=== PATIENT | female | born 1970 | race Two or more races ===

== ENCOUNTER 2016-08-21 12:11 | Emergency (ER) | payer SELFPAY ==
--- NOTE | 2016-08-21 12:32 | ER Document Report ---
ED Medical Screen (RME) - General Stated Complaint: BLOOD SUGAR PROBLEM Notes: patient is a 45 year old female p/w elevated blood sugar last night. admits to dry mouth, urinary frequency, nausea without vomiting for the past week. also admits to cough and shortness of breath that started last week. Denies tkaing steroids for symptoms. type one DM blood sugar at home 315, baseline 140-160 I have greeted and performed a rapid initial assessment of this patient. A comprehensive ED assessment and evaluation of the patient, analysis of test results and completion of the medical decision making process will be conducted by additional ED providers. TRAVEL OUTSIDE OF THE [place] IN LAST 30 DAYS: No - Related Data Allergies/Adverse Reactions: acetaminophen [From Percocet] Allergy (Verified 07/30/15 15:44) celecoxib [From Celebrex] Allergy (Verified 07/30/15 15:44) erythromycin base [Erythromycin Base] Allergy (Verified 07/30/15 15:44) Hives oxycodone HCl [From Percocet] Allergy (Verified 07/30/15 15:44) Past Medical History - Social History Family history: Reviewed & Not Pertinent - Past Medical History Cardiac Medical History: Reports: Hx Hypercholesterolemia, Hx Hypertension Denies: Hx Coronary Artery Disease, Hx Heart Attack Endocrine Medical History: Reports: Hx Diabetes Mellitus Type 1 Skin Medical History: Reports Hx MRSA Psychiatric Medical History: Reports: Hx Depression Infectious Medical History: Reports: Hx MRSA Past Surgical History: Reports: Hx Tonsillectomy, Hx Tubal Ligation - Immunizations Hx Diphtheria, Pertussis, Tetanus Vaccination: Yes
[2016-08-21 12:54] LABS: ABSOLUTE EOSINOPHILS # (AUTO) 0.1 10^3/uL (0.0-0.6); ABSOLUTE LYMPHOCYTES (AUTO) 1.1 10^3/uL (0.5-4.7); ABSOLUTE MONOCYTES (AUTO) 0.5 10^3/uL (0.1-1.4); ABSOLUTE NEUT (AUTO) 2.7 10^3/uL (1.7-8.2); BASOPHILS % (AUTO) 0.8 % (0-2); HEMATOCRIT 35.2 % (36.0-47.0); HEMOGLOBIN 11.1 g/dL (12.0-15.5); HGB HCT DIFFERENCE -1.9; LYMPHOCYTES % (AUTO) 24.4 % (13-45); MEAN CORPUSCULAR HEMOGLOBIN 24.9 pg (27.0-33.4); MEAN CORPUSCULAR HGB CONC 31.5 g/dL (32.0-36.0); MEAN CORPUSCULAR VOLUME 79 fl (80-97); MONOCYTES % (AUTO) 10.9 % (3-13); RED BLOOD COUNT 4.44 10^6/uL (3.72-5.28); SEGMENTED NEUTROPHILS % (AUTO) 60.9 % (42-78); VENOUS BLOOD HCO3 26.4 mmol/L (20-32); VENOUS BLOOD PCO2 44.9 mmHg (35-63); VENOUS BLOOD PH 7.39 (7.30-7.42); WHITE BLOOD COUNT 4.4 10^3/uL (4.0-10.5)
[2016-08-21 13:11] LABS: ALANINE AMINOTRANSFERASE 78 U/L (9-52); ALBUMIN 3.3 g/dL (3.5-5.0); ALKALINE PHOSPHATASE 129 U/L (38-126); ANION GAP 8 (5-19); ASPARTATE AMINO TRANSFERASE 88 U/L (14-36); BILIRUBIN,TOTAL 0.6 mg/dL (0.2-1.3); BLOOD UREA NITROGEN 7 mg/dL (7-20); CALCIUM 8.4 mg/dL (8.4-10.2); CARBON DIOXIDE 27 mmol/L (22-30); CHLORIDE 100 mmol/L (98-107); CREATININE RESULT 0.48 mg/dL (0.52-1.25); GLUCOSE 383 mg/dL (75-110); POTASSIUM 4.3 mmol/L (3.6-5.0); SODIUM 135.2 mmol/L (137-145); TOTAL PROTEIN 7.2 g/dL (6.3-8.2)
[2016-08-21 13:15] LABS: BILIRUBIN,URINE NEGATIVE (NEGATIVE); GLUCOSE, URINE >=500 mg/dL (NEGATIVE); KETONES,URINE NEGATIVE (NEGATIVE); LEUKOCYTE ESTERASE,URINE NEGATIVE (NEGATIVE); NITRITE,URINE NEGATIVE (NEGATIVE); PROTEIN,URINE 30 mg/dL (NEGATIVE); URINE SPECIFIC GRAVITY 1.026; UROBILINOGEN,URINE NEGATIVE mg/dL (<2.0)
[2016-08-21 13:16] LABS: APPEARANCE,URINE CLOUDY
--- NOTE | 2016-08-21 14:10 | ER Document Report ---
ED General - General Chief Complaint: High Blood Sugar Stated Complaint: BLOOD SUGAR PROBLEM Notes: Patient is complaining that her blood sugar has been running high and that she' s had a cough for the past week or so and now has developed severe body aches and headache since Thursday. She says that she's getting up yellow phlegm. Is nauseated but not vomiting. Has had some diarrhea. Feeling very tired. Says that she urinates constantly. Patient is an insulin-dependent diabetic on 55 units of Lantus at bedtime and then on a sliding scale of NovoLog 12-15 units at mealtime. Has not noted any fever, but has had chills. TRAVEL OUTSIDE OF THE [place] IN LAST 30 DAYS: No - Related Data Allergies/Adverse Reactions: acetaminophen [From Percocet] Allergy (Verified 08/21/16 12:29) celecoxib [From Celebrex] Allergy (Verified 08/21/16 12:29) erythromycin base [Erythromycin Base] Allergy (Verified 08/21/16 12:29) Hives oxycodone HCl [From Percocet] Allergy (Verified 08/21/16 12:29) Past Medical History - Social History Smoking Status: Current Some Day Smoker Chew tobacco use (# tins/day): No Frequency of alcohol use: None Drug Abuse: None Family History: Reviewed & Not Pertinent, DM, Malignancy, Other - cirrhosis Patient has suicidal ideation: No Patient has homicidal ideation: No - Past Medical History Cardiac Medical History: Reports: Hx Hypercholesterolemia, Hx Hypertension Endocrine Medical History: Reports: Hx Diabetes Mellitus Type 1 Musculoskeltal Medical History: Reports Other - Neuropathy secondary to diabetes. Skin Medical History: Reports Hx MRSA Psychiatric Medical History: Reports: Hx Depression Infectious Medical History: Reports: Hx MRSA Past Surgical History: Reports: Hx Tonsillectomy, Hx Tubal Ligation - Immunizations Hx Diphtheria, Pertussis, Tetanus Vaccination: Yes Review of Systems - Review of Systems Notes: REVIEW OF SYSTEMS: CONSTITUTIONAL : Denies fever, but experiencing chills. EENT: Denies eye, ear, nose or mouth or throat pain or other symptoms. CARDIOVASCULAR: Denies chest pain. RESPIRATORY: See history of present illness. GASTROINTESTINAL: Denies abdominal pains, but has nausea and diarrhea, but no vomiting. GENITOURINARY: Denies difficulty or painful urinating, urinary frequency, blood in urine. Urinating "constantly". MUSCULOSKELETAL: Denies back or neck pain. Denies joint pain or swelling. SKIN: Denies rash or skin lesions. NEUROLOGICAL: Denies LOC or altered mental status. Denies headache. Denies sensory loss or motor deficits. ALL OTHER SYSTEMS REVIEWED AND NEGATIVE. Physical Exam - Vital signs Vitals: Temp Pulse Resp BP Pulse Ox 98.0 F 97 16 133/91 H 100 08/21/16 12:30 08/21/16 12:30 08/21/16 12:30 08/21/16 12:30 08/21/16 12:30 Interpretation: Normal - Notes Notes: PHYSICAL EXAMINATION: GENERAL: Well-appearing, in no acute distress. Vital signs are all normal. O2 sat 100%. HEAD: Atraumatic, normocephalic. Sounds nasally congested. NECK: Normal range of motion, supple. LUNGS: Breath sounds clear and equal bilaterally. No rhonchi and no wheezes heard. HEART: Regular rate and rhythm without murmurs. No tachycardia. ABDOMEN: Soft, nontender. No guarding or rebound. No masses felt. No bruits heard. BACK: No tenderness throughout entire back. EXTREMITIES: Normal range of motion without pain. NEUROLOGICAL: Normal speech, normal gait. Normal sensory, motor, and reflex exams. Awake, alert, and oriented x3. Cranial nerves normal. SKIN: Warm, dry, no rashes. Course - Re-evaluation Re-evalutation: 08/21/16 14:10 Blood sugar in the 380s here. Patient looks well and sounds as if she has a viral upper respiratory infection area I don't think she requires an antibiotic as her chest x-ray was negative and her lungs are clear and her white cell count is just 4000. - Vital Signs Vital signs: Temp Pulse Resp BP Pulse Ox 98.0 F 97 16 133/91 H 100 08/21/16 12:30 08/21/16 12:30 08/21/16 12:30 08/21/16 12:30 08/21/16 12:30 - Laboratory Result Diagrams: 08/21/16 12:35 08/21/16 12:35 Laboratory results interpreted by me: 08/21/16 08/21/16 08/21/16 12:35 12:35 12:40 Hgb 11.1 L Hct 35.2 L MCV 79 L MCH 24.9 L MCHC 31.5 L RDW 17.0 H Plt Count 138 L Sodium 135.2 L Creatinine 0.48 L Glucose 383 H POC Glucose AST 88 H ALT 78 H Alkaline Phosphatase 129 H Albumin 3.3 L Urine Protein 30 H Urine Glucose (UA) >=500 H Urine Blood LARGE H 08/21/16 12:42 Hgb Hct MCV MCH MCHC RDW Plt Count Sodium Creatinine Glucose POC Glucose 364 H AST ALT Alkaline Phosphatase Albumin Urine Protein Urine Glucose (UA) Urine Blood - Diagnostic Test Radiology results interpreted by me: 08/21/16 14:10 Chest x-ray is normal. Discharge - Discharge Clinical Impression: Hyperglycemia, Viral illness Upper respiratory infection Qualifiers: URI type: unspecified viral URI Qualified Code(s): J06.9 - Acute upper respiratory infection, unspecified; B97.89 - Other viral agents as the cause of diseases classified elsewhere Condition: Stable Disposition: HOME, SELF-CARE Additional Instructions: UPPER RESPIRATORY ILLNESS: You have a viral infection of the respiratory passages -- a "cold." This common infection causes nasal congestion, drainage, and often sore throat and cough. It is highly contagious. The disease usually lasts about 10 to 14 days. There is no "cure" for the viral infection -- it must run its course. If there is a complication, such as bacterial infection in the nose, sinuses, middle ear, or bronchial tubes, antibiotics may be required. The antibiotics won't affect the virus. Drink plenty of fluids. A humidifier may help. An expectorant medication or decongestant may make you more comfortable. Use acetaminophen or ibuprofen for fever or aches. See the doctor if fever persists over two days, if there is any significant worsening of your symptoms, or if you simply fail to improve as expected. Viral Syndrome The physician has diagnosed a viral infection. Viruses not only cause "colds," but can cause many different symptoms including generalized aching, fever, headache, cough, diarrhea, nausea, vomiting, and fatigue. The treatment, for the most part, is simply relief of symptoms. This means that antibiotics are usually not given. Rest, fluids, pain medications and, occasionally, medication for the specific symptoms that are most bothersome will be prescribed. Use good handwashing to avoid passing the virus to others. Shared toys should be cleaned with disinfectant. Clean the toilets, sinks, and counter surfaces in bathrooms. Launder clothing in hot water. Contact the physician if you develop any new or unusual symptoms such as severe headache, stiff neck, high fever, chest pain, productive cough, or shortness of breath. You should be rechecked if you don't see marked improvement within seven to 10 days. SMOKING: If you smoke, you should stop smoking. The tar and chemicals in cigarette smoke are harmful. Smoking has been shown to cause: emphysema chronic bronchitis lung cancer mouth and throat cancer stomach and pancreas cancer premature aging defects In addition, smoking increases ear and lung infections in children of smokers. HYPERGLYCEMIA (HIGH BLOOD SUGAR): You have an abnormally high blood sugar. Not all high blood sugar requires long-term treatment. High blood sugar can be due to medications, , or the stress of illness. (These cases are "borderline diabetes.") If the doctor feels your high blood sugar might resolve with time, you may not require treatment now. It's very important that you follow through, to see if the blood sugar returns to normal levels. Uncontrolled high blood sugar leads to early heart disease, strokes, nerve damage, eye damage, and kidney damage. Call the physician if there is faintness, excess sleepiness, or very rapid breathing. INSULIN: Insulin is a natural hormone that lowers blood sugar. Normal blood sugar prevents complications of diabetes. For most diabetics, insulin is the best way to treat the illness. Be sure you know how to measure the insulin correctly. Insulin is measured in "units." There are three types of insulin: N (NPH or long acting), R (regular or short acting), and L (Lente or very long acting). Be sure you are using the right amount of each type. Insulin must be injected into the fat. You can use the abdomen, upper arms , and thighs. Select a different injection site every time. Wipe the site with alcohol before injecting. When first starting insulin, some adjusting of the insulin dose is necessary. Keep a record of each insulin dose and time of injection, and of the blood sugar and the time you test it. Sometimes insulin can make the blood sugar too low. If you become dizzy, sweaty, shaky, or confused, you may be having a hypoglycemic episode. Immediately use juice or some other sweet food. Call the doctor if the symptoms don't go away. Increase your Lantus insulin to 60 units at bedtime for the next few days until you are feeling better and then you can begin to decrease the Lantus back to its current 55 units at bedtime. Continue with your sliding scale as you have been doing. Antinausea Medication You have been given a medication to suppress nausea and vomiting. This type of medication can be given as a shot, pill, or suppository. It will usually last for many hours. Pills and shots usually last six to eight hours, suppositories last about 12 hours. For the typical illness, only one or two doses of the medication may be necessary. Mild lightheadedness may occur. This type of medicine can cause drowsiness. Do not drive or operate dangerous machinery while under its influence. Do not mix with alcohol. See your doctor at once if you have muscle spasms or tightness, or uncontrollable motions (particularly of the neck, mouth, or jaw). Persistent vomiting or severe lightheadedness should also be evaluated by the physician. Oral Narcotic Medication You have been given a prescription for pain control. This medication is a narcotic. It's best taken with food, as nausea can result if taken on an empty stomach. Don't operate machinery or drive within six hours of taking this medication. Do not combine this medicine with alcohol, or with any medication which can cause sedation (such as cold tablets or sleeping pills) unless you get permission from the physician. Narcotics tend to cause constipation. If possible, drink plenty of fluids and eat a diet high in fiber and fruits. FOLLOW-UP CARE: If you have been referred to a physician for follow-up care, call the physician s office for an appointment as you were instructed or within the next two days. If you experience worsening or a significant change in your symptoms, notify the physician immediately or return to the Emergency Department at any time for re-evaluation. Prescriptions: Hydromorphone HCl [Dilaudid 2 mg Tablet] 2 mg PO Q4HP PRN #12 tablet PRN Reason: Promethazine HCl [Phenergan 25 mg Tablet] 1 - 2 tab PO Q6H PRN #15 tablet PRN Reason: Forms: Return to Work
[2016-08-21 14:26] VITALS: BP 130/80
== END 2016-08-21 14:26 | disposition home or self-care (01) ==
LOC: ER 12:11
DX: J06.9 Acute upper respiratory infection, unspecified (principal); B97.89 Other viral agents as the cause of diseases classified elsewhere; E10.65 Type 1 diabetes mellitus with hyperglycemia; F17.200 Nicotine dependence, unspecified, uncomplicated; Z79.4 Long term (current) use of insulin; E78.00 Pure hypercholesterolemia, unspecified; I10 Essential (primary) hypertension; Z86.14 Personal history of Methicillin resistant Staphylococcus aureus infection; Z98.51 Tubal ligation status; Z88.6 Allergy status to analgesic agent; Z88.3 Allergy status to other anti-infective agents
CPT/HCPCS: 36415; 71020; 80053; 81001; 82803; 82962; 85025; 99283

== ENCOUNTER 2016-10-04 15:17 | Emergency (ER) | payer SELFPAY ==
--- NOTE | 2016-10-04 15:24 | ER Document Report ---
ED Medical Screen (RME) - General Stated Complaint: BACK PAIN Mode of Arrival: Ambulatory Information source: Patient Notes: Patient presents with back pain for a week and right groin cysts for one week or so and left lower leg irritation for two weeks. She also reports vomiting for the last three days. Pt is DM1. Reports hx of MRSA. Reports burn with void, needs to push her abdomen to urinate. C/O left flank pain ttp. I have greeted and performed a rapid initial assessment of this patient. A comprehensive ED assessment and evaluation of the patient, analysis of test results and completion of the medical decision making process will be conducted by additional ED providers. TRAVEL OUTSIDE OF THE [place] IN LAST 30 DAYS: No - Related Data Allergies/Adverse Reactions: acetaminophen [From Percocet] Allergy (Verified 08/21/16 12:29) celecoxib [From Celebrex] Allergy (Verified 08/21/16 12:29) erythromycin base [Erythromycin Base] Allergy (Verified 08/21/16 12:29) Hives oxycodone HCl [From Percocet] Allergy (Verified 08/21/16 12:29) Past Medical History - Social History Family history: Reviewed & Not Pertinent - Past Medical History Cardiac Medical History: Reports: Hx Hypercholesterolemia, Hx Hypertension Denies: Hx Coronary Artery Disease, Hx Heart Attack Endocrine Medical History: Reports: Hx Diabetes Mellitus Type 1 Renal/ Medical History: Denies: Hx Peritoneal Dialysis Skin Medical History: Reports Hx MRSA Psychiatric Medical History: Reports: Hx Depression Infectious Medical History: Reports: Hx MRSA Past Surgical History: Reports: Hx Tonsillectomy, Hx Tubal Ligation - Immunizations Hx Diphtheria, Pertussis, Tetanus Vaccination: Yes
[2016-10-04 16:06] LABS: ABSOLUTE EOSINOPHILS # (AUTO) 0.1 10^3/uL (0.0-0.6); ABSOLUTE LYMPHOCYTES (AUTO) 0.9 10^3/uL (0.5-4.7); ABSOLUTE MONOCYTES (AUTO) 0.5 10^3/uL (0.1-1.4); ABSOLUTE NEUT (AUTO) 2.5 10^3/uL (1.7-8.2); BASOPHILS % (AUTO) 0.7 % (0-2); EOSINOPHILS % (AUTO) 3.3 % (0-6); HEMATOCRIT 32.8 % (36.0-47.0); HEMOGLOBIN 10.2 g/dL (12.0-15.5); HGB HCT DIFFERENCE -2.2; LYMPHOCYTES % (AUTO) 23.2 % (13-45); MEAN CORPUSCULAR HEMOGLOBIN 24.2 pg (27.0-33.4); MEAN CORPUSCULAR HGB CONC 31.1 g/dL (32.0-36.0); MEAN CORPUSCULAR VOLUME 78 fl (80-97); MONOCYTES % (AUTO) 12.4 % (3-13); RED BLOOD COUNT 4.21 10^6/uL (3.72-5.28); RED CELL DISTRIBUTION WIDTH 17.1 % (11.5-14.0); SEGMENTED NEUTROPHILS % (AUTO) 60.4 % (42-78); WHITE BLOOD COUNT 4.1 10^3/uL (4.0-10.5)
[2016-10-04 16:11] LABS: APPEARANCE,URINE CLOUDY; BILIRUBIN,URINE NEGATIVE (NEGATIVE); GLUCOSE, URINE >=500 mg/dL (NEGATIVE); KETONES,URINE NEGATIVE (NEGATIVE); LEUKOCYTE ESTERASE,URINE LARGE (NEGATIVE); NITRITE,URINE NEGATIVE (NEGATIVE); PROTEIN,URINE NEGATIVE (NEGATIVE); URINE SPECIFIC GRAVITY 1.033; UROBILINOGEN,URINE NEGATIVE mg/dL (<2.0)
[2016-10-04 16:21] LABS: ALANINE AMINOTRANSFERASE 77 U/L (9-52); ALBUMIN 3.8 g/dL (3.5-5.0); ALKALINE PHOSPHATASE 150 U/L (38-126); ANION GAP 13 (5-19); ASPARTATE AMINO TRANSFERASE 150 U/L (14-36); BILIRUBIN,DIRECT 0.4 mg/dL (0.0-0.4); BILIRUBIN,TOTAL 0.7 mg/dL (0.2-1.3); BLOOD UREA NITROGEN 9 mg/dL (7-20); CALCIUM 8.9 mg/dL (8.4-10.2); CARBON DIOXIDE 24 mmol/L (22-30); CHLORIDE 99 mmol/L (98-107); CREATININE RESULT 0.53 mg/dL (0.52-1.25); POTASSIUM 4.4 mmol/L (3.6-5.0); SODIUM 135.6 mmol/L (137-145); TOTAL PROTEIN 7.3 g/dL (6.3-8.2)
[2016-10-04] MEDS ORDERED: NORMAL SALINE 1000 ML 1,000 ML IV ONE ×2 (16:21→17:47)
[2016-10-04 16:29] LABS: GLUCOSE 438 mg/dL (75-110)
[2016-10-04] MEDS ORDERED: LIDOCAINE 1% INJ-PF (10 MG/ML) 30 ML SDV ONE (16:44)
--- NOTE | 2016-10-04 17:36 | ER Document Report ---
ED General - General Mode of Arrival: Ambulatory Information source: Patient TRAVEL OUTSIDE OF THE [place] IN LAST 30 DAYS: No - HPI Patient complains to provider of: possible abscess Associated symptoms: Other - See above <PORFIRIO EARLY - Last Filed: 10/04/16 19:31> <BALBINA BUNN - Last Filed: 10/04/16 22:27> - General Chief Complaint: Abscess Stated Complaint: possible abscess Notes: Patient is a 45 year old female, with a past medical history including diabetes , who presents to the emergency department complaining of a possible abscess in her right groin. Patient states that the "abscess" is very painful and she feels like the pain is coming from the inside. Patient also complains of a rash on her left calf that garcia, vomiting, vaginal discharge, left sided pain and abdominal pain. Patient denies cough, diarrhea, and ulcers. Patient states she has not eaten anything today. (PORFIRIO EARLY) - Related Data Allergies/Adverse Reactions: acetaminophen [From Percocet] Allergy (Verified 10/04/16 15:23) celecoxib [From Celebrex] Allergy (Verified 10/04/16 15:23) erythromycin base [Erythromycin Base] Allergy (Verified 10/04/16 15:23) Hives oxycodone HCl [From Percocet] Allergy (Verified 10/04/16 15:23) Past Medical History - General Information source: Patient - Social History Smoking Status: Current Every Day Smoker Chew tobacco use (# tins/day): No Frequency of alcohol use: None Drug Abuse: None Family History: Reviewed & Not Pertinent, DM, Malignancy, Other - cirrhosis - Past Medical History Cardiac Medical History: Reports: Hx Hypercholesterolemia, Hx Hypertension Endocrine Medical History: Reports: Hx Diabetes Mellitus Type 1 Skin Medical History: Reports Hx MRSA Psychiatric Medical History: Reports: Hx Depression Infectious Medical History: Reports: Hx MRSA Past Surgical History: Reports: Hx Tonsillectomy, Hx Tubal Ligation - Immunizations Hx Diphtheria, Pertussis, Tetanus Vaccination: Yes <PORFIRIO EARLY - Last Filed: 10/04/16 19:31> Review of Systems - Review of Systems Constitutional: No symptoms reported EENT: No symptoms reported Cardiovascular: No symptoms reported Respiratory: denies: Cough Gastrointestinal: See HPI, Abdominal pain, Vomiting. denies: Diarrhea, Nausea Genitourinary: See HPI, Flank pain Female Genitourinary: See HPI, Vaginal discharge Musculoskeletal: No symptoms reported Skin: See HPI, Lesions - abscess, Rash Hematologic/Lymphatic: No symptoms reported Neurological/Psychological: No symptoms reported -: Yes All other systems reviewed and negative <PORFIRIO EARLY - Last Filed: 10/04/16 19:31> Physical Exam <PORFIRIO EARLY - Last Filed: 10/04/16 19:31> - Vital signs Interpretation: Normal - General General appearance: Appears well, Alert - HEENT Head: Normocephalic, Atraumatic Eyes: Normal Pupils: PERRL - Respiratory Respiratory status: No respiratory distress Chest status: Nontender Breath sounds: Normal Chest palpation: Normal - Cardiovascular Rhythm: Regular Heart sounds: Normal auscultation Murmur: No - Abdominal Inspection: Normal Distension: No distension Bowel sounds: Normal Tenderness: Tender - Mild left upper quadrant. No: Guarding, Rebound Organomegaly: No organomegaly - Genitourinary External exam: Normal Bimanuel exam: Normal - Back Back: Normal, Nontender - Extremities General upper extremity: Normal inspection, Nontender, Normal color, Normal ROM , Normal temperature General lower extremity: Normal inspection, Nontender, Normal color, Normal ROM , Normal temperature, Normal weight bearing. No: Vee's sign - Neurological Neuro grossly intact: Yes Cognition: Normal Orientation: AAOx4 [place] Coma Scale Eye Opening: Spontaneous [place] Coma Scale Verbal: Oriented [place] Coma Scale Motor: Obeys Commands [place] Coma Scale Total: 15 Speech: Normal Motor strength normal: LUE, RUE, LLE, RLE Sensory: Normal - Psychological Associated symptoms: Normal affect, Normal mood - Skin Skin Temperature: Warm Skin Moisture: Dry Skin Color: Normal <BALBINA BUNN - Last Filed: 10/04/16 22:27> - Vital signs Vitals: Temp Pulse Resp BP Pulse Ox 98.4 F 113 H 18 136/88 H 100 10/04/16 15:22 10/04/16 15:22 10/04/16 15:22 10/04/16 15:22 10/04/16 15:22 - Genitourinary Notes: Lymph node in right inguinal area. Mild tenderness to palpation. No fluctuance or induration (BALBINA BUNN) Course - Laboratory Result Diagrams: 10/04/16 15:35 10/04/16 15:35 - Consults Dr. Espinosa Time consulted: 17:46 <PORFIRIO EARLY - Last Filed: 10/04/16 19:31> - Laboratory Result Diagrams: 10/04/16 15:35 10/04/16 15:35 <BALBINA BUNN - Last Filed: 10/04/16 22:27> - Re-evaluation Re-evalutation: 10/04/16 Patient's comes in with some left upper quadrant pain and vomiting. Patient given fluids. Hyper glycemia on blood work which is resolving after fluids. Patient feels better after Zofran and Bentyl. Area in her groin does not look like an abscess but rather an enlarged lymph node. I spoken to Dr. Espinosa, her primary care doctor. Patient is generally noncompliant with medications and her blood sugar often runs in the 300s. Patient appears well otherwise. She can follow-up in the office with him on Thursday. Patient feels better and would like to go home. Stable for discharge. (BALBINA BUNN) - Vital Signs Vital signs: Temp Pulse Resp BP Pulse Ox 98.4 F 87 16 148/85 H 97 10/04/16 15:22 10/04/16 19:31 10/04/16 19:31 10/04/16 19:31 10/04/16 19:31 - Laboratory Laboratory results interpreted by me: 10/04/16 10/04/16 10/04/16 15:31 15:35 15:35 Hgb 10.2 L Hct 32.8 L MCV 78 L MCH 24.2 L MCHC 31.1 L RDW 17.1 H Plt Count 144 L Sodium 135.6 L Glucose 438 H* POC Glucose 427 H* AST 150 H ALT 77 H Alkaline Phosphatase 150 H Urine Glucose (UA) Urine Blood Ur Leukocyte Esterase 10/04/16 10/04/16 15:40 17:33 Hgb Hct MCV MCH MCHC RDW Plt Count Sodium Glucose POC Glucose 289 H AST ALT Alkaline Phosphatase Urine Glucose (UA) >=500 H Urine Blood LARGE H Ur Leukocyte Esterase LARGE H - Consults Dr. Espinosa Reason for consultation: 10/04/16 19:35 Discussed patient history, told that patient is generally noncompliant with her medications. Dr. Espinosa suggested patient follow up on Thursday. (PORFIRIO EARLY) Discharge <PORFIRIO EARLY - Last Filed: 10/04/16 19:31> <BALBINA BUNN - Last Filed: 10/04/16 22:27> - Discharge Clinical Impression: Inguinal lymphadenopathy Type 2 diabetes mellitus Qualifiers: Diabetes mellitus complication status: with hyperglycemia Diabetes mellitus middle or intermediate school principal insulin use: without [facility] use Qualified Code(s): E11.65 - Type 2 diabetes mellitus with hyperglycemia Type 2 diabetes mellitus with hyperglycemia Qualifiers: Diabetes mellitus [facility] insulin use: without middle or intermediate school principal use Qualified Code(s ): E11.65 - Type 2 diabetes mellitus with hyperglycemia Condition: Stable Disposition: HOME, SELF-CARE Instructions: Hyperglycemia ([facility]), Vomiting ([facility]) Forms: Return to Work Referrals: VIVEK ESPINOSA MD [Primary Care Provider] - 10/06/16 Scribe Attestation: 10/04/16 22:27 I personally performed the services described in the documentation, reviewed and edited the documentation which was dictated to the scribe in my presence, and it accurately records my words and actions. (BALBINA BUNN) Scribe Documentation - Scribe Written by Steph:: steph Singer, 10/04/16, 1938 acting as scribe for :: Petr <PORFIRIO EARLY - Last Filed: 10/04/16 19:31>
[2016-10-04] MEDS ORDERED: SUCRALFATE 1 GM TABLET PO ONE (17:41)
[2016-10-04] MEDS ORDERED: PANTOPRAZOLE SODIUM 40 MG VIAL IV ONE (17:41)
[2016-10-04] MEDS ORDERED: ONDANSETRON HCL INJ/PF 4 MG/2 ML SDV IV ONE (17:47)
[2016-10-04] MEDS ORDERED: DICYCLOMINE HCL 20 MG TABLET PO ONE (18:50)
[2016-10-04 19:33] VITALS: BP 148/85
== END 2016-10-04 20:42 | disposition home or self-care (01) ==
LOC: ER 15:17
DX: E11.65 Type 2 diabetes mellitus with hyperglycemia (principal); R59.1 Generalized enlarged lymph nodes; L02.214 Cutaneous abscess of groin; R21 Rash and other nonspecific skin eruption; F17.200 Nicotine dependence, unspecified, uncomplicated; M79.605 Pain in left leg; R11.10 Vomiting, unspecified; N89.8 Other specified noninflammatory disorders of vagina; R10.9 Unspecified abdominal pain
CPT/HCPCS: 99283; 96361; 96374; 96375; 36415; 87086; 82962; 85025; 87088; 80053; 81001; J3490; S0164; J2405; J7030

== ENCOUNTER 2016-10-25 16:20 | Emergency (ER) | payer SELFPAY ==
[2016-10-25] MEDS ORDERED: NORMAL SALINE 1000 ML 1,000 ML IV ONE ×2 (16:42→20:27)
[2016-10-25] MEDS ORDERED: CIPROFLOXACIN 400 MG/D5W RTU 200 ML IV ONE (16:48)
[2016-10-25] MEDS ORDERED: ONDANSETRON HCL INJ/PF 4 MG/2 ML SDV IV ONE (16:48)
--- NOTE | 2016-10-25 16:48 | ER Document Report ---
ED General - General Mode of Arrival: Ambulatory Information source: Patient TRAVEL OUTSIDE OF THE [place] IN LAST 30 DAYS: No - HPI Onset: Other - ear pain x2 days Onset/Duration: Persistent Quality of pain: Achy Associated symptoms: Other - see narrative Similar symptoms previously: Yes Recently seen / treated by doctor: Yes <LEXIS GRAFF - Last Filed: 10/25/16 20:01> <BALBINA BUNN - Last Filed: 10/25/16 23:17> - General Chief Complaint: High Blood Sugar Stated Complaint: SUGAR ISSUES Notes: Patient is an insulin-dependent 45-year-old female that presents to the emergency department today with multiple generalized complaints including left ear pain, low back pain, and uncontrolled glucose levels. Patient states that yesterday she went to an urgent care and was found to have a BGL of 596. Patient states yesterday she did not have the money for treatment, she signed out AMA from the urgent care. Patient states she has had associated nausea, shortness of breath, and a fever yesterday. Patient denies any vomiting. (LEXIS GRAFF) - Related Data Allergies/Adverse Reactions: acetaminophen [From Percocet] Allergy (Verified 10/04/16 15:23) celecoxib [From Celebrex] Allergy (Verified 10/04/16 15:23) erythromycin base [Erythromycin Base] Allergy (Verified 10/04/16 15:23) Hives oxycodone HCl [From Percocet] Allergy (Verified 10/04/16 15:23) Past Medical History - General Information source: Patient, [facility] Records - Social History Smoking Status: Current Every Day Smoker Cigarette use (# per day): Yes Frequency of alcohol use: Social Drug Abuse: None Family History: Reviewed & Not Pertinent, DM, Malignancy, Other - cirrhosis - Past Medical History Cardiac Medical History: Reports: Hx Hypercholesterolemia, Hx Hypertension Endocrine Medical History: Reports: Hx Diabetes Mellitus Type 1 Skin Medical History: Reports Hx MRSA Psychiatric Medical History: Reports: Hx Depression Infectious Medical History: Reports: Hx MRSA Past Surgical History: Reports: Hx Tonsillectomy, Hx Tubal Ligation - Immunizations Hx Diphtheria, Pertussis, Tetanus Vaccination: Yes <LEXIS GRAFF - Last Filed: 10/25/16 20:01> Review of Systems - Review of Systems Constitutional: See HPI, Fever, Other - elevated BGL EENT: See HPI, Ear pain - left ear Cardiovascular: No symptoms reported Respiratory: See HPI, Short of breath Gastrointestinal: See HPI, Nausea. denies: Vomiting Genitourinary: No symptoms reported Female Genitourinary: No symptoms reported Musculoskeletal: See HPI, Back pain - lower Skin: No symptoms reported Hematologic/Lymphatic: No symptoms reported Neurological/Psychological: No symptoms reported -: Yes All other systems reviewed and negative <LEXIS GRAFF - Last Filed: 10/25/16 20:01> Course - Laboratory Result Diagrams: 10/25/16 16:15 10/25/16 16:15 <LEXIS GRAFF - Last Filed: 10/25/16 20:01> - Laboratory Result Diagrams: 10/25/16 16:15 10/25/16 16:15 <BALBINA BUNN - Last Filed: 10/25/16 23:17> - Re-evaluation Re-evalutation: 10/25/16 18:30 Patient is a 45-year-old female who comes in complaining of ear pain, face pain , lymph node swelling, cough. Patient also is a type II diabetic with hyperglycemia. Patient uses insulin sliding felt home. Patient will be given fluids, antibiotics, pain medication here in the emergency department. Patient states her symptoms started 2 days ago and she has not been taking antibiotics because she cannot afford them until Thursday. 10/25/16 21:13 Patient feels better after fluids and pain medication. Blood sugars trending down. Patient is still complaining about pain. No acute findings on blood work. Patient states that there is fluid and blood coming from her ear. And now she has a tympanic membrane rupture with pus draining from her ear. Wound culture sent. 10/25/16 22:00 Patient given pain medication and dexamethasone. Explained that this can make her sugar rises but states that she will control with insulin at home. 10/25/16 23:13 Patient feels better at this time. She is afebrile. Vitals are stable. Wheezing is cleared. Patient will be given a dose of Rocephin here which should last for 24 hours. Patient will also be given one dose of Augmentin to take at home tomorrow night and so she can get her prescription on Thursday. Patient will also be given Ciprodex due to tympanic membranes rupture. Patient is comfortable going home and will return if she feels any worse. Stable for discharge. (BALBINA BUNN) - Vital Signs Vital signs: Temp Pulse Resp BP Pulse Ox 98.6 F 108 H 24 H 160/77 H 99 10/25/16 16:22 10/25/16 16:22 10/25/16 22:01 10/25/16 22:00 10/25/16 21:59 - Laboratory Laboratory results interpreted by me: 10/25/16 10/25/16 10/25/16 16:15 16:15 16:27 Hgb 11.4 L Hct 35.8 L MCV 76 L MCH 24.2 L MCHC 31.8 L RDW 17.6 H Plt Count 117 L Sodium 136.4 L Creatinine 0.43 L Glucose 365 H POC Glucose 386 H Urine Glucose (UA) 10/25/16 10/25/16 19:15 19:58 Hgb Hct MCV MCH MCHC RDW Plt Count Sodium Creatinine Glucose POC Glucose 263 H Urine Glucose (UA) >=500 H Discharge <LEXIS GRAFF - Last Filed: 10/25/16 20:01> <BALBINA BUNN - Last Filed: 10/25/16 23:17> - Discharge Clinical Impression: Otitis media Qualifiers: Otitis media type: suppurative Laterality: left Chronicity: acute Recurrence: not specified as recurrent Spontaneous tympanic membrane rupture: with spontaneous rupture Qualified Code(s): H66.012 - Acute suppurative otitis media with spontaneous rupture of ear drum, left ear Type 2 diabetes mellitus with hyperglycemia Qualifiers: Diabetes mellitus half-way insulin use: with half-way use Qualified Code(s): E11.65 - Type 2 diabetes mellitus with hyperglycemia; 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 Condition: Stable Disposition: HOME, SELF-CARE Instructions: Serous Otitis Media ([facility]), Bronchitis With Bronchospasm (Wheezing ) ([facility]) Prescriptions: Amox Tr/Potassium Clavulanate [Augmentin 875-125 Tablet] 1 tab PO BID 10 Days Oxycodone HCl/Acetaminophen [Percocet 5-325 mg Tablet] 1 - 2 tab PO ASDIR PRN # 25 tablet PRN Reason: Referrals: VIVEK FOUNTAIN MD [Primary Care Provider] - 10/27/16 Scribe Attestation: 10/25/16 23:16 I personally performed the services described in the documentation, reviewed and edited the documentation which was dictated to the scribe in my presence, and it accurately records my words and actions. (BALBINA BUNN) Scribe Documentation - Scribe Written by Scrmahad:: Tyesha Fernández, 10/25/2016 1743 acting as scribe for :: Petr <LEXIS GRAFF - Last Filed: 10/25/16 20:01>
[2016-10-25] MEDS ORDERED: MORPHINE SULFATE 10 MG/ML INJ IV ONE ×2 (16:49→20:02)
[2016-10-25 17:47] LABS: ABSOLUTE EOSINOPHILS # (AUTO) 0.1 10^3/uL (0.0-0.6); ABSOLUTE MONOCYTES (AUTO) 0.6 10^3/uL (0.1-1.4); ABSOLUTE NEUT (AUTO) 5.6 10^3/uL (1.7-8.2); BASOPHILS % (AUTO) 0.2 % (0-2); HEMATOCRIT 35.8 % (36.0-47.0); HEMOGLOBIN 11.4 g/dL (12.0-15.5); HGB HCT DIFFERENCE -1.6; LYMPHOCYTES % (AUTO) 13.2 % (13-45); MEAN CORPUSCULAR HEMOGLOBIN 24.2 pg (27.0-33.4); MEAN CORPUSCULAR HGB CONC 31.8 g/dL (32.0-36.0); MEAN CORPUSCULAR VOLUME 76 fl (80-97); MONOCYTES % (AUTO) 8.3 % (3-13); RED CELL DISTRIBUTION WIDTH 17.6 % (11.5-14.0); SEGMENTED NEUTROPHILS % (AUTO) 77.3 % (42-78); WHITE BLOOD COUNT 7.3 10^3/uL (4.0-10.5)
[2016-10-25 18:05] LABS: ANION GAP 15 (5-19); BLOOD UREA NITROGEN 8 mg/dL (7-20); CALCIUM 9.3 mg/dL (8.4-10.2); CARBON DIOXIDE 23 mmol/L (22-30); CHLORIDE 98 mmol/L (98-107); CREATININE RESULT 0.43 mg/dL (0.52-1.25); GLUCOSE 365 mg/dL (75-110); POTASSIUM 4.6 mmol/L (3.6-5.0); SODIUM 136.4 mmol/L (137-145)
[2016-10-25 20:42] LABS: APPEARANCE,URINE CLEAR; BILIRUBIN,URINE NEGATIVE (NEGATIVE); GLUCOSE, URINE >=500 mg/dL (NEGATIVE); KETONES,URINE NEGATIVE (NEGATIVE); LEUKOCYTE ESTERASE,URINE NEGATIVE (NEGATIVE); NITRITE,URINE NEGATIVE (NEGATIVE); PROTEIN,URINE NEGATIVE (NEGATIVE); URINE SPECIFIC GRAVITY 1.025; UROBILINOGEN,URINE NEGATIVE mg/dL (<2.0)
[2016-10-25] MEDS ORDERED: DEXAMETHASONE SOD PHOS INJ 10 MG/1 ML VIAL IV ONE (21:54)
[2016-10-25] MEDS ORDERED: IPRATROPIUM/ALBUTEROL 0.5-2.5 MG/3 ML AMPUL NEB ONE (21:58)
[2016-10-25] MEDS ORDERED: LIDOCAINE 1% INJ-PF (10 MG/ML) 30 ML SDV INJ ONE (22:50)
[2016-10-25] MEDS ORDERED: CEFTRIAXONE INJ 1000 MG VIAL IM ONE (22:50)
[2016-10-25] MEDS ORDERED: ALBUTEROL SULFATE HFA (90 MCG/PUFF) 8 GM MDI (1 MDI/ER DISP) IH ONE (22:50)
[2016-10-25] MEDS ORDERED: AMOXICILLIN TR/POT CLAVULANATE 500-125 MG TAB PO ONE (22:51)
[2016-10-25] MEDS ORDERED: HYDROCODONE/ACETAMINOPHEN 5-325 MG 6 TAB/DSPK PO PRN (22:53)
[2016-10-25] MEDS ORDERED: CIPROFLOXACIN HCL/DEXAMETH OTIC DROP 7.5 ML AS ONE (23:16)
[2016-10-26 00:22] VITALS: BP 132/58
== END 2016-10-25 23:15 | disposition home or self-care (01) ==
LOC: ER 16:20
DX: H66.012 Acute suppurative otitis media with spontaneous rupture of ear drum, left ear (principal); E11.65 Type 2 diabetes mellitus with hyperglycemia; M54.5 Low back pain; R11.0 Nausea; R06.02 Shortness of breath; R50.9 Fever, unspecified; F17.210 Nicotine dependence, cigarettes, uncomplicated
CPT/HCPCS: 96376; 94640; 99283; 96372; 96375; 96365; 36415; 87205; 87070; 82962; 85025; 81025; 87077; 80048; 81001; 87186; J3490 ×3; J2270; J0696; J2405; J7030; J0744; J1100; J7620; 87075

== ENCOUNTER 2016-10-27 13:48 | Emergency (ER) | payer SELFPAY ==
[2016-10-27] MEDS ORDERED: CEFTRIAXONE 1 GM/D5W RTU 50 ML IV ONE (14:36)
[2016-10-27] MEDS ORDERED: NORMAL SALINE 1000 ML 1,000 ML IV ONE (14:36)
[2016-10-27] MEDS ORDERED: IPRATROPIUM/ALBUTEROL 0.5-2.5 MG/3 ML AMPUL NEB ONE (14:37)
[2016-10-27] MEDS ORDERED: ONDANSETRON 4 MG TAB.RAPDIS PO ONE (14:37)
[2016-10-27] MEDS ORDERED: FENTANYL CITRATE INJ/PF 100 MCG/2 ML AMPUL IV ONE (14:38)
--- NOTE | 2016-10-27 14:42 | ER Document Report ---
ED Medical Screen (RME) - General Chief Complaint: High Blood Sugar Stated Complaint: FACIAL SWELLING,EAR PAIN,COUGH Notes: This 45-year-old female diabetic comes in complaining of elevated blood sugars, trouble breathing cough congestion, blurred vision chest pain. Her left ear is hurting and left facial swelling and hurting. She also has increased thirst. She was seen here Thursday evening wheezing congested and had a left TM perforation which grew strep pneumonia. On exam today there is wheezing rhonchi, left submandibular gland swelling tenderness extending up into the parotid region. I have greeted and performed a rapid initial assessment of this patient. A comprehensive ED assessment and evaluation of the patient, analysis of test results and completion of the medical decision making process will be conducted by additional ED providers. TRAVEL OUTSIDE OF THE [place] IN LAST 30 DAYS: No - Related Data Allergies/Adverse Reactions: acetaminophen [From Percocet] Allergy (Verified 10/27/16 14:18) celecoxib [From Celebrex] Allergy (Verified 10/27/16 14:18) erythromycin base [Erythromycin Base] Allergy (Verified 10/27/16 14:18) Hives oxycodone HCl [From Percocet] Allergy (Verified 10/27/16 14:18) Past Medical History - Social History Family history: Reviewed & Not Pertinent - Past Medical History Cardiac Medical History: Reports: Hx Hypercholesterolemia, Hx Hypertension Denies: Hx Coronary Artery Disease, Hx Heart Attack Endocrine Medical History: Reports: Hx Diabetes Mellitus Type 1 Renal/ Medical History: Denies: Hx Peritoneal Dialysis Skin Medical History: Reports Hx MRSA Psychiatric Medical History: Reports: Hx Depression Infectious Medical History: Reports: Hx MRSA Past Surgical History: Reports: Hx Tonsillectomy, Hx Tubal Ligation - Immunizations Hx Diphtheria, Pertussis, Tetanus Vaccination: Yes Physical Exam - Vital signs Vitals: Temp Pulse Resp BP Pulse Ox 99.5 F 103 H 16 110/83 100 10/27/16 14:12 10/27/16 14:12 10/27/16 14:12 10/27/16 14:12 10/27/16 14:12 Course - Vital Signs Vital signs: Temp Pulse Resp BP Pulse Ox 99.5 F 103 H 16 110/83 100 10/27/16 14:12 10/27/16 14:12 10/27/16 14:12 10/27/16 14:12 10/27/16 14:12
[2016-10-27 15:05] LABS: ABSOLUTE EOSINOPHILS # (AUTO) 0.1 10^3/uL (0.0-0.6); ABSOLUTE LYMPHOCYTES (AUTO) 1.4 10^3/uL (0.5-4.7); ABSOLUTE MONOCYTES (AUTO) 0.5 10^3/uL (0.1-1.4); ABSOLUTE NEUT (AUTO) 5.3 10^3/uL (1.7-8.2); BASOPHILS % (AUTO) 0.2 % (0-2); EOSINOPHILS % (AUTO) 0.7 % (0-6); HEMATOCRIT 35.2 % (36.0-47.0); HGB HCT DIFFERENCE -2.2; LYMPHOCYTES % (AUTO) 19.2 % (13-45); MEAN CORPUSCULAR HEMOGLOBIN 24.1 pg (27.0-33.4); MEAN CORPUSCULAR HGB CONC 31.1 g/dL (32.0-36.0); MEAN CORPUSCULAR VOLUME 78 fl (80-97); MONOCYTES % (AUTO) 7.5 % (3-13); RED BLOOD COUNT 4.54 10^6/uL (3.72-5.28); RED CELL DISTRIBUTION WIDTH 18.1 % (11.5-14.0); SEGMENTED NEUTROPHILS % (AUTO) 72.4 % (42-78); WHITE BLOOD COUNT 7.3 10^3/uL (4.0-10.5)
[2016-10-27 15:22] LABS: APPEARANCE,URINE CLEAR; BILIRUBIN,URINE NEGATIVE (NEGATIVE); GLUCOSE, URINE >=500 mg/dL (NEGATIVE); KETONES,URINE NEGATIVE (NEGATIVE); LEUKOCYTE ESTERASE,URINE NEGATIVE (NEGATIVE); NITRITE,URINE NEGATIVE (NEGATIVE); PROTEIN,URINE NEGATIVE (NEGATIVE); UROBILINOGEN,URINE NEGATIVE mg/dL (<2.0)
[2016-10-27 15:27] LABS: ALANINE AMINOTRANSFERASE 62 U/L (9-52); ALBUMIN 4.1 g/dL (3.5-5.0); ALKALINE PHOSPHATASE 127 U/L (38-126); ANION GAP 15 (5-19); ASPARTATE AMINO TRANSFERASE 106 U/L (14-36); BILIRUBIN,DIRECT 0.3 mg/dL (0.0-0.4); BILIRUBIN,TOTAL 0.8 mg/dL (0.2-1.3); BLOOD UREA NITROGEN 11 mg/dL (7-20); CALCIUM 9.2 mg/dL (8.4-10.2); CARBON DIOXIDE 25 mmol/L (22-30); CHLORIDE 95 mmol/L (98-107); CREATININE RESULT 0.51 mg/dL (0.52-1.25); POTASSIUM 3.9 mmol/L (3.6-5.0); SODIUM 134.5 mmol/L (137-145); TOTAL PROTEIN 7.6 g/dL (6.3-8.2)
[2016-10-27 15:37] LABS: GLUCOSE 502 mg/dL (75-110)
[2016-10-27] MEDS ORDERED: INSULIN REG, HUMAN 100 UNIT/ML 3 ML VIAL (PYX) IV ONE (18:19)
--- NOTE | 2016-10-27 18:45 | ER Document Report ---
ED General - General Chief Complaint: High Blood Sugar Stated Complaint: FACIAL SWELLING,EAR PAIN,COUGH Notes: Patient is a 45-year-old female with past medical history of insulin-dependent type II diabetes who presents with a multitude of complaints. Specifically, patient complains of left ear pain, left facial swelling, shortness of breath, cough, intermittent chest pain, right low back pain, left lower extremity pain, fatigue, and headache. Patient was asked to clarify what was a concern that brought her to the emergency department and she states primary concern was her ongoing left ear pain for which she was seen 2 days ago and diagnosed with a perforated tympanic membrane. She states that she is taking Augmentin as prescribed. She is also been using eardrops that were prescribed. However, the patient notes that she is unable to take the Percocet with which she was sent home because she is allergic to both Tylenol and oxycodone. She does describe pain in her left ear as being a constant, severe, throbbing pain. Nothing improves the pain. She states touching the area worsens the pain. She has not yet seen her primary care doctor regarding today's concerns. She also reports concerns about her blood sugar which she states has been elevated although admits she was told by the doctor who saw her days ago that as she was given steroids her sugars would be higher. TRAVEL OUTSIDE OF THE [place] IN LAST 30 DAYS: No - Related Data Allergies/Adverse Reactions: acetaminophen [From Percocet] Allergy (Verified 10/27/16 14:18) celecoxib [From Celebrex] Allergy (Verified 10/27/16 14:18) erythromycin base [Erythromycin Base] Allergy (Verified 10/27/16 14:18) Hives oxycodone HCl [From Percocet] Allergy (Verified 10/27/16 14:18) Past Medical History - General Information source: Patient - Social History Smoking Status: Never Smoker Frequency of alcohol use: None Drug Abuse: None Lives with: Family Family History: Reviewed & Not Pertinent, DM, Malignancy, Other - cirrhosis Patient has suicidal ideation: No Patient has homicidal ideation: No - Past Medical History Cardiac Medical History: Reports: Hx Hypercholesterolemia, Hx Hypertension Denies: Hx Coronary Artery Disease, Hx Heart Attack Endocrine Medical History: Reports: Hx Diabetes Mellitus Type 1 Renal/ Medical History: Denies: Hx Peritoneal Dialysis Skin Medical History: Reports Hx MRSA Psychiatric Medical History: Reports: Hx Depression Infectious Medical History: Reports: Hx MRSA Past Surgical History: Reports: Hx Tonsillectomy, Hx Tubal Ligation - Immunizations Hx Diphtheria, Pertussis, Tetanus Vaccination: Yes Review of Systems - Review of Systems Notes: Constitutional: Negative for fever. HENT: Positive for sore throat. Eyes: Negative for visual changes. Cardiovascular: Positive for chest pain. Respiratory: Positive for shortness of breath. Gastrointestinal: Negative for abdominal pain, vomiting or diarrhea. Genitourinary: Negative for dysuria. Musculoskeletal: Positive for back pain. Skin: Negative for rash. Neurological: Positive for headaches, negative for weakness or numbness. 10 point ROS negative except as marked above and in HPI. Physical Exam - Vital signs Vitals: Temp Pulse Resp BP Pulse Ox 99.5 F 103 H 16 110/83 100 10/27/16 14:12 10/27/16 14:12 10/27/16 14:12 10/27/16 14:12 10/27/16 14:12 Interpretation: Tachycardic Notes: PHYSICAL EXAMINATION: GENERAL: Well-appearing, well-nourished and in no acute distress. HEAD: Atraumatic, normocephalic. EYES: Pupils equal round and reactive to light, extraocular movements intact, sclera anicteric, conjunctiva are normal. ENT: nares patent, oropharynx clear without exudates. Moist mucous membranes. Bilateral submandibular lymphadenopathy that is mobile, tender to palpation more tender in the left first the right. There is no actual facial swelling. NECK: Normal range of motion, supple without lymphadenopathy LUNGS: Breath sounds clear to auscultation bilaterally and equal. No wheezes rales or rhonchi. HEART: Regular rate and rhythm without murmurs ABDOMEN: Soft, nontender, normoactive bowel sounds. No guarding, no rebound. No masses appreciated. EXTREMITIES: Normal range of motion, no pitting or edema. No cyanosis. NEUROLOGICAL: No focal neurological deficits. Moves all extremities spontaneously and on command. PSYCH: Normal mood, normal affect. SKIN: Warm, Dry, normal turgor, no rashes or lesions noted. Course - Re-evaluation Re-evalutation: 10/27/16 18:41 Patient presents with a multitude of complaints which do not unifying to single diagnosis. Her main complaint is that she has some left-sided facial swelling which apparently on exam is related to subsegmental mandibular lymphadenopathy which actually does not appear any significantly larger on the left versus the right. I do not suspect a facial abscess or mastoiditis that she has no tenderness over the mastoid and has no fluctuance or significant facial swelling. She was diagnosed with a perforated tympanic membrane on her prior visit and placed on Augmentin which I believe is appropriate therapy. Regarding patient's chest pain: She denies this at the time of my assessment and admits that this is not been present all today and is generally only present when she is coughing. I suspect musculoskeletal irritation and will not work this up further. Patient's main complaint is that her pain in her left ear and face is not controlled as she is not able to take the narcotic pain medications that were sent home with her due to multiple allergies. Likewise she is unable to tolerate NSAIDs due to allergies. I have informed patient that given that she is allergic to acetaminophen, ibuprofen, oxycodone, and hydrocodone that I do not have any reasonable option to treat her pain as an outpatient. I have offered topical lidocaine. Patient is also complaining of hyperglycemia. Laboratories demonstrate hyperglycemia without any evidence of diabetic ketoacidosis or HHS. Patient is overall well in appearance, vitals within normal limits. She will be treated with subcutaneous insulin. She has requested to be discharged promptly and does not wish to remain in the emergency department for serial checks of her blood sugar until it comes to a more normal range. Of note, in triage patient did also complain of some shortness of breath. She has a multitude of symptoms that are consistent with an upper respiratory infection including sore throat, sinus congestion, nonproductive cough and apparently intermittent wheezing that was appreciated in triage but is not present on exam at this time. She is in no respiratory distress, chest x-ray is clear. Suspect likely a viral bronchitis. She is not tachycardic and does not have any risk factors for an acute pulmonary embolus. Moreover her clinical history is not consistent with this diagnosis. Will therefore not proceed with any further testing for this. At this time will discharge with return precautions and follow-up recommendations. Verbal discharge instructions given a the bedside and opportunity for questions given. Medication warnings reviewed. Patient is in agreement with this plan and has verbalized understanding of return precautions and the need for primary care follow-up in the next 24-72 hours. - Vital Signs Vital signs: Temp Pulse Resp BP Pulse Ox 98.5 F 103 H 18 144/79 H 99 10/27/16 18:53 10/27/16 18:53 10/27/16 18:53 10/27/16 18:53 10/27/16 18:53 - Laboratory Result Diagrams: 10/27/16 14:50 10/27/16 14:50 Laboratory results interpreted by me: 10/27/16 10/27/16 10/27/16 14:50 14:50 14:50 Hgb 11.0 L Hct 35.2 L MCV 78 L MCH 24.1 L MCHC 31.1 L RDW 18.1 H Plt Count 129 L Sodium 134.5 L Chloride 95 L Creatinine 0.51 L Glucose 502 H* AST 106 H ALT 62 H Alkaline Phosphatase 127 H Urine Glucose (UA) >=500 H - Diagnostic Test Radiology reviewed: Image reviewed, Reports reviewed Radiology results interpreted by me: 10/27/16 18:44 Chest x-ray: No acute infiltrate Discharge - Discharge Clinical Impression: Left ear pain Type 2 diabetes mellitus with hyperglycemia Qualifiers: Diabetes mellitus jail insulin use: with jail use Qualified Code(s): E11.65 - Type 2 diabetes mellitus with hyperglycemia Condition: Good Disposition: HOME, SELF-CARE Additional Instructions: You need to followup urgently with your primary care doctor as your blood sugars were dangerously high today. You did not have any evidence of a dangerous condition associated with these blood sugars at this time. However, it is very important that you get your blood sugars under control. Please take all of your medications exactly as directed. Please continue to take the antibiotics as prescribed for your left ear infection. Your upper respiratory symptoms are likely related to a viral illness and should resolve in the next 7- 10 days. Use the inhaler that you were sent home with as needed for shortness of breath or wheezing. Return to emergency room immediately for increased difficulty breathing, difficulty swallowing, passing out, fever greater than 101 F, or any other symptoms that are worrisome to you. Referrals: VIVEK FOUNTAIN MD [Primary Care Provider] - Follow up as needed
[2016-10-27] MEDS ORDERED: ALBUTEROL SULFATE HFA (90 MCG/PUFF) 8 GM MDI (1 MDI/ER DISP) IH PRN (18:51)
[2016-10-27 18:54] VITALS: BP 144/79
== END 2016-10-27 19:05 | disposition home or self-care (01) ==
LOC: ER 13:48
DX: H92.02 Otalgia, left ear (principal); E11.65 Type 2 diabetes mellitus with hyperglycemia; R00.0 Tachycardia, unspecified; E78.00 Pure hypercholesterolemia, unspecified; I10 Essential (primary) hypertension; Z86.14 Personal history of Methicillin resistant Staphylococcus aureus infection; Z98.51 Tubal ligation status; Z88.6 Allergy status to analgesic agent; Z88.3 Allergy status to other anti-infective agents; Z79.4 Long term (current) use of insulin
CPT/HCPCS: 94640; 99283; 36415; 87040; 85025; 80053; 81001; 71010; S0119; J1815; J3490; J7620

== ENCOUNTER 2017-02-07 12:22 | Emergency (ER) | payer SELFPAY ==
[2017-02-07] MEDS ORDERED: NORMAL SALINE 1000 ML 1,000 ML IV ONE (12:55)
--- NOTE | 2017-02-07 12:59 | ER Document Report ---
ED Medical Screen (RME) - General Chief Complaint: Nausea/Vomiting/Diarrhea Stated Complaint: VOMITING TRAVEL OUTSIDE OF THE [place] IN LAST 30 DAYS: No - HPI Patient complains to provider of: Nausea vomiting diarrhea inflamed left fourth toe, hyperglycemia Notes: 02/07/17 12:57 Poorly controlled diabetic presents with profoundly elevated blood sugar nausea vomiting diarrhea and an inflamed left toe. Patient has no sensation in her bilateral feet and she is concerned her left fourth toe could be infected. Patient states she has had trouble controlling her blood sugar but has been poorly compliant with her insulin due to family stresses. - Related Data Allergies/Adverse Reactions: acetaminophen [From Percocet] Allergy (Verified 02/07/17 12:33) celecoxib [From Celebrex] Allergy (Verified 02/07/17 12:33) erythromycin base [Erythromycin Base] Allergy (Verified 02/07/17 12:33) Hives oxycodone HCl [From Percocet] Allergy (Verified 02/07/17 12:33) Past Medical History - Social History Chew tobacco use (# tins/day): No Frequency of alcohol use: Social Family history: Reviewed & Not Pertinent - Past Medical History Cardiac Medical History: Reports: Hx Hypercholesterolemia, Hx Hypertension Denies: Hx Coronary Artery Disease, Hx Heart Attack Endocrine Medical History: Reports: 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 Renal/ Medical History: Denies: Hx Peritoneal Dialysis Skin Medical History: Reports Hx MRSA Psychiatric Medical History: Reports: Hx Depression Infectious Medical History: Reports: Hx MRSA Past Surgical History: Reports: Hx Tonsillectomy, Hx Tubal Ligation - Immunizations Hx Diphtheria, Pertussis, Tetanus Vaccination: Yes Physical Exam - Vital signs Vitals: Temp Pulse Resp BP Pulse Ox 98.2 F 105 H 20 134/95 H 99 02/07/17 12:32 02/07/17 12:32 02/07/17 12:32 02/07/17 12:32 02/07/17 12:32 - Extremities Foot: Other - Left fourth toe inflamed. Possible paronychia with mild fluctuance Course - Vital Signs Vital signs: Temp Pulse Resp BP Pulse Ox 98.2 F 105 H 20 134/95 H 99 02/07/17 12:32 02/07/17 12:32 02/07/17 12:32 02/07/17 12:32 02/07/17 12:32
[2017-02-07 13:17] LABS: ABSOLUTE EOSINOPHILS # (AUTO) 0.1 10^3/uL (0.0-0.6); ABSOLUTE LYMPHOCYTES (AUTO) 1.1 10^3/uL (0.5-4.7); ABSOLUTE MONOCYTES (AUTO) 0.4 10^3/uL (0.1-1.4); ABSOLUTE NEUT (AUTO) 2.4 10^3/uL (1.7-8.2); BASOPHILS % (AUTO) 1.1 % (0-2); EOSINOPHILS % (AUTO) 2.1 % (0-6); HEMATOCRIT 36.3 % (36.0-47.0); HEMOGLOBIN 11.4 g/dL (12.0-15.5); HGB HCT DIFFERENCE -2.1; LYMPHOCYTES % (AUTO) 26.3 % (13-45); MEAN CORPUSCULAR HEMOGLOBIN 24.3 pg (27.0-33.4); MEAN CORPUSCULAR HGB CONC 31.4 g/dL (32.0-36.0); MEAN CORPUSCULAR VOLUME 77 fl (80-97); MONOCYTES % (AUTO) 9.6 % (3-13); RED CELL DISTRIBUTION WIDTH 19.4 % (11.5-14.0); SEGMENTED NEUTROPHILS % (AUTO) 60.9 % (42-78)
[2017-02-07] MEDS ORDERED: LIDOCAINE 1% INJ-PF (10 MG/ML) 30 ML SDV INJ ONE (13:20)
[2017-02-07 13:21] LABS: APPEARANCE,URINE CLEAR; BILIRUBIN,URINE NEGATIVE (NEGATIVE); GLUCOSE, URINE >=500 mg/dL (NEGATIVE); KETONES,URINE NEGATIVE (NEGATIVE); LEUKOCYTE ESTERASE,URINE MODERATE (NEGATIVE); NITRITE,URINE NEGATIVE (NEGATIVE); PROTEIN,URINE NEGATIVE (NEGATIVE); URINE SPECIFIC GRAVITY 1.031; UROBILINOGEN,URINE NEGATIVE mg/dL (<2.0)
--- NOTE | 2017-02-07 13:34 | ER Document Report ---
ED General - General Chief Complaint: Nausea/Vomiting/Diarrhea Stated Complaint: VOMITING Time Seen by Provider: 02/07/17 13:14 Mode of Arrival: Ambulatory Information source: Patient Notes: 46 yr old diabetic female presents with complaitns of high blood sugar , nasuea and left foot toe infection. Pt denies any fevers or chills, denies any vomiting. TRAVEL OUTSIDE OF THE [place] IN LAST 30 DAYS: No - HPI Onset: Last week Onset/Duration: Persistent Quality of pain: Achy Severity: Mild Pain Level: 1 Associated symptoms: None Exacerbated by: Denies Relieved by: Denies Similar symptoms previously: Yes Recently seen / treated by doctor: Yes - Related Data Allergies/Adverse Reactions: acetaminophen [From Percocet] Allergy (Verified 02/07/17 12:33) celecoxib [From Celebrex] Allergy (Verified 02/07/17 12:33) erythromycin base [Erythromycin Base] Allergy (Verified 02/07/17 12:33) Hives oxycodone HCl [From Percocet] Allergy (Verified 02/07/17 12:33) Home Medications: Current Home Medications Fluoxetine HCl [Prozac] 40 mg PO DAILY 02/07/17 [History] Gabapentin [Neurontin 300 mg Capsule] 300 mg PO Q6 02/07/17 [History] Insulin Aspart Protam & Aspart [Novolog Mix 70-30 Vial] 10 unit SQ BID 02/07/17 [History] Insulin Glargine,Hum.rec.anlog [Lantus] 35 units SQ BID 02/07/17 [History] Past Medical History - Social History Smoking Status: Current Every Day Smoker Cigarette use (# per day): Yes Chew tobacco use (# tins/day): No Smoking Education Provided: No Frequency of alcohol use: Social Family History: Reviewed & Not Pertinent, DM, Malignancy, Other - cirrhosis - Past Medical History Cardiac Medical History: Reports: Hx Hypercholesterolemia, Hx Hypertension Denies: Hx Coronary Artery Disease, Hx Heart Attack Endocrine Medical History: Reports: 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 Denies recent illness. EENT: Denies eye, ear, throat, or mouth pain or symptoms. Denies nasal or sinus congestion or discharge. Denies throat, tongue, or mouth swelling or difficulty swallowing. CARDIOVASCULAR: Denies chest pain. Denies palpitations or racing or irregular heart beat. Denies ankle edema. RESPIRATORY: Denies cough, cold, or chest congestion. Denies shortness of breath, difficulty breathing, or wheezing. GASTROINTESTINAL: admits to nausea GENITOURINARY: Denies difficulty urinating, painful urination, burning, frequency, blood in urine, or discharge. FEMALE GENITOURINARY: Denies vaginal bleeding, heavy or abnormal periods, irregular periods. Denies vaginal discharge or odor. MUSCULOSKELETAL: Denies back or neck pain or stiffness. Denies joint pain or swelling. SKIN: Admits to toe pain HEMATOLOGIC : Denies easy bruising or bleeding. LYMPHATIC: Denies swollen, enlarged glands. NEUROLOGICAL: Denies confusion or altered mental status. Denies passing out or loss of consciousness. Denies dizziness or lightheadedness. Denies headache. Denies weakness or paralysis or loss of use of either side. Denies problems with gait or speech. Denies sensory loss, numbness, or tingling. Denies seizures. PSYCHIATRIC: Denies anxiety or stress. Denies depression, suicidal ideation, or homicidal ideation. ALL OTHER SYSTEMS REVIEWED AND NEGATIVE. PHYSICAL EXAMINATION: GENERAL: Well-appearing, well-nourished and in no acute distress. HEAD: Atraumatic, normocephalic. EYES: Pupils equal round and reactive to light, extraocular movements intact, conjunctiva are normal. ENT: Nares patent, oropharynx clear without exudates. Moist mucous membranes. NECK: Normal range of motion, supple without lymphadenopathy LUNGS: Breath sounds clear to auscultation bilaterally and equal. No wheezes rales or rhonchi. HEART: Regular rate and rhythm without murmurs ABDOMEN: Soft, nontender, nondistended abdomen. No guarding, no rebound. No masses appreciated. Female : deferred Musculoskeletal: Normal range of motion, no pitting or edema. No cyanosis. NEUROLOGICAL: Cranial nerves grossly intact. Normal speech, normal gait. Normal sensory, motor exams PSYCH: Normal mood, normal affect. SKIN: left foot 2nd digit red, parnoychia Dictation was performed using [employer] voice recognition software Physical Exam - Vital signs Vitals: Temp Pulse Resp BP Pulse Ox 98.2 F 105 H 20 134/95 H 99 02/07/17 12:32 02/07/17 12:32 02/07/17 12:32 02/07/17 12:32 02/07/17 12:32 Course - Re-evaluation Re-evalutation: 02/07/17 15:36 At the digital nerve block, paronychia was incised and drained. Patient started on antibiotics given history of diabetes. Patient's blood sugar was noted to be quite elevated on arrival however she did not meet DKA criteria and overall looks well - Vital Signs Vital signs: Temp Pulse Resp BP Pulse Ox 98.2 F 105 H 20 134/95 H 99 02/07/17 12:32 02/07/17 12:32 02/07/17 12:32 02/07/17 12:32 02/07/17 12:32 - Laboratory Result Diagrams: 02/07/17 13:06 02/07/17 13:06 Laboratory results interpreted by me: 02/07/17 02/07/17 02/07/17 13:06 13:06 13:06 Hgb 11.4 L MCV 77 L MCH 24.3 L MCHC 31.4 L RDW 19.4 H Plt Count 146 L Sodium 135.3 L Chloride 97 L Creatinine 0.48 L Glucose 452 H* Direct Bilirubin 0.6 H AST 71 H ALT 67 H Alkaline Phosphatase 163 H Total Protein 8.3 H Urine Glucose (UA) >=500 H Urine Blood LARGE H Ur Leukocyte Esterase MODERATE H Procedures - Incision and Drainage Left Foot 4th digit Time completed: 15:00 Type: Simple Anesthetic type: 1% Lidocaine mL's of anesthetic: 4 Blade size: 11 I&D procedure: Shurclens applied, Sterile dressing applied Incision Method: Incision made by scalpel Amount/type of drainage: small amount of blood with pus Critical Care Note - Critical Care Note Total time excluding time spent on procedures (mins): 55 Comments: 55 minutes of critical care time spent in direct contact evaluating and reevaluating the patient, treating symptoms, reviewing labs and studies and speaking with family and consultants excluding any procedures Discharge - Discharge Clinical Impression: Hyperglycemia Paronychia Qualifiers: Laterality: left Qualified Code(s): L03.012 - Cellulitis of left finger Condition: Stable Disposition: HOME, SELF-CARE Instructions: Paronychia ([facility]), Control of Diabetes During Illness ([facility]) Prescriptions: Cephalexin Monohydrate [Keflex 500 mg Capsule] 500 mg PO QID #40 capsule Sulfamethoxazole/Trimethoprim [Bactrim Ds Tablet] 2 each PO BID #40 tablet Referrals: [facility] [Primary Care Provider] - Follow up tomorrow
[2017-02-07 13:36] LABS: ALBUMIN 4.2 g/dL (3.5-5.0); ANION GAP 11 (5-19); BILIRUBIN,DIRECT 0.6 mg/dL (0.0-0.4); BILIRUBIN,TOTAL 0.9 mg/dL (0.2-1.3); CARBON DIOXIDE 27 mmol/L (22-30); CHLORIDE 97 mmol/L (98-107); CREATININE RESULT 0.48 mg/dL (0.52-1.25); SODIUM 135.3 mmol/L (137-145); TOTAL PROTEIN 8.3 g/dL (6.3-8.2)
[2017-02-07 13:44] LABS: GLUCOSE 452 mg/dL (75-110); POTASSIUM 4.9 mmol/L (3.6-5.0)
[2017-02-07 13:45] LABS: ALANINE AMINOTRANSFERASE 67 U/L (9-52); ALKALINE PHOSPHATASE 163 U/L (38-126); ASPARTATE AMINO TRANSFERASE 71 U/L (14-36); BLOOD UREA NITROGEN 10 mg/dL (7-20)
[2017-02-07 14:00] LABS: VENOUS BLOOD BASE EXCESS -0.7 mmol/L; VENOUS BLOOD PCO2 45.3 mmHg (35-63); VENOUS BLOOD PH 7.36 (7.30-7.42)
[2017-02-07] MEDS ORDERED: INSULIN REG, HUMAN 100 UNIT/ML 3 ML VIAL (PYX) SUBCUT ONE (14:07)
[2017-02-07] MEDS ORDERED: NORMAL SALINE 1000 ML 1,000 ML IV PRN (15:49)
[2017-02-07 16:58] VITALS: BP 165/88
== END 2017-02-07 16:58 | disposition home or self-care (01) ==
LOC: ER 12:22
DX: R03.0 Elevated blood-pressure reading, without diagnosis of hypertension (principal); R42 Dizziness and giddiness
CPT/HCPCS: 99285; 36415; 82962; 85025; 80053; 81001; 82803; J3490; J1815; J7030

== ENCOUNTER 2017-04-16 10:41 | Emergency (ER) | payer SELFPAY ==
--- NOTE | 2017-04-16 11:12 | ER Document Report ---
ED General - General Chief Complaint: High Blood Sugar Stated Complaint: BLOOD SUGAR PROBLEM Time Seen by Provider: 04/16/17 11:09 Mode of Arrival: Ambulatory Information source: Patient Notes: 46 yr old diabetic female presents with complaints of cyst to the scalp as well as high blood sugar wit htingling in her fingers. pt denies any nausea or vomiting. TRAVEL OUTSIDE OF THE [place] IN LAST 30 DAYS: No - HPI Onset: Other - 3 days Onset/Duration: Persistent Quality of pain: Achy Severity: Mild Pain Level: 1 Associated symptoms: Nausea Exacerbated by: Denies Relieved by: Denies Similar symptoms previously: Yes Recently seen / treated by doctor: Yes - Related Data Allergies/Adverse Reactions: acetaminophen [From Percocet] Allergy (Verified 04/16/17 10:52) celecoxib [From Celebrex] Allergy (Verified 04/16/17 10:52) erythromycin base [Erythromycin Base] Allergy (Verified 04/16/17 10:52) Hives oxycodone HCl [From Percocet] Allergy (Verified 04/16/17 10:52) Past Medical History - Social History Smoking Status: Never Smoker Cigarette use (# per day): No Chew tobacco use (# tins/day): No Smoking Education Provided: No Family History: Reviewed & Not Pertinent, DM, Malignancy, Other - cirrhosis - Past Medical History Cardiac Medical History: Reports: Hx Hypercholesterolemia, Hx Hypertension Denies: Hx Coronary Artery Disease, Hx Heart Attack Endocrine Medical History: Reports: 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 Denies recent illness. EENT: Denies eye, ear, throat, or mouth pain or symptoms. Denies nasal or sinus congestion or discharge. Denies throat, tongue, or mouth swelling or difficulty swallowing. CARDIOVASCULAR: Denies chest pain. Denies palpitations or racing or irregular heart beat. Denies ankle edema. RESPIRATORY: Denies cough, cold, or chest congestion. Denies shortness of breath, difficulty breathing, or wheezing. GASTROINTESTINAL: admits to nausea GENITOURINARY: Denies difficulty urinating, painful urination, burning, frequency, blood in urine, or discharge. FEMALE GENITOURINARY: Denies vaginal bleeding, heavy or abnormal periods, irregular periods. Denies vaginal discharge or odor. MUSCULOSKELETAL: Denies back or neck pain or stiffness. Denies joint pain or swelling. SKIN: cyst to scalp HEMATOLOGIC : Denies easy bruising or bleeding. LYMPHATIC: Denies swollen, enlarged glands. NEUROLOGICAL: Denies confusion or altered mental status. Denies passing out or loss of consciousness. Denies dizziness or lightheadedness. Denies headache. Denies weakness or paralysis or loss of use of either side. Denies problems with gait or speech. Denies sensory loss, numbness, or tingling. Denies seizures. PSYCHIATRIC: Denies anxiety or stress. Denies depression, suicidal ideation, or homicidal ideation. ALL OTHER SYSTEMS REVIEWED AND NEGATIVE. PHYSICAL EXAMINATION: GENERAL: Well-appearing, well-nourished and in no acute distress. HEAD: cyst to scalp EYES: Pupils equal round and reactive to light, extraocular movements intact, conjunctiva are normal. ENT: Nares patent, oropharynx clear without exudates. Moist mucous membranes. NECK: Normal range of motion, supple without lymphadenopathy LUNGS: Breath sounds clear to auscultation bilaterally and equal. No wheezes rales or rhonchi. HEART: Regular rate and rhythm without murmurs ABDOMEN: Soft, nontender, nondistended abdomen. No guarding, no rebound. No masses appreciated. Female : deferred Musculoskeletal: Normal range of motion, no pitting or edema. No cyanosis. NEUROLOGICAL: Cranial nerves grossly intact. Normal speech, normal gait. Normal sensory, motor exams PSYCH: Normal mood, normal affect. SKIN: Warm, Dry, normal turgor, no rashes or lesions noted. Dictation was performed using [employer] voice recognition software Physical Exam - Vital signs Vitals: Temp Pulse BP Pulse Ox 97.9 F 102 H 122/89 H 96 04/16/17 10:51 04/16/17 10:51 04/16/17 10:51 04/16/17 10:51 Course - Re-evaluation Re-evalutation: 04/16/17 11:17 pt will be given fluids, I + D of abscess scalp 04/16/17 18:41 Patient was given IV fluids and insulin did not wish to wait to have her Accu- Chek rechecked. She has no signs of DKA therefore I believe she is stable for discharge. Otherwise she is in no distress and will be given follow-up with primary care physician which she states she will do so After performing a Medical Screening Examination, I estimate there is LOW risk for INTRACRANIAL HEMORRHAGE, ISCHEMIC CVA, MALIGNANT DYSRHYTHMIA, ACUTE CORONARY SYNDROME, MENINGITIS, PULMONARY EMBOLISM, or SEPSIS thus I consider the discharge disposition reasonable. I have reevaluated this patient multiple times and no significant life threatening changes are noted. The patient and I have discussed the diagnosis and risks, and we agree with discharging home with close follow-up with the understanding that symptoms and presentations can change. We also discussed returning to the Emergency Department immediately if new or worsening symptoms occur. We have discussed the symptoms which are most concerning (e.g., changing or worsening pain, weakness, vomiting, fever) that necessitate immediate return. - Vital Signs Vital signs: Temp Pulse Resp BP Pulse Ox 97.4 F 80 137/86 H 100 04/16/17 13:39 04/16/17 13:39 04/16/17 13:39 04/16/17 13:39 - Laboratory Result Diagrams: 04/16/17 11:35 04/16/17 11:35 Laboratory results interpreted by me: 04/16/17 04/16/17 04/16/17 10:53 11:35 11:35 Hgb 11.6 L MCV 78 L MCH 24.4 L MCHC 31.4 L RDW 17.2 H Plt Count 144 L Sodium 135.0 L Potassium 5.1 H Chloride 97 L Creatinine 0.43 L Glucose 390 H POC Glucose 428 H* Direct Bilirubin 0.5 H AST 74 H ALT 79 H Alkaline Phosphatase 156 H Urine Glucose (UA) Urine Blood 04/16/17 04/16/17 11:35 12:36 Hgb MCV MCH MCHC RDW Plt Count Sodium Potassium Chloride Creatinine Glucose POC Glucose 324 H Direct Bilirubin AST ALT Alkaline Phosphatase Urine Glucose (UA) >=500 H Urine Blood SMALL H Procedures - Incision and Drainage Head Time completed: 11:44 Type: Simple Anesthetic type: 1% Lidocaine mL's of anesthetic: 3 Blade size: 11 Incision Method: Incision made by scalpel Amount/type of drainage: clear fluid Discharge - Discharge Clinical Impression: Hyperglycemia, Scalp cyst Condition: Stable Disposition: HOME, SELF-CARE Instructions: Hyperglycemia ([facility]) Additional Instructions: Follow up with your physician tomorrow for further care or return to the ED IMMEDIATELY if symptoms worsen or new concerns occur. If you cannot afford to follow up with your primary care physician a list of low cost clinics have been provided at the end of your discharge papers as well. Forms: Return to Work Referrals: VIVEK FOUNTAIN MD [Primary Care Provider] - Follow up as needed
[2017-04-16] MEDS ORDERED: NORMAL SALINE 1000 ML 1,000 ML IV PRN (11:17)
[2017-04-16 11:57] LABS: ABSOLUTE EOSINOPHILS # (AUTO) 0.1 10^3/uL (0.0-0.6); ABSOLUTE LYMPHOCYTES (AUTO) 1.1 10^3/uL (0.5-4.7); ABSOLUTE MONOCYTES (AUTO) 0.4 10^3/uL (0.1-1.4); ABSOLUTE NEUT (AUTO) 3.2 10^3/uL (1.7-8.2); BASOPHILS % (AUTO) 0.8 % (0-2); EOSINOPHILS % (AUTO) 1.8 % (0-6); HEMATOCRIT 36.9 % (36.0-47.0); HEMOGLOBIN 11.6 g/dL (12.0-15.5); HGB HCT DIFFERENCE -2.1; LYMPHOCYTES % (AUTO) 23.4 % (13-45); MEAN CORPUSCULAR HEMOGLOBIN 24.4 pg (27.0-33.4); MEAN CORPUSCULAR HGB CONC 31.4 g/dL (32.0-36.0); MEAN CORPUSCULAR VOLUME 78 fl (80-97); MONOCYTES % (AUTO) 8.7 % (3-13); RED BLOOD COUNT 4.76 10^6/uL (3.72-5.28); RED CELL DISTRIBUTION WIDTH 17.2 % (11.5-14.0); SEGMENTED NEUTROPHILS % (AUTO) 65.3 % (42-78); WHITE BLOOD COUNT 4.9 10^3/uL (4.0-10.5)
[2017-04-16] MEDS ORDERED: ONDANSETRON HCL INJ/PF 4 MG/2 ML SDV IV ONE (11:58)
[2017-04-16 11:59] LABS: APPEARANCE,URINE CLEAR; BILIRUBIN,URINE NEGATIVE (NEGATIVE); GLUCOSE, URINE >=500 mg/dL (NEGATIVE); KETONES,URINE NEGATIVE (NEGATIVE); LEUKOCYTE ESTERASE,URINE NEGATIVE (NEGATIVE); NITRITE,URINE NEGATIVE (NEGATIVE); PROTEIN,URINE NEGATIVE (NEGATIVE); URINE SPECIFIC GRAVITY 1.031; UROBILINOGEN,URINE NEGATIVE mg/dL (<2.0)
[2017-04-16 12:04] LABS: VENOUS BLOOD BASE EXCESS 0.6 mmol/L; VENOUS BLOOD HCO3 26.5 mmol/L (20-32); VENOUS BLOOD PCO2 47.6 mmHg (35-63); VENOUS BLOOD PH 7.36 (7.30-7.42)
[2017-04-16 12:15] LABS: ALANINE AMINOTRANSFERASE 79 U/L (9-52); ALBUMIN 4.3 g/dL (3.5-5.0); ALKALINE PHOSPHATASE 156 U/L (38-126); ANION GAP 10 (5-19); ASPARTATE AMINO TRANSFERASE 74 U/L (14-36); BILIRUBIN,DIRECT 0.5 mg/dL (0.0-0.4); BILIRUBIN,TOTAL 0.7 mg/dL (0.2-1.3); BLOOD UREA NITROGEN 10 mg/dL (7-20); CALCIUM 9.8 mg/dL (8.4-10.2); CARBON DIOXIDE 28 mmol/L (22-30); CHLORIDE 97 mmol/L (98-107); CREATININE RESULT 0.43 mg/dL (0.52-1.25); GLUCOSE 390 mg/dL (75-110); POTASSIUM 5.1 mmol/L (3.6-5.0); TOTAL PROTEIN 8.1 g/dL (6.3-8.2)
[2017-04-16] MEDS ORDERED: IBUPROFEN 800 MG TABLET PO ONE (12:24)
[2017-04-16] MEDS ORDERED: INSULIN REG, HUMAN 100 UNIT/ML 3 ML VIAL (PYX) SUBCUT ONE (12:54)
[2017-04-16 13:40] VITALS: BP 137/86
== END 2017-04-16 13:40 | disposition home or self-care (01) ==
LOC: ER 10:41
PROC: 0H90XZZ Drainage of Scalp Skin, External Approach (ICD-10-PCS; principal; 2017-04-16)
DX: E10.65 Type 1 diabetes mellitus with hyperglycemia (principal); L72.9 Follicular cyst of the skin and subcutaneous tissue, unspecified; E78.00 Pure hypercholesterolemia, unspecified; I10 Essential (primary) hypertension; Z86.14 Personal history of Methicillin resistant Staphylococcus aureus infection; Z98.51 Tubal ligation status; Z88.6 Allergy status to analgesic agent; Z88.3 Allergy status to other anti-infective agents
CPT/HCPCS: 99283; 96361; 96374; 36415; 82962; 85025; 80053; 81001; 82803; 10060; J1815; J2405; J7030

== ENCOUNTER 2017-05-03 20:37 | Emergency (ER) | payer SELFPAY ==
[2017-05-03] MEDS ORDERED: NORMAL SALINE 1000 ML 1,000 ML IV ONE (21:28)
[2017-05-03 22:16] LABS: APPEARANCE,URINE CLEAR; BILIRUBIN,URINE NEGATIVE (NEGATIVE); GLUCOSE, URINE >=500 mg/dL (NEGATIVE); KETONES,URINE TRACE mg/dL (NEGATIVE); LEUKOCYTE ESTERASE,URINE NEGATIVE (NEGATIVE); NITRITE,URINE NEGATIVE (NEGATIVE); PROTEIN,URINE NEGATIVE (NEGATIVE); URINE SPECIFIC GRAVITY 1.024; UROBILINOGEN,URINE NEGATIVE mg/dL (<2.0)
[2017-05-03 22:25] LABS: ABSOLUTE EOSINOPHILS # (AUTO) 0.1 10^3/uL (0.0-0.6); ABSOLUTE LYMPHOCYTES (AUTO) 1.9 10^3/uL (0.5-4.7); ABSOLUTE MONOCYTES (AUTO) 0.5 10^3/uL (0.1-1.4); ABSOLUTE NEUT (AUTO) 2.8 10^3/uL (1.7-8.2); BASOPHILS % (AUTO) 0.5 % (0-2); HEMATOCRIT 35.9 % (36.0-47.0); HEMOGLOBIN 11.5 g/dL (12.0-15.5); HGB HCT DIFFERENCE -1.4; LYMPHOCYTES % (AUTO) 35.7 % (13-45); MEAN CORPUSCULAR HEMOGLOBIN 24.9 pg (27.0-33.4); MEAN CORPUSCULAR VOLUME 78 fl (80-97); MONOCYTES % (AUTO) 8.8 % (3-13); RED CELL DISTRIBUTION WIDTH 16.5 % (11.5-14.0); WHITE BLOOD COUNT 5.2 10^3/uL (4.0-10.5)
[2017-05-03] MEDS ORDERED: KETOROLAC TROMETHAMINE INJ/PF 30 MG/1 ML SDV IV ONE (22:32)
[2017-05-03] MEDS ORDERED: ONDANSETRON HCL INJ/PF 4 MG/2 ML SDV IV ONE (22:32)
[2017-05-03 22:34] LABS: VENOUS BLOOD BASE EXCESS -2.1 mmol/L; VENOUS BLOOD HCO3 23.8 mmol/L (20-32); VENOUS BLOOD PCO2 45.3 mmHg (35-63); VENOUS BLOOD PH 7.34 (7.30-7.42)
[2017-05-03 22:44] LABS: ALANINE AMINOTRANSFERASE 79 U/L (9-52); ALBUMIN 4.4 g/dL (3.5-5.0); ALKALINE PHOSPHATASE 134 U/L (38-126); ASPARTATE AMINO TRANSFERASE 74 U/L (14-36); BILIRUBIN,DIRECT 0.5 mg/dL (0.0-0.4); BILIRUBIN,TOTAL 0.5 mg/dL (0.2-1.3); BLOOD UREA NITROGEN 10 mg/dL (7-20); CALCIUM 9.7 mg/dL (8.4-10.2); CREATININE RESULT 0.76 mg/dL (0.52-1.25); TOTAL PROTEIN 8.2 g/dL (6.3-8.2)
[2017-05-03 23:02] LABS: ANION GAP 19 (5-19); CARBON DIOXIDE 22 mmol/L (22-30); CHLORIDE 96 mmol/L (98-107); POTASSIUM 4.4 mmol/L (3.6-5.0); SODIUM 137.2 mmol/L (137-145)
[2017-05-03 23:04] LABS: GLUCOSE 481 mg/dL (75-110)
[2017-05-03] MEDS ORDERED: INSULIN LISPRO 100 UNIT/ML 3 ML VIAL SUBCUT ONE (23:19)
[2017-05-03] MEDS ORDERED: HALOPERIDOL LACTATE INJ 5 MG/1 ML VIAL IV ONE (23:19)
[2017-05-03] MEDS ORDERED: LIDOCAINE 1% INJ (10 MG/ML) 10 ML MDV INJ ONE (23:42)
[2017-05-04] MEDS ORDERED: SULFAMETHOXAZOLE/TRIMETHOPRIM 800-160 MG TABLET PO ONE (00:17)
--- NOTE | 2017-05-04 00:23 | ER Document Report ---
ED General - General Chief Complaint: High Blood Sugar Stated Complaint: BLOOD SUGAR ISSUE / RIGHT HAND NUMBNESS Time Seen by Provider: 05/03/17 21:39 Notes: Patient is a 46-year-old female with past medical history of insulin-dependent diabetes who presents with concerns of hypoglycemia, headache and right thumb pain. Her primary concern is her right thumb as she states that her blood sugars are always elevated. She does describe severe, constant, throbbing pain to the right thumb. Touching area worsens the pain. She has not tried any to improve the pain. No history of similar episodes in the past. She has not seen a primary care doctor regarding today's concerns. She denies any fever or constitutional symptoms. States she has always been able to drink and eat without difficulty. No vomiting or diarrhea. In regards her headache she states that this is been present for the past 2-3 days. It was gradual in onset , became progressively worse as described as a throbbing bitemporal dull, aching headache. She denies any associated fever, altered mental status, focal weakness or numbness. TRAVEL OUTSIDE OF THE [place] IN LAST 30 DAYS: No - Related Data Allergies/Adverse Reactions: acetaminophen [From Percocet] Allergy (Verified 04/16/17 10:52) celecoxib [From Celebrex] Allergy (Verified 04/16/17 10:52) erythromycin base [Erythromycin Base] Allergy (Verified 04/16/17 10:52) Hives oxycodone HCl [From Percocet] Allergy (Verified 04/16/17 10:52) Past Medical History - General Information source: Patient - Social History Smoking Status: Current Every Day Smoker Frequency of alcohol use: None Drug Abuse: None Lives with: Spouse/Significant other Family History: Reviewed & Not Pertinent, DM, Malignancy, Other - cirrhosis Patient has suicidal ideation: No Patient has homicidal ideation: No - Past Medical History Cardiac Medical History: Reports: Hx Hypercholesterolemia, Hx Hypertension Denies: Hx Coronary Artery Disease, Hx Heart Attack Endocrine Medical History: Reports: 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 HENT: Negative for sore throat. Eyes: Negative for visual changes. Cardiovascular: Negative for chest pain. Respiratory: Negative for shortness of breath. Gastrointestinal: Negative for abdominal pain, vomiting or diarrhea. Genitourinary: Negative for dysuria. Musculoskeletal: Negative for back pain. Skin: Positive for right thumb abscess Neurological: Positive for headache 10 point ROS negative except as marked above and in HPI. Physical Exam - Vital signs Vitals: Temp Pulse Resp BP Pulse Ox 98.3 F 104 H 16 118/67 96 05/03/17 21:21 05/03/17 21:21 05/03/17 21:21 05/03/17 21:21 05/03/17 21:21 Interpretation: Tachycardic Notes: PHYSICAL EXAMINATION: GENERAL: Well-appearing, well-nourished and in no acute distress. HEAD: Atraumatic, normocephalic. EYES: Pupils equal round and reactive to light, extraocular movements intact, sclera anicteric, conjunctiva are normal. ENT: nares patent, oropharynx clear without exudates. Moderately dry mucous membranes. NECK: Normal range of motion, supple without lymphadenopathy LUNGS: Breath sounds clear to auscultation bilaterally and equal. No wheezes rales or rhonchi. HEART: Regular rate and rhythm without murmurs ABDOMEN: Soft, nontender, normoactive bowel sounds. No guarding, no rebound. No masses appreciated. EXTREMITIES: Normal range of motion, no pitting or edema. No cyanosis. NEUROLOGICAL: No focal neurological deficits. Moves all extremities spontaneously and on command. PSYCH: Normal mood, normal affect. SKIN: Warm, Dry, normal turgor, right thumb paronychia Course - Re-evaluation Re-evalutation: 05/04/17 00:21 Patient presents with right thumb pain, a headache, and hyperglycemia. 1.) Headache: Presentation of a headache that appears to be most consistent with tension versus migrainous type headache. Headache was not maximal in onset , patient has no focal neurologic deficits, no nuchal rigidity, vital signs within normal limits, no papilledema, and patient is overall well in appearance. Based on clinical history and examination I do not suspect an acute subarachnoid hemorrhage, dural venous sinus thrombosis, acute meningitis, or intercranial mass. Given my low clinical suspicion for any acute life- threatening etiology, I do not feel advanced neuro imaging or laboratory testing is indicated at this time. Patient did have resolution of her headache after receiving Toradol and haloperidol. 2.) Right thumb pain: Patient did have evidence of a paronychia on examination. This was incised and drained at the bedside with expression of approximately 1 cc of purulent expression. She will be started on trimethoprim sulfamethoxazole 5 days 3.) Hyperglycemia: There is no evidence of HHS or diabetic ketoacidosis on laboratories or based on clinical history. Patient's vitals are within normal limits. Treatment with insulin and IV fluids given here in the emergency department with appropriate response of the blood sugar. Patient does have primary care follow-up. Patient was instructed to continue taking her insulin as directed and follow dietary guidelines for diabetics. At this time will discharge with return precautions and follow-up recommendations. Verbal discharge instructions given a the bedside and opportunity for questions given. Medication warnings reviewed. Patient is in agreement with this plan and has verbalized understanding of return precautions and the need for primary care follow-up in the next 24-72 hours. - Vital Signs Vital signs: Temp Pulse Resp BP Pulse Ox 98.3 F 88 20 121/66 98 05/03/17 21:21 05/04/17 00:45 05/04/17 00:45 05/04/17 00:45 05/04/17 00:45 - Laboratory Result Diagrams: 05/03/17 22:12 05/03/17 22:12 Laboratory results interpreted by me: 05/03/17 05/03/17 05/03/17 21:23 21:48 21:50 Hgb Hct MCV MCH RDW Plt Count Chloride Glucose POC Glucose 453 H* 444 H* Direct Bilirubin AST ALT Alkaline Phosphatase Urine Glucose (UA) >=500 H Urine Ketones TRACE H Urine Blood LARGE H 05/03/17 05/03/17 05/04/17 22:12 22:12 00:41 Hgb 11.5 L Hct 35.9 L MCV 78 L MCH 24.9 L RDW 16.5 H Plt Count 108 L Chloride 96 L Glucose 481 H* POC Glucose 211 H Direct Bilirubin 0.5 H AST 74 H ALT 79 H Alkaline Phosphatase 134 H Urine Glucose (UA) Urine Ketones Urine Blood Procedures - Incision and Drainage Right Thumb Type: Simple Anesthetic type: 1% Lidocaine mL's of anesthetic: 2 - Digital block Blade size: 11 I&D procedure: Chlorprep applied Incision Method: Incision made by scalpel Amount/type of drainage: 1 cc of purulent expression Discharge - Discharge Clinical Impression: Paronychia of right thumb, Hyperglycemia Headache Qualifiers: Headache type: unspecified Headache chronicity pattern: acute headache Intractability: not intractable Qualified Code(s): R51 - Headache Condition: Good Disposition: HOME, SELF-CARE Additional Instructions: You need to followup urgently with your primary care doctor as your blood sugars were dangerously high today. You did not have any evidence of a dangerous condition associated with these blood sugars at this time. However, it is very important that you get your blood sugars under control. Please take all of your medications exactly as directed. You should avoid foods that are high in carbohydrates and sugary foods. Your also seen for an infection of your right thumb. Please take the trimethoprim sulfamethoxazole as prescribed. Please clean this area with soap and water twice daily and apply a topical antibiotic. Dress the area after each cleaning. Please return if you develop fever, vomiting, the pain at the site worsens, you notice spreading redness from the area, or you have any other symptoms that are concerning to you. Prescriptions: Sulfamethoxazole/Trimethoprim [Bactrim Ds Tablet] 2 tab PO BID #20 tablet
[2017-05-04 00:46] VITALS: BP 121/66
== END 2017-05-04 00:45 | disposition home or self-care (01) ==
LOC: ER 20:37
PROC: 0H9QXZZ Drainage of Finger Nail, External Approach (ICD-10-PCS; principal; 2017-05-03)
DX: L03.011 Cellulitis of right finger (principal); E11.65 Type 2 diabetes mellitus with hyperglycemia; R51 Headache; M79.644 Pain in right finger(s); F17.200 Nicotine dependence, unspecified, uncomplicated
CPT/HCPCS: 99285; 96361; 96374; 96375; 36415; 82962; 85025; 81025; 80053; 81001; 82803; 10060; J1630; J1815; J1885; J2405; J7030

== ENCOUNTER 2017-07-13 12:00 | Emergency (ER) | payer SELFPAY ==
--- NOTE | 2017-07-13 12:24 | ER Document Report ---
ED Medical Screen (RME) - General TRAVEL OUTSIDE OF THE [place] IN LAST 30 DAYS: No <JONATHAN MCBRIDE - Last Filed: 07/13/17 12:24> - General Mode of Arrival: Ambulatory Information source: Patient <WILLAM GEORGE - Last Filed: 07/13/17 13:56> - General Chief Complaint: High Blood Sugar Stated Complaint: BLOOD SUGAR ISSUES Time Seen by Provider: 07/13/17 12:18 Notes: 46-year-old female patient with insulin-dependent diabetes has right facial swelling, it is in the right infraorbital region and tender. She has had yellow nasal discharge from the right nostril. She also has a perionychium on the right thumb. Her blood sugars were just over 300 this morning. Her only medications are NovoLog sliding scale, Lantus, and gabapentin for the diabetic neuropathy. I have greeted and performed a rapid initial assessment of this patient. A comprehensive ED assessment and evaluation of the patient, analysis of test results and completion of the medical decision making process will be conducted by additional ED providers. (JONATHAN MCBRIDE) - Related Data Allergies/Adverse Reactions: acetaminophen [From Percocet] Allergy (Verified 04/16/17 10:52) celecoxib [From Celebrex] Allergy (Verified 04/16/17 10:52) erythromycin base [Erythromycin Base] Allergy (Verified 04/16/17 10:52) Hives oxycodone HCl [From Percocet] Allergy (Verified 04/16/17 10:52) Past Medical History - Social History Chew tobacco use (# tins/day): No Frequency of alcohol use: Social Drug Abuse: None Family history: Reviewed & Not Pertinent - Past Medical History Cardiac Medical History: Reports: Hx Hypercholesterolemia, Hx Hypertension Denies: Hx Coronary Artery Disease, Hx Heart Attack Endocrine Medical History: Reports: 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 Renal/ Medical History: Denies: Hx Peritoneal Dialysis Skin Medical History: Reports Hx MRSA Psychiatric Medical History: Reports: Hx Depression Infectious Medical History: Reports: Hx MRSA Past Surgical History: Reports: Hx Tonsillectomy, Hx Tubal Ligation - Immunizations Hx Diphtheria, Pertussis, Tetanus Vaccination: Yes <JONATHAN MCBRIDE - Last Filed: 07/13/17 12:24> Physical Exam - Vital signs Interpretation: Hypertensive. No: Tachycardic, Tachypneic, Febrile <WILLAM GEORGE - Last Filed: 07/13/17 13:56> - Vital signs Vitals: Temp Pulse Resp BP Pulse Ox 97.9 F 92 16 147/85 H 100 07/13/17 12:05 07/13/17 12:05 07/13/17 12:05 07/13/17 12:05 07/13/17 12:05 Course - Laboratory Result Diagrams: 07/13/17 12:41 07/13/17 12:41 <WILLAM GEORGE - Last Filed: 07/13/17 13:56> - Vital Signs Vital signs: Temp Pulse Resp BP Pulse Ox 97.9 F 92 16 147/85 H 100 07/13/17 12:05 07/13/17 12:05 07/13/17 12:05 07/13/17 12:05 07/13/17 12:05 - Laboratory Laboratory results interpreted by me: 07/13/17 07/13/17 12:41 12:41 Hgb 10.8 L Hct 34.6 L MCV 76 L MCH 23.7 L MCHC 31.2 L RDW 17.2 H Plt Count 107 L Sodium 136.8 L Creatinine 0.49 L Glucose 268 H AST 57 H Alkaline Phosphatase 131 H
[2017-07-13 13:04] LABS: ABSOLUTE EOSINOPHILS # (AUTO) 0.1 10^3/uL (0.0-0.6); ABSOLUTE LYMPHOCYTES (AUTO) 1.2 10^3/uL (0.5-4.7); ABSOLUTE MONOCYTES (AUTO) 0.5 10^3/uL (0.1-1.4); ABSOLUTE NEUT (AUTO) 2.2 10^3/uL (1.7-8.2); BASOPHILS % (AUTO) 1.1 % (0-2); EOSINOPHILS % (AUTO) 3.4 % (0-6); HEMATOCRIT 34.6 % (36.0-47.0); HEMOGLOBIN 10.8 g/dL (12.0-15.5); LYMPHOCYTES % (AUTO) 30.6 % (13-45); MEAN CORPUSCULAR HEMOGLOBIN 23.7 pg (27.0-33.4); MEAN CORPUSCULAR HGB CONC 31.2 g/dL (32.0-36.0); MEAN CORPUSCULAR VOLUME 76 fl (80-97); MONOCYTES % (AUTO) 11.3 % (3-13); PLATELET COUNT 107 10^3/uL (150-450); RED BLOOD COUNT 4.57 10^6/uL (3.72-5.28); RED CELL DISTRIBUTION WIDTH 17.2 % (11.5-14.0); SEGMENTED NEUTROPHILS % (AUTO) 53.6 % (42-78); TOTAL CELLS COUNTED % (AUTO) 100 %
--- NOTE | 2017-07-13 13:12 | RADIOLOGY REPORT (SQ) ---
EXAM DESCRIPTION: CT FACIAL AREA WITHOUT COMPLETED DATE/TIME: 07/13/2017 1:00 pm REASON FOR STUDY: yellow R nasal drainage,infraorbital swelling,pain COMPARISON: 08/24/2014 TECHNIQUE: Noncontrasted images through the facial bones and orbits windowed for bone and soft tissu e. Additional coronal and sagittal reconstructed images reviewed. All images stored on PACS. All CT scanners at this facility use dose modulation, iterative reconstruction, and/or weight based d osing when appropriate to reduce radiation dose to as low as reasonably achievable (ALARA). [facility]: Dose Right [facility]: CareDose [facility]: Dose Right [facility]: Teradose 4D [facility]: Smart Haileo RADIATION DOSE: CT Rad equipment meets quality standard of care and radiation dose reduction techniq ues were employed. CTDIvol: 30.4 mGy. DLP: 555 mGy-cm. mGy. LIMITATIONS: None. FINDINGS: FACIAL BONES: No fracture or bone lesion. ORBITS: Intact. No fracture. Symmetric intact globes and retroorbital soft tissues. PARANASAL SINUSES: Clear. No significant mucosal thickening, mass or fluid. No nasal polyps. Maxill garry sinus outlets are patent. SOFT TISSUES: No mass or edema. INFERIOR BRAIN: Limited view. No acute findings. OTHER: No other significant finding. IMPRESSION: NO ACUTE FINDINGS. TECHNICAL DOCUMENTATION: JOB ID: [id number] Quality ID # [id number]: Final reports with documentation of one or more dose reduction techniques (e.g., Au tomated exposure control, adjustment of the mA and/or kV according to patient size, use of iterative reconstruction technique) 2010 [employer]- All Rights Reserved
[2017-07-13 13:18] LABS: ALANINE AMINOTRANSFERASE 52 U/L (9-52); ALBUMIN 3.8 g/dL (3.5-5.0); ALKALINE PHOSPHATASE 131 U/L (38-126); ANION GAP 11 (5-19); ASPARTATE AMINO TRANSFERASE 57 U/L (14-36); BILIRUBIN,DIRECT 0.3 mg/dL (0.0-0.4); BILIRUBIN,TOTAL 0.7 mg/dL (0.2-1.3); BLOOD UREA NITROGEN 8 mg/dL (7-20); CALCIUM 9.1 mg/dL (8.4-10.2); CARBON DIOXIDE 24 mmol/L (22-30); CHLORIDE 102 mmol/L (98-107); GLUCOSE 268 mg/dL (75-110); POTASSIUM 4.4 mmol/L (3.6-5.0); SODIUM 136.8 mmol/L (137-145); TOTAL PROTEIN 7.2 g/dL (6.3-8.2)
[2017-07-13] MEDS ORDERED: CLINDAMYCIN 600 MG/D5W RTU 600 MG/50 ML RTUPB IV ONE (14:42)
[2017-07-13] MEDS ORDERED: INSULIN REG, HUMAN 100 UNIT/ML 3 ML VIAL (PYX) SUBCUT ONE (14:49)
--- NOTE | 2017-07-13 14:49 | ER Document Report ---
ED General - General Chief Complaint: High Blood Sugar Stated Complaint: BLOOD SUGAR ISSUES Time Seen by Provider: 07/13/17 12:18 Mode of Arrival: Ambulatory Information source: Patient TRAVEL OUTSIDE OF THE [place] IN LAST 30 DAYS: No - HPI Onset: Other - 3 DAYS Onset/Duration: Gradual Quality of pain: Pressure, Throbbing Severity: Moderate Associated symptoms: None. denies: Chills, Fever, Nausea, Vomiting Exacerbated by: Movement Relieved by: Remaining still - Related Data Allergies/Adverse Reactions: acetaminophen [From Percocet] Allergy (Verified 04/16/17 10:52) celecoxib [From Celebrex] Allergy (Verified 04/16/17 10:52) erythromycin base [Erythromycin Base] Allergy (Verified 04/16/17 10:52) Hives oxycodone HCl [From Percocet] Allergy (Verified 04/16/17 10:52) Past Medical History - General Information source: Patient - Social History Smoking Status: Current Every Day Smoker Chew tobacco use (# tins/day): No Frequency of alcohol use: Social Drug Abuse: None Family History: Reviewed & Not Pertinent, DM, Malignancy, Other - cirrhosis Patient has suicidal ideation: No Patient has homicidal ideation: No - Past Medical History Cardiac Medical History: Reports: Hx Hypercholesterolemia, Hx Hypertension Denies: Hx Coronary Artery Disease, Hx Heart Attack Endocrine Medical History: Reports: 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 Renal/ Medical History: Denies: Hx Peritoneal Dialysis Skin Medical History: Reports Hx MRSA Psychiatric Medical History: Reports: Hx Depression Infectious Medical History: Reports: Hx MRSA Past Surgical History: Reports: Hx Tonsillectomy, Hx Tubal Ligation - Immunizations Hx Diphtheria, Pertussis, Tetanus Vaccination: Yes Review of Systems - Review of Systems Constitutional: No symptoms reported EENT: See HPI Cardiovascular: No symptoms reported Respiratory: No symptoms reported Gastrointestinal: No symptoms reported Genitourinary: No symptoms reported Musculoskeletal: No symptoms reported Skin: See HPI Neurological/Psychological: No symptoms reported Physical Exam - Vital signs Vitals: Temp Pulse Resp BP Pulse Ox 97.9 F 92 16 147/85 H 100 07/13/17 12:05 07/13/17 12:05 07/13/17 12:05 07/13/17 12:07/13/17 12:05 - General General appearance: Appears well, Alert, Anxious In distress: None - HEENT Head: Tenderness - R. MAXILLA, NOT RED OR WARM Eyes: Normal Conjunctiva: Normal Ears: Normal Nasal: Normal Mouth/Lips: Normal Mucous membranes: Normal Pharynx: Normal Neck: Normal - Respiratory Respiratory status: No respiratory distress - Cardiovascular Rhythm: Regular - Abdominal Inspection: Normal Distension: No distension Bowel sounds: Normal - Extremities General upper extremity: No: Normal inspection - R. THUMB (SEE BELOW) General lower extremity: Normal inspection Hand: Other - LARGE PARONYCHIA R. THUMB - Neurological Neuro grossly intact: Yes Cognition: Normal Orientation: AAOx4 - Psychological Associated symptoms: Normal affect, Normal mood - Skin Skin Temperature: Warm Skin Moisture: Dry Skin Color: Normal Course - Vital Signs Vital signs: Temp Pulse Resp BP Pulse Ox 97.9 F 92 16 147/85 H 100 07/13/17 16:20 07/13/17 12:05 07/13/17 12:05 07/13/17 12:05 07/13/17 12:05 - Laboratory Result Diagrams: 07/13/17 12:41 07/13/17 12:41 Laboratory results interpreted by me: 07/13/17 07/13/17 12:41 12:41 Hgb 10.8 L Hct 34.6 L MCV 76 L MCH 23.7 L MCHC 31.2 L RDW 17.2 H Plt Count 107 L Sodium 136.8 L Creatinine 0.49 L Glucose 268 H AST 57 H Alkaline Phosphatase 131 H Procedures - Incision and Drainage Right Thumb Type: Simple Anesthetic type: Other - L.E.T. TOPICAL, 4% LIDOCAINE TOPICAL mL's of anesthetic: 5 Incision Method: Incision made with needle Amount/type of drainage: 1.4 cc PURULENT Notes: 07/13/17 17:33 INCISION OVER ULNAR PARONYCHIAL FOLD ENLARGED WITH SCISSORS. ADDITIONAL DRAINAGE HOLE MADE THRU NAIL PLATE WITH ELECTROCAUTERY DEVICE. Hands back picture: 1 - PARONYCHIA Discharge - Discharge Clinical Impression: Paronychia of right thumb, Diabetes mellitus type 1 Condition: Stable Disposition: HOME, SELF-CARE Instructions: Clindamycin ([facility]), Paronychia ([facility]), Epsom Salt Soaks ([facility]) Additional Instructions: KEEP HAND ELEVATED MUCH POSSIBLE. SOAK THUMB FOR 30 MINUTES FOUR TIMES A DAY. MEDS DIRECTED. FOLLOW UP WITH YOUR PRIMARY CARE PROVIDER, CALL TOMORROW A.M. FOR APPT. Prescriptions: Clindamycin HCl [Cleocin 150 mg Capsule] 300 mg PO Q6 #56 capsule Referrals: ADELINE MORALES MD [Primary Care Provider] - Follow up as needed
[2017-07-13] MEDS ORDERED: LIDOCAINE 4%/TETRACAINE 0.5%/EPI 0.18% 5 ML TOPICAL SOLN TOP ONE (14:53)
[2017-07-13] MEDS ORDERED: LIDOCAINE 4% TOPICAL SOLN 50 ML TOP ONE (16:49)
[2017-07-13 18:17] VITALS: BP 167/70
== END 2017-07-13 18:17 | disposition home or self-care (01) ==
LOC: ER 12:00
DX: L03.011 Cellulitis of right finger (principal); E10.9 Type 1 diabetes mellitus without complications; I10 Essential (primary) hypertension; F17.200 Nicotine dependence, unspecified, uncomplicated; Z86.14 Personal history of Methicillin resistant Staphylococcus aureus infection; Z88.5 Allergy status to narcotic agent; Z88.1 Allergy status to other antibiotic agents; Z88.8 Allergy status to other drugs, medicaments and biological substances
CPT/HCPCS: 99284; 36415; 87040; 87070 ×2; 87205; 85025; 80053; 70486; 10060; J3490 ×2; J1815

== ENCOUNTER 2017-07-25 10:22 | Emergency (ER) | payer SELFPAY ==
[2017-07-25] MEDS ORDERED: NORMAL SALINE 1000 ML 1,000 ML IV ONE (10:53)
--- NOTE | 2017-07-25 10:53 | ER Document Report ---
ED Medical Screen (RME) - General Chief Complaint: Abdominal Pain Stated Complaint: FINGER INFECTION ABDOMINAL PAIN BACK PAIN Time Seen by Provider: 07/25/17 10:49 TRAVEL OUTSIDE OF THE [place] IN LAST 30 DAYS: No - HPI Patient complains to provider of: R thumb, abd pain Onset: Yesterday - Pt had area on R thumb "lanced" several days ago and is having severe pain. Also c/o epigastric pain for the past few days. - Related Data Allergies/Adverse Reactions: acetaminophen [From Percocet] Allergy (Verified 07/25/17 10:46) celecoxib [From Celebrex] Allergy (Verified 07/25/17 10:46) erythromycin base [Erythromycin Base] Allergy (Verified 07/25/17 10:46) Hives oxycodone HCl [From Percocet] Allergy (Verified 07/25/17 10:46) Past Medical History - Social History Chew tobacco use (# tins/day): No Frequency of alcohol use: None Drug Abuse: None Family history: Reviewed & Not Pertinent - Past Medical History Cardiac Medical History: Reports: Hx Hypercholesterolemia, Hx Hypertension Denies: Hx Coronary Artery Disease, Hx Heart Attack Endocrine Medical History: Reports: 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 Renal/ Medical History: Denies: Hx Peritoneal Dialysis Skin Medical History: Reports Hx MRSA Psychiatric Medical History: Reports: Hx Depression Infectious Medical History: Reports: Hx MRSA Past Surgical History: Reports: Hx Tonsillectomy, Hx Tubal Ligation - Immunizations Hx Diphtheria, Pertussis, Tetanus Vaccination: Yes Physical Exam - Vital signs Vitals: Temp Pulse Resp BP Pulse Ox 98.5 F 107 H 18 138/76 H 100 07/25/17 10:39 07/25/17 10:39 07/25/17 10:39 07/25/17 10:39 07/25/17 10:39 Course - Vital Signs Vital signs: Temp Pulse Resp BP Pulse Ox 98.5 F 107 H 18 138/76 H 100 07/25/17 10:39 07/25/17 10:39 07/25/17 10:39 07/25/17 10:39 07/25/17 10:39
[2017-07-25 11:26] LABS: ABSOLUTE EOSINOPHILS # (AUTO) 0.1 10^3/uL (0.0-0.6); ABSOLUTE LYMPHOCYTES (AUTO) 0.5 10^3/uL (0.5-4.7); ABSOLUTE MONOCYTES (AUTO) 0.3 10^3/uL (0.1-1.4); ABSOLUTE NEUT (AUTO) 5.4 10^3/uL (1.7-8.2); BASOPHILS % (AUTO) 0.1 % (0-2); EOSINOPHILS % (AUTO) 1.1 % (0-6); HEMATOCRIT 35.3 % (36.0-47.0); HEMOGLOBIN 11.1 g/dL (12.0-15.5); LYMPHOCYTES % (AUTO) 8.2 % (13-45); MEAN CORPUSCULAR HEMOGLOBIN 24.2 pg (27.0-33.4); MEAN CORPUSCULAR HGB CONC 31.5 g/dL (32.0-36.0); MEAN CORPUSCULAR VOLUME 77 fl (80-97); PLATELET COUNT 130 10^3/uL (150-450); RED CELL DISTRIBUTION WIDTH 17.4 % (11.5-14.0); SEGMENTED NEUTROPHILS % (AUTO) 86.6 % (42-78); TOTAL CELLS COUNTED % (AUTO) 100 %; WHITE BLOOD COUNT 6.3 10^3/uL (4.0-10.5)
[2017-07-25 11:31] LABS: APPEARANCE,URINE CLEAR; BILIRUBIN,URINE NEGATIVE (NEGATIVE); COLOR,URINE YELLOW; GLUCOSE, URINE 150 mg/dL (NEGATIVE); KETONES,URINE NEGATIVE (NEGATIVE); LEUKOCYTE ESTERASE,URINE TRACE (NEGATIVE); NITRITE,URINE NEGATIVE (NEGATIVE); PROTEIN,URINE NEGATIVE (NEGATIVE); URINE SPECIFIC GRAVITY 1.013; UROBILINOGEN,URINE NEGATIVE mg/dL (<2.0)
--- NOTE | 2017-07-25 11:41 | RADIOLOGY REPORT (SQ) ---
EXAM DESCRIPTION: ACUTE ABDOMEN SERIES COMPLETED DATE/TIME: 07/25/2017 11:27 am REASON FOR STUDY: R hand pain . Abdominal pain. COMPARISON: None. NUMBER OF VIEWS: Three views. TECHNIQUE: Frontal chest, supine abdomen and upright/decubitus abdomen radiographic images acquired. LIMITATIONS: None. FINDINGS: CHEST: Lungs clear of infiltrates. No pneumoperitoneum. BOWEL GAS PATTERN: Nonobstructive pattern. No dilated loops or air fluid levels. CALCIFICATIONS: No suspicious calcifications. HARDWARE: None in the abdomen. SOFT TISSUES: No gross mass or suggestion of organomegaly. Psoas margins maintained. BONES: Lumbar spondylosis L3-L5 with disc space narrowing L4-5. OTHER: Radiopaque density overlying the lower abdomen could represent belly ring. Phleboliths in the pelvis. IMPRESSION: Nonspecific bowel-gas pattern. No acute disease. TECHNICAL DOCUMENTATION: JOB ID: [id number] 2010 [employer]- All Rights Reserved
--- NOTE | 2017-07-25 11:47 | RADIOLOGY REPORT (SQ) ---
EXAM DESCRIPTION: HAND RIGHT 3 VIEWS COMPLETED DATE/TIME: 07/25/2017 11:27 am REASON FOR STUDY: R hand pain . Thumb pain. COMPARISON: None. EXAM PARAMETERS: NUMBER OF VIEWS: Three views. TECHNIQUE: AP, lateral and oblique radiographic images acquired of the right hand. LIMITATIONS: None. FINDINGS: MINERALIZATION: Normal. BONES: No acute fracture or dislocation. No worrisome bone lesions. JOINTS: No effusions. SOFT TISSUES: No soft tissue swelling. No foreign body. OTHER: No other significant finding. IMPRESSION: NEGATIVE STUDY OF THE RIGHT HAND. NO RADIOGRAPHIC EVIDENCE OF ACUTE INJURY. COMMENT: Pain in thumb TECHNICAL DOCUMENTATION: JOB ID: [id number] [id number] 2010 [employer]- All Rights Reserved
[2017-07-25 11:48] LABS: ALANINE AMINOTRANSFERASE 70 U/L (9-52); ALKALINE PHOSPHATASE 164 U/L (38-126); ANION GAP 11 (5-19); ASPARTATE AMINO TRANSFERASE 114 U/L (14-36); BILIRUBIN,DIRECT 0.4 mg/dL (0.0-0.4); BILIRUBIN,TOTAL 0.8 mg/dL (0.2-1.3); BLOOD UREA NITROGEN 6 mg/dL (7-20); CARBON DIOXIDE 26 mmol/L (22-30); CHLORIDE 102 mmol/L (98-107); GLUCOSE 207 mg/dL (75-110); POTASSIUM 4.3 mmol/L (3.6-5.0); SODIUM 138.7 mmol/L (137-145); TOTAL PROTEIN 7.6 g/dL (6.3-8.2)
[2017-07-25] MEDS ORDERED: LIDOCAINE 1% INJ-PF (10 MG/ML) 30 ML SDV INJ ONE (12:32)
--- NOTE | 2017-07-25 12:36 | ER Document Report ---
ED General - General Chief Complaint: Abdominal Pain Stated Complaint: FINGER INFECTION ABDOMINAL PAIN BACK PAIN Time Seen by Provider: 07/25/17 10:49 Information source: Patient Notes: 46-year-old female with past medical history of diabetes who presents today with 2 separate complaints. Patient states that on 10 days ago she had some pain to the medial aspect of the right thumb. She states she was seen here recently and had the area "drained" and was placed on antibiotics. Patient also states for 4-5 days she has had some epigastric pain radiating to her back as well as to her left lower quadrant. She states nausea and vomiting. She denies dysuria or fevers. Patient states she has been seen at the [facility] and was told by CT scan that she had an "enlarged liver". Patient has had no recent signs or symptoms of sore throat to suggest mononucleosis. TRAVEL OUTSIDE OF THE [place] IN LAST 30 DAYS: No - HPI Onset: Other - See above Onset/Duration: Gradual Quality of pain: Achy Severity: Mild Pain Level: 1 Associated symptoms: Other - See above Exacerbated by: Denies Relieved by: Denies Similar symptoms previously: Yes Recently seen / treated by doctor: Yes - Related Data Allergies/Adverse Reactions: acetaminophen [From Percocet] Allergy (Verified 07/25/17 10:46) celecoxib [From Celebrex] Allergy (Verified 07/25/17 10:46) erythromycin base [Erythromycin Base] Allergy (Verified 07/25/17 10:46) Hives oxycodone HCl [From Percocet] Allergy (Verified 07/25/17 10:46) Past Medical History - Social History Smoking Status: Current Every Day Smoker Cigarette use (# per day): No Chew tobacco use (# tins/day): No Smoking Education Provided: No Frequency of alcohol use: None Drug Abuse: None Family History: Reviewed & Not Pertinent, DM, Malignancy, Other - cirrhosis Patient has suicidal ideation: No Patient has homicidal ideation: No - Past Medical History Cardiac Medical History: Reports: Hx Hypercholesterolemia, Hx Hypertension Denies: Hx Coronary Artery Disease, Hx Heart Attack Endocrine Medical History: Reports: 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 Renal/ Medical History: Denies: Hx Peritoneal Dialysis Skin Medical History: Reports Hx MRSA Psychiatric Medical History: Reports: Hx Depression Infectious Medical History: Reports: Hx MRSA Past Surgical History: Reports: Hx Tonsillectomy, Hx Tubal Ligation - Immunizations Hx Diphtheria, Pertussis, Tetanus Vaccination: Yes Review of Systems - Review of Systems Constitutional: denies: Fever EENT: denies: Eye discharge, Nose discharge Cardiovascular: denies: Chest pain, Palpitations Respiratory: denies: Short of breath Gastrointestinal: Vomiting. denies: Diarrhea Genitourinary: denies: Dysuria Musculoskeletal: denies: Leg swelling Skin: Other - no hives. denies: Rash Neurological/Psychological: Other - no slurred speech -: Yes All other systems reviewed and negative Physical Exam - Vital signs Vitals: Temp Pulse Resp BP Pulse Ox 98.5 F 107 H 18 138/76 H 100 07/25/17 10:39 07/25/17 10:39 07/25/17 10:39 07/25/17 10:39 07/25/17 10:39 Notes: Reviewed vital signs and nursing note as charted by RN. CONSTITUTIONAL: Alert and oriented and responds appropriately to questions. Well -appearing; well-nourished HEAD: Normocephalic; atraumatic EYES: Sclerae non-icteric CARD: Regular rate and rhythm; no murmurs RESP: Normal chest excursion without splinting or tachypnea; breath sounds clear and equal bilaterally ABD/GI: Normal bowel sounds; non-distended; soft, no palpable organomegaly. Mild tenderness to the epigastric and left upper quadrant without rebound or guarding BACK: The back appears normal EXT: Normal ROM in all joints; tender to palpation along the medial aspect of the right thumb at the paronychial region with some mild fluctuance without any surrounding erythema SKIN: No acute lesions noted NEURO: Moves all extremities equally; Motor and sensory function intact PSYCH: The patient's mood and manner are appropriate. Grooming and personal hygiene are appropriate. Course - Re-evaluation Re-evalutation: Given the history and physical examination we will order basic labs, perform an I&D of a possible paronychia, and obtain a CT scan of the abdomen and pelvis for further evaluation. 07/25/17 12:36 Labs as recorded. It appears the patient has some chronic low platelets and some elevated transaminitis. CT scan is pending. 07/25/17 13:37 CT scan of the abdomen and pelvis as recorded showing some chronic splenomegaly as well as signs of liver cirrhosis. PT/INR has been ordered. 07/25/17 14:28 I called the radiologist and she sees no acute change compared to the previous scan. She states that is it is not fulminant cirrhosis. I performed an I and D of the right thumb paronychia. I also performed a trephination to the medial proximal side of the nail as well as slightly lifted the edge to help remove excess pus. I will start the patient on Bactrim with strict return precautions. Patient states she has a follow-up appointment with her primary care physician for further evaluation of her liver. - Vital Signs Vital signs: Temp Pulse Resp BP Pulse Ox 98.9 F 96 18 136/76 H 98 07/25/17 12:13 07/25/17 12:13 07/25/17 12:13 07/25/17 12:13 07/25/17 12:13 - Laboratory Result Diagrams: 07/25/17 11:01 07/25/17 11:01 Laboratory results interpreted by me: 07/25/17 07/25/17 07/25/17 10:59 11:01 11:01 Hgb 11.1 L Hct 35.3 L MCV 77 L MCH 24.2 L MCHC 31.5 L RDW 17.4 H Plt Count 130 L Seg Neutrophils % 86.6 H Lymphocytes % 8.2 L BUN 6 L Creatinine 0.45 L Glucose 207 H AST 114 H ALT 70 H Alkaline Phosphatase 164 H Urine Glucose (UA) 150 H Urine Blood LARGE H Ur Leukocyte Esterase TRACE H Procedures - Incision and Drainage Right Finger Type: Simple Anesthetic type: 1% Lidocaine mL's of anesthetic: 6 Blade size: 11 I&D procedure: Chlorprep applied Incision Method: Incision made by scalpel Notes: 07/25/17 14:28 I performed a digital block using 1% lidocaine to the base of the right thumb Discharge - Discharge Clinical Impression: Paronychia Abdominal pain Qualifiers: Abdominal location: unspecified location Qualified Code(s): R10.9 - Unspecified abdominal pain Condition: Fair Disposition: HOME, SELF-CARE Additional Instructions: Come back immediately with any increased pain, any fevers, any swelling of the finger, worsening abdominal pain, abdominal swelling, or any other acute problems. Please make sure that you tell your primary care physician about the CT scan showing a persistently enlarged liver and signs of cirrhosis.
--- NOTE | 2017-07-25 13:16 | RADIOLOGY REPORT (SQ) ---
EXAM DESCRIPTION: CT ABD/PELVIS WITH IV ONLY COMPLETED DATE/TIME: 07/25/2017 12:53 pm REASON FOR STUDY: Diffuse abdominal pain. COMPARISON: CT abdomen and pelvis 05/14/2017. TECHNIQUE: CT scan of the abdomen and pelvis performed using helical scanning technique with dynamic intravenous contrast injection. No oral contrast. Images reviewed with lung, soft tissue, and bone windows. Reconstructed coronal and sagittal MPR images reviewed. Delayed images for evaluation of the urinary system also acquired. All images stored on PACS. All CT scanners at this facility use dose modulation, iterative reconstruction, and/or weight based d osing when appropriate to reduce radiation dose to as low as reasonably achievable (ALARA). [facility]: Dose Right [facility]: CareDose [facility]: Dose Right [facility]: Teradose 4D [facility]: BridgeXs CONTRAST TYPE AND DOSE: contrast/concentration: Isovue 370.00 mg/ml; Total Contrast Delivered: 70.0 ml; Total Saline Delivered: 66.0 ml RENAL FUNCTION: Creatinine 0.45 RADIATION DOSE: CT Rad equipment meets quality standard of care and radiation dose reduction techniq ues were employed. CTDIvol: 6.2 - 8.5 mGy. DLP: 1252 mGy-cm.. LIMITATIONS: None. FINDINGS: LOWER CHEST: No consolidation or pleural effusion. LIVER: Mildly nodular contour of the liver with hypertrophy of the left hepatic lobe and caudate lobe , most consistent with cirrhosis. No masses. No dilated ducts. Periportal adenopathy measuring 1.8 cm. There is recanalization of the periumbilical ligament, suggestive of portal hypertension. SPLEEN: Enlarged measuring 15.2 cm. No focal lesions. PANCREAS: No significant calcifications. No adjacent inflammation or peripancreatic fluid collections . Pancreatic duct not dilated. GALLBLADDER: No identified stones by CT criteria. No inflammatory changes to suggest cholecystitis. ADRENAL GLANDS: No significant masses or asymmetry. RIGHT KIDNEY AND URETER: No solid masses. No significant calcifications. No hydronephrosis or hyd roureter. LEFT KIDNEY AND URETER: No solid masses. No significant calcifications. No hydronephrosis or hydr oureter. AORTA AND VESSELS: No abdominal aortic aneurysm. RETROPERITONEUM: No retroperitoneal adenopathy, hemorrhage or masses. BOWEL AND PERITONEAL CAVITY: No dilated bowel loops or inflammatory changes. No free fluid or free ai r. APPENDIX: Normal. PELVIS: The urinary bladder is partially distended. The uterus is present. No free fluid. ABDOMINAL WALL: Radiopaque piercing is noted at the umbilicus. There is a small fat containing umbil ical hernia. BONES: Degenerative changes in the spine. IMPRESSION: Cirrhosis with splenomegaly and portal hypertension. Periportal adenopathy. TECHNICAL DOCUMENTATION: JOB ID: [id number] PR-[id number] Quality ID # [id number]: Final reports with documentation of one or more dose reduction techniques (e.g., Au tomated exposure control, adjustment of the mA and/or kV according to patient size, use of iterative reconstruction technique) 2010 [employer]- All Rights Reserved
[2017-07-25 13:50] LABS: INTERNATIONAL RATION (INR) 1.04; PROTHROMBIN TIME 14.3 SEC (11.4-15.4)
[2017-07-25] MEDS ORDERED: SULFAMETHOXAZOLE/TRIMETHOPRIM 800-160 MG TABLET PO ONE (14:50)
[2017-07-25 15:23] VITALS: BP 132/74
== END 2017-07-25 15:23 | disposition home or self-care (01) ==
LOC: ER 10:22
DX: L03.011 Cellulitis of right finger (principal); R16.1 Splenomegaly, not elsewhere classified; R10.13 Epigastric pain; R10.812 Left upper quadrant abdominal tenderness; R10.816 Epigastric abdominal tenderness; R11.2 Nausea with vomiting, unspecified; E10.9 Type 1 diabetes mellitus without complications; I10 Essential (primary) hypertension; F17.200 Nicotine dependence, unspecified, uncomplicated; Z88.6 Allergy status to analgesic agent; Z88.1 Allergy status to other antibiotic agents; Z88.5 Allergy status to narcotic agent; Z86.14 Personal history of Methicillin resistant Staphylococcus aureus infection
CPT/HCPCS: 99284; 96360; 36415; 83690; 85025; 85610; 80053; 81001; 74022; 73130; 74177; 10060; J3490; J7030

== ENCOUNTER → 2017-07-29 | Outpatient (CLI) | payer OTHER ==
[2017-08-01 06:38] LABS: HEPATITIS C VIRUS AB <0.1 s/co ratio (0.0-0.9)
[2017-08-01 14:41] LABS: AFP SERUM TUMOR MARKER 4.3 ng/mL (0.0-8.3)
== END ==
LOC: CCC 15:45
DX: K74.60 Unspecified cirrhosis of liver (principal)
CPT/HCPCS: 36415; 82105; 82140; 86803; 86804

== ENCOUNTER 2017-08-06 13:08 | Inpatient (IN) | payer SELFPAY ==
[2017-08-06] MEDS ORDERED: VANCOMYCIN HCL INJ 1000 MG VIAL IV ONE (16:04)
--- NOTE | 2017-08-06 16:05 | ER Document Report ---
ED Medical Screen (RME) - General Chief Complaint: Hand Pain Stated Complaint: FINGER PAIN Time Seen by Provider: 08/06/17 15:50 Mode of Arrival: Ambulatory Information source: Patient Notes: Patient is 46 year old female with a history of diabetes and cirrhosis presents to the emergency department complaining of right thumb pain. Patient states she has had an ongoing infection in her thumb for the last 2 months which resulted in a procedure to have half of her nail removed. Patient returned to her PCP today (Dr. Mccann) due to the infection worsening despite taking Bactrim and Clindamycin (started yesterday). Patient presents to the emergency department with Dr. Mccann's phone number for advice with further patient care. I have greeted and performed a rapid initial assessment of this patient. A comprehensive ED assessment and evaluation of the patient, analysis of test results and completion of the medical decision making process will be conducted by additional ED providers. Initialized on 08/06/17 13:10 - END OF NOTE TRAVEL OUTSIDE OF THE [place] IN LAST 30 DAYS: No - Related Data Allergies/Adverse Reactions: celecoxib [From Celebrex] Allergy (Verified 07/25/17 10:46) erythromycin base [Erythromycin Base] Allergy (Verified 07/25/17 10:46) Hives oxycodone HCl [From Percocet] Allergy (Verified 07/25/17 10:46) Past Medical History - Social History Family history: Reviewed & Not Pertinent - Past Medical History Cardiac Medical History: Reports: Hx Hypercholesterolemia, Hx Hypertension Denies: Hx Coronary Artery Disease, Hx Heart Attack Endocrine Medical History: Reports: 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 Renal/ Medical History: Denies: Hx Peritoneal Dialysis Skin Medical History: Reports Hx MRSA Psychiatric Medical History: Reports: Hx Depression Infectious Medical History: Reports: Hx MRSA Past Surgical History: Reports: Hx Tonsillectomy, Hx Tubal Ligation - Immunizations Hx Diphtheria, Pertussis, Tetanus Vaccination: Yes Physical Exam - Vital signs Vitals: Temp Pulse Resp BP Pulse Ox 98.1 F 93 16 114/62 99 08/06/17 14:00 08/06/17 14:00 08/06/17 14:00 08/06/17 14:00 08/06/17 14:00 - Notes Notes: GENERAL: Alert, interacts well. No acute distress. HEAD: Normocephalic, Atraumatic. EXTREMITIES: Right thumb is erythematous and tender to palpation. Course - Vital Signs Vital signs: Temp Pulse Resp BP Pulse Ox 98.0 F 100 16 125/71 93 08/11/17 08:00 08/11/17 08:00 08/11/17 08:00 08/11/17 08:00 08/11/17 08:00 - Laboratory Result Diagrams: 08/11/17 06:10 08/11/17 06:10 Laboratory results interpreted by me: 08/06/17 08/06/17 17:49 17:49 Hgb 10.9 L Hct 35.2 L MCV 76 L MCH 23.6 L MCHC 31.1 L RDW 16.8 H Plt Count 131 L ESR 27 H Sodium 135.6 L Creatinine 0.49 L Glucose 320 H AST 82 H ALT 100 H Doctor's Discharge - Discharge Clinical Impression: Cellulitis of right thumb, Felon of finger of right hand, Diabetes mellitus with hyperglycemia, Hypertension Condition: Stable Disposition: ADMITTED INPATIENT Scribe Documentation - Scribe Written by Tyesha:: Tyesha Rivera, 08/06/2017 16:07 acting as scribe for :: Kushal
--- NOTE | 2017-08-06 17:07 | RADIOLOGY REPORT (SQ) ---
EXAM DESCRIPTION: FINGER RIGHT COMPLETED DATE/TIME: 08/06/2017 4:59 pm REASON FOR STUDY: R thumb, concern for osteo COMPARISON: None. NUMBER OF VIEWS: Three views. TECHNIQUE: AP, lateral, and oblique images acquired of the right thumb. LIMITATIONS: None. FINDINGS: MINERALIZATION: Normal. BONES: No acute fracture or dislocation. No worrisome bone lesions. SOFT TISSUES: No soft tissue swelling. No foreign body. OTHER: No other significant finding. IMPRESSION: NO SIGNIFICANT RADIOGRAPHIC ABNORMALITY. NO RADIOGRAPHIC FINDINGS OF OSTEOMYELITIS. COMMENT: SITE OF TRAUMA/COMPLAINT MARKED/STAMP COMPLETED: YES. TECHNICAL DOCUMENTATION: JOB ID: [id number] [employer]- All Rights Reserved
[2017-08-06 18:17] LABS: ABSOLUTE EOSINOPHILS # (AUTO) 0.1 10^3/uL (0.0-0.6); ABSOLUTE LYMPHOCYTES (AUTO) 1.6 10^3/uL (0.5-4.7); ABSOLUTE MONOCYTES (AUTO) 0.5 10^3/uL (0.1-1.4); ABSOLUTE NEUT (AUTO) 2.3 10^3/uL (1.7-8.2); BASOPHILS % (AUTO) 0.8 % (0-2); EOSINOPHILS % (AUTO) 2.4 % (0-6); HEMATOCRIT 35.2 % (36.0-47.0); HEMOGLOBIN 10.9 g/dL (12.0-15.5); MEAN CORPUSCULAR HEMOGLOBIN 23.6 pg (27.0-33.4); MEAN CORPUSCULAR HGB CONC 31.1 g/dL (32.0-36.0); MEAN CORPUSCULAR VOLUME 76 fl (80-97); MONOCYTES % (AUTO) 11.3 % (3-13); PLATELET COUNT 131 10^3/uL (150-450); RED BLOOD COUNT 4.63 10^6/uL (3.72-5.28); RED CELL DISTRIBUTION WIDTH 16.8 % (11.5-14.0); SEGMENTED NEUTROPHILS % (AUTO) 50.5 % (42-78); TOTAL CELLS COUNTED % (AUTO) 100 %; WHITE BLOOD COUNT 4.6 10^3/uL (4.0-10.5)
[2017-08-06 18:25] LABS: ALANINE AMINOTRANSFERASE 100 U/L (9-52); ALBUMIN 4.1 g/dL (3.5-5.0); ALKALINE PHOSPHATASE 125 U/L (38-126); ANION GAP 9 (5-19); ASPARTATE AMINO TRANSFERASE 82 U/L (14-36); BILIRUBIN,DIRECT 0.3 mg/dL (0.0-0.4); BILIRUBIN,TOTAL 0.4 mg/dL (0.2-1.3); BLOOD UREA NITROGEN 11 mg/dL (7-20); CALCIUM 9.4 mg/dL (8.4-10.2); CARBON DIOXIDE 26 mmol/L (22-30); CHLORIDE 101 mmol/L (98-107); GLUCOSE 320 mg/dL (75-110); POTASSIUM 4.1 mmol/L (3.6-5.0); SODIUM 135.6 mmol/L (137-145); TOTAL PROTEIN 7.7 g/dL (6.3-8.2)
[2017-08-06] MEDS ORDERED: BUPIVACAINE HCL 0.5 % INJ/PF 30 ML SDV INJ ONE (18:35)
[2017-08-06] MEDS ORDERED: LIDOCAINE 1% INJ-PF (10 MG/ML) 30 ML SDV INJ ONE (18:35)
[2017-08-06] MEDS ORDERED: CEFTRIAXONE 1 GM/D5W RTU 1 GM/50 ML RTUPB IV ONE (18:39)
--- NOTE | 2017-08-06 18:44 | ER Document Report ---
ED Hand/Wrist Injury - General Mode of Arrival: Ambulatory Information source: Patient TRAVEL OUTSIDE OF THE [place] IN LAST 30 DAYS: No - HPI Patient complains to provider of: Right thumb swelling and pain Injury to: Thumb - right Onset: Other - 2 months ago; see notes above Context: Other - see notes above <AILEEN FOUNTAIN - Last Filed: 08/06/17 21:55> <EMERITA ABDALLA - Last Filed: 08/07/17 04:01> - General Chief Complaint: Hand Pain Stated Complaint: FINGER PAIN Time Seen by Provider: 08/06/17 15:50 Notes: 46 year old female with history of insulin-dependent diabetes presents to the ED complaining of right thumb pain, infection, and swelling that has been on going for 2 months. Patient reports that she has been to the ED twice each time having pressure relieved under her right thumb nail by drilling a hole. Patient' s infection initially started with a painful small 'dot of blood' under her right thumb nail. Patient came to the ED and had pressure relieved and was discharged home with oral antibiotics. Patient returned to the ED two weeks later with increasing swelling to the right thumb and fevers. Patient had her nail drilled again and was discharged home with new oral antibiotics. Patient reports that the hole sealed up in 4 days and she followed up with Dr. Mccann at the [facility] where she had two-thirds of her nail removed. Patient had a follow up appointment with Dr. Mccann today and was told to come to the ED secondary to her severe right thumb pain. Patient reports that she has been having fevers and chills since last being seen at the ED. Patient is additionally concerned over an elevated blood sugar count over the past week. Patient reports she has been on Bactrim and Clindamycin. (AILEEN FOUNTAIN) - Related Data Allergies/Adverse Reactions: celecoxib [From Celebrex] Allergy (Verified 07/25/17 10:46) erythromycin base [Erythromycin Base] Allergy (Verified 07/25/17 10:46) Hives oxycodone HCl [From Percocet] Allergy (Verified 07/25/17 10:46) Past Medical History - General Information source: Patient - Social History Smoking Status: Current Every Day Smoker Chew tobacco use (# tins/day): No Frequency of alcohol use: Social Drug Abuse: None Family History: Reviewed & Not Pertinent, DM, Malignancy, Other - cirrhosis Patient has suicidal ideation: No Patient has homicidal ideation: No - Past Medical History Cardiac Medical History: Reports: Hx Hypercholesterolemia, Hx Hypertension Denies: Hx Coronary Artery Disease, Hx Heart Attack Endocrine Medical History: Reports: 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 Renal/ Medical History: Denies: Hx Peritoneal Dialysis GI Medical History: Reports: Hx Cirrhosis Skin Medical History: Reports Hx MRSA Psychiatric Medical History: Reports: Hx Depression Infectious Medical History: Reports: Hx MRSA Past Surgical History: Reports: Hx Tonsillectomy, Hx Tubal Ligation - Immunizations Hx Diphtheria, Pertussis, Tetanus Vaccination: Yes <AILEEN FOUNTAIN - Last Filed: 08/06/17 21:55> Review of Systems - Review of Systems Constitutional: See HPI, Chills, Fever EENT: No symptoms reported Cardiovascular: No symptoms reported Respiratory: No symptoms reported Gastrointestinal: No symptoms reported Genitourinary: No symptoms reported Female Genitourinary: No symptoms reported Musculoskeletal: See HPI, Other - right thumb pain and swelling Skin: No symptoms reported Hematologic/Lymphatic: No symptoms reported Neurological/Psychological: No symptoms reported -: Yes All other systems reviewed and negative <AILEEN FOUNTAIN - Last Filed: 08/06/17 21:55> Physical Exam <AILEEN FOUNTAIN - Last Filed: 08/06/17 21:55> <EMERITA ABDALLA - Last Filed: 08/07/17 04:01> - Vital signs Vitals: Temp Pulse Resp BP Pulse Ox 98.1 F 93 16 114/62 99 08/06/17 14:00 08/06/17 14:00 08/06/17 14:00 08/06/17 14:00 08/06/17 14:00 - Notes Notes: GENERAL: Alert, interacts well. No acute distress. HEAD: Normocephalic, atraumatic. EYES: Pupils equal, round, and reactive to light. Extraocular movements intact. ENT: Oral mucosa moist, tongue midline. NECK: Full range of motion. Supple. Trachea midline. LUNGS: Clear to auscultation bilaterally, no wheezes, rales, or rhonchi. No respiratory distress. HEART: Regular rate and rhythm. No murmurs, gallops, or rubs. ABDOMEN: Soft, non-tender. Non-distended. Bowel sounds present in all 4 quadrants. EXTREMITIES: Moves all 4 extremities spontaneously. Radial pulses 2/4 bilaterally. No cyanosis. Right thumb is more swollen than left, particularly to the distal aspect. Pad of right thumb is swollen. Diffuse tenderness to palpation of right thumb, worse over the pad of the right thumb. Significant pain with range of motion, but able to flex IP and MCP joints. NEUROLOGICAL: Alert and oriented x3. Normal speech. PSYCH: Normal affect, normal mood. SKIN: Warm and dry. (AILEEN FOUNTAIN) Course - Laboratory Result Diagrams: 08/06/17 17:49 08/06/17 17:49 - Consults Dr. Coronado Time consulted: 21:24 Dr. Moyer Time consulted: 21:28 <AILEEN FOUNTAIN - Last Filed: 08/06/17 21:55> - Laboratory Result Diagrams: 08/06/17 17:49 08/06/17 17:49 <EMERITA ABDALLA - Last Filed: 08/07/17 04:01> - Re-evaluation Re-evalutation: 08/06/17 21:32 CBC shows anemia with hemoglobin 10.9, platelets slightly low at 131, no leukocytosis, no left shift, chemistries show elevated glucose at 320, LFTs elevated at 82 for the AST 100 for the ALT alkaline phosphatase normal, this is expected in a patient with a history of cirrhosis, surprisingly the ESR is only 27 and the CRP is not elevated at 7.0, finger x-ray does not show any signs of osteomyelitis. I did go ahead and remove the remainder of the nail from the right thumb and place bilateral incisions to the right thumb to drain the felon. Patient has been started on IV antibiotics for cellulitis which is failed multiple courses of outpatient antibiotics and possible osteomyelitis. I did discuss this case with the orthopedic surgeon direct support professional caregiver Dr. Coronado who thinks that we should start an MRI to look for ostial, agrees with admission for IV antibiotics, at this point as it appears to be a felon and cellulitis but there is no current proof of osteomyelitis he would recommend admission to the hospitalist service and orthopedics will consult. Discussed with Dr. Moyer from the hospitalist service who agrees to admit the patient to his service. Will consult orthopedics. Blood cultures have been obtained. No pus was obtained from the wounds despite removing the nail and performing bilateral incisions to drain the felon. Therefore no wound cultures were obtained. 08/07/17 04:01 Hypertension will be followed by hospitalist. (EMERITA ABDALLA) - Vital Signs Vital signs: Temp Pulse Resp BP Pulse Ox 97.7 F 85 20 149/60 H 99 08/07/17 02:41 08/07/17 02:41 08/07/17 02:41 08/07/17 02:41 08/07/17 02:41 - Laboratory Laboratory results interpreted by me: 08/06/17 08/06/17 17:49 17:49 Hgb 10.9 L Hct 35.2 L MCV 76 L MCH 23.6 L MCHC 31.1 L RDW 16.8 H Plt Count 131 L ESR 27 H Sodium 135.6 L Creatinine 0.49 L Glucose 320 H AST 82 H ALT 100 H - Consults Dr. Coronado Reason for consultation: 08/06/17 21:24 Patient was discussed with Dr. Coronado who agrees that the patient needs to be admitted with IV antibiotics and needs an MRI. Agrees to consult with hospitalist. (AILEEN FOUNTAIN) Dr. Moyer Reason for consultation: 08/06/17 21:28 Patient was discussed with Dr. Moyer who agrees to admit the patient and consult with ortho. (AILEEN FOUNTAIN) Procedures - Incision and Drainage Right Thumb Type: Complex Anesthetic type: 1% Lidocaine mL's of anesthetic: 7 Blade size: 11 I&D procedure: Chlorprep applied, Shurclens applied, Sterile dressing applied Incision Method: Incision made by scalpel <EMERITA ABDALLA - Last Filed: 08/07/17 04:01> - Incision and Drainage Right Thumb Notes: 08/07/17 04:00 Remainder of nail was removed, felon incised with 2 incisions one to each side of the thumb. Blunt dissection was used to connect the 2. Range of motion remained intact afterwards. (EMERITA ABDALLA) Discharge <AILEEN FOUNTAIN - Last Filed: 08/06/17 21:55> - Discharge Admitting Provider: Hospitalist - Jo[facility] Unit Admitted: Medical Floor <EMERITA ABDALLA - Last Filed: 08/07/17 04:01> - Discharge Clinical Impression: Cellulitis of right thumb, Felon of finger of right hand Diabetes mellitus with hyperglycemia Qualifiers: Diabetes mellitus type: type 2 Diabetes mellitus director long term care insulin use: with director long term care use Qualified Code(s): E11.65 - Type 2 diabetes mellitus with hyperglycemia Hypertension Qualifiers: Hypertension type: essential hypertension Qualified Code(s): I10 - Essential ( primary) hypertension Condition: Stable Disposition: ADMITTED INPATIENT Scribe Attestation: 08/07/17 04:01 I personally performed the services described in the documentation, reviewed and edited the documentation which was dictated to the scribe in my presence, and it accurately records my words and actions. (EMERITA ABDALLA) Scribe Documentation - Scribe Written by Scribe:: Tyesha Biggs, 08/06/2017 1907 acting as scribe for :: Marybel <AILEEN FOUNTAIN - Last Filed: 08/06/17 21:55>
[2017-08-06 19:08] LABS: ERYTHROCYTE SEDIMENTATION RATE 27 mm/hr (0-20)
[2017-08-06] MEDS ORDERED: CEFTRIAXONE INJ 1000 MG VIAL ONE (19:56)
[2017-08-06] MEDS ORDERED: ONDANSETRON HCL INJ/PF 4 MG/2 ML SDV ONE (21:02)
[2017-08-06] MEDS ORDERED: GLUCAGON,HUMAN RECOMB 1 MG INJ IM PRN (22:24)
[2017-08-06] MEDS ORDERED: DEXTROSE 50%-WATER 25 GM/50 ML DISP.SYRIN IV PRN ×2 (22:24)
[2017-08-06] MEDS ORDERED: DEXTROSE 40% GEL 15 GM TUBE PO PRN ×2 (22:24)
[2017-08-06] MEDS ORDERED: FLUCONAZOLE IV ONE (23:00)
[2017-08-06] MEDS ORDERED: CLINDAMYCIN IV ONE (23:00)
[2017-08-06] MEDS ORDERED: SODIUM CHLORIDE IV ONE (23:00)
[2017-08-06] MEDS ORDERED: DEXTROSE IV ONE (23:00)
[2017-08-06] MEDS ORDERED: KETOROLAC TROMETHAMINE 60 MG/2 ML SDV ONE (23:29)
--- NOTE | 2017-08-06 23:59 | RADIOLOGY REPORT (SQ) ---
EXAM DESCRIPTION: MRI RT UPPER EXTREMITY COMBO COMPLETED DATE/TIME: 08/06/2017 10:52 pm REASON FOR STUDY: possible osteo right finger COMPARISON: None. CONTRAST TYPE AND DOSE: 10 mL Prohance. RENAL FUNCTION: GFR > 60. TECHNIQUE: Multiplanar imaging to include T1-weighted images, T-2 weighted images, and gradient echo imaging. Orthogonal images orientated to the plane of the right thumb. Images saved to PACS. FINDINGS: No fracture. No marrow replacement signal on T1 images. T2 weighted sequences are limite d due to field inhomogeneity. No evidence for marrow enhancement following contrast administration. There is diffuse soft tissue swelling with small amount of gas in the palm are tip consistent with t he recent debridement or open wound. No enhancing fluid collection. Diffuse soft tissue enhancement subcutaneously. Flexor and extensor tendons appear intact. No joint effusion. IMPRESSION: There is diffuse soft tissue swelling with small amount of gas in the palm are tip consi stent with the recent debridement or open wound. No enhancing fluid collection. No marrow replacement signal on T1 images. T2 weighted sequences are limited due to field inhomogeneity. No evidence for marrow enhancement following contrast administration. TECHNICAL DOCUMENTATION: JOB ID: [id number] [email or web address] All Rights Reserved
[2017-08-07] MEDS ORDERED: NALBUPHINE HCL INJ 10 MG/1 ML AMPULE INJ PRN ×2 (00:15→13:51)
--- NOTE | 2017-08-07 00:35 | PDOC H&P ---
History of Present Illness Admission Date/PCP: 08/06/17 22:58 Patient complains of: Recurrent infection of the right thumb History of Present Illness: KIARA VICTOR is a 46 year old female who has had several episodes of paronychia of the right thumb. On several occasions and has extended to the soft tissues of the thumb as well and has had several episodes of incision and drainage. It is unclear if the purulent material that had been obtained on several occasions had been cultured, however her computer does find one episode at the start of this month where the pus was cultured. It grew Марина with no bacterial growth. Patient had a recurrent episode and presented to her regular physician. The he drained the paronychia and remove part of the nailbed yesterday. She was seen again in follow-up today but still had purulent material and so was referred to the emergency room. There she had further debridement. Patient was referred to us for ongoing therapy 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 GI Medical History: Reports: Cirrhosis Psychiatric Medical History: Reports: Depression Hematology: Reports: Anemia Infectious Medical History: Reports: Methicillin-Resistant Staph Aureus Past Surgical History Past Surgical History: Reports: Tonsillectomy, Tubal Ligation Social History Information Source: Patient Lives with: Family Smoking Status: Current Every Day Smoker Cigarettes Packs Per Day: 0.5 Frequency of Alcohol Use: Social Hx Recreational Drug Use: No Drugs: None Hx Prescription Drug Abuse: No - Advance Directive Resuscitation Status: Full Code Family History Family History: DM, Malignancy, Other - cirrhosis Parental Family History Reviewed: Yes Children Family History Reviewed: Yes Sibling(s) Family History Reviewed.: Yes Medication/Allergy Home Medications: Fluoxetine HCl [Prozac] 40 mg PO DAILY 02/07/17 Gabapentin [Neurontin 300 mg Capsule] 300 mg PO Q6 02/07/17 Insulin Aspart Protam & Aspart [Novolog Mix 70-30 Vial] 1 unit SQ ASDIR PRN Insulin Glargine,Hum.rec.anlog [Lantus] 35 units SQ BID 02/07/17 Sulfamethoxazole/Trimethoprim [Bactrim Ds Tablet] 1 each PO BID #14 tablet 07/25 Allergies/Adverse Reactions: celecoxib [From Celebrex] Allergy (Verified 07/25/17 10:46) erythromycin base [Erythromycin Base] Allergy (Verified 07/25/17 10:46) Hives oxycodone HCl [From Percocet] Allergy (Verified 07/25/17 10:46) Review of Systems Constitutional: ABSENT: chills, fever(s), headache(s), weight gain, weight loss Eyes: ABSENT: visual disturbances Ears: ABSENT: hearing changes Cardiovascular: ABSENT: chest pain, dyspnea on exertion, edema, orthropnea, palpitations Respiratory: ABSENT: cough, hemoptysis Gastrointestinal: PRESENT: other - Cirrhosis of the liver. ABSENT: abdominal pain, constipation, diarrhea, hematemesis, hematochezia, nausea, vomiting Genitourinary: ABSENT: dysuria, hematuria Musculoskeletal: PRESENT: joint swelling, other - Recurrent infections of the right thumb Integumentary: ABSENT: rash, wounds Neurological: ABSENT: abnormal gait, abnormal speech, confusion, dizziness, focal weakness, syncope Psychiatric: PRESENT: depression Endocrine: PRESENT: other - Diabetes Physical Exam Vital Signs: Temp Pulse Resp BP Pulse Ox 98.1 F 93 16 114/62 99 08/06/17 14:00 08/06/17 14:00 08/06/17 14:00 08/06/17 14:00 08/06/17 14:00 General appearance: PRESENT: no acute distress, cooperative, well-developed, well-nourished Head exam: PRESENT: atraumatic, normocephalic Eye exam: PRESENT: EOMI, PERRLA Ear exam: PRESENT: normal external ear exam Neck exam: ABSENT: carotid bruit, JVD, meningismus Respiratory exam: PRESENT: clear to auscultation jocy, unlabored. ABSENT: accessory muscle use Cardiovascular exam: ABSENT: diastolic murmur, gallop, irregular rhythm, systolic murmur GI/Abdominal exam: PRESENT: normal bowel sounds, soft. ABSENT: guarding, organolmegaly Rectal exam: PRESENT: deferred Extremities exam: PRESENT: other - Right thumb bandaged after procedure Neurological exam: PRESENT: alert, awake, oriented to person, oriented to place , oriented to time, oriented to situation Psychiatric exam: PRESENT: appropriate affect, normal mood. ABSENT: suicidal ideation Skin exam: PRESENT: dry, intact, warm. ABSENT: cyanosis, rash Results Laboratory Results: 08/06/17 23:18 C-Reactive Protein < 5.0 08/06/17 08/06/17 17:49 17:49 WBC 4.6 RBC 4.63 Hgb 10.9 L Hct 35.2 L MCV 76 L Plt Count 131 L ESR 27 H Sodium 135.6 L Potassium 4.1 BUN 11 Creatinine 0.49 L Glucose 320 H AST 82 H ALT 100 H Alkaline Phosphatase 125 C-Reactive Protein 7.0 Total Protein 7.7 Albumin 4.1 Impressions: Finger X-Ray 08/06/17 16:02 IMPRESSION: NO SIGNIFICANT RADIOGRAPHIC ABNORMALITY. NO RADIOGRAPHIC FINDINGS OF OSTEOMYELITIS. Upper Extremity MRI 08/06/17 21:47 IMPRESSION: There is diffuse soft tissue swelling with small amount of gas in the palm are tip consistent with the recent debridement or open wound. No enhancing fluid collection. No marrow replacement signal on T1 images. T2 weighted sequences are limited due to field inhomogeneity. No evidence for marrow enhancement following contrast administration. Assessment & Plan - Diagnosis (1) Cirrhosis of liver Qualifiers: Hepatic cirrhosis type: unspecified hepatic cirrhosis Ascites presence: without ascites Qualified Code(s): K74.60 - Unspecified cirrhosis of liver Is this a current diagnosis for this admission?: Yes (2) Марина infection Is this a current diagnosis for this admission?: Yes (3) Cellulitis of right thumb Is this a current diagnosis for this admission?: Yes (4) Diabetes mellitus with hyperglycemia Qualifiers: Diabetes mellitus type: type 2 Diabetes mellitus exterminator helper insulin use: with exterminator helper use Qualified Code(s): E11.65 - Type 2 diabetes mellitus with hyperglycemia; Z79.4 - FDC (current) use of insulin; Z79.4 - FDC ( current) use of insulin; Z79.4 - meterman (current) use of insulin; Z79.4 - FDC (current) use of insulin Is this a current diagnosis for this admission?: Yes (5) Felon of finger of right hand Is this a current diagnosis for this admission?: Yes - Time Time Spent: 30 to 50 Minutes - Inpatient Certification Based on my medical assessment, after consideration of the patient's comorbidities, presenting symptoms, or acuity I expect that the services needed warrant INPATIENT care.: Yes I certify that my determination is in accordance with my understanding of Medicare's requirements for reasonable and necessary INPATIENT services [42 CFR 412.3e].: Yes Medical Necessity: Failure to Improve With Outpatient Therapy, Need for IV Antibiotics - Plan Summary Plan Summary: Patient will be admitted to hospital. She will receive antifungal therapy. I suspect that Diflucan would be sufficient and that amphotericin is not necessary. Patient has had several courses of Bactrim. She did receive a dose of Rocephin and vancomycin in the emergency room. However I feel that clindamycin should be sufficient coverage and can be easily converted to oral upon discharge. Patient will be continued on her insulin. She will receive DVT prophylaxis with low molecular weight heparin Surgery has been consulted to review need for further debridements Anticipated length of stay is 3-4 days
[2017-08-07] MEDS ORDERED: INSULIN GLARGINE,HUM.REC.ANLOG 1,000 UNIT/10 ML UNIT SUBCUT ONE (00:45)
[2017-08-07] MEDS ORDERED: FLUCONAZOLE 200 MG/NS RTU 100 ML IV ONE (01:14)
[2017-08-07] MEDS: HYDROMORPHONE HCL INJ/PF 2 MG/ML AMPULE IV PRN ×6 (02:04→22:43)
[2017-08-07] MEDS: CLINDAMYCIN 900 MG/D5W RTU 50 ML IV SCH ×3 (06:52→21:31)
[2017-08-07 07:35] LABS: INTERNATIONAL RATION (INR) 1.12; PROTHROMBIN TIME 15.2 SEC (11.4-15.4)
[2017-08-07 07:36] LABS: PARTIAL THROMBOPLASTIN TIME 34.6 SEC (23.5-35.8)
[2017-08-07 07:52] LABS: CHOLESTEROL 137.11 mg/dL (0-200); TRIGLYCERIDES 167 mg/dL (<150)
[2017-08-07 08:02] LABS: DIRECT LDL 69 mg/dL (<100)
[2017-08-07 08:32] LABS: VLDL CHOLESTEROL 33.4 mg/dL (10-31)
[2017-08-07] MEDS: INSULIN LISPRO 100 UNIT/ML 3 ML VIAL SUBCUT PRN ×3 (08:35→17:56)
[2017-08-07] MEDS: DOCUSATE SODIUM 100 MG CAPSULE PO SCH (09:33)
[2017-08-07] MEDS: FAMOTIDINE 20 MG TABLET PO SCH ×2 (09:33→21:30)
[2017-08-07] MEDS: PROMETHAZINE HCL INJ 25 MG/1 ML VIAL IV PRN (09:33)
[2017-08-07] MEDS: ENOXAPARIN SODIUM INJ 40 MG/0.4 ML DISP.SYRIN SUBCUT SCH (09:33)
[2017-08-07] MEDS: FLUCONAZOLE 200 MG/NS RTU 100 ML IV SCH (09:33)
[2017-08-07] MEDS: GABAPENTIN 300 MG CAPSULE PO SCH ×2 (14:58→21:30)
[2017-08-07] MEDS ORDERED: GABAPENTIN 300 MG CAPSULE PO SCH (18:00)
[2017-08-07] MEDS ORDERED: INSULIN GLARGINE,HUM.REC.ANLOG 1,000 UNIT/10 ML UNIT SUBCUT SCH ×3 (18:00→22:00)
--- NOTE | 2017-08-07 18:57 | PDOC CONSULTATION ---
Consultation Consult Date: 08/07/17 Consult reason:: Right thumb infection History of Present Illness Admission Date/PCP: 08/06/17 22:58 History of Present Illness: 46-year-old female diabetic with cirrhosis with 1 month worth of right index finger pain and swelling. Patient has had the finger nail drilled a couple times a decompressive. Last visit patient had the partial nail removed. Patient was placed on antibiotics as well with no relief of symptoms. Patient finally came to ER when she started developing fevers and chills. Patient denies any numbness or tingling or paresthesias. Denies any previous infection or trauma to the finger. Patient was admitted for IV antibiotics and MRI of the thumb. 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 GI Medical History: Reports: Cirrhosis Psychiatric Medical History: Reports: Depression Hematology: Reports: Anemia Infectious Medical History: Reports: Methicillin-Resistant Staph Aureus Past Surgical History Past Surgical History: Reports: Tonsillectomy, Tubal Ligation Social History Lives with: Family Smoking Status: Current Some Day Smoker Cigarettes Packs Per Day: 0.5 Frequency of Alcohol Use: Social Hx Recreational Drug Use: No Drugs: None Hx Prescription Drug Abuse: No - Advance Directive Resuscitation Status: Full Code Family History Family History: DM, Malignancy, Other - cirrhosis Parental Family History Reviewed: No Children Family History Reviewed: No Sibling(s) Family History Reviewed.: No Medication/Allergy Home Medications: Fluoxetine HCl [Prozac] 40 mg PO DAILY 02/07/17 Gabapentin [Neurontin 300 mg Capsule] 300 mg PO Q6 02/07/17 Insulin Aspart Protam & Aspart [Novolog Mix 70-30 Vial] 1 unit SQ ASDIR PRN Insulin Glargine,Hum.rec.anlog [Lantus] 35 units SQ BID 02/07/17 Sulfamethoxazole/Trimethoprim [Bactrim Ds Tablet] 1 each PO BID #14 tablet 07/25 Allergies/Adverse Reactions: celecoxib [From Celebrex] Allergy (Verified 07/25/17 10:46) erythromycin base [Erythromycin Base] Allergy (Verified 07/25/17 10:46) Hives oxycodone HCl [From Percocet] Allergy (Verified 07/25/17 10:46) Review of Systems All systems: as per PMH Physical Exam Vital Signs: Temp Pulse Resp BP Pulse Ox 36.9 C 86 16 144/75 H 100 08/07/17 11:41 08/07/17 11:41 08/07/17 11:41 08/07/17 11:41 08/07/17 11:41 Intake & Output 08/06/17 08/07/17 08/08/17 06:59 06:59 06:59 Weight 66.1 kg Back of Hands Image: 1 - Swelling located on the right thumb over the volar aspect of the thumb. There is some mild erythema but no intense erythema and she is able to flex and extend her IP joint with some discomfort and pain. Nail has been removed. Some irregularities in the nailbed but the nailbed is intact. She is exquisitely tender to palpation. She has 2 small areas of [place] on each side with no drainage or pus. Results Laboratory Results: 08/06/17 08/07/17 23:18 06:59 Ferritin 6.90 C-Reactive Protein < 5.0 Triglycerides 167 H Cholesterol 137.11 LDL Cholesterol Direct 69 VLDL Cholesterol 33.4 H HDL Cholesterol 42 Impressions: Finger X-Ray 08/06/17 16:02 IMPRESSION: NO SIGNIFICANT RADIOGRAPHIC ABNORMALITY. NO RADIOGRAPHIC FINDINGS OF OSTEOMYELITIS. Upper Extremity MRI 08/06/17 21:47 IMPRESSION: There is diffuse soft tissue swelling with small amount of gas in the palm are tip consistent with the recent debridement or open wound. No enhancing fluid collection. No marrow replacement signal on T1 images. T2 weighted sequences are limited due to field inhomogeneity. No evidence for marrow enhancement following contrast administration. Status: Image reviewed by me Assessment & Plan - Diagnosis (1) Cellulitis of right thumb Is this a current diagnosis for this admission?: Yes Plan: 46-year-old female diabetic with cirrhosis with probably cellulitis of the right thumb. MRI showed nonspecific swelling with no fluid collection or abscess formation therefore patient is not a surgical candidate. With no white count or elevated sed rate and CRP I question even if there is an infectious process. At the moment I cannot explain the cause for swelling and pain therefore I do recommend several days of antibiotics before being discharged on p.o. antibiotics. I do recommend her following up with a hand specialist. I recommend she sees Dr. Velasquez. Continue pain control as needed.
--- NOTE | 2017-08-07 22:38 | PDOC PROGRESS REPORT ---
Subjective Progress Note for:: 08/07/17 Subjective:: Patient is still complaining of pain and swelling. Patient states she is tired and would like rest. Reason For Visit: FELON; DEEP TISSUE CANDIDAL INFECTION Physical Exam Vital Signs: Temp Pulse Resp BP Pulse Ox 98.3 F 85 16 129/75 H 100 08/07/17 19:55 08/07/17 19:55 08/07/17 19:55 08/07/17 19:55 08/07/17 19:55 Intake & Output 08/06/17 08/07/17 08/08/17 06:59 06:59 06:59 Weight 66.1 kg General appearance: PRESENT: no acute distress, well-developed, well-nourished Head exam: PRESENT: normocephalic Eye exam: PRESENT: EOMI. ABSENT: scleral icterus Ear exam: PRESENT: normal external ear exam Mouth exam: PRESENT: moist Neck exam: ABSENT: carotid bruit, JVD, lymphadenopathy, thyromegaly Respiratory exam: PRESENT: clear to auscultation jocy. ABSENT: rales, rhonchi, wheezes Cardiovascular exam: PRESENT: RRR. ABSENT: diastolic murmur, rubs, systolic murmur GI/Abdominal exam: PRESENT: normal bowel sounds, soft. ABSENT: distended, guarding, mass, organolmegaly, rebound, tenderness Rectal exam: PRESENT: deferred Extremities exam: PRESENT: full ROM. ABSENT: calf tenderness, clubbing, pedal edema Musculoskeletal exam: PRESENT: other - right hand thumb wound with dressing in place Neurological exam: PRESENT: alert, awake, oriented to person, oriented to place , oriented to time, oriented to situation, CN II-XII grossly intact. ABSENT: motor sensory deficit Psychiatric exam: PRESENT: appropriate affect, normal mood. ABSENT: homicidal ideation, suicidal ideation Skin exam: PRESENT: dry, intact, warm. ABSENT: cyanosis, rash Results Laboratory Results: 08/06/17 08/07/17 23:18 06:59 Ferritin 6.90 C-Reactive Protein < 5.0 Triglycerides 167 H Cholesterol 137.11 LDL Cholesterol Direct 69 VLDL Cholesterol 33.4 H HDL Cholesterol 42 Impressions: Finger X-Ray 08/06/17 16:02 IMPRESSION: NO SIGNIFICANT RADIOGRAPHIC ABNORMALITY. NO RADIOGRAPHIC FINDINGS OF OSTEOMYELITIS. Upper Extremity MRI 08/06/17 21:47 IMPRESSION: There is diffuse soft tissue swelling with small amount of gas in the palm are tip consistent with the recent debridement or open wound. No enhancing fluid collection. No marrow replacement signal on T1 images. T2 weighted sequences are limited due to field inhomogeneity. No evidence for marrow enhancement following contrast administration. Assessment & Plan - Diagnosis (1) Марина infection Is this a current diagnosis for this admission?: Yes Plan: Continue diflucan. (2) Cellulitis of right thumb Is this a current diagnosis for this admission?: Yes Plan: Continue clindamycin. (3) Cirrhosis of liver Qualifiers: Hepatic cirrhosis type: unspecified hepatic cirrhosis Ascites presence: without ascites Qualified Code(s): K74.60 - Unspecified cirrhosis of liver Is this a current diagnosis for this admission?: Yes Plan: Stable continue supportive. (4) Diabetes mellitus with hyperglycemia Qualifiers: Diabetes mellitus type: type 2 Diabetes mellitus mcfp insulin use: with termite inspector use Qualified Code(s): E11.65 - Type 2 diabetes mellitus with hyperglycemia; Z79.4 - termite inspector (current) use of insulin; Z79.4 - termite inspector ( current) use of insulin; Z79.4 - termite inspector (current) use of insulin; Z79.4 - termite inspector (current) use of insulin Is this a current diagnosis for this admission?: Yes Plan: Continue home doses of insulin and monitor. Will need adequate control to encourage healing. (5) Felon of finger of right hand Is this a current diagnosis for this admission?: Yes Plan: Patient evaluated by ortho who does not recommend any surgical intervention because there is no leukocytosis, findings on MRI or elevated sed rate. He does recommend continued antibitotics, pain management and follow up with Dr. Velasquez hand surgery on discharge. - Time Time Spent with patient: 15-24 minutes Anticipated discharge: Home Within: within 72 hours - Inpatient Certification Medical Necessity: Need for Pain Control, Need for IV Antibiotics
[2017-08-08] MEDS: INSULIN LISPRO 100 UNIT/ML 3 ML VIAL SUBCUT PRN ×5 (01:14→22:41)
[2017-08-08] MEDS: HYDROMORPHONE HCL INJ/PF 2 MG/ML AMPULE IV PRN ×5 (05:09→23:23)
[2017-08-08] MEDS ORDERED: GABAPENTIN 300 MG CAPSULE ONE (05:27)
[2017-08-08] MEDS: CLINDAMYCIN 900 MG/D5W RTU 50 ML IV SCH ×3 (05:36→21:23)
[2017-08-08] MEDS: GABAPENTIN 300 MG CAPSULE PO SCH ×3 (05:37→21:36)
[2017-08-08 05:41] LABS: HEPATITIS C VIRUS AB 0.1 s/co ratio (0.0-0.9)
[2017-08-08] MEDS ORDERED: INSULIN GLARGINE,HUM.REC.ANLOG 1,000 UNIT/10 ML UNIT SUBCUT SCH (10:00)
[2017-08-08] MEDS: DOCUSATE SODIUM 100 MG CAPSULE PO SCH (10:05)
[2017-08-08] MEDS: FAMOTIDINE 20 MG TABLET PO SCH ×2 (10:05→21:24)
[2017-08-08] MEDS: FLUCONAZOLE 200 MG/NS RTU 100 ML IV SCH (10:05)
[2017-08-08] MEDS: ENOXAPARIN SODIUM INJ 40 MG/0.4 ML DISP.SYRIN SUBCUT SCH (10:05)
[2017-08-08] MEDS: FLUOXETINE HCL 20 MG CAPSULE PO SCH (10:34)
[2017-08-08] MEDS: PROMETHAZINE HCL INJ 25 MG/1 ML VIAL IV PRN (11:16)
[2017-08-08] MEDS ORDERED: NORMAL SALINE 1000 ML 1,000 ML IV PRN (19:21)
[2017-08-08] MEDS: INSULIN GLARGINE,HUM.REC.ANLOG 1,000 UNIT/10 ML UNIT SUBCUT SCH (21:20)
--- NOTE | 2017-08-08 21:47 | RADIOLOGY REPORT (SQ) ---
EXAM DESCRIPTION: CHEST SINGLE VIEW COMPLETED DATE/TIME: 08/08/2017 8:35 pm REASON FOR STUDY: fever COMPARISON: 10/27/2016 EXAM PARAMETERS: NUMBER OF VIEWS: One view. TECHNIQUE: Single frontal radiographic view of the chest acquired. RADIATION DOSE: NA LIMITATIONS: None. FINDINGS: LUNGS AND PLEURA: No opacities, masses or pneumothorax. No pleural effusion. MEDIASTINUM AND HILAR STRUCTURES: No masses. Contour normal. HEART AND VASCULAR STRUCTURES: Heart normal in size. Normal vasculature. BONES: No acute findings. HARDWARE: None in the chest. OTHER: No other significant finding. IMPRESSION: NO ACUTE RADIOGRAPHIC FINDING IN THE CHEST. TECHNICAL DOCUMENTATION: JOB ID: [id number] [employer]- All Rights Reserved
[2017-08-08 21:57] LABS: A TYPE INFLUENZA AG NEGATIVE (NEGATIVE); B INFLUENZA AG NEGATIVE (NEGATIVE)
[2017-08-08] MEDS: ACETAMINOPHEN 325 MG TABLET PO PRN (21:58)
--- NOTE | 2017-08-08 22:59 | PDOC PROGRESS REPORT ---
Subjective Progress Note for:: 08/08/17 Subjective:: Patient still complaining of pain in the hand. She is now febrile. Reason For Visit: FELON; DEEP TISSUE CANDIDAL INFECTION Physical Exam Vital Signs: Temp Pulse Resp BP Pulse Ox 99.4 F 104 H 16 120/70 100 08/08/17 15:02 08/08/17 15:02 08/08/17 15:02 08/08/17 15:02 08/08/17 15:02 Intake & Output 08/07/17 08/08/17 08/09/17 06:59 06:59 06:59 Intake Total 210 Balance 210 Weight 66.1 kg 61.7 kg General appearance: PRESENT: mild distress, well-developed, well-nourished Head exam: PRESENT: normocephalic Eye exam: PRESENT: EOMI. ABSENT: scleral icterus Mouth exam: PRESENT: moist Neck exam: ABSENT: carotid bruit, JVD, lymphadenopathy, thyromegaly Respiratory exam: PRESENT: clear to auscultation jocy. ABSENT: rales, rhonchi, wheezes Cardiovascular exam: PRESENT: RRR. ABSENT: diastolic murmur, rubs, systolic murmur Pulses: PRESENT: normal dorsalis pedis pul Vascular exam: PRESENT: normal capillary refill GI/Abdominal exam: PRESENT: normal bowel sounds, soft. ABSENT: distended, guarding, mass, organolmegaly, rebound, tenderness Rectal exam: PRESENT: deferred Extremities exam: PRESENT: full ROM, other - dressing on right hand. ABSENT: calf tenderness, clubbing, pedal edema Neurological exam: PRESENT: alert, awake, oriented to person, oriented to place , oriented to time, oriented to situation, CN II-XII grossly intact. ABSENT: motor sensory deficit Psychiatric exam: PRESENT: appropriate affect, normal mood. ABSENT: homicidal ideation, suicidal ideation Skin exam: PRESENT: dry, intact, warm. ABSENT: cyanosis, rash Results Impressions: Finger X-Ray 08/06/17 16:02 IMPRESSION: NO SIGNIFICANT RADIOGRAPHIC ABNORMALITY. NO RADIOGRAPHIC FINDINGS OF OSTEOMYELITIS. Upper Extremity MRI 08/06/17 21:47 IMPRESSION: There is diffuse soft tissue swelling with small amount of gas in the palm are tip consistent with the recent debridement or open wound. No enhancing fluid collection. No marrow replacement signal on T1 images. T2 weighted sequences are limited due to field inhomogeneity. No evidence for marrow enhancement following contrast administration. Assessment & Plan - Diagnosis (1) Марина infection Is this a current diagnosis for this admission?: Yes Plan: Continue diflucan. (2) Cellulitis of right thumb Is this a current diagnosis for this admission?: Yes Plan: Continue clindamycin. (3) Cirrhosis of liver Qualifiers: Hepatic cirrhosis type: unspecified hepatic cirrhosis Ascites presence: without ascites Qualified Code(s): K74.60 - Unspecified cirrhosis of liver Is this a current diagnosis for this admission?: Yes Plan: Stable continue supportive. (4) Diabetes mellitus with hyperglycemia Qualifiers: Diabetes mellitus type: type 2 Diabetes mellitus alf insulin use: with watermelon inspector use Qualified Code(s): E11.65 - Type 2 diabetes mellitus with hyperglycemia; Z79.4 - terminologist (current) use of insulin; Z79.4 - alf ( current) use of insulin; Z79.4 - terminologist (current) use of insulin; Z79.4 - alf (current) use of insulin Is this a current diagnosis for this admission?: Yes Plan: Increased Lantus to 40mg bid. Blood glucose still elevated. This could be partly due to the glucose in the IV antibiotics. However being that patient's A1c is 10, she is not well controlled. Will need adequate control to encourage healing. (5) Felon of finger of right hand Is this a current diagnosis for this admission?: Yes Plan: Patient evaluated by ortho who does not recommend any surgical intervention because there is no leukocytosis, findings on MRI or elevated sed rate. He does recommend continued antibitotics, pain management and follow up with Dr. Velasquez hand surgery on discharge. (6) Fever Is this a current diagnosis for this admission?: Yes Plan: Uncertain of the source. Flu negative, chest X ray negative. Imaging of the right hand appeared negative. Patient on antibiotics. Blood culture negative. Will continue to look for source of infection. Will check CBC. - Time Time Spent with patient: 15-24 minutes Anticipated discharge: Home Within: within 72 hours - Inpatient Certification Medical Necessity: Need for Pain Control, Need for IV Antibiotics
[2017-08-09] MEDS: HYDROMORPHONE HCL INJ/PF 2 MG/ML AMPULE IV PRN ×4 (05:06→19:12)
[2017-08-09] MEDS: GABAPENTIN 300 MG CAPSULE PO SCH ×3 (05:06→22:00)
[2017-08-09] MEDS: CLINDAMYCIN 900 MG/D5W RTU 50 ML IV SCH ×3 (05:08→22:00)
[2017-08-09 07:54] LABS: ANION GAP 13 (5-19); BLOOD UREA NITROGEN 16 mg/dL (7-20); CALCIUM 9.3 mg/dL (8.4-10.2); CARBON DIOXIDE 22 mmol/L (22-30); CHLORIDE 98 mmol/L (98-107); GLUCOSE 276 mg/dL (75-110); POTASSIUM 5.1 mmol/L (3.6-5.0); SODIUM 133.2 mmol/L (137-145)
[2017-08-09] MEDS: INSULIN LISPRO 100 UNIT/ML 3 ML VIAL SUBCUT PRN ×3 (08:13→22:02)
[2017-08-09 08:44] LABS: HEPATITS B SURFACE ANTIGEN Negative (Negative)
[2017-08-09] MEDS: INSULIN GLARGINE,HUM.REC.ANLOG 1,000 UNIT/10 ML UNIT SUBCUT SCH ×2 (09:38→22:00)
[2017-08-09] MEDS: ENOXAPARIN SODIUM INJ 40 MG/0.4 ML DISP.SYRIN SUBCUT SCH (09:38)
[2017-08-09] MEDS: FLUOXETINE HCL 20 MG CAPSULE PO SCH (09:39)
[2017-08-09] MEDS: FLUCONAZOLE 200 MG/NS RTU 100 ML IV SCH (09:39)
[2017-08-09] MEDS: FAMOTIDINE 20 MG TABLET PO SCH ×2 (09:39→22:00)
[2017-08-09] MEDS: DOCUSATE SODIUM 100 MG CAPSULE PO SCH (09:39)
[2017-08-09 09:56] LABS: ABSOLUTE EOSINOPHILS # (AUTO) 0.1 10^3/uL (0.0-0.6); ABSOLUTE LYMPHOCYTES (AUTO) 1.7 10^3/uL (0.5-4.7); ABSOLUTE MONOCYTES (AUTO) 0.7 10^3/uL (0.1-1.4); ABSOLUTE NEUT (AUTO) 2.5 10^3/uL (1.7-8.2); BASOPHILS % (AUTO) 0.7 % (0-2); EOSINOPHILS % (AUTO) 2.1 % (0-6); HEMATOCRIT 32.6 % (36.0-47.0); HEMOGLOBIN 10.3 g/dL (12.0-15.5); LYMPHOCYTES % (AUTO) 34.1 % (13-45); MEAN CORPUSCULAR HEMOGLOBIN 23.9 pg (27.0-33.4); MEAN CORPUSCULAR HGB CONC 31.6 g/dL (32.0-36.0); MEAN CORPUSCULAR VOLUME 76 fl (80-97); MONOCYTES % (AUTO) 13.5 % (3-13); PLATELET COUNT 124 10^3/uL (150-450); RED CELL DISTRIBUTION WIDTH 16.9 % (11.5-14.0); SEGMENTED NEUTROPHILS % (AUTO) 49.6 % (42-78); TOTAL CELLS COUNTED % (AUTO) 100 %; WHITE BLOOD COUNT 5.1 10^3/uL (4.0-10.5)
--- NOTE | 2017-08-09 12:26 | PDOC PROGRESS REPORT ---
Subjective Progress Note for:: 08/09/17 Subjective:: 46-year-old female with underlying diabetes mellitus and cirrhosis. She presents with an infected finger of the right thumb. However, at present, ESR and CRP are normal. Findings on MRI were fairly unremarkable. There is a question as to whether or not the finger is still infected. The patient had temperature maximum last night of 102. Chest x-ray was clear. Exam is otherwise clear. Urinalysis with culture is pending. Patient is complaining of persistent pain in the right hand. In particular, the pain is in the palm of her hand most prominently over the right thenar eminence. She also has some pain in the left lower quadrant which has been present for at least 2 weeks. Reason For Visit: FELON; DEEP TISSUE CANDIDAL INFECTION Physical Exam Vital Signs: Temp Pulse Resp BP Pulse Ox 98.5 F 107 H 16 101/71 100 08/09/17 07:12 08/09/17 07:12 08/09/17 07:12 08/09/17 07:12 08/09/17 07:12 Intake & Output 08/08/17 08/09/17 08/10/17 06:59 06:59 06:59 Intake Total 1110 Balance 1110 Weight 61.7 kg 64 kg Additional comments: The patient appears to be her stated age. She does not appear to be toxic at this moment, however, her vital signs indicate some perturbations. The patient' s facial appearance is unremarkable. Her dentition is moderately bad. Her lungs are clear to auscultation bilaterally. Her cardiac exam is regular. I do not appreciate any murmurs, gallops or rubs. The abdomen is soft and flat. Bowel sounds are present in all 4 quadrants. She does have some pain with deep palpation in the left lower quadrant but overall the abdomen is benign. I do not appreciate any hernias, masses or hepatosplenomegaly. The patient's lower extremities are unremarkable. Skin is warm dry and intact. The thumb of the right hand is wrapped in a surgical bandage. The palmar aspect of the hand is unremarkable and the dorsal aspect of the hand is also unremarkable. Results Laboratory Results: 08/09/17 09:20 08/09/17 06:36 08/09/17 08/09/17 08/09/17 06:36 06:36 09:20 WBC Cancelled 5.1 RBC Cancelled 4.30 Hgb Cancelled 10.3 L Hct Cancelled 32.6 L MCV Cancelled 76 L MCH Cancelled 23.9 L MCHC Cancelled 31.6 L RDW Cancelled 16.9 H Plt Count Cancelled 124 L Seg Neutrophils % Cancelled 49.6 Lymphocytes % Cancelled 34.1 Monocytes % Cancelled 13.5 H Eosinophils % Cancelled 2.1 Basophils % Cancelled 0.7 Absolute Neutrophils Cancelled 2.5 Absolute Lymphocytes Cancelled 1.7 Absolute Monocytes Cancelled 0.7 Absolute Eosinophils Cancelled 0.1 Absolute Basophils Cancelled 0.0 Sodium 133.2 L Potassium 5.1 H Chloride 98 Carbon Dioxide 22 Anion Gap 13 BUN 16 Creatinine 0.56 Est GFR ( Amer) > 60 Est GFR (Non-Af Amer) > 60 Glucose 276 H Calcium 9.3 Impressions: Finger X-Ray 08/06/17 16:02 IMPRESSION: NO SIGNIFICANT RADIOGRAPHIC ABNORMALITY. NO RADIOGRAPHIC FINDINGS OF OSTEOMYELITIS. Upper Extremity MRI 08/06/17 21:47 IMPRESSION: There is diffuse soft tissue swelling with small amount of gas in the palm are tip consistent with the recent debridement or open wound. No enhancing fluid collection. No marrow replacement signal on T1 images. T2 weighted sequences are limited due to field inhomogeneity. No evidence for marrow enhancement following contrast administration. Chest X-Ray 08/08/17 00:00 IMPRESSION: NO ACUTE RADIOGRAPHIC FINDING IN THE CHEST. Assessment & Plan - Diagnosis (1) Марина infection Is this a current diagnosis for this admission?: Yes Plan: This is based on wound culture from 07/13/2017. Continue Diflucan. (2) Cellulitis of right thumb Is this a current diagnosis for this admission?: Yes Plan: Continue clindamycin. Patient does not have evidence at this time of a progressive cellulitis of the right hand. (3) Cirrhosis of liver Qualifiers: Hepatic cirrhosis type: unspecified hepatic cirrhosis Ascites presence: without ascites Qualified Code(s): K74.60 - Unspecified cirrhosis of liver Is this a current diagnosis for this admission?: Yes Plan: Will eval for ascites if fever persists. (4) Diabetes mellitus with hyperglycemia Qualifiers: Diabetes mellitus type: type 2 Diabetes mellitus intermediate card tender insulin use: with fpc use Qualified Code(s): E11.65 - Type 2 diabetes mellitus with hyperglycemia; Z79.4 - penitentiary (current) use of insulin; Z79.4 - continuous churn buttermaker ( current) use of insulin; Z79.4 - penitentiary (current) use of insulin; Z79.4 - continuous churn buttermaker (current) use of insulin Is this a current diagnosis for this admission?: Yes Plan: Patient has uncontrolled diabetes with A1c of 10. Lantus was increased yesterday per Dr. strong. Will follow blood sugars and adjust insulin regimen accordingly. (5) Felon of finger of right hand Is this a current diagnosis for this admission?: Yes Plan: Input from orthopedics is appreciated. Patient will need to follow-up with Dr. Velasquez, a hand specialist. (6) Fever Is this a current diagnosis for this admission?: Yes Plan: Patient developed a fever of 102 last night. Chest x-ray was unremarkable. I was just informed by nursing staff that her oxygen saturation is reduced. Therefore, I will repeat a chest x-ray. Urinalysis with culture is pending. I will begin incentive spirometry. Antibiotic coverage will be augmented. (7) Acute respiratory failure with hypoxia Is this a current diagnosis for this admission?: Yes Plan: This could be secondary to pneumonia. This could be secondary to effusions from her underlying cirrhosis. Will repeat a chest x-ray. Will start incentive spirometry. Will also start nasal cannula oxygen; will augment antibiotics. - Time Time Spent with patient: 25-34 minutes - Inpatient Certification Medical Necessity: Need Close Monitoring Due to Risk of Patient Decompensation - Patient has evidence of sepsis with tachycardia and high fever. She is not stable for discharge. In addition, she now has evidence possibly of acute respiratory failure. Will follow closely., Need for Pain Control, Need for IV Antibiotics, Need for Surgery
[2017-08-09] MEDS ORDERED: CEFEPIME 2 GM/D5W RTU 50 ML IV SCH (12:30)
[2017-08-09] MEDS ORDERED: VANCOMYCIN HCL 0 MG in DEXTROSE 5%-WATER 250 ML IV NR (12:30)
[2017-08-09] MEDS: PROMETHAZINE HCL INJ 25 MG/1 ML VIAL IV PRN (12:54)
[2017-08-09] MEDS ORDERED: CEFEPIME HCL 2 GM in DEXTROSE 5%-WATER 50 ML IV ONE (13:30)
[2017-08-09] MEDS: ACETAMINOPHEN 325 MG TABLET PO PRN (15:48)
[2017-08-09] MEDS ORDERED: VANCOMYCIN HCL 750 MG in DEXTROSE 5%-WATER 250 ML IV ONE (16:00)
--- NOTE | 2017-08-09 17:11 | RADIOLOGY REPORT (SQ) ---
EXAM DESCRIPTION: CHEST PA/LAT COMPLETED DATE/TIME: 08/09/2017 4:58 pm REASON FOR STUDY: fever COMPARISON: 2017. NUMBER OF VIEWS: Two view. TECHNIQUE: Frontal and lateral radiographic views of the chest acquired. LIMITATIONS: None. FINDINGS: LUNGS AND PLEURA: Low lung volumes. No opacities, masses or pneumothorax. No pleural eff usion. MEDIASTINUM AND HILAR STRUCTURES: No masses. No contour abnormalities. HEART AND VASCULAR STRUCTURES: Heart normal in size and contour. No evidence for failure. BONES: No acute findings. HARDWARE: None in the chest. OTHER: No other significant finding. IMPRESSION: LOW LUNG VOLUMES. NO SIGNIFICANT RADIOGRAPHIC FINDING IN THE CHEST. TECHNICAL DOCUMENTATION: JOB ID: [id number] [employer]- All Rights Reserved
[2017-08-09 18:33] LABS: APPEARANCE,URINE CLEAR; BILIRUBIN,URINE NEGATIVE (NEGATIVE); COLOR,URINE YELLOW; GLUCOSE, URINE >=500 mg/dL (NEGATIVE); KETONES,URINE NEGATIVE (NEGATIVE); LEUKOCYTE ESTERASE,URINE NEGATIVE (NEGATIVE); NITRITE,URINE NEGATIVE (NEGATIVE); PROTEIN,URINE NEGATIVE (NEGATIVE); URINE SPECIFIC GRAVITY 1.012; UROBILINOGEN,URINE NEGATIVE mg/dL (<2.0)
[2017-08-09] MEDS: CEFEPIME HCL 2 GM in DEXTROSE 5%-WATER 50 ML IV SCH (22:00)
[2017-08-09] MEDS: ZOLPIDEM TARTRATE 5 MG TABLET PO PRN (22:38)
[2017-08-10] MEDS: VANCOMYCIN HCL 750 MG in DEXTROSE 5%-WATER 250 ML IV SCH ×3 (01:50→17:52)
[2017-08-10] MEDS: CLINDAMYCIN 900 MG/D5W RTU 50 ML IV SCH (05:34)
[2017-08-10] MEDS: GABAPENTIN 300 MG CAPSULE PO SCH ×3 (05:35→22:39)
[2017-08-10] MEDS: INSULIN LISPRO 100 UNIT/ML 3 ML VIAL SUBCUT PRN ×2 (05:53→13:50)
[2017-08-10 07:55] LABS: ABSOLUTE BASOPHILS # (AUTO) 0.1 10^3/uL (0.0-0.2); ABSOLUTE MONOCYTES (AUTO) 0.5 10^3/uL (0.1-1.4); ABSOLUTE NEUT (AUTO) 4.7 10^3/uL (1.7-8.2); BASOPHILS % (AUTO) 0.8 % (0-2); EOSINOPHILS % (AUTO) 0.6 % (0-6); HEMOGLOBIN 9.6 g/dL (12.0-15.5); LYMPHOCYTES % (AUTO) 16.4 % (13-45); MEAN CORPUSCULAR HEMOGLOBIN 23.6 pg (27.0-33.4); MEAN CORPUSCULAR HGB CONC 31.8 g/dL (32.0-36.0); MEAN CORPUSCULAR VOLUME 74 fl (80-97); MONOCYTES % (AUTO) 7.9 % (3-13); PLATELET COUNT 114 10^3/uL (150-450); RED BLOOD COUNT 4.05 10^6/uL (3.72-5.28); RED CELL DISTRIBUTION WIDTH 16.5 % (11.5-14.0); SEGMENTED NEUTROPHILS % (AUTO) 74.3 % (42-78); TOTAL CELLS COUNTED % (AUTO) 100 %; WHITE BLOOD COUNT 6.3 10^3/uL (4.0-10.5)
[2017-08-10 08:17] LABS: ALANINE AMINOTRANSFERASE 116 U/L (9-52); ALBUMIN 3.5 g/dL (3.5-5.0); ALKALINE PHOSPHATASE 105 U/L (38-126); ANION GAP 7 (5-19); ASPARTATE AMINO TRANSFERASE 129 U/L (14-36); BILIRUBIN,DIRECT 0.3 mg/dL (0.0-0.4); BILIRUBIN,TOTAL 0.6 mg/dL (0.2-1.3); BLOOD UREA NITROGEN 9 mg/dL (7-20); CALCIUM 8.8 mg/dL (8.4-10.2); CARBON DIOXIDE 28 mmol/L (22-30); CHLORIDE 96 mmol/L (98-107); GLUCOSE 142 mg/dL (75-110); MAGNESIUM 1.6 mg/dL (1.6-2.3); PHOSPHORUS 2.4 mg/dL (2.5-4.5); POTASSIUM 4.3 mmol/L (3.6-5.0); SODIUM 130.7 mmol/L (137-145); TOTAL PROTEIN 7.1 g/dL (6.3-8.2)
[2017-08-10] MEDS: FAMOTIDINE 20 MG TABLET PO SCH ×2 (10:47→22:40)
[2017-08-10] MEDS: FLUOXETINE HCL 20 MG CAPSULE PO SCH (10:47)
[2017-08-10] MEDS: DOCUSATE SODIUM 100 MG CAPSULE PO SCH (10:47)
[2017-08-10] MEDS: INSULIN GLARGINE,HUM.REC.ANLOG 1,000 UNIT/10 ML UNIT SUBCUT SCH ×2 (10:47→22:37)
[2017-08-10] MEDS: FLUCONAZOLE 200 MG/NS RTU 100 ML IV SCH (10:48)
[2017-08-10] MEDS: ENOXAPARIN SODIUM INJ 40 MG/0.4 ML DISP.SYRIN SUBCUT SCH (10:48)
--- NOTE | 2017-08-10 10:50 | PDOC PROGRESS REPORT ---
Subjective Progress Note for:: 08/10/17 Subjective:: 46-year-old female with underlying diabetes mellitus and cirrhosis. She presents with an infected finger of the right thumb. However, at present, ESR and CRP are normal. Findings on MRI were fairly unremarkable. There is a question as to whether or not the finger is still infected. The patient had temperature maximum two nights ago of 102. The fever was associated with chills. Chest x-ray was clear. Exam is otherwise clear. Urinalysis with culture is pending. Patient is complaining of persistent pain in the right hand. In particular, the pain is in the palm of her hand most prominently over the right thenar eminence. She also has some pain in the left lower quadrant which has been present for at least 2 weeks. Temperature curve overnight has come down, but, the patient is having persistent chills. She does state this morning that she is feeling better and the pain in her hand is less. Reason For Visit: FELON; DEEP TISSUE CANDIDAL INFECTION Physical Exam Vital Signs: Temp Pulse Resp BP Pulse Ox 100.5 F H 115 H 16 119/59 L 96 08/10/17 07:14 08/10/17 07:14 08/10/17 07:14 08/10/17 07:14 08/10/17 07:14 Intake & Output 08/09/17 08/10/17 08/11/17 06:59 06:59 06:59 Intake Total 1110 790 Balance 1110 790 Weight 64 kg 63.9 kg Additional comments: Patient appears improved. She is nontoxic. Her cognition and mentation are appropriate. Her facial appearance is unremarkable. Her lungs are clear to auscultation bilaterally. Her cardiac exam is regular without murmurs, gallops or rubs. The abdomen is very soft. Bowel sounds are present in the lower quadrants. There is no guarding or rebound noted and there are no hernias or masses present. The patient's lower extremities are warm without edema. Skin is warm dry and intact. The right thumb is wrapped in a surgical bandage. Results Laboratory Results: 08/10/17 07:05 08/10/17 07:05 08/09/17 08/10/17 08/10/17 18:12 07:05 07:05 WBC 6.3 RBC 4.05 Hgb 9.6 L Hct 30.0 L MCV 74 L MCH 23.6 L MCHC 31.8 L RDW 16.5 H Plt Count 114 L Seg Neutrophils % 74.3 Lymphocytes % 16.4 Monocytes % 7.9 Eosinophils % 0.6 Basophils % 0.8 Absolute Neutrophils 4.7 Absolute Lymphocytes 1.0 Absolute Monocytes 0.5 Absolute Eosinophils 0.0 Absolute Basophils 0.1 Sodium 130.7 L Potassium 4.3 Chloride 96 L Carbon Dioxide 28 Anion Gap 7 BUN 9 Creatinine 0.47 L Est GFR ( Amer) > 60 Est GFR (Non-Af Amer) > 60 Glucose 142 H Calcium 8.8 Phosphorus 2.4 L Magnesium 1.6 Total Bilirubin 0.6 AST 129 H ALT 116 H Alkaline Phosphatase 105 Total Protein 7.1 Albumin 3.5 Urine Color YELLOW Urine Appearance CLEAR Urine pH 5.0 Ur Specific [place] 1.012 Urine Protein NEGATIVE Urine Glucose (UA) >=500 H Urine Ketones NEGATIVE Urine Blood SMALL H Urine Nitrite NEGATIVE Ur Leukocyte Esterase NEGATIVE Urine WBC (Auto) 1 Urine RBC (Auto) 0 Impressions: Finger X-Ray 08/06/17 16:02 IMPRESSION: NO SIGNIFICANT RADIOGRAPHIC ABNORMALITY. NO RADIOGRAPHIC FINDINGS OF OSTEOMYELITIS. Upper Extremity MRI 08/06/17 21:47 IMPRESSION: There is diffuse soft tissue swelling with small amount of gas in the palm are tip consistent with the recent debridement or open wound. No enhancing fluid collection. No marrow replacement signal on T1 images. T2 weighted sequences are limited due to field inhomogeneity. No evidence for marrow enhancement following contrast administration. Chest X-Ray 08/09/17 00:00 IMPRESSION: LOW LUNG VOLUMES. NO SIGNIFICANT RADIOGRAPHIC FINDING IN THE CHEST. Assessment & Plan - Diagnosis (1) Марина infection Is this a current diagnosis for this admission?: Yes Plan: This is based on wound culture from 07/13/2017. Continue Diflucan. (2) Cellulitis of right thumb Is this a current diagnosis for this admission?: Yes Plan: Continue clindamycin. Patient does not have evidence at this time of a progressive cellulitis of the right hand. (3) Cirrhosis of liver Qualifiers: Hepatic cirrhosis type: unspecified hepatic cirrhosis Ascites presence: without ascites Qualified Code(s): K74.60 - Unspecified cirrhosis of liver Is this a current diagnosis for this admission?: Yes Plan: Will eval for ascites if fever persists. (4) Diabetes mellitus with hyperglycemia Qualifiers: Diabetes mellitus type: type 2 Diabetes mellitus senior living insulin use: with senior living use Qualified Code(s): E11.65 - Type 2 diabetes mellitus with hyperglycemia; Z79.4 - marine oil terminal superintendent (current) use of insulin; Z79.4 - halfway ( current) use of insulin; Z79.4 - marine oil terminal superintendent (current) use of insulin; Z79.4 - halfway (current) use of insulin Is this a current diagnosis for this admission?: Yes Plan: Patient has uncontrolled diabetes with A1c of 10. Lantus was increased yesterday per Dr. strong. Will follow blood sugars and adjust insulin regimen accordingly. BS are improving. (5) Felon of finger of right hand Is this a current diagnosis for this admission?: Yes Plan: Input from orthopedics is appreciated. Patient will need to follow-up with Dr. Velasquez, a hand specialist. (6) Fever Is this a current diagnosis for this admission?: Yes Plan: Patient developed a fever of 102 2 nights ago. Cefepime and vancomycin were added. Fever curve is trending downward and patient is feeling better. Cultures are still negative. Chest x-ray was unremarkable. Once afebrile 24 hours I can switch to oral therapy. (7) Acute respiratory failure with hypoxia Is this a current diagnosis for this admission?: Yes Plan: There is no evidence of pneumonia on chest x-ray. This could be from atelectasis. Patient appears to be improved today, but, will ensure that incentive spirometry is ordered. (8) Electrolyte abnormality Is this a current diagnosis for this admission?: Yes Plan: She has mild hyponatremia, hypomagnesemia and hypophosphatemia. I will begin supplementation. I will follow sodium levels and treat accordingly. - Time Time Spent with patient: 25-34 minutes - Inpatient Certification Medical Necessity: Need for IV Antibiotics, Risk of Complication if Not Cared For in Hospital
[2017-08-10] MEDS: CEFEPIME HCL 2 GM in DEXTROSE 5%-WATER 50 ML IV SCH ×2 (12:01→22:41)
[2017-08-10] MEDS: MAGNESIUM OXIDE 400 MG TABLET PO SCH (17:52)
[2017-08-10] MEDS: CLINDAMYCIN HCL 150 MG CAPSULE PO SCH ×2 (17:52→23:05)
[2017-08-10] MEDS: HYDROMORPHONE HCL INJ/PF 2 MG/ML AMPULE IV PRN ×2 (18:12→22:43)
[2017-08-10 18:21] LABS: VANCOMYCIN,TROUGH 7.3 ug/mL (5.0-20.0)
[2017-08-10] MEDS: ZOLPIDEM TARTRATE 5 MG TABLET PO PRN (22:38)
[2017-08-11] MEDS: VANCOMYCIN HCL 1,500 MG in DEXTROSE 5%-WATER 250 ML IV SCH ×3 (02:00→17:44)
[2017-08-11] MEDS ORDERED: CLINDAMYCIN HCL 150 MG CAPSULE ONE (05:44)
[2017-08-11] MEDS: GABAPENTIN 300 MG CAPSULE PO SCH ×3 (05:53→22:30)
[2017-08-11] MEDS: CLINDAMYCIN HCL 150 MG CAPSULE PO SCH ×4 (06:03→23:05)
[2017-08-11] MEDS: INSULIN LISPRO 100 UNIT/ML 3 ML VIAL SUBCUT PRN ×4 (06:11→22:30)
[2017-08-11 07:01] LABS: ABSOLUTE EOSINOPHILS # (AUTO) 0.2 10^3/uL (0.0-0.6); ABSOLUTE MONOCYTES (AUTO) 0.6 10^3/uL (0.1-1.4); ABSOLUTE NEUT (AUTO) 2.9 10^3/uL (1.7-8.2); BASOPHILS % (AUTO) 0.6 % (0-2); EOSINOPHILS % (AUTO) 4.8 % (0-6); HEMATOCRIT 31.5 % (36.0-47.0); HEMOGLOBIN 9.7 g/dL (12.0-15.5); LYMPHOCYTES % (AUTO) 21.2 % (13-45); MEAN CORPUSCULAR HEMOGLOBIN 23.6 pg (27.0-33.4); MEAN CORPUSCULAR VOLUME 76 fl (80-97); MONOCYTES % (AUTO) 12.9 % (3-13); PLATELET COUNT 118 10^3/uL (150-450); RED BLOOD COUNT 4.13 10^6/uL (3.72-5.28); RED CELL DISTRIBUTION WIDTH 16.9 % (11.5-14.0); SEGMENTED NEUTROPHILS % (AUTO) 60.5 % (42-78); TOTAL CELLS COUNTED % (AUTO) 100 %; WHITE BLOOD COUNT 4.9 10^3/uL (4.0-10.5)
[2017-08-11] MEDS: HYDROMORPHONE HCL INJ/PF 2 MG/ML AMPULE IV PRN ×3 (07:18→18:01)
[2017-08-11 07:19] LABS: ANION GAP 8 (5-19); BLOOD UREA NITROGEN 9 mg/dL (7-20); CALCIUM 9.1 mg/dL (8.4-10.2); CARBON DIOXIDE 29 mmol/L (22-30); CHLORIDE 99 mmol/L (98-107); GLUCOSE 181 mg/dL (75-110); MAGNESIUM 1.8 mg/dL (1.6-2.3); POTASSIUM 4.3 mmol/L (3.6-5.0); SODIUM 136.3 mmol/L (137-145)
[2017-08-11] MEDS: CEFEPIME HCL 2 GM in DEXTROSE 5%-WATER 50 ML IV SCH ×2 (09:03→22:30)
[2017-08-11] MEDS: FLUCONAZOLE 200 MG/NS RTU 100 ML IV SCH (09:52)
[2017-08-11] MEDS: DOCUSATE SODIUM 100 MG CAPSULE PO SCH (09:53)
[2017-08-11] MEDS: FAMOTIDINE 20 MG TABLET PO SCH ×2 (09:53→22:30)
[2017-08-11] MEDS: MAGNESIUM OXIDE 400 MG TABLET PO SCH ×2 (09:53→17:45)
[2017-08-11] MEDS: INSULIN GLARGINE,HUM.REC.ANLOG 1,000 UNIT/10 ML UNIT SUBCUT SCH ×2 (09:54→22:29)
[2017-08-11] MEDS: ENOXAPARIN SODIUM INJ 40 MG/0.4 ML DISP.SYRIN SUBCUT SCH (10:32)
--- NOTE | 2017-08-11 12:31 | PDOC PROGRESS REPORT ---
Subjective Progress Note for:: 08/11/17 Subjective:: 46-year-old female with underlying diabetes mellitus and cirrhosis. She presents with an infected finger of the right thumb. However, at present, ESR and CRP are normal. Findings on MRI were fairly unremarkable. There is a question as to whether or not the finger is still infected. The patient had temperature maximum 102 Mandeep. The fever was associated with chills. Chest x- ray was clear. Exam is otherwise clear. Urinalysis with culture is pending. Patient is complaining of persistent pain in the right hand. In particular, the pain is in the palm of her hand most prominently over the right thenar eminence. She also has some pain in the left lower quadrant which has been present for at least 2 weeks. Temperature curve overnight has come down, but, the patient is having persistent chills. She does state this morning that she is feeling better and the pain in her hand is less. Today, she states that she is having difficulty urinating. She states that she has been saying this to providers every day but I explained to her that this is the first time she complained about this to me. She feels that she needs to push down on her abdomen in order to urinate. She is also having some pain in the left lower quadrant. She is having a poor appetite. She is having normal bowel movements. Reason For Visit: JUAN; DEEP TISSUE CANDIDAL INFECTION Physical Exam Vital Signs: Temp Pulse Resp BP Pulse Ox 98.0 F 100 16 125/71 93 08/11/17 08:00 08/11/17 08:00 08/11/17 08:00 08/11/17 08:00 08/11/17 08:00 Intake & Output 08/10/17 08/11/17 08/12/17 06:59 06:59 06:59 Intake Total 790 870 Balance 790 870 Weight 63.9 kg 65 kg Additional comments: The patient does not appear to be in any distress. She appears nontoxic. Her facial appearance is unremarkable. Her lungs are clear to auscultation bilaterally. Her cardiac exam is regular without murmurs, gallops or rubs. The abdomen is soft and flat. Bowel sounds are noted. She does have pain in the lower abdomen over the bladder and in the left lower quadrant but only with deep palpation. No hernias or masses are noted. The lower extremities are unremarkable. The patient's thumb is wrapped in a bandage. There is no erythema surrounding this area. The skin is otherwise warm, dry and intact. Results Laboratory Results: 08/11/17 06:10 08/11/17 06:10 08/11/17 08/11/17 06:10 06:10 WBC 4.9 RBC 4.13 Hgb 9.7 L Hct 31.5 L MCV 76 L MCH 23.6 L MCHC 31.0 L RDW 16.9 H Plt Count 118 L Seg Neutrophils % 60.5 Lymphocytes % 21.2 Monocytes % 12.9 Eosinophils % 4.8 Basophils % 0.6 Absolute Neutrophils 2.9 Absolute Lymphocytes 1.0 Absolute Monocytes 0.6 Absolute Eosinophils 0.2 Absolute Basophils 0.0 Sodium 136.3 L Potassium 4.3 Chloride 99 Carbon Dioxide 29 Anion Gap 8 BUN 9 Creatinine 0.46 L Est GFR ( Amer) > 60 Est GFR (Non-Af Amer) > 60 Glucose 181 H Calcium 9.1 Phosphorus 3.0 Magnesium 1.8 08/09/17 18:12 Catheterized Urine Urine Culture - Final NO GROWTH 2 DAYS Impressions: Finger X-Ray 08/06/17 16:02 IMPRESSION: NO SIGNIFICANT RADIOGRAPHIC ABNORMALITY. NO RADIOGRAPHIC FINDINGS OF OSTEOMYELITIS. Upper Extremity MRI 08/06/17 21:47 IMPRESSION: There is diffuse soft tissue swelling with small amount of gas in the palm are tip consistent with the recent debridement or open wound. No enhancing fluid collection. No marrow replacement signal on T1 images. T2 weighted sequences are limited due to field inhomogeneity. No evidence for marrow enhancement following contrast administration. Chest X-Ray 08/09/17 00:00 IMPRESSION: LOW LUNG VOLUMES. NO SIGNIFICANT RADIOGRAPHIC FINDING IN THE CHEST. Assessment & Plan - Diagnosis (1) Марина infection Is this a current diagnosis for this admission?: Yes Plan: This is based on wound culture from 07/13/2017. Continue Diflucan. (2) Cellulitis of right thumb Is this a current diagnosis for this admission?: Yes Plan: Continue clindamycin. Patient does not have evidence at this time of a progressive cellulitis of the right hand. (3) Cirrhosis of liver Qualifiers: Hepatic cirrhosis type: unspecified hepatic cirrhosis Ascites presence: without ascites Qualified Code(s): K74.60 - Unspecified cirrhosis of liver Is this a current diagnosis for this admission?: Yes Plan: Will eval for ascites if fever persists. (4) Diabetes mellitus with hyperglycemia Qualifiers: Diabetes mellitus type: type 2 Diabetes mellitus watermaster insulin use: with watermaster use Qualified Code(s): E11.65 - Type 2 diabetes mellitus with hyperglycemia; Z79.4 - intermodal truck driver (current) use of insulin; Z79.4 - skilled nursing ( current) use of insulin; Z79.4 - intermodal truck driver (current) use of insulin; Z79.4 - skilled nursing (current) use of insulin Is this a current diagnosis for this admission?: Yes Plan: Patient has uncontrolled diabetes with A1c of 10. Lantus was increased per Dr. strong. Will follow blood sugars and adjust insulin regimen accordingly. BS are improving. (5) Felon of finger of right hand Is this a current diagnosis for this admission?: Yes Plan: Input from orthopedics is appreciated. Patient will need to follow-up with Dr. Velasquez, a hand specialist. (6) Fever Is this a current diagnosis for this admission?: Yes Plan: Patient developed a fever of 102 3 nights ago. Cefepime and vancomycin were added. Fever curve is trending downward but the patient is still complaining of chills. I am concerned about diverticular colitis. I will order an abdominal CT scan with oral contrast.. (7) Acute respiratory failure with hypoxia Is this a current diagnosis for this admission?: Yes Plan: There is no evidence of pneumonia on chest x-ray. This could be from atelectasis. Patient appears to be improved today, but, will ensure that incentive spirometry is ordered. (8) Electrolyte abnormality Is this a current diagnosis for this admission?: Yes Plan: She has mild hyponatremia, hypomagnesemia and hypophosphatemia. I will begin supplementation. I will follow sodium levels and treat accordingly. (9) Urinary retention Is this a current diagnosis for this admission?: Yes Plan: This may be from neurogenic bladder from diabetes. Will have the nurses check residuals (10) Abdominal pain Is this a current diagnosis for this admission?: Yes Plan: Will order a CT of the abdomen and pelvis with oral contrast. - Time Time Spent with patient: 25-34 minutes - Inpatient Certification Medical Necessity: Need for IV Antibiotics
[2017-08-11] MEDS: PROMETHAZINE HCL INJ 25 MG/1 ML VIAL IV PRN (15:47)
--- NOTE | 2017-08-11 17:49 | RADIOLOGY REPORT (SQ) ---
EXAM DESCRIPTION: CT ABD/PELVIS ORAL ONLY COMPLETED DATE/TIME: 08/11/2017 5:37 pm REASON FOR STUDY: Fever and LLQ pain COMPARISON: 2016. 07/25/2017. TECHNIQUE: CT scan of the abdomen and pelvis performed with oral contrast and no intravenous contras t. Images reviewed with lung, soft tissue, and bone windows. Reconstructed coronal and sagittal MPR i mages reviewed. All images stored on PACS. All CT scanners at this facility use dose modulation, iterative reconstruction, and/or weight based d osing when appropriate to reduce radiation dose to as low as reasonably achievable (ALARA). [facility]: Dose Right [facility]: CareDose [facility]: Dose Right [facility]: Teradose 4D [facility]: [employer] RADIATION DOSE: CT Rad equipment meets quality standard of care and radiation dose reduction techniq ues were employed. CTDIvol: 6.6 mGy. DLP: 376 mGy-cm.mGy. LIMITATIONS: None. FINDINGS: LOWER CHEST: Bilateral lower lobe mild volume loss. Chronic subcentimeter nodule left low er lobe unchanged. NON-CONTRASTED LIVER, SPLEEN, ADRENALS: No focal liver lesions. Spleen enlarged but otherwise homoge neous. Up to 14 cm craniocaudal dimension. PANCREAS: No masses. No peripancreatic inflammatory changes. GALLBLADDER: No identified stones by CT criteria. No inflammatory changes to suggest cholecystitis. RIGHT KIDNEY AND URETER: No solid masses. No significant calcification. No hydronephrosis or hydroure ter. LEFT KIDNEY AND URETER: No solid masses. No significant calcification. No hydronephrosis or hydrouret er. AORTA AND RETROPERITONEUM: No aneurysm. No retroperitoneal masses or adenopathy. BOWEL AND PERITONEAL CAVITY: Fair amount of stool throughout the colon. No dilated small bowel loops to suggest obstruction. No active inflammatory changes in the abdomen or pelvis. No free fluid or bulky adenopathy. APPENDIX: Normal. PELVIS, BLADDER, AND ABDOMINAL WALL: Mild urinary bladder distention. Bladder otherwise unremarkable . No pelvic mass or free fluid. No abdominal wall mass or hernia. BONES: No significant findings. OTHER: No other significant finding. IMPRESSION: 1. No acute abdominopelvic abnormality. Specifically, no bowel obstruction or inflammat ory changes. No ascites or abnormal gas. Chronic findings as above. TECHNICAL DOCUMENTATION: JOB ID: [id number] Quality ID # [id number]: Final reports with documentation of one or more dose reduction techniques (e.g., Au tomated exposure control, adjustment of the mA and/or kV according to patient size, use of iterative reconstruction technique) 2010 [employer]- All Rights Reserved
[2017-08-11] MEDS ORDERED: HYDROMORPHONE HCL INJ/PF 2 MG/ML AMPULE IV PRN (21:38)
[2017-08-11] MEDS ORDERED: LACTULOSE SYRUP 20 GM/30 ML UDCUP PO ONE (22:00)
[2017-08-11] MEDS: KETOROLAC TROMETHAMINE INJ/PF 30 MG/1 ML SDV IV PRN (22:29)
[2017-08-11] MEDS: FLUOXETINE HCL 20 MG CAPSULE PO SCH (22:30)
[2017-08-11] MEDS: ZOLPIDEM TARTRATE 5 MG TABLET PO PRN (22:30)
[2017-08-12] MEDS: VANCOMYCIN HCL 1,500 MG in DEXTROSE 5%-WATER 250 ML IV SCH ×2 (01:56→11:15)
[2017-08-12] MEDS ORDERED: CLINDAMYCIN HCL 150 MG CAPSULE ONE (06:22)
[2017-08-12] MEDS: GABAPENTIN 300 MG CAPSULE PO SCH ×3 (06:31→22:10)
[2017-08-12] MEDS: CLINDAMYCIN HCL 150 MG CAPSULE PO SCH ×3 (06:35→17:52)
[2017-08-12] MEDS: KETOROLAC TROMETHAMINE INJ/PF 30 MG/1 ML SDV IV PRN (06:57)
[2017-08-12] MEDS: PROMETHAZINE HCL INJ 25 MG/1 ML VIAL IV PRN (06:59)
[2017-08-12 07:38] LABS: ABSOLUTE EOSINOPHILS # (AUTO) 0.3 10^3/uL (0.0-0.6); ABSOLUTE LYMPHOCYTES (AUTO) 0.9 10^3/uL (0.5-4.7); ABSOLUTE MONOCYTES (AUTO) 0.7 10^3/uL (0.1-1.4); ABSOLUTE NEUT (AUTO) 1.7 10^3/uL (1.7-8.2); BASOPHILS % (AUTO) 1.1 % (0-2); EOSINOPHILS % (AUTO) 7.4 % (0-6); HEMATOCRIT 27.8 % (36.0-47.0); HEMOGLOBIN 8.8 g/dL (12.0-15.5); LYMPHOCYTES % (AUTO) 24.3 % (13-45); MEAN CORPUSCULAR HEMOGLOBIN 23.8 pg (27.0-33.4); MEAN CORPUSCULAR HGB CONC 31.5 g/dL (32.0-36.0); MEAN CORPUSCULAR VOLUME 76 fl (80-97); MONOCYTES % (AUTO) 19.3 % (3-13); PLATELET COUNT 102 10^3/uL (150-450); RED BLOOD COUNT 3.68 10^6/uL (3.72-5.28); RED CELL DISTRIBUTION WIDTH 16.9 % (11.5-14.0); SEGMENTED NEUTROPHILS % (AUTO) 47.9 % (42-78); TOTAL CELLS COUNTED % (AUTO) 100 %; WHITE BLOOD COUNT 3.6 10^3/uL (4.0-10.5)
[2017-08-12 07:49] LABS: ANION GAP 7 (5-19); BLOOD UREA NITROGEN 11 mg/dL (7-20); CALCIUM 8.9 mg/dL (8.4-10.2); CARBON DIOXIDE 28 mmol/L (22-30); CHLORIDE 100 mmol/L (98-107); GLUCOSE 154 mg/dL (75-110); MAGNESIUM 1.8 mg/dL (1.6-2.3); PHOSPHORUS 3.6 mg/dL (2.5-4.5); POTASSIUM 4.5 mmol/L (3.6-5.0); SODIUM 134.9 mmol/L (137-145)
[2017-08-12] MEDS: DOCUSATE SODIUM 100 MG CAPSULE PO SCH (09:10)
[2017-08-12] MEDS: FAMOTIDINE 20 MG TABLET PO SCH ×2 (09:10→22:10)
[2017-08-12] MEDS: ENOXAPARIN SODIUM INJ 40 MG/0.4 ML DISP.SYRIN SUBCUT SCH (09:10)
[2017-08-12] MEDS: FLUCONAZOLE 200 MG/NS RTU 100 ML IV SCH (09:10)
[2017-08-12] MEDS: MAGNESIUM OXIDE 400 MG TABLET PO SCH ×2 (09:10→17:52)
[2017-08-12] MEDS: INSULIN GLARGINE,HUM.REC.ANLOG 1,000 UNIT/10 ML UNIT SUBCUT SCH ×2 (09:10→22:11)
[2017-08-12] MEDS: INSULIN LISPRO 100 UNIT/ML 3 ML VIAL SUBCUT PRN ×2 (09:10→22:12)
[2017-08-12] MEDS: CEFEPIME HCL 2 GM in DEXTROSE 5%-WATER 50 ML IV SCH (10:27)
[2017-08-12 10:43] LABS: VANCOMYCIN,TROUGH 17.6 ug/mL (5.0-20.0)
--- NOTE | 2017-08-12 11:15 | PDOC PROGRESS REPORT ---
Subjective Progress Note for:: 08/12/17 Subjective:: 46-year-old female with underlying diabetes mellitus and cirrhosis. She presents with an infected finger of the right thumb. However, at present, ESR and CRP are normal. Findings on MRI were fairly unremarkable. There is a question as to whether or not the finger is still infected. The patient had temperature maximum 102 Thursday. The fever was associated with chills. Chest x- ray was clear. Exam is otherwise clear. Cultures were repeated and remained negative. Patient is complaining of persistent pain in the right hand. In particular, the pain is in the palm of her hand most prominently over the right thenar eminence. She also has some pain in the left lower quadrant which has been present for at least 2 weeks. Temperature curve overnight has come down, but, the patient is having persistent chills. She does state this morning that she is feeling better and the pain in her hand is less. Thursday, she stated that she was having trouble urinating. She does have slightly increased residuals at 350-400. We will try one in and out cath to see if this will alleviate the retention. I suspect that this is from a neurogenic bladder. I also instructed the nurse to have her walk the floor multiple times throughout the day. On Thursday, I did a CT of the abdomen with oral contrast due to the left lower quadrant pain. I was concerned about the possibility of diverticulitis. The findings did not demonstrate anything acute. The pain is likely secondary to splenomegaly. The patient does admit that she is aware that she has a history of an enlarged spleen. Reason For Visit: FELON; DEEP TISSUE CANDIDAL INFECTION Physical Exam Vital Signs: Temp Pulse Resp BP Pulse Ox 98.6 F 81 16 101/53 L 95 08/12/17 08:40 08/12/17 08:40 08/12/17 08:40 08/12/17 08:40 08/12/17 08:40 Intake & Output 08/11/17 08/12/17 08/13/17 06:59 06:59 06:59 Intake Total 870 480 560 Output Total 800 700 Balance 870 -320 -140 Weight 65 kg 65.2 kg Additional comments: The patient appears chronically ill and older than her stated age. Her facial appearance is unremarkable. Dentition is poor. Her lungs are clear to auscultation bilaterally. Her cardiac exam is regular without murmurs, gallops or rubs. The abdomen is soft and flat. Bowel sounds are noted in the lower quadrants. Pain is elicited over the left upper and left lower quadrant only. The lower extremities are unremarkable without edema. The skin is warm, dry and intact. The right thumb is wrapped in a surgical bandage. Results Laboratory Results: 08/12/17 07:14 08/12/17 07:14 08/12/17 08/12/17 07:14 07:14 WBC 3.6 L RBC 3.68 L Hgb 8.8 L Hct 27.8 L MCV 76 L MCH 23.8 L MCHC 31.5 L RDW 16.9 H Plt Count 102 L Seg Neutrophils % 47.9 Lymphocytes % 24.3 Monocytes % 19.3 H Eosinophils % 7.4 H Basophils % 1.1 Absolute Neutrophils 1.7 Absolute Lymphocytes 0.9 Absolute Monocytes 0.7 Absolute Eosinophils 0.3 Absolute Basophils 0.0 Sodium 134.9 L Potassium 4.5 Chloride 100 Carbon Dioxide 28 Anion Gap 7 BUN 11 Creatinine 0.50 L Est GFR ( Amer) > 60 Est GFR (Non-Af Amer) > 60 Glucose 154 H Calcium 8.9 Phosphorus 3.6 Magnesium 1.8 08/09/17 18:12 Catheterized Urine Urine Culture - Final NO GROWTH 2 DAYS Impressions: Finger X-Ray 08/06/17 16:02 IMPRESSION: NO SIGNIFICANT RADIOGRAPHIC ABNORMALITY. NO RADIOGRAPHIC FINDINGS OF OSTEOMYELITIS. Upper Extremity MRI 08/06/17 21:47 IMPRESSION: There is diffuse soft tissue swelling with small amount of gas in the palm are tip consistent with the recent debridement or open wound. No enhancing fluid collection. No marrow replacement signal on T1 images. T2 weighted sequences are limited due to field inhomogeneity. No evidence for marrow enhancement following contrast administration. Chest X-Ray 08/09/17 00:00 IMPRESSION: LOW LUNG VOLUMES. NO SIGNIFICANT RADIOGRAPHIC FINDING IN THE CHEST. Abdomen/Pelvis CT 08/11/17 00:00 IMPRESSION: 1. No acute abdominopelvic abnormality. Specifically, no bowel obstruction or inflammatory changes. No ascites or abnormal gas. Chronic findings as above. Assessment & Plan - Diagnosis (1) Марина infection Is this a current diagnosis for this admission?: Yes Plan: This is based on wound culture from 07/13/2017. Continue Diflucan. According to the medication administration record this was started on 08/07/2017. I would recommend a 10-14 day course. (2) Cellulitis of right thumb Is this a current diagnosis for this admission?: Yes Plan: Continue clindamycin. Patient does not have evidence at this time of a progressive cellulitis of the right hand. Clindamycin was started 08/07/17. I recommend a 10 day course. (3) Cirrhosis of liver Qualifiers: Hepatic cirrhosis type: unspecified hepatic cirrhosis Ascites presence: without ascites Qualified Code(s): K74.60 - Unspecified cirrhosis of liver Is this a current diagnosis for this admission?: Yes Plan: No ascites was present on CT scan yesterday. (4) Diabetes mellitus with hyperglycemia Qualifiers: Diabetes mellitus type: type 2 Diabetes mellitus nursing home insulin use: with nursing home use Qualified Code(s): E11.65 - Type 2 diabetes mellitus with hyperglycemia; Z79.4 - superintendent container terminal (current) use of insulin; Z79.4 - halfway ( current) use of insulin; Z79.4 - halfway (current) use of insulin; Z79.4 - halfway (current) use of insulin Is this a current diagnosis for this admission?: Yes Plan: Patient has uncontrolled diabetes with A1c of 10. Lantus was increased per Dr. strong. Will follow blood sugars and adjust insulin regimen accordingly. BS are improving. (5) Felon of finger of right hand Is this a current diagnosis for this admission?: Yes Plan: Input from orthopedics is appreciated. Patient will need to follow-up with Dr. Velasquez, a hand specialist. (6) Fever Is this a current diagnosis for this admission?: Yes Plan: Patient developed a fever of 102 Thursday. Cefepime and vancomycin were added. Fever curve is trending downward. The patient is no longer complaining of chills. Yesterday, I was concerned about something in the abdomen. CT of the abdomen and pelvis with oral contrast does not demonstrate any worrisome findings. Splenomegaly is present. At this point time the patient is afebrile and I will switch to all oral therapy. (7) Acute respiratory failure with hypoxia Is this a current diagnosis for this admission?: Yes Plan: Resolved. There is no evidence of pneumonia on chest x-ray. This could be from atelectasis. Continue ambulation and incentive spirometry. (8) Electrolyte abnormality Is this a current diagnosis for this admission?: Yes Plan: She has mild hyponatremia, hypomagnesemia and hypophosphatemia. I will begin supplementation. I will follow sodium levels and treat accordingly. (9) Urinary retention Is this a current diagnosis for this admission?: Yes Plan: This may be from neurogenic bladder from diabetes. Will have the nurses check residuals. Today, in and out cath will be performed to try to shrink the bladder. IN no will be as needed. I have not yet ordered an indwelling Ramirez. I will also discontinue IV narcotics and less in the narcotics which could be affecting urinary retention. (10) Abdominal pain Is this a current diagnosis for this admission?: Yes Plan: The etiology is likely splenomegaly. (11) Leucopenia Is this a current diagnosis for this admission?: Yes Plan: This is likely related to the use of beta lactam abx. The patient likely has some marrow suppression as well. Will continue to follow. - Time Time Spent with patient: 25-34 minutes - Inpatient Certification Medical Necessity: Significant Comorbidiites Make Outpatient Treatment Too Risky , Need Close Monitoring Due to Risk of Patient Decompensation, Need for Pain Control, Need for IV Antibiotics - Plan Summary Plan Summary: If the patient remains afebrile overnight then she will be a candidate to be discharged tomorrow on oral therapy.
[2017-08-12] MEDS ORDERED: OXYCODONE HCL IR 5 MG TABLET PO PRN (11:18)
[2017-08-12] MEDS: CYCLOBENZAPRINE HCL 10 MG TABLET PO PRN (16:43)
[2017-08-12] MEDS: AMOXICILLIN TR/POT CLAVULANATE 500-125 MG TAB PO SCH (16:43)
[2017-08-12] MEDS: FLUOXETINE HCL 20 MG CAPSULE PO SCH (22:10)
[2017-08-13] MEDS: CLINDAMYCIN HCL 150 MG CAPSULE PO SCH ×3 (00:20→11:27)
[2017-08-13] MEDS: PROMETHAZINE HCL INJ 25 MG/1 ML VIAL IV PRN (00:48)
[2017-08-13] MEDS: GABAPENTIN 300 MG CAPSULE PO SCH ×3 (06:41→22:31)
[2017-08-13 07:04] LABS: ABSOLUTE BASOPHILS # (AUTO) 0.1 10^3/uL (0.0-0.2); ABSOLUTE EOSINOPHILS # (AUTO) 0.2 10^3/uL (0.0-0.6); ABSOLUTE LYMPHOCYTES (AUTO) 1.4 10^3/uL (0.5-4.7); ABSOLUTE MONOCYTES (AUTO) 0.8 10^3/uL (0.1-1.4); ABSOLUTE NEUT (AUTO) 2.4 10^3/uL (1.7-8.2); BASOPHILS % (AUTO) 1.1 % (0-2); EOSINOPHILS % (AUTO) 4.4 % (0-6); HEMATOCRIT 29.2 % (36.0-47.0); HEMOGLOBIN 9.4 g/dL (12.0-15.5); LYMPHOCYTES % (AUTO) 28.9 % (13-45); MEAN CORPUSCULAR HGB CONC 32.1 g/dL (32.0-36.0); MEAN CORPUSCULAR VOLUME 75 fl (80-97); MONOCYTES % (AUTO) 16.7 % (3-13); PLATELET COUNT 127 10^3/uL (150-450); RED BLOOD COUNT 3.92 10^6/uL (3.72-5.28); RED CELL DISTRIBUTION WIDTH 16.5 % (11.5-14.0); SEGMENTED NEUTROPHILS % (AUTO) 48.9 % (42-78); TOTAL CELLS COUNTED % (AUTO) 100 %; WHITE BLOOD COUNT 4.8 10^3/uL (4.0-10.5)
[2017-08-13 07:24] LABS: ANION GAP 7 (5-19); BLOOD UREA NITROGEN 8 mg/dL (7-20); CALCIUM 9.1 mg/dL (8.4-10.2); CARBON DIOXIDE 29 mmol/L (22-30); CHLORIDE 105 mmol/L (98-107); GLUCOSE 99 mg/dL (75-110); MAGNESIUM 1.9 mg/dL (1.6-2.3); PHOSPHORUS 3.8 mg/dL (2.5-4.5); POTASSIUM 4.3 mmol/L (3.6-5.0); SODIUM 141.2 mmol/L (137-145)
[2017-08-13] MEDS: ENOXAPARIN SODIUM INJ 40 MG/0.4 ML DISP.SYRIN SUBCUT SCH (09:36)
[2017-08-13] MEDS: DOCUSATE SODIUM 100 MG CAPSULE PO SCH (09:36)
[2017-08-13] MEDS: MAGNESIUM OXIDE 400 MG TABLET PO SCH ×2 (09:36→17:27)
[2017-08-13] MEDS: FAMOTIDINE 20 MG TABLET PO SCH ×2 (09:36→22:32)
[2017-08-13] MEDS: AMOXICILLIN TR/POT CLAVULANATE 500-125 MG TAB PO SCH ×2 (09:37→11:27)
[2017-08-13] MEDS: INSULIN GLARGINE,HUM.REC.ANLOG 1,000 UNIT/10 ML UNIT SUBCUT SCH ×2 (09:37→22:31)
[2017-08-13] MEDS ORDERED: FLUCONAZOLE 100 MG TABLET PO SCH (10:00)
[2017-08-13] MEDS: INSULIN LISPRO 100 UNIT/ML 3 ML VIAL SUBCUT PRN (17:30)
--- NOTE | 2017-08-13 17:44 | PDOC PROGRESS REPORT ---
Subjective Progress Note for:: 08/13/17 Subjective:: Patient refers that her right thumb is doing great. Her major problem is that her blood sugar levels are lower than usual and making her confused. Patient also complains of having diarrhea. She is no longer having fever. Review of systems All organ systems evaluated and negative except as in subjective All laboratories and significant diagnostics have been reviewed Reason For Visit: JUAN; DEEP TISSUE CANDIDAL INFECTION Physical Exam Vital Signs: Temp Pulse Resp BP Pulse Ox 98.3 F 81 18 102/54 L 98 08/13/17 08:26 08/13/17 08:26 08/13/17 08:26 08/13/17 08:26 08/13/17 08:26 Intake & Output 08/12/17 08/13/17 08/14/17 06:59 06:59 06:59 Intake Total 480 560 Output Total 800 1475 Balance -320 -915 Weight 65.2 kg 66.2 kg General appearance: PRESENT: no acute distress, cooperative, thin Head exam: PRESENT: atraumatic, normocephalic Eye exam: PRESENT: EOMI, PERRLA Ear exam: PRESENT: normal external ear exam Mouth exam: PRESENT: moist, neck supple Neck exam: PRESENT: full ROM. ABSENT: JVD, lymphadenopathy, thyromegaly Respiratory exam: PRESENT: clear to auscultation jocy Cardiovascular exam: PRESENT: RRR. ABSENT: diastolic murmur, systolic murmur Vascular exam: PRESENT: normal capillary refill GI/Abdominal exam: PRESENT: normal bowel sounds, soft. ABSENT: tenderness Extremities exam: PRESENT: full ROM. ABSENT: joint swelling, pedal edema Musculoskeletal exam: PRESENT: ambulatory Neurological exam: PRESENT: alert, awake, oriented to person, oriented to place , oriented to time, oriented to situation, CN II-XII grossly intact Psychiatric exam: PRESENT: appropriate affect, normal mood Skin exam: PRESENT: intact, normal color Results Laboratory Results: 08/13/17 06:20 08/13/17 06:20 08/13/17 08/13/17 06:20 06:20 WBC 4.8 RBC 3.92 Hgb 9.4 L Hct 29.2 L MCV 75 L MCH 24.0 L MCHC 32.1 RDW 16.5 H Plt Count 127 L Seg Neutrophils % 48.9 Lymphocytes % 28.9 Monocytes % 16.7 H Eosinophils % 4.4 Basophils % 1.1 Absolute Neutrophils 2.4 Absolute Lymphocytes 1.4 Absolute Monocytes 0.8 Absolute Eosinophils 0.2 Absolute Basophils 0.1 Sodium 141.2 Potassium 4.3 Chloride 105 Carbon Dioxide 29 Anion Gap 7 BUN 8 Creatinine 0.44 L Est GFR ( Amer) > 60 Est GFR (Non-Af Amer) > 60 Glucose 99 Calcium 9.1 Phosphorus 3.8 Magnesium 1.9 Impressions: Finger X-Ray 08/06/17 16:02 IMPRESSION: NO SIGNIFICANT RADIOGRAPHIC ABNORMALITY. NO RADIOGRAPHIC FINDINGS OF OSTEOMYELITIS. Upper Extremity MRI 08/06/17 21:47 IMPRESSION: There is diffuse soft tissue swelling with small amount of gas in the palm are tip consistent with the recent debridement or open wound. No enhancing fluid collection. No marrow replacement signal on T1 images. T2 weighted sequences are limited due to field inhomogeneity. No evidence for marrow enhancement following contrast administration. Chest X-Ray 08/09/17 00:00 IMPRESSION: LOW LUNG VOLUMES. NO SIGNIFICANT RADIOGRAPHIC FINDING IN THE CHEST. Abdomen/Pelvis CT 08/11/17 00:00 IMPRESSION: 1. No acute abdominopelvic abnormality. Specifically, no bowel obstruction or inflammatory changes. No ascites or abnormal gas. Chronic findings as above. Assessment & Plan - Diagnosis (1) Марина infection Is this a current diagnosis for this admission?: Yes Plan: Stop diflucan (2) Cellulitis of right thumb Is this a current diagnosis for this admission?: Yes Plan: Resolved (3) Cirrhosis of liver Qualifiers: Hepatic cirrhosis type: unspecified hepatic cirrhosis Ascites presence: without ascites Qualified Code(s): K74.60 - Unspecified cirrhosis of liver Is this a current diagnosis for this admission?: Yes Plan: Due to diabetes. Stable (4) Diabetes mellitus with hyperglycemia Qualifiers: Diabetes mellitus type: type 2 Diabetes mellitus local company intermodal truck driver insulin use: with local company intermodal truck driver use Qualified Code(s): E11.65 - Type 2 diabetes mellitus with hyperglycemia; Z79.4 - exterminator (current) use of insulin; Z79.4 - exterminator ( current) use of insulin; Z79.4 - USP (current) use of insulin; Z79.4 - exterminator (current) use of insulin Is this a current diagnosis for this admission?: Yes Plan: Will decrease Lantus to 35 units subcu twice a day and will continue sliding scale. (5) Felon of finger of right hand Is this a current diagnosis for this admission?: Yes Plan: Incision and drainage performed on admission and is doing well (6) Diarrhea Qualifiers: Diarrhea type: unspecified type Qualified Code(s): R19.7 - Diarrhea, unspecified Is this a current diagnosis for this admission?: Yes Plan: Likely due to antibiotic. To discontinue Augmentin and clindamycin - Time Time Spent with patient: 15-24 minutes Medications reviewed and adjusted accordingly: Yes Anticipated discharge: Home Within: within 24 hours - Inpatient Certification Based on my medical assessment, after consideration of the patient's comorbidities, presenting symptoms, or acuity I expect that the services needed warrant INPATIENT care.: Yes I certify that my determination is in accordance with my understanding of Medicare's requirements for reasonable and necessary INPATIENT services [42 CFR 412.3e].: Yes Medical Necessity: Need Close Monitoring Due to Risk of Patient Decompensation
[2017-08-13] MEDS: FLUOXETINE HCL 20 MG CAPSULE PO SCH (22:31)
[2017-08-13] MEDS: CYCLOBENZAPRINE HCL 10 MG TABLET PO PRN (22:59)
[2017-08-14] MEDS: GABAPENTIN 300 MG CAPSULE PO SCH ×3 (05:50→21:23)
[2017-08-14 07:24] LABS: ANION GAP 11 (5-19); BLOOD UREA NITROGEN 9 mg/dL (7-20); CALCIUM 9.2 mg/dL (8.4-10.2); CARBON DIOXIDE 26 mmol/L (22-30); CHLORIDE 103 mmol/L (98-107); GLUCOSE 195 mg/dL (75-110); POTASSIUM 4.6 mmol/L (3.6-5.0); SODIUM 139.6 mmol/L (137-145)
[2017-08-14] MEDS: MAGNESIUM OXIDE 400 MG TABLET PO SCH (09:16)
[2017-08-14] MEDS: DOCUSATE SODIUM 100 MG CAPSULE PO SCH (09:16)
[2017-08-14] MEDS: INSULIN GLARGINE,HUM.REC.ANLOG 1,000 UNIT/10 ML UNIT SUBCUT SCH ×2 (09:16→21:30)
[2017-08-14] MEDS: ENOXAPARIN SODIUM INJ 40 MG/0.4 ML DISP.SYRIN SUBCUT SCH (09:16)
[2017-08-14] MEDS: FAMOTIDINE 20 MG TABLET PO SCH ×2 (09:16→21:24)
[2017-08-14] MEDS: INSULIN LISPRO 100 UNIT/ML 3 ML VIAL SUBCUT PRN ×4 (09:16→22:30)
[2017-08-14] MEDS ORDERED: PROMETHAZINE HCL 25 MG TABLET PO PRN (11:04)
[2017-08-14] MEDS ORDERED: ONDANSETRON HCL INJ/PF 4 MG/2 ML SDV IV PRN (11:04)
[2017-08-14] MEDS: METRONIDAZOLE 500 MG TABLET PO SCH ×2 (13:07→21:24)
--- NOTE | 2017-08-14 16:43 | PDOC PROGRESS REPORT ---
Subjective Progress Note for:: 08/14/17 Subjective:: Patient refers that is having like a lightning sensation in right thumb. Also complains of diarrhea and vomiting. Review of systems All organ systems evaluated and negative except as in subjective All laboratories and significant diagnostics have been reviewed Reason For Visit: JUAN; DEEP TISSUE CANDIDAL INFECTION Physical Exam Vital Signs: Temp Pulse Resp BP Pulse Ox 98.2 F 74 15 98/58 L 96 08/14/17 08:25 08/14/17 08:25 08/14/17 08:25 08/14/17 08:25 08/14/17 08:25 Intake & Output 08/13/17 08/14/17 08/15/17 06:59 06:59 06:59 Intake Total 560 200 Output Total 1475 Balance -915 200 Weight 66.2 kg 66 kg General appearance: PRESENT: no acute distress, cooperative, thin Head exam: PRESENT: atraumatic, normocephalic Eye exam: PRESENT: conjunctiva pink, EOMI, PERRLA Neck exam: PRESENT: full ROM. ABSENT: JVD, lymphadenopathy Respiratory exam: PRESENT: clear to auscultation jocy Cardiovascular exam: PRESENT: RRR. ABSENT: diastolic murmur, systolic murmur Vascular exam: PRESENT: normal capillary refill GI/Abdominal exam: PRESENT: soft, tenderness. ABSENT: normal bowel sounds Extremities exam: PRESENT: full ROM Musculoskeletal exam: PRESENT: ambulatory Neurological exam: PRESENT: alert, awake, oriented to person, oriented to place , oriented to time, oriented to situation, CN II-XII grossly intact Psychiatric exam: PRESENT: appropriate affect, normal mood Skin exam: PRESENT: intact, normal color Results Laboratory Results: 08/13/17 06:20 08/14/17 06:04 08/14/17 06:04 Sodium 139.6 Potassium 4.6 Chloride 103 Carbon Dioxide 26 Anion Gap 11 BUN 9 Creatinine 0.44 L Est GFR ( Amer) > 60 Est GFR (Non-Af Amer) > 60 Glucose 195 H Calcium 9.2 08/09/17 01:40 Blood Blood Culture - Final NO GROWTH IN 5 DAYS 08/09/17 00:45 Blood Blood Culture - Final NO GROWTH IN 5 DAYS Impressions: Finger X-Ray 08/06/17 16:02 IMPRESSION: NO SIGNIFICANT RADIOGRAPHIC ABNORMALITY. NO RADIOGRAPHIC FINDINGS OF OSTEOMYELITIS. Upper Extremity MRI 08/06/17 21:47 IMPRESSION: There is diffuse soft tissue swelling with small amount of gas in the palm are tip consistent with the recent debridement or open wound. No enhancing fluid collection. No marrow replacement signal on T1 images. T2 weighted sequences are limited due to field inhomogeneity. No evidence for marrow enhancement following contrast administration. Chest X-Ray 08/09/17 00:00 IMPRESSION: LOW LUNG VOLUMES. NO SIGNIFICANT RADIOGRAPHIC FINDING IN THE CHEST. Abdomen/Pelvis CT 08/11/17 00:00 IMPRESSION: 1. No acute abdominopelvic abnormality. Specifically, no bowel obstruction or inflammatory changes. No ascites or abnormal gas. Chronic findings as above. Assessment & Plan - Diagnosis (1) Марина infection Is this a current diagnosis for this admission?: Yes Plan: Patient advised to stop manipulating the thumb (2) Cellulitis of right thumb Is this a current diagnosis for this admission?: Yes Plan: Resolved (3) Cirrhosis of liver Qualifiers: Hepatic cirrhosis type: unspecified hepatic cirrhosis Ascites presence: without ascites Qualified Code(s): K74.60 - Unspecified cirrhosis of liver Is this a current diagnosis for this admission?: Yes Plan: Advised to quit alcohol and educated about importance to control diabetes (4) Diabetes mellitus with hyperglycemia Qualifiers: Diabetes mellitus type: type 2 Diabetes mellitus prison insulin use: with termite control servicer use Qualified Code(s): E11.65 - Type 2 diabetes mellitus with hyperglycemia; Z79.4 - longterm (current) use of insulin; Z79.4 - longterm ( current) use of insulin; Z79.4 - intermission coordinator (current) use of insulin; Z79.4 - longterm (current) use of insulin Is this a current diagnosis for this admission?: Yes Plan: Add premeal humalog to current regimen (5) Felon of finger of right hand Is this a current diagnosis for this admission?: Yes Plan: Incision and drainage performed on admission and is doing well (6) Diarrhea Qualifiers: Diarrhea type: unspecified type Qualified Code(s): R19.7 - Diarrhea, unspecified Is this a current diagnosis for this admission?: Yes Plan: Persisting. Order C diff. Start lactobacillus, metamucil and empirically to place on flagyl orally. - Time Time Spent with patient: 15-24 minutes Medications reviewed and adjusted accordingly: Yes Anticipated discharge: Home Within: within 48 hours - Inpatient Certification Based on my medical assessment, after consideration of the patient's comorbidities, presenting symptoms, or acuity I expect that the services needed warrant INPATIENT care.: Yes I certify that my determination is in accordance with my understanding of Medicare's requirements for reasonable and necessary INPATIENT services [42 CFR 412.3e].: Yes Medical Necessity: Need Close Monitoring Due to Risk of Patient Decompensation
--- NOTE | 2017-08-14 16:47 | PDOC PROGRESS REPORT ---
Subjective Progress Note for:: 08/14/17 Subjective:: I was asked see the patient for second opinion of her right thumb. Patient states her thumb pain has improved over the past month but this is been ongoing for 3 months. She has had redness and swelling subsequently underwent decompression with nail removal about a month ago. But at that time only half the nail was removed and recently the entire nail was removed. She states it has continued to improve but still has considerable discomfort with any palpation. She denies traumatic injury. Reason For Visit: JUAN; DEEP TISSUE CANDIDAL INFECTION Physical Exam Vital Signs: Temp Pulse Resp BP Pulse Ox 99.1 F 76 18 125/67 94 08/14/17 15:24 08/14/17 15:24 08/14/17 15:24 08/14/17 15:24 08/14/17 15:24 Intake & Output 08/13/17 08/14/17 08/15/17 06:59 06:59 06:59 Intake Total 560 200 Output Total 1475 Balance -915 200 Weight 66.2 kg 66 kg Musculoskeletal exam: PRESENT: other - Right thumb: Significant improved swelling compared to previous visual images provided by the patient's cell phone. She does have exquisite tenderness throughout the distal phalanx medially, laterally dorsally and palmarly. Patient is intact sensation to light touch but has notable discomfort with light touch. No pain proximally. No streaking erythema. No pain with IP joint range of motion. No active drainage or palpable fluctuance. Results Laboratory Results: 08/13/17 06:20 08/14/17 06:04 08/14/17 06:04 Sodium 139.6 Potassium 4.6 Chloride 103 Carbon Dioxide 26 Anion Gap 11 BUN 9 Creatinine 0.44 L Est GFR ( Amer) > 60 Est GFR (Non-Af Amer) > 60 Glucose 195 H Calcium 9.2 08/09/17 14:34 Blood Blood Culture - Final NO GROWTH IN 5 DAYS 08/09/17 01:40 Blood Blood Culture - Final NO GROWTH IN 5 DAYS 08/09/17 00:45 Blood Blood Culture - Final NO GROWTH IN 5 DAYS Impressions: Finger X-Ray 08/06/17 16:02 IMPRESSION: NO SIGNIFICANT RADIOGRAPHIC ABNORMALITY. NO RADIOGRAPHIC FINDINGS OF OSTEOMYELITIS. Upper Extremity MRI 08/06/17 21:47 IMPRESSION: There is diffuse soft tissue swelling with small amount of gas in the palm are tip consistent with the recent debridement or open wound. No enhancing fluid collection. No marrow replacement signal on T1 images. T2 weighted sequences are limited due to field inhomogeneity. No evidence for marrow enhancement following contrast administration. Chest X-Ray 08/09/17 00:00 IMPRESSION: LOW LUNG VOLUMES. NO SIGNIFICANT RADIOGRAPHIC FINDING IN THE CHEST. Abdomen/Pelvis CT 08/11/17 00:00 IMPRESSION: 1. No acute abdominopelvic abnormality. Specifically, no bowel obstruction or inflammatory changes. No ascites or abnormal gas. Chronic findings as above. Assessment & Plan - Diagnosis (1) Cellulitis of right thumb Is this a current diagnosis for this admission?: Yes Plan: Patient's symptoms and examination appear to have been improving over time but she still has residual discomfort. Given the fact she has been on antibiotics and antifungals both of which would adequately cover majority of her infections in the thumb I do not feel infectious process is likely contributing to her current pain. I feel the majority of her pain is likely secondary to possible an early CRPS and thus would recommend continuing Neurontin as tolerated. Would not recommend further invasive treatment.
[2017-08-14] MEDS: CYCLOBENZAPRINE HCL 10 MG TABLET PO PRN (18:25)
[2017-08-14] MEDS: PSYLLIUM SEED-SF 5.85 GM PACKET PO SCH (18:25)
[2017-08-14] MEDS: LACTOBACILLUS ACIDOPHILUS 250 MG TAB PO SCH (18:25)
[2017-08-14] MEDS: FLUOXETINE HCL 20 MG CAPSULE PO SCH (21:23)
[2017-08-15] MEDS: GABAPENTIN 300 MG CAPSULE PO SCH (05:34)
[2017-08-15] MEDS: METRONIDAZOLE 500 MG TABLET PO SCH (05:34)
[2017-08-15 06:32] LABS: ABSOLUTE EOSINOPHILS # (AUTO) 0.2 10^3/uL (0.0-0.6); ABSOLUTE LYMPHOCYTES (AUTO) 1.5 10^3/uL (0.5-4.7); ABSOLUTE MONOCYTES (AUTO) 0.6 10^3/uL (0.1-1.4); ABSOLUTE NEUT (AUTO) 1.7 10^3/uL (1.7-8.2); BASOPHILS % (AUTO) 1.2 % (0-2); EOSINOPHILS % (AUTO) 4.9 % (0-6); HEMOGLOBIN 10.3 g/dL (12.0-15.5); LYMPHOCYTES % (AUTO) 36.7 % (13-45); MEAN CORPUSCULAR HEMOGLOBIN 23.5 pg (27.0-33.4); MEAN CORPUSCULAR HGB CONC 31.2 g/dL (32.0-36.0); MEAN CORPUSCULAR VOLUME 76 fl (80-97); MONOCYTES % (AUTO) 15.4 % (3-13); PLATELET COUNT 161 10^3/uL (150-450); RED BLOOD COUNT 4.37 10^6/uL (3.72-5.28); RED CELL DISTRIBUTION WIDTH 16.8 % (11.5-14.0); SEGMENTED NEUTROPHILS % (AUTO) 41.8 % (42-78); TOTAL CELLS COUNTED % (AUTO) 100 %; WHITE BLOOD COUNT 4.1 10^3/uL (4.0-10.5)
[2017-08-15 06:55] LABS: ALANINE AMINOTRANSFERASE 79 U/L (9-52); ALBUMIN 3.8 g/dL (3.5-5.0); ALKALINE PHOSPHATASE 117 U/L (38-126); ANION GAP 8 (5-19); ASPARTATE AMINO TRANSFERASE 76 U/L (14-36); BILIRUBIN,DIRECT 0.2 mg/dL (0.0-0.4); BILIRUBIN,TOTAL 0.5 mg/dL (0.2-1.3); BLOOD UREA NITROGEN 8 mg/dL (7-20); CALCIUM 9.6 mg/dL (8.4-10.2); CARBON DIOXIDE 30 mmol/L (22-30); CHLORIDE 103 mmol/L (98-107); GLUCOSE 129 mg/dL (75-110); POTASSIUM 4.6 mmol/L (3.6-5.0); SODIUM 141.2 mmol/L (137-145); TOTAL PROTEIN 7.7 g/dL (6.3-8.2)
[2017-08-15] MEDS ORDERED: INSULIN LISPRO 100 UNIT/ML 3 ML VIAL SUBCUT SCH (08:00)
[2017-08-15] MEDS: ENOXAPARIN SODIUM INJ 40 MG/0.4 ML DISP.SYRIN SUBCUT SCH (10:36)
[2017-08-15] MEDS: PSYLLIUM SEED-SF 5.85 GM PACKET PO SCH (10:36)
[2017-08-15] MEDS: INSULIN GLARGINE,HUM.REC.ANLOG 1,000 UNIT/10 ML UNIT SUBCUT SCH (10:45)
[2017-08-15] MEDS: LACTOBACILLUS ACIDOPHILUS 250 MG TAB PO SCH (10:46)
[2017-08-15] MEDS: FAMOTIDINE 20 MG TABLET PO SCH (10:46)
[2017-08-15 11:04] VITALS: BP 98/58
--- NOTE | 2017-08-15 15:41 | PDOC DISCHARGE SUMMARY ---
General - Admit/Disc Date/PCP Admission Date/Primary Care Provider: 08/06/17 22:58 Discharge Date: 08/15/17 - Discharge Diagnosis (1) Cellulitis of right thumb Is this a current diagnosis for this admission?: Yes (2) Felon of finger of right hand Is this a current diagnosis for this admission?: Yes (3) Марина infection Is this a current diagnosis for this admission?: Yes (4) Cirrhosis of liver Is this a current diagnosis for this admission?: Yes (5) Diabetes mellitus with hyperglycemia Is this a current diagnosis for this admission?: Yes (6) Diarrhea Is this a current diagnosis for this admission?: Yes (7) Tobacco abuse Is this a current diagnosis for this admission?: Yes (8) Tobacco abuse counseling Is this a current diagnosis for this admission?: Yes (9) Alcohol abuse Is this a current diagnosis for this admission?: Yes - Additional Information Resuscitation Status: Full Code Prescriptions: Gabapentin [Neurontin 300 mg Capsule] 600 mg PO Q8 #60 capsule Insulin Glargine,Hum.rec.anlog [Lantus Insulin 100 Unit/1 ml 10 ml] 35 unit SUBCUT Q12 #3 unit Insulin Lispro [Humalog Insulin (Lispro) 100 unit/mL] 5 unit SUBCUT AC #3 unit Metronidazole [Flagyl 500 mg Tablet] 500 mg PO Q8 #15 tablet Promethazine HCl [Phenergan 25 mg Tablet] 25 mg PO Q6HP PRN #20 tablet PRN Reason: Home Medications: Gabapentin [Neurontin 300 mg Capsule] 600 mg PO Q8 #60 capsule 08/15/17 Insulin Glargine,Hum.rec.anlog [Lantus Insulin 100 Unit/1 ml 10 ml] 35 unit SUBCUT Q12 #3 unit 08/15/17 Insulin Lispro [Humalog Insulin (Lispro) 100 unit/mL] 5 unit SUBCUT AC #3 unit 08/15/17 Metronidazole [Flagyl 500 mg Tablet] 500 mg PO Q8 #15 tablet 08/15/17 Promethazine HCl [Phenergan 25 mg Tablet] 25 mg PO Q6HP PRN #20 tablet 08/15/17 History of Present Illness History of Present Illness: KIARA VICTOR is a 46 year old female who has had several episodes of paronychia of the right thumb and had several episodes of incision and drainage. It is unclear if the purulent material that had been obtained on several occasions had been cultured. One episode at the start of this month the pus was cultured and it grew Марина with no bacterial growth. Patient had a recurrent episode and presented to her regular physician. Then he drained the paronychia and remove part of the nailbed the prior to presetnation. She was seen again in follow-up but still had purulent material and so was referred to the emergency room. There she had further debridement. Patient was referred to the hospitalist service for further management Hospital Course Hospital Course: Patient was admitted under the hospitalist service. She was placed on dual antibiotic therapy and Diflucan. Patient condition improved but then she complained of pain in the area where she had incision and drainage. Patient was evaluated by orthopedic service and deemed that patient did not need any further intervention. Antibiotics and Diflucan were discontinued. Patient was discharged on gabapentin. She has been made aware that being related to nerve damage. Had lengthy conversation with patient since she does suffer from uncontrolled diabetes. Patient was discharged on long-acting insulin, pre-meal Humalog and sliding scale. Patient has been educated about quitting smoking as well as alcohol. She complained of having diarrhea. Stool for C diff was obtained which was negative. At the time of discharge patient reported improvement on diarrheal movements. She has been advised as to buy over-the- counter probiotics and take Metamucil. There is a possibility that diarrheal movements may relate to diabetes vs viral illness vs antibiotic related. She has been encouraged as to follow-up with her family care provider for all her medical needs. Since patient had improved prompted to discharge Physical Exam Vital Signs: Temp Pulse Resp BP Pulse Ox 98.1 F 73 14 96/55 L 98 08/15/17 04:24 08/15/17 04:24 08/15/17 04:24 08/15/17 04:24 08/15/17 04:24 Intake & Output 08/14/17 08/15/17 08/16/17 06:59 06:59 06:59 Intake Total 200 1000 Balance 200 1000 Weight 66 kg 66.28 kg General appearance: PRESENT: no acute distress, cooperative, thin Head exam: PRESENT: atraumatic, normocephalic Eye exam: PRESENT: conjunctiva pink, EOMI, PERRLA Ear exam: PRESENT: normal external ear exam Mouth exam: PRESENT: moist Neck exam: PRESENT: full ROM. ABSENT: JVD, lymphadenopathy, tenderness Respiratory exam: PRESENT: clear to auscultation jocy Cardiovascular exam: PRESENT: RRR. ABSENT: diastolic murmur, systolic murmur Vascular exam: PRESENT: normal capillary refill GI/Abdominal exam: PRESENT: normal bowel sounds, soft. ABSENT: tenderness Extremities exam: PRESENT: full ROM, tenderness - The medial aspect of right thumb. ABSENT: joint swelling, pedal edema Musculoskeletal exam: PRESENT: ambulatory Neurological exam: PRESENT: alert, awake, oriented to person, oriented to place , oriented to time, oriented to situation, CN II-XII grossly intact Psychiatric exam: PRESENT: appropriate affect, normal mood Skin exam: PRESENT: intact, normal color Results Laboratory Results: 08/15/17 05:49 08/15/17 05:49 08/14/17 08/15/17 08/15/17 06:04 05:49 05:49 WBC 4.1 RBC 4.37 Hgb 10.3 L Hct 33.0 L MCV 76 L MCH 23.5 L MCHC 31.2 L RDW 16.8 H Plt Count 161 Seg Neutrophils % 41.8 L Lymphocytes % 36.7 Monocytes % 15.4 H Eosinophils % 4.9 Basophils % 1.2 Absolute Neutrophils 1.7 Absolute Lymphocytes 1.5 Absolute Monocytes 0.6 Absolute Eosinophils 0.2 Absolute Basophils 0.0 Sodium 139.6 141.2 Potassium 4.6 4.6 Chloride 103 103 Carbon Dioxide 26 30 Anion Gap 11 8 BUN 9 8 Creatinine 0.44 L 0.51 L Est GFR ( Amer) > 60 > 60 Est GFR (Non-Af Amer) > 60 > 60 Glucose 195 H 129 H Calcium 9.2 9.6 Total Bilirubin 0.5 AST 76 H ALT 79 H Alkaline Phosphatase 117 Total Protein 7.7 Albumin 3.8 08/09/17 14:34 Blood Blood Culture - Final NO GROWTH IN 5 DAYS Impressions: Finger X-Ray 08/06/17 16:02 IMPRESSION: NO SIGNIFICANT RADIOGRAPHIC ABNORMALITY. NO RADIOGRAPHIC FINDINGS OF OSTEOMYELITIS. Upper Extremity MRI 08/06/17 21:47 IMPRESSION: There is diffuse soft tissue swelling with small amount of gas in the palm are tip consistent with the recent debridement or open wound. No enhancing fluid collection. No marrow replacement signal on T1 images. T2 weighted sequences are limited due to field inhomogeneity. No evidence for marrow enhancement following contrast administration. Chest X-Ray 08/09/17 00:00 IMPRESSION: LOW LUNG VOLUMES. NO SIGNIFICANT RADIOGRAPHIC FINDING IN THE CHEST. Abdomen/Pelvis CT 08/11/17 00:00 IMPRESSION: 1. No acute abdominopelvic abnormality. Specifically, no bowel obstruction or inflammatory changes. No ascites or abnormal gas. Chronic findings as above. Plan Discharge Plan: Discharge home Time Spent: Less than 30 Minutes
== END 2017-08-15 11:30 | disposition home or self-care (01) | DRG 603 ==
LOC: ER 13:08 → EH 22:58 → 2N 08-07 03:22
PROVIDERS: ADMIT Internal Medicine; ATTEND Internal Medicine
PROC: 0H9FXZZ Drainage of Right Hand Skin, External Approach (ICD-10-PCS; principal; 2017-08-06)
PROC: 0HTQXZZ Resection of Finger Nail, External Approach (ICD-10-PCS; 2017-08-06)
DX: L03.011 Cellulitis of right finger (principal); E87.1 Hypo-osmolality and hyponatremia; B37.2 Candidiasis of skin and nail; K74.60 Unspecified cirrhosis of liver; F10.10 Alcohol abuse, uncomplicated; Z79.4 Long term (current) use of insulin; E78.5 Hyperlipidemia, unspecified; I10 Essential (primary) hypertension; E10.65 Type 1 diabetes mellitus with hyperglycemia; F17.210 Nicotine dependence, cigarettes, uncomplicated; D69.59 Other secondary thrombocytopenia; E83.42 Hypomagnesemia; E83.39 Other disorders of phosphorus metabolism; R33.9 Retention of urine, unspecified; R16.1 Splenomegaly, not elsewhere classified; D72.819 Decreased white blood cell count, unspecified; R19.7 Diarrhea, unspecified; T36.95XA Adverse effect of unspecified systemic antibiotic, initial encounter; Z82.3 Family history of stroke; Z80.9 Family history of malignant neoplasm, unspecified; Z86.14 Personal history of Methicillin resistant Staphylococcus aureus infection; Z98.51 Tubal ligation status; Z88.1 Allergy status to other antibiotic agents; Z88.6 Allergy status to analgesic agent
CPT/HCPCS: 36415; 71045; 71046; 74176; 80048; 80053; 80061; 80202; 81001; 82728; 82962; 83036; 83735; 84100; 85025; 85610; 85652; 85730; 86140; 86803; 86804; 87040; 87086; 87340; 87493; 87804; 94799; 96365; 96366; 96367; 96375; 99285; J0692; J0696; J1170; J1450; J1650; J1815; J1885; J2405; J2550; J3370; J3490; J7060

== ENCOUNTER → 2017-10-07 | Outpatient (CLI) | payer OTHER ==
--- NOTE | 2017-10-07 10:29 | RADIOLOGY REPORT (SQ) ---
EXAM DESCRIPTION: U/S ABDOMEN COMPLETE W/O DOP COMPLETED DATE/TIME: 10/07/2017 10:09 am REASON FOR STUDY: CIRRHOSIS (K74.60), ABD DISTENSION (R14.0) R14.0 ABDOMINAL DISTENSION (GASEOUS) K 74.60 UNSPECIFIED CIRRHOSIS OF LIVER COMPARISON: None. TECHNIQUE: Dynamic and static grayscale images acquired of the abdomen and recorded on PACS. Additio nal selected color Doppler and spectral images recorded. LIMITATIONS: None. FINDINGS: PANCREAS: No masses. Visualized pancreatic duct normal caliber. LIVER: Diffuse coarse hepatic echotexture. LIVER VASCULATURE: Normal directional flow of the main portal vein and hepatic veins. GALLBLADDER: No stones. Normal wall thickness. No pericholecystic fluid. ULTRASOUND-DETECTED ENCISO'S SIGN: Negative. INTRAHEPATIC DUCTS AND COMMON DUCT: CBD and intrahepatic ducts normal caliber. No filling defects. INFERIOR VENA CAVA: Normal flow. AORTA: No aneurysm. RIGHT KIDNEY: Normal size. Normal echogenicity. No solid or suspicious masses. No hydronephros is. No calcifications. LEFT KIDNEY: Normal size. Normal echogenicity. No solid or suspicious masses. No hydronephrosi s. No calcifications. SPLEEN: Normal size. No solid masses. PERITONEAL AND PLEURAL SPACES: No ascites or effusions. OTHER: No other significant finding. IMPRESSION: Medical hepatic disease. No acute findings. No ascites. TECHNICAL DOCUMENTATION: JOB ID: [id number] [email or web address]- All Rights Reserved Reading location - IP/workstation name: [email or web address]
== END ==
LOC: RAD 09:17
DX: K74.60 Unspecified cirrhosis of liver (principal); R14.0 Abdominal distension (gaseous)
CPT/HCPCS: 76700

== ENCOUNTER 2017-12-24 10:30 | Emergency (ER) | payer SELFPAY ==
[2017-12-24] MEDS ORDERED: NORMAL SALINE 1000 ML 1,000 ML IV ONE ×2 (10:49→12:04)
--- NOTE | 2017-12-24 10:52 | ER Document Report ---
ED Medical Screen (RME) - General Chief Complaint: High Blood Sugar Stated Complaint: BLOOD SUGAR PROBLEMS Time Seen by Provider: 12/24/17 10:44 Notes: RAPID MEDICAL EVALUATION DISCLOSURE I have seen this patient as part of a Rapid Medical Evaluation and, if applicable, placed any initially appropriate orders. The patient will be seen and fully evaluated, including a full history and physical exam, by a provider ( in Main ED or Fast Track) when a room becomes available. 47-year-old female PMH diabetes here with complaints over the past few days with increased thirst and urination as well as elevated blood sugars in the high 400s. She has had "a spot on my left foot" for the past 1.5 months of the she feels is the cause of her bzz-sy-ssriljk blood sugars. They have been "out of control" for the past 1-1/2 months and she has been using morning/night insulin as well as sliding scale daytime insulin to try to control her sugars. She has not missed any doses of her insulin. She has not had any recent changes in the dosing. EXAM CTAB Tachycardic Regular rhythm Minimal erythema to the area near left distal first metatarsal TRAVEL OUTSIDE OF THE [place] IN LAST 30 DAYS: No - Related Data Allergies/Adverse Reactions: celecoxib [From Celebrex] Allergy (Verified 12/24/17 10:32) erythromycin base [Erythromycin Base] Allergy (Verified 12/24/17 10:32) Hives oxycodone HCl [From Percocet] Allergy (Verified 12/24/17 10:32) Past Medical History - Social History Chew tobacco use (# tins/day): - 7 Frequency of alcohol use: None Drug Abuse: None Family history: Reviewed & Not Pertinent - Past Medical History Cardiac Medical History: Reports: Hx Hypercholesterolemia, Hx Hypertension Denies: Hx Coronary Artery Disease, Hx Heart Attack Endocrine Medical History: Reports: 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 Renal/ Medical History: Denies: Hx Peritoneal Dialysis GI Medical History: Reports: Hx CirrhosisComment Only: 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 Skin Medical History: Reports Hx MRSA Psychiatric Medical History: Reports: Hx Depression Infectious Medical History: Reports: Hx MRSA Past Surgical History: Reports: Hx Tonsillectomy, Hx Tubal Ligation - Immunizations Hx Diphtheria, Pertussis, Tetanus Vaccination: Yes History of Influenza Vaccine for 04/2017 - 09/2017 Season: Yes Influenza Administration Date for 04/2017 - 09/2017 Season: 05/12/17 Physical Exam - Vital signs Vitals: Temp Pulse Resp BP Pulse Ox 98.8 F 101 H 18 123/76 96 12/24/17 10:36 12/24/17 10:36 12/24/17 10:36 12/24/17 10:36 12/24/17 10:36 Course - Vital Signs Vital signs: Temp Pulse Resp BP Pulse Ox 98.8 F 101 H 18 123/76 96 12/24/17 10:36 12/24/17 10:36 12/24/17 10:36 12/24/17 10:36 12/24/17 10:36 Doctor's Discharge - Discharge Referrals: [facility] [Primary Care Provider] - Follow up as needed
[2017-12-24 11:28] LABS: ABSOLUTE BASOPHILS # (AUTO) 0.1 10^3/uL (0.0-0.2); ABSOLUTE EOSINOPHILS # (AUTO) 0.1 10^3/uL (0.0-0.6); ABSOLUTE LYMPHOCYTES (AUTO) 1.7 10^3/uL (0.5-4.7); ABSOLUTE MONOCYTES (AUTO) 0.4 10^3/uL (0.1-1.4); ABSOLUTE NEUT (AUTO) 2.5 10^3/uL (1.7-8.2); BASOPHILS % (AUTO) 1.1 % (0-2); HEMATOCRIT 35.5 % (36.0-47.0); HEMOGLOBIN 10.8 g/dL (12.0-15.5); LYMPHOCYTES % (AUTO) 35.5 % (13-45); MEAN CORPUSCULAR HEMOGLOBIN 20.8 pg (27.0-33.4); MEAN CORPUSCULAR HGB CONC 30.5 g/dL (32.0-36.0); MEAN CORPUSCULAR VOLUME 68 fl (80-97); MONOCYTES % (AUTO) 8.8 % (3-13); PLATELET COUNT 110 10^3/uL (150-450); RED BLOOD COUNT 5.18 10^6/uL (3.72-5.28); RED CELL DISTRIBUTION WIDTH 18.6 % (11.5-14.0); SEGMENTED NEUTROPHILS % (AUTO) 52.6 % (42-78); TOTAL CELLS COUNTED % (AUTO) 100 %; WHITE BLOOD COUNT 4.8 10^3/uL (4.0-10.5)
[2017-12-24 11:33] LABS: APPEARANCE,URINE CLEAR; BILIRUBIN,URINE NEGATIVE (NEGATIVE); COLOR,URINE STRAW; GLUCOSE, URINE >=500 mg/dL (NEGATIVE); KETONES,URINE NEGATIVE (NEGATIVE); LEUKOCYTE ESTERASE,URINE NEGATIVE (NEGATIVE); NITRITE,URINE NEGATIVE (NEGATIVE); PROTEIN,URINE NEGATIVE (NEGATIVE); UROBILINOGEN,URINE NEGATIVE mg/dL (<2.0)
[2017-12-24 11:36] LABS: VENOUS BLOOD BASE EXCESS 0.1 mmol/L; VENOUS BLOOD HCO3 27.1 mmol/L (20-32); VENOUS BLOOD PCO2 55.1 mmHg (35-63); VENOUS BLOOD PH 7.31 (7.30-7.42)
[2017-12-24 11:50] LABS: ALANINE AMINOTRANSFERASE 56 U/L (9-52); ALBUMIN 4.3 g/dL (3.5-5.0); ALKALINE PHOSPHATASE 98 U/L (38-126); ANION GAP 10 (5-19); ASPARTATE AMINO TRANSFERASE 53 U/L (14-36); BILIRUBIN,DIRECT 0.3 mg/dL (0.0-0.4); BILIRUBIN,TOTAL 0.5 mg/dL (0.2-1.3); BLOOD UREA NITROGEN 10 mg/dL (7-20); CALCIUM 9.4 mg/dL (8.4-10.2); CARBON DIOXIDE 26 mmol/L (22-30); CHLORIDE 102 mmol/L (98-107); GLUCOSE 323 mg/dL (75-110); POTASSIUM 4.2 mmol/L (3.6-5.0); SODIUM 138.4 mmol/L (137-145); TOTAL PROTEIN 8.3 g/dL (6.3-8.2)
[2017-12-24] MEDS ORDERED: INSULIN REG, HUMAN 100 UNIT/ML 3 ML VIAL (PYX) SUBCUT ONE (12:03)
--- NOTE | 2017-12-24 12:39 | RADIOLOGY REPORT (SQ) ---
EXAM DESCRIPTION: FOOT LEFT 2 VIEWS COMPLETED DATE/TIME: 12/24/2017 11:41 am REASON FOR STUDY: R distal metatarsal erythema; eval osteo? Great toe redness and swelling, evaluate for osteomyelitis COMPARISON: None. NUMBER OF VIEWS: Three views. TECHNIQUE: AP, lateral and oblique radiographic images acquired of the left foot. LIMITATIONS: None. FINDINGS: MINERALIZATION: Normal. BONES: No acute fracture or dislocation. No worrisome bone lesions. JOINTS: No effusions. SOFT TISSUES: Medial left great toe soft tissue swelling at the interphalangeal joint. No foreign oralia dy. OTHER: No other significant finding. IMPRESSION: Soft tissue swelling medial great toe at the interphalangeal joint region. No underlyin g bony erosions or demineralization worrisome for osteomyelitis. No periostitis. No radiopaque fore ign body or soft tissue gas. No fracture TECHNICAL DOCUMENTATION: JOB ID: [id number] [employer]- All Rights Reserved Reading location - IP/workstation name: [email or web address]
--- NOTE | 2017-12-24 12:56 | ER Document Report ---
ED Blood Sugar Problem - General Chief Complaint: High Blood Sugar Stated Complaint: BLOOD SUGAR PROBLEMS Time Seen by Provider: 12/24/17 10:44 Notes: The patient is a 47-year-old female, past medical history type 2 diabetes, since from the [facility] after she has had increasing polyuria, polydipsia and her blood sugars been running high. She has not had her insulin for a while now. She is also having left big toe pain. Her primary care physician at the [facility], Dr. Banks, sent her over for IV fluids. After her blood sugar goes does, she is supposed to go back to the [facility] for insulin management and further evaluation of her left toe pain. Denies fevers, nausea, vomiting, seizures, abdominal pain or back pain. TRAVEL OUTSIDE OF THE [place] IN LAST 30 DAYS: No - Related Data Allergies/Adverse Reactions: celecoxib [From Celebrex] Allergy (Verified 12/24/17 10:32) erythromycin base [Erythromycin Base] Allergy (Verified 12/24/17 10:32) Hives oxycodone HCl [From Percocet] Allergy (Verified 12/24/17 10:32) Past Medical History - General Information source: Patient - Social History Smoking Status: Current Some Day Smoker Chew tobacco use (# tins/day): - 7 Frequency of alcohol use: None Drug Abuse: None Family History: DM, Malignancy, Other - cirrhosis Patient has suicidal ideation: No Patient has homicidal ideation: No - Past Medical History Cardiac Medical History: Reports: Hx Hypercholesterolemia, Hx Hypertension Denies: Hx Coronary Artery Disease, Hx Heart Attack Endocrine Medical History: Reports: 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 Renal/ Medical History: Denies: Hx Peritoneal Dialysis GI Medical History: Reports: Hx CirrhosisComment Only: 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 Skin Medical History: Reports Hx MRSA Psychiatric Medical History: Reports: Hx Depression Infectious Medical History: Reports: Hx MRSA Past Surgical History: Reports: Hx Tonsillectomy, Hx Tubal Ligation - Immunizations Hx Diphtheria, Pertussis, Tetanus Vaccination: Yes Review of Systems - Review of Systems Notes: REVIEW OF SYSTEMS: CONSTITUTIONAL: -fevers, -chills EENT: -eye pain, -difficulty swallowing, -nasal congestion CARDIOVASCULAR: -chest pain, -syncope. RESPIRATORY: -cough, -SOB GASTROINTESTINAL: -abdominal pain, -nausea, -vomiting, -diarrhea GENITOURINARY: -dysuria, -hematuria, +polyuria MUSCULOSKELETAL: +left big toe pain, -back pain, -neck pain SKIN: -rash or skin lesions. HEMATOLOGIC: -easy bruising or bleeding. LYMPHATIC: -swollen, enlarged glands. NEUROLOGICAL: -altered mental status or loss of consciousness, -headache, - neurologic symptoms PSYCHIATRIC: -anxiety, -depression. ALL OTHER SYSTEMS REVIEWED AND NEGATIVE. Physical Exam - Vital signs Vitals: Temp Pulse Resp BP Pulse Ox 98.8 F 101 H 18 123/76 96 12/24/17 10:36 12/24/17 10:36 12/24/17 10:36 12/24/17 10:36 12/24/17 10:36 - Notes Notes: PHYSICAL EXAMINATION: GENERAL: Well-appearing, well-nourished and in no acute distress. HEAD: Atraumatic, normocephalic. EYES: Pupils equal round and reactive to light, extraocular movements intact, sclera anicteric, conjunctiva are normal. ENT: nares patent, oropharynx clear without exudates. Moist mucous membranes. NECK: Normal range of motion, supple without lymphadenopathy LUNGS: Breath sounds clear to auscultation bilaterally and equal. No wheezes rales or rhonchi. HEART: Regular rate and rhythm without murmurs ABDOMEN: Soft, nontender, normoactive bowel sounds. No guarding, no rebound. No masses appreciated. EXTREMITIES: Left big toe with dark liquid under toenail, no erythema or drainage. Normal range of motion, no pitting or edema. No cyanosis. NEUROLOGICAL: Cranial nerves grossly intact. Normal speech, normal gait. Normal sensory and motor exams. PSYCH: Normal mood, normal affect. SKIN: Warm, Dry, normal turgor, no rashes or lesions noted. Course - Re-evaluation Re-evalutation: Patient appears very well. She has hyperglycemia, diet but no evidence of DKA. Her left big toe x-ray shows some swelling around the area, but no evidence of osteomyelitis. After IV fluid boluses, blood sugar improved. She was instructed by her primary care physician to return to the clinic for a refill of her insulin and for further management of her big toe swelling. She is also requesting a Diflucan dose due to vaginal yeast infection. - Vital Signs Vital signs: Temp Pulse Resp BP Pulse Ox 98.1 F 85 16 145/74 H 98 12/24/17 14:08 12/24/17 14:08 12/24/17 14:08 12/24/17 14:08 12/24/17 14:08 - Laboratory Result Diagrams: 12/24/17 11:04 12/24/17 11:04 Laboratory results interpreted by me: 12/24/17 12/24/17 12/24/17 10:37 11:04 11:04 Hgb 10.8 L Hct 35.5 L MCV 68 L MCH 20.8 L MCHC 30.5 L RDW 18.6 H Plt Count 110 L Glucose 323 H POC Glucose 367 H AST 53 H ALT 56 H Total Protein 8.3 H Urine Glucose (UA) 12/24/17 12/24/17 12/24/17 11:04 12:01 12:53 Hgb Hct MCV MCH MCHC RDW Plt Count Glucose POC Glucose 348 H 427 H* AST ALT Total Protein Urine Glucose (UA) >=500 H - Diagnostic Test Radiology reviewed: Image reviewed, Reports reviewed Radiology results interpreted by me: Left foot x-ray: Soft tissue swelling medial great toe at the interphalangeal joint region. No underlying bony erosions or demineralization worrisome for osteomyelitis. No periostitis. No radiopaque foreign body or soft tissue gas. No fracture. Discharge - Discharge Clinical Impression: Hyperglycemia, Toe pain, left Condition: Stable Disposition: HOME, SELF-CARE Additional Instructions: You are given 2 L of IV fluids and there is no evidence of DKA on blood work today. Your x-ray does not show any signs of a bone infection. Follow-up with Dr. Banks for further management of your diabetes and toe pain. HYPERGLYCEMIA (HIGH BLOOD SUGAR): You have an abnormally high blood sugar. Not all high blood sugar requires long-term treatment. High blood sugar can be due to medications, , or the stress of illness. (These cases are "borderline diabetes.") If the doctor feels your high blood sugar might resolve with time, you may not require treatment now. It's very important that you follow through, to see if the blood sugar returns to normal levels. Uncontrolled high blood sugar leads to early heart disease, strokes, nerve damage, eye damage, and kidney damage. Call the physician if there is faintness, excess sleepiness, or very rapid breathing. DIABETES: You have an abnormally high blood sugar, suspicious for diabetes. Not all high blood sugar requires long-term treatment. High blood sugar can be due to medications, , or the stress of illness. (These cases are "borderline diabetes.") If the doctor feels your high blood sugar might get better with time, you may not require treatment now. It's very important that you follow through. Uncontrolled high blood sugar leads to early heart disease, strokes, nerve damage, eye damage, and kidney damage. All diabetics should follow a diet designed to control the blood sugar. Overweight diabetics should exercise regularly and lose weight. If this is not sufficient to control the blood sugar, pills or insulin shots are necessary. Younger people who develop diabetes almost always require insulin daily. Home testing of blood sugars or urine sugar is required. Diabetic teaching is available to help you figure insulin doses and monitor the blood sugar. Call the physician if there is faintness, excess sleepiness, or very rapid breathing. If hypoglycemia (LOW blood sugar) develops, symptoms are shakiness, weakness, sweating, and confusion. In this case, you should eat or drink something with sugar at once. INSULIN: Insulin is a natural hormone that lowers blood sugar. Normal blood sugar prevents complications of diabetes. For most diabetics, insulin is the best way to treat the illness. Be sure you know how to measure the insulin correctly. Insulin is measured in "units." There are three types of insulin: N (NPH or long acting), R (regular or short acting), and L (Lente or very long acting). Be sure you are using the right amount of each type. Insulin must be injected into the fat. You can use the abdomen, upper arms , and thighs. Select a different injection site every time. Wipe the site with alcohol before injecting. When first starting insulin, some adjusting of the insulin dose is necessary. Keep a record of each insulin dose and time of injection, and of the blood sugar and the time you test it. Sometimes insulin can make the blood sugar too low. If you become dizzy, sweaty, shaky, or confused, you may be having a hypoglycemic episode. Immediately use juice or some other sweet food. Call the doctor if the symptoms don't go away. FOLLOW-UP CARE: If you have been referred to a physician for follow-up care, call the physician s office for an appointment as you were instructed or within the next two days. If you experience worsening or a significant change in your symptoms, notify the physician immediately or return to the Emergency Department at any time for re-evaluation. Prescriptions: Fluconazole [Diflucan] 150 mg PO ONCE PRN #1 tablet PRN Reason: Referrals: [facility] [Primary Care Provider] - Follow up as needed
[2017-12-24] MEDS ORDERED: RINGERS SOLUTION,LACTATED 1,000 ML IV ONE (12:57)
[2017-12-24 14:08] VITALS: BP 145/74
== END 2017-12-24 14:13 | disposition home or self-care (01) ==
LOC: ER 10:30
DX: M79.675 Pain in left toe(s) (principal); E10.65 Type 1 diabetes mellitus with hyperglycemia; F17.200 Nicotine dependence, unspecified, uncomplicated; E78.00 Pure hypercholesterolemia, unspecified; Z88.3 Allergy status to other anti-infective agents; Z88.6 Allergy status to analgesic agent; Z86.14 Personal history of Methicillin resistant Staphylococcus aureus infection; Z98.51 Tubal ligation status
CPT/HCPCS: 99285; 96360; 96361; 36415; 82962; 85025; 80053; 81001; 82803; 73620; J1815; J7030; J7120

== ENCOUNTER 2018-02-06 12:05 | Emergency (ER) | payer SELFPAY ==
--- NOTE | 2018-02-06 13:19 | ER Document Report ---
ED Medical Screen (RME) - General Chief Complaint: Wound Infection Stated Complaint: TOE PAIN Time Seen by Provider: 02/06/18 13:15 Mode of Arrival: Ambulatory Information source: Patient Notes: 47-year-old female presents to the emergency room with left foot pain, concerns about an infection in the left great toe, rash, sugars which have been in the 300 range. She states she developed a "an infection" in the left great toe was treated at the [facility] with antibiotics which she stopped about 2 weeks ago. On exam, patient has a left subungual hematoma of the great nail. I do not see any evidence of infection. She has a faint rash in the lower extremity. She does give a history of uncontrolled sugars and given her history, we will get some labs and x-rays and have her evaluated in the back. TRAVEL OUTSIDE OF THE [place] IN LAST 30 DAYS: No - Related Data Allergies/Adverse Reactions: celecoxib [From Celebrex] Allergy (Verified 02/06/18 12:05) erythromycin base [Erythromycin Base] Allergy (Verified 02/06/18 12:05) Hives oxycodone HCl [From Percocet] Allergy (Verified 02/06/18 12:05) Past Medical History - Social History Chew tobacco use (# tins/day): No Frequency of alcohol use: None Drug Abuse: None Family history: Reviewed & Not Pertinent - Past Medical History Cardiac Medical History: Reports: Hx Hypercholesterolemia, Hx Hypertension Denies: Hx Coronary Artery Disease, Hx Heart Attack Endocrine Medical History: Reports: 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 Renal/ Medical History: Denies: Hx Peritoneal Dialysis GI Medical History: Reports: Hx CirrhosisComment Only: 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 Skin Medical History: Reports Hx MRSA Psychiatric Medical History: Reports: Hx Depression Infectious Medical History: Reports: Hx MRSA Past Surgical History: Reports: Hx Tonsillectomy, Hx Tubal Ligation - Immunizations Hx Diphtheria, Pertussis, Tetanus Vaccination: Yes History of Influenza Vaccine for 04/2017 - 09/2017 Season: Yes Influenza Administration Date for 04/2017 - 09/2017 Season: 05/12/17 Physical Exam - Vital signs Vitals: Temp Pulse Resp BP Pulse Ox 98.7 F 101 H 18 134/69 H 97 02/06/18 12:18 02/06/18 12:18 02/06/18 12:18 02/06/18 12:18 02/06/18 12:18 Course - Vital Signs Vital signs: Temp Pulse Resp BP Pulse Ox 98.7 F 101 H 18 134/69 H 97 02/06/18 12:18 02/06/18 12:18 02/06/18 12:18 02/06/18 12:18 02/06/18 12:18
[2018-02-06 13:55] LABS: APPEARANCE,URINE SLIGHTLY-CLOUDY; BILIRUBIN,URINE NEGATIVE (NEGATIVE); COLOR,URINE STRAW; GLUCOSE, URINE >=500 mg/dL (NEGATIVE); KETONES,URINE NEGATIVE (NEGATIVE); LEUKOCYTE ESTERASE,URINE SMALL (NEGATIVE); NITRITE,URINE NEGATIVE (NEGATIVE); PROTEIN,URINE NEGATIVE (NEGATIVE); URINE SPECIFIC GRAVITY 1.026; UROBILINOGEN,URINE NEGATIVE mg/dL (<2.0)
[2018-02-06 13:58] LABS: ABSOLUTE EOSINOPHILS # (AUTO) 0.1 10^3/uL (0.0-0.6); ABSOLUTE LYMPHOCYTES (AUTO) 1.6 10^3/uL (0.5-4.7); ABSOLUTE MONOCYTES (AUTO) 0.4 10^3/uL (0.1-1.4); ABSOLUTE NEUT (AUTO) 2.6 10^3/uL (1.7-8.2); BASOPHILS % (AUTO) 0.8 % (0-2); EOSINOPHILS % (AUTO) 2.8 % (0-6); HEMATOCRIT 33.7 % (36.0-47.0); HEMOGLOBIN 10.1 g/dL (12.0-15.5); LYMPHOCYTES % (AUTO) 32.7 % (13-45); MEAN CORPUSCULAR HEMOGLOBIN 21.1 pg (27.0-33.4); MEAN CORPUSCULAR HGB CONC 29.9 g/dL (32.0-36.0); MEAN CORPUSCULAR VOLUME 71 fl (80-97); MONOCYTES % (AUTO) 9.2 % (3-13); PLATELET COUNT 133 10^3/uL (150-450); RED BLOOD COUNT 4.76 10^6/uL (3.72-5.28); RED CELL DISTRIBUTION WIDTH 19.5 % (11.5-14.0); SEGMENTED NEUTROPHILS % (AUTO) 54.5 % (42-78); TOTAL CELLS COUNTED % (AUTO) 100 %; WHITE BLOOD COUNT 4.8 10^3/uL (4.0-10.5)
--- NOTE | 2018-02-06 14:08 | RADIOLOGY REPORT (SQ) ---
EXAM DESCRIPTION: FOOT LEFT COMPLETE COMPLETED DATE/TIME: 02/06/2018 1:53 pm REASON FOR STUDY: left foot pain COMPARISON: None. NUMBER OF VIEWS: Three views left foot. LIMITATIONS: None. FINDINGS: There is no acute or significant bone, joint or soft tissue abnormality. OTHER: No other significant finding. IMPRESSION: NORMAL STUDY. TECHNICAL DOCUMENTATION: JOB ID: [id number] Reading location - IP/workstation name: [email or web address]
--- NOTE | 2018-02-06 14:09 | ER Document Report ---
HPI - HPI Pain Level: 4 Notes: Patient is a 47-year-old insulin-dependent diabetic who presents to the ED complaining of left plantar foot pain 2 weeks. Patient states that her pain is primarily when she tries to ambulate and is worse in the morning on the first morning stat. Patient states that she was seen by primary care doctor and was placed on antibiotics because they were not sure what was causing her pain. Patient states that the antibiotic's did nothing for her and she continues to have the same pain that she has had over the last 2 weeks. Patient states that the pain does not radiate. Patient states that her sugars have been in the 300s. She is otherwise been eating and drinking without any difficulties. She is urinating normally and having normal bowel movements. Denies any headache, fever, URI, sore throat, chest pain, palpitations, syncope , cough, shortness of breath, wheeze, dyspnea, abdominal pain, nausea/vomiting/ diarrhea, urinary retention, dysuria, hematuria, loss of control of bowel or bladder, numbness/tingling, muscle paralysis/weakness. - ROS Systems Reviewed and Negative: Yes All other systems reviewed and negative - REPRODUCTIVE Reproductive: DENIES: : - DERM Skin Color: Normal, [place] Past Medical History - General Information source: Patient - Social History Smoking Status: Current Every Day Smoker Chew tobacco use (# tins/day): No Frequency of alcohol use: None Drug Abuse: None Family History: DM, Malignancy, Other - cirrhosis Patient has suicidal ideation: No Patient has homicidal ideation: No - Past Medical History Cardiac Medical History: Reports: Hx Hypercholesterolemia, Hx Hypertension Denies: Hx Coronary Artery Disease, Hx Heart Attack Endocrine Medical History: Reports: 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 Renal/ Medical History: Denies: Hx Peritoneal Dialysis GI Medical History: Reports: Hx CirrhosisComment Only: 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 Skin Medical History: Reports Hx MRSA Psychiatric Medical History: Reports: Hx Depression Infectious Medical History: Reports: Hx MRSA Past Surgical History: Reports: Hx Tonsillectomy, Hx Tubal Ligation - Immunizations Hx Diphtheria, Pertussis, Tetanus Vaccination: Yes Vertical Provider Document - CONSTITUTIONAL Agree With Documented VS: Yes Notes: PHYSICAL EXAMINATION: GENERAL: Well-appearing, well-nourished and in no acute distress. LUNGS: Breath sounds clear to auscultation bilaterally and equal. No wheezes rales or rhonchi. HEART: Regular rate and rhythm without murmurs, rubs, gallops. Musculoskeletal: Lt foot/ankle: FROM to passive/active. Strength 5+/5. N/V intact distal. + tenderness to the plantar fascia, correlates with pain described. Reproduced by toe extension as well. No bony tenderness of the foot. Achilles intact. There is no erythema, swelling, soft tissue ecchymosis , abscess, streaks, or indurated tissue noted. + old subungual hematoma great toenail. Extremities: No cyanosis, clubbing, or edema b/l. Peripheral pulses 2+. Capillary refill less than 3 seconds. NEUROLOGICAL: Normal speech, limping gait. Normal sensory, motor exams PSYCH: Normal mood, normal affect. SKIN: Warm, Dry, normal turgor, no rashes or lesions noted. She does have a few red erythemic areas where she believes she was bit by insects to her legs b/ l. No abscess, induration, fluctuance, discharge, or streaks. Non-tender. - INFECTION CONTROL TRAVEL OUTSIDE OF THE [place] IN LAST 30 DAYS: No Course - Re-evaluation Re-evalutation: 02/06/18 15:25 Patient is an afebrile, well-hydrated, 51-year-old female who presents to the ED with left plantar foot pain which I suspect to be plantar fasciitis based on H&P today. Pt does have elevated blood glucose, but is not in DKA. Patient states that she was here for her foot not her sugar and does not want any insulin given to her today as she has some at home and will do that when she gets home. vitals are acceptable without any significant tachycardia, tachypnea , or hypoxia. PE is otherwise unremarkable for any neurovascular compromise, obvious tendon/ligament rupture, obvious fracture/dislocation, septic joint. X- ray was unremarkable for any acute pathology. Patient is nontoxic-appearing. Patient is able to ambulate and weight-bear although she is limping. No other labs or imaging warranted at this time based on H&P. Low suspicion for any DKA, sepsis, severe dehydration, or other systemic emergent condition at this time. Pt aware condition can change from initial presentation and she needs to monitor symptoms closely and seek medical attention with any acute changes. I did review exercises and conservative measures with the patient as she is allergic to NSAIDs and has liver cirrhosis that she cannot be taking Tylenol. Again, patient declined insulin. Patient is aware of the risk and benefit and that she can end up in DKA if her sugars continue to remain elevated. Conservative measures otherwise for symptoms. Recheck with your PCM in 3-5 days. Schedule an appointment with a gaming director, and consider consult with physical therapy. Return to the ED with any worsening/concerning symptoms otherwise as reviewed in discharge. Patient is in agreement. - Vital Signs Vital signs: Temp Pulse Resp BP Pulse Ox 98.7 F 101 H 18 134/69 H 97 02/06/18 12:18 02/06/18 12:18 02/06/18 12:18 02/06/18 12:18 02/06/18 12:18 - Laboratory Result Diagrams: 02/06/18 13:30 02/06/18 13:30 Laboratory results interpreted by me: 02/06/18 02/06/18 13:30 13:30 Hgb 10.1 L Hct 33.7 L MCV 71 L MCH 21.1 L MCHC 29.9 L RDW 19.5 H Plt Count 133 L Urine Glucose (UA) >=500 H Urine Blood SMALL H Ur Leukocyte Esterase SMALL H Discharge - Discharge Clinical Impression: Plantar fasciitis of left foot, Elevated glucose Condition: Stable Disposition: HOME, SELF-CARE Instructions: Plantar Fasciitis or Heel Spur ([facility]) Additional Instructions: Check your sugars twice daily and take your insulin as directed. You are at risk for putting herself into diabetic ketoacidosis and becoming very ill. You declined insulin administration today by the emergency department so please give yourself insulin as soon as you can and monitor. Rest, Ice, Compression, Elevation Light stretches daily Strength exercises as able Moist heat and massage may help F/u with your PCP in 3-5 days for a recheck Schedule an appointment with podiatry, and consider consult with physical therapy for ongoing/worsening symptoms Return to the ED with any worsening symptoms and/or development of fever, headache, chest pain, palpitations, syncope, shortness of breath, trouble breathing, abdominal pain, n/v/d, muscle weakness/paralysis, numbness/tingling, swelling, redness, or other worsening symptoms that are concerning to you. Forms: Elevated Blood Pressure, Smoking Cessation Education Referrals: ODELL HANSON DPM [ACTIVE STAFF] - Follow up in 3-5 days
[2018-02-06 14:18] LABS: ALANINE AMINOTRANSFERASE 91 U/L (9-52); ALBUMIN 4.3 g/dL (3.5-5.0); ALKALINE PHOSPHATASE 125 U/L (38-126); ANION GAP 14 (5-19); ASPARTATE AMINO TRANSFERASE 124 U/L (14-36); BILIRUBIN,DIRECT 0.3 mg/dL (0.0-0.4); BILIRUBIN,TOTAL 0.6 mg/dL (0.2-1.3); BLOOD UREA NITROGEN 10 mg/dL (7-20); CALCIUM 9.3 mg/dL (8.4-10.2); CARBON DIOXIDE 27 mmol/L (22-30); CHLORIDE 96 mmol/L (98-107); SODIUM 136.5 mmol/L (137-145); TOTAL PROTEIN 8.2 g/dL (6.3-8.2)
[2018-02-06 14:38] LABS: GLUCOSE 482 mg/dL (75-110)
[2018-02-06 15:35] VITALS: BP 148/87
== END 2018-02-06 15:35 | disposition home or self-care (01) ==
LOC: ER 12:05
DX: M72.2 Plantar fascial fibromatosis (principal); E10.65 Type 1 diabetes mellitus with hyperglycemia; M79.672 Pain in left foot; L53.9 Erythematous condition, unspecified; K74.60 Unspecified cirrhosis of liver; F17.200 Nicotine dependence, unspecified, uncomplicated; Z88.8 Allergy status to other drugs, medicaments and biological substances
CPT/HCPCS: 36415; 80053; 81001; 85025; 99284

== ENCOUNTER 2018-03-07 10:50 | Emergency (ER) | payer SELFPAY ==
[2018-03-07 11:46] LABS: APPEARANCE,URINE CLEAR; BILIRUBIN,URINE NEGATIVE (NEGATIVE); COLOR,URINE YELLOW; GLUCOSE, URINE >=500 mg/dL (NEGATIVE); KETONES,URINE NEGATIVE (NEGATIVE); LEUKOCYTE ESTERASE,URINE NEGATIVE (NEGATIVE); NITRITE,URINE NEGATIVE (NEGATIVE); PROTEIN,URINE NEGATIVE (NEGATIVE); URINE SPECIFIC GRAVITY 1.024; UROBILINOGEN,URINE NEGATIVE mg/dL (<2.0)
[2018-03-07] MEDS ORDERED: NORMAL SALINE 1000 ML 1,000 ML IV ONE ×4 (12:30→17:04)
--- NOTE | 2018-03-07 12:58 | ER Document Report ---
ED Medical Screen (RME) - General Chief Complaint: Numbness of Arm Stated Complaint: NUMBNESS Time Seen by Provider: 03/07/18 12:23 TRAVEL OUTSIDE OF THE [place] IN LAST 30 DAYS: No - HPI Patient complains to provider of: Numbness in the right hand pain in the left leg Onset: Other - 47-year-old woman with history of insulin-dependent diabetes who presents for evaluation after being on treated for diabetes for several days. She has run out of insulin has been able to take it, during that time she has had worsening numbness in her right hand, is extended proximally over the time, then addition of that she has had some tightness in her left calf and some facial feelings of difference. She is also had a heaviness in her chest and some shortness of breath. 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 - Related Data Allergies/Adverse Reactions: celecoxib [From Celebrex] Allergy (Verified 02/06/18 12:05) erythromycin base [Erythromycin Base] Allergy (Verified 02/06/18 12:05) Hives oxycodone HCl [From Percocet] Allergy (Verified 02/06/18 12:05) Past Medical History - Social History Chew tobacco use (# tins/day): No Frequency of alcohol use: None Drug Abuse: None Family history: Reviewed & Not Pertinent - Past Medical History Cardiac Medical History: Reports: Hx Hypercholesterolemia, Hx Hypertension Denies: Hx Coronary Artery Disease, Hx Heart Attack Endocrine Medical History: Reports: 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 Renal/ Medical History: Denies: Hx Peritoneal Dialysis GI Medical History: Reports: Hx CirrhosisComment Only: 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 Skin Medical History: Reports Hx MRSA Psychiatric Medical History: Reports: Hx Depression Infectious Medical History: Reports: Hx MRSA Past Surgical History: Reports: Hx Tonsillectomy, Hx Tubal Ligation - Immunizations Hx Diphtheria, Pertussis, Tetanus Vaccination: Yes History of Influenza Vaccine for 04/2017 - 09/2017 Season: Yes Influenza Administration Date for 04/2017 - 09/2017 Season: 05/12/17 Physical Exam - Vital signs Vitals: Temp Pulse Resp BP Pulse Ox 97.6 F 104 H 18 133/74 H 100 03/07/18 10:53 03/07/18 10:53 03/07/18 10:53 03/07/18 10:53 03/07/18 10:53 Course - Re-evaluation Re-evalutation: 03/07/18 12:57 This 47-year-old woman with a myriad of medical comorbidities including but not limited to insulin-dependent diabetes as well as hypertension hyperlipidemia most of which have gone untreated. Am concerned that this patient may be developing DKA at this time though at this time she does appear overall well. Current plan is for this patient undergo broad evaluation including venous blood gas CBC CMP reassessment disposition for secondary provider. We will obtain CT head given her numbness and weakness as well though she is 3 days since onset of symptoms would make a poor lytic candidate at this time have not activated as code stroke. - Vital Signs Vital signs: Temp Pulse Resp BP Pulse Ox 97.6 F 104 H 18 133/74 H 100 03/07/18 10:53 03/07/18 10:53 03/07/18 10:53 03/07/18 10:53 03/07/18 10:53 - Laboratory Laboratory results interpreted by me: 03/07/18 10:55 Urine Glucose (UA) >=500 H Urine Blood LARGE H
[2018-03-07 13:27] LABS: ABSOLUTE BASOPHILS # (AUTO) 0.1 10^3/uL (0.0-0.2); ABSOLUTE EOSINOPHILS # (AUTO) 0.1 10^3/uL (0.0-0.6); ABSOLUTE MONOCYTES (AUTO) 0.3 10^3/uL (0.1-1.4); ABSOLUTE NEUT (AUTO) 2.3 10^3/uL (1.7-8.2); BASOPHILS % (AUTO) 1.5 % (0-2); HEMATOCRIT 35.3 % (36.0-47.0); HEMOGLOBIN 10.9 g/dL (12.0-15.5); MEAN CORPUSCULAR HEMOGLOBIN 22.3 pg (27.0-33.4); MEAN CORPUSCULAR VOLUME 72 fl (80-97); MONOCYTES % (AUTO) 6.8 % (3-13); PLATELET COUNT 115 10^3/uL (150-450); RED CELL DISTRIBUTION WIDTH 19.1 % (11.5-14.0); SEGMENTED NEUTROPHILS % (AUTO) 61.7 % (42-78); TOTAL CELLS COUNTED % (AUTO) 100 %; WHITE BLOOD COUNT 3.7 10^3/uL (4.0-10.5)
[2018-03-07 13:46] LABS: ALANINE AMINOTRANSFERASE 70 U/L (9-52); ALKALINE PHOSPHATASE 126 U/L (38-126); ANION GAP 12 (5-19); ASPARTATE AMINO TRANSFERASE 147 U/L (14-36); BILIRUBIN,DIRECT 0.5 mg/dL (0.0-0.4); BILIRUBIN,TOTAL 0.9 mg/dL (0.2-1.3); BLOOD UREA NITROGEN 8 mg/dL (7-20); CALCIUM 9.1 mg/dL (8.4-10.2); CARBON DIOXIDE 27 mmol/L (22-30); CHLORIDE 96 mmol/L (98-107); CREATINE KINASE 91 U/L (30-135); LIPASE 239.3 U/L (23-300); POTASSIUM 4.3 mmol/L (3.6-5.0); SODIUM 135.4 mmol/L (137-145); TOTAL PROTEIN 8.1 g/dL (6.3-8.2)
[2018-03-07 13:54] LABS: GLUCOSE 469 mg/dL (75-110)
[2018-03-07 13:58] LABS: CREATINE KINASE MB 0.99 ng/mL (<4.55); TROPONIN I < 0.012 ng/mL
--- NOTE | 2018-03-07 15:07 | RADIOLOGY REPORT (SQ) ---
EXAM DESCRIPTION: CT HEAD WITHOUT COMPLETED DATE/TIME: 03/07/2018 2:25 pm REASON FOR STUDY: weakness RUE, face asymetry COMPARISON: October 2014 TECHNIQUE: Axial images acquired through the brain without intravenous contrast. Images reviewed wi th bone, brain and subdural windows. Additional sagittal and coronal reconstructions were generated. Images stored on PACS. All CT scanners at this facility use dose modulation, iterative reconstruction, and/or weight based d osing when appropriate to reduce radiation dose to as low as reasonably achievable (ALARA). [facility]: Dose Right [facility]: CareDose [facility]: Dose Right [facility]: Teradose 4D [facility]: Smart [employer] RADIATION DOSE: CT Rad equipment meets quality standard of care and radiation dose reduction techniq ues were employed. CTDIvol: 53.2 mGy. DLP: 964 mGy-cm. mGy. LIMITATIONS: None. FINDINGS: VENTRICLES: Normal size and contour. CEREBRUM: No masses. No hemorrhage. No midline shift. No evidence for acute infarction. Normal gra y/white matter differentiation. No areas of low density in the white matter. CEREBELLUM: No masses. No hemorrhage. No alteration of density. No evidence for acute infarction. EXTRAAXIAL SPACES: No fluid collections. No masses. ORBITS AND GLOBE: No intra- or extraconal masses. Normal contour of globe without masses. CALVARIUM: No fracture. PARANASAL SINUSES: No fluid or mucosal thickening. SOFT TISSUES: No mass or hematoma. OTHER: No other significant finding. IMPRESSION: NORMAL BRAIN CT WITHOUT CONTRAST. EVIDENCE OF ACUTE STROKE: NO. COMMENT: Quality ID # [id number]: Final reports with documentation of one or more dose reduction techniques (e.g., Automated exposure control, adjustment of the mA and/or kV according to patient size, use of iterative reconstruction technique) TECHNICAL DOCUMENTATION: JOB ID: [id number] [employer]- All Rights Reserved Reading location - IP/workstation name: [email or web address]
[2018-03-07] MEDS ORDERED: INSULIN REG, HUMAN 100 UNIT/ML 3 ML VIAL (PYX) SUBCUT ONE (15:41)
--- NOTE | 2018-03-07 16:03 | ER Document Report ---
ED General - General Chief Complaint: Numbness of Arm Stated Complaint: NUMBNESS Time Seen by Provider: 03/07/18 12:23 Mode of Arrival: Ambulatory Information source: [facility], [facility] Records Notes: 47-year-old female with type 1 diabetes, hypertension, hyperlipidemia, liver cirrhosis, neuropathy, Benjamin's palsy, Presents with multiple complaints including facial "puffiness", chest pressure for 3 days, right hand paresthesia which has been intermittent over the last 3 days. She describes an episode of left lower extremity cramping which has now resolved. Patient states that she has not had her insulin in approximately 2 weeks. She goes to [facility] and has an upcoming appointment. Patient has associated nausea without vomiting and a mild aching headache. Patient also states that yesterday she got up from bed felt dizzy and struck her head on her dresser. She has a small abrasion to the bridge of her nose. She denies any loss of consciousness. TRAVEL OUTSIDE OF THE [place] IN LAST 30 DAYS: No - HPI Onset: Other Onset/Duration: Gradual, Intermittent - Hand paresthesia intermittent, Persistent - Chest pain constant for 3 days Quality of pain: Cramping - Cramping of the left lower extremity, Pressure Severity: Mild Associated symptoms: Chest pain, Headache, Nausea. denies: Productive cough, Diarrhea, Fever, Vomiting, Shortness of breath Exacerbated by: Denies Relieved by: Denies Similar symptoms previously: Yes Recently seen / treated by doctor: No - Related Data Allergies/Adverse Reactions: celecoxib [From Celebrex] Allergy (Verified 02/06/18 12:05) erythromycin base [Erythromycin Base] Allergy (Verified 02/06/18 12:05) Hives oxycodone HCl [From Percocet] Allergy (Verified 02/06/18 12:05) Past Medical History - General Information source: Patient, [facility] Records - Social History Smoking Status: Current Every Day Smoker Cigarette use (# per day): Yes - 4 Chew tobacco use (# tins/day): No Smoking Education Provided: Yes - 4 minutes of smoking cessation provided Frequency of alcohol use: None Drug Abuse: None Lives with: Family Family History: DM, Malignancy, Other - cirrhosis Patient has suicidal ideation: No Patient has homicidal ideation: No - Past Medical History Cardiac Medical History: Reports: Hx Hypercholesterolemia, Hx Hypertension Denies: Hx Coronary Artery Disease, Hx Heart Attack Endocrine Medical History: Reports: 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 Renal/ Medical History: Denies: Hx Peritoneal Dialysis GI Medical History: Reports: Hx CirrhosisComment Only: 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 Skin Medical History: Reports Hx MRSA Psychiatric Medical History: Reports: Hx Depression Infectious Medical History: Reports: Hx MRSA Past Surgical History: Reports: Hx Tonsillectomy, Hx Tubal Ligation - Immunizations Hx Diphtheria, Pertussis, Tetanus Vaccination: Yes Review of Systems - Review of Systems Constitutional: Malaise EENT: Other - Facial swelling Cardiovascular: Chest pain Respiratory: Cough. denies: Short of breath Gastrointestinal: Nausea. denies: Abdominal pain, Vomiting Genitourinary: denies: Dysuria Female Genitourinary: Last menstrual period Musculoskeletal: Muscle pain, Muscle stiffness. denies: Back pain, Leg swelling , Ankle swelling Skin: Other - Abrasion nose. denies: Rash Hematologic/Lymphatic: denies: Easy bleeding Neurological/Psychological: Headaches, Numbness, Tingling. denies: Lost consciousness -: Yes All other systems reviewed and negative Physical Exam - Vital signs Vitals: Temp Pulse Resp BP Pulse Ox 97.6 F 104 H 18 133/74 H 100 03/07/18 10:53 03/07/18 10:53 03/07/18 10:53 03/07/18 10:53 03/07/18 10:53 - Notes Notes: PHYSICAL EXAMINATION: GENERAL: Well-appearing, well-nourished and in no acute distress. HEAD: Atraumatic, normocephalic. EYES: Pupils equal round and reactive to light, extraocular movements intact, conjunctiva are normal. ENT: Nares patent, oropharynx clear without exudates. Moist mucous membranes. NECK: Normal range of motion, supple without lymphadenopathy LUNGS: Breath sounds clear to auscultation bilaterally and equal. No wheezes rales or rhonchi. HEART: Regular rate and rhythm without murmurs ABDOMEN: Soft, nontender, nondistended abdomen. No guarding, no rebound. No masses appreciated. Female : deferred Musculoskeletal: Normal range of motion, no pitting or edema. No cyanosis. Calf nontender, no swelling, no erythema, DP pulse intact. Sensation intact. equal hair spinner strength. no neuro deficits NEUROLOGICAL: Cranial nerves grossly intact. Normal speech, normal gait. Normal sensory, motor exams. NIH-0 PSYCH: Normal mood, normal affect. SKIN: Warm, Dry, normal turgor, no rashes or lesions noted. Course - Re-evaluation Re-evalutation: Laboratory 03/07/18 03/07/18 03/07/18 10:55 11:02 12:55 WBC 3.7 L RBC 4.90 Hgb 10.9 L Hct 35.3 L MCV 72 L MCH 22.3 L MCHC 31.0 L RDW 19.1 H Plt Count 115 L Seg Neutrophils % 61.7 Lymphocytes % 28.0 Monocytes % 6.8 Eosinophils % 2.0 Basophils % 1.5 Absolute Neutrophils 2.3 Absolute Lymphocytes 1.0 Absolute Monocytes 0.3 Absolute Eosinophils 0.1 Absolute Basophils 0.1 Sodium Potassium Chloride Carbon Dioxide Anion Gap BUN Creatinine Est GFR ( Amer) Est GFR (Non-Af Amer) Glucose POC Glucose 486 H* Calcium Total Bilirubin Direct Bilirubin Neonat Total Bilirubin Neonat Direct Bilirubin Neonat Indirect Bili AST ALT Alkaline Phosphatase Creatine Kinase CK-MB (CK-2) Troponin I Total Protein Albumin Lipase Urine Color YELLOW Urine Appearance CLEAR Urine pH 6.0 Ur Specific Cammal 1.024 Urine Protein NEGATIVE Urine Glucose (UA) >=500 H Urine Ketones NEGATIVE Urine Blood LARGE H Urine Nitrite NEGATIVE Urine Bilirubin NEGATIVE Urine Urobilinogen NEGATIVE Ur Leukocyte Esterase NEGATIVE Urine WBC (Auto) 2 Urine RBC (Auto) 0 Squamous Epi Cells Auto 6 Urine Mucus (Auto) RARE Urine Ascorbic Acid NEGATIVE 03/07/18 03/07/18 03/07/18 12:55 12:55 16:41 WBC RBC Hgb Hct MCV MCH MCHC RDW Plt Count Seg Neutrophils % Lymphocytes % Monocytes % Eosinophils % Basophils % Absolute Neutrophils Absolute Lymphocytes Absolute Monocytes Absolute Eosinophils Absolute Basophils Sodium 135.4 L Potassium 4.3 Chloride 96 L Carbon Dioxide 27 Anion Gap 12 BUN 8 Creatinine 0.52 Est GFR ( Amer) > 60 Est GFR (Non-Af Amer) > 60 Glucose 469 H* POC Glucose 410 H* Calcium 9.1 Total Bilirubin 0.9 Direct Bilirubin 0.5 H Neonat Total Bilirubin Not Reportable Neonat Direct Bilirubin Not Reportable Neonat Indirect Bili Not Reportable AST 147 H ALT 70 H Alkaline Phosphatase 126 Creatine Kinase 91 CK-MB (CK-2) 0.99 Troponin I < 0.012 Total Protein 8.1 Albumin 4.0 Lipase 239.3 Urine Color Urine Appearance Urine pH Ur Specific Cammal Urine Protein Urine Glucose (UA) Urine Ketones Urine Blood Urine Nitrite Urine Bilirubin Urine Urobilinogen Ur Leukocyte Esterase Urine WBC (Auto) Urine RBC (Auto) Squamous Epi Cells Auto Urine Mucus (Auto) Urine Ascorbic Acid 03/07/18 17:47 WBC RBC Hgb Hct MCV MCH MCHC RDW Plt Count Seg Neutrophils % Lymphocytes % Monocytes % Eosinophils % Basophils % Absolute Neutrophils Absolute Lymphocytes Absolute Monocytes Absolute Eosinophils Absolute Basophils Sodium Potassium Chloride Carbon Dioxide Anion Gap BUN Creatinine Est GFR ( Amer) Est GFR (Non-Af Amer) Glucose POC Glucose 297 H Calcium Total Bilirubin Direct Bilirubin Neonat Total Bilirubin Neonat Direct Bilirubin Neonat Indirect Bili AST ALT Alkaline Phosphatase Creatine Kinase CK-MB (CK-2) Troponin I Total Protein Albumin Lipase Urine Color Urine Appearance Urine pH Ur Specific Cammal Urine Protein Urine Glucose (UA) Urine Ketones Urine Blood Urine Nitrite Urine Bilirubin Urine Urobilinogen Ur Leukocyte Esterase Urine WBC (Auto) Urine RBC (Auto) Squamous Epi Cells Auto Urine Mucus (Auto) Urine Ascorbic Acid Head CT 03/07/18 12:30 IMPRESSION: NORMAL BRAIN CT WITHOUT CONTRAST. EVIDENCE OF ACUTE STROKE: NO. 03/08/18 21:25 47-year-old female with type 1 diabetes, hypertension, hyperlipidemia, liver cirrhosis, neuropathy, Benjamin's palsy, Presents with multiple complaints including facial "puffiness", chest pressure for 3 days, right hand paresthesia which has been intermittent over the last 3 days. She describes an episode of left lower extremity cramping which has now resolved. Patient states that she has not had her insulin in approximately 2 weeks. [facility]. Patient has associated nausea without vomiting and a mild aching headache. Patient also states that yesterday she got up from bed felt dizzy and struck her head on her dresser. She has a small abrasion to the bridge of her nose. She denies any loss of consciousness. VS reviewed and patient is hypertension. she is no acute distress, keeps asking when she can eat. Patient has hyperglycemia without evidence of DKA.No evidence of ACS, CVA. Patient received IV fluids, reglan, insulin and lantus. I did offer rx's but she states she will wait until her upcoming appointment. Patientdischarge home in stable condition 03/08/18 21:25 - Vital Signs Vital signs: Temp Pulse Resp BP Pulse Ox 98.3 F 87 18 160/80 H 100 03/07/18 18:14 03/07/18 18:14 03/07/18 18:14 03/07/18 18:14 03/07/18 18:14 - Laboratory Result Diagrams: 03/07/18 12:55 03/07/18 12:55 Laboratory results interpreted by me: 03/07/18 03/07/18 03/07/18 10:55 11:02 12:55 WBC 3.7 L Hgb 10.9 L Hct 35.3 L MCV 72 L MCH 22.3 L MCHC 31.0 L RDW 19.1 H Plt Count 115 L Sodium Chloride Glucose POC Glucose 486 H* Direct Bilirubin AST ALT Urine Glucose (UA) >=500 H Urine Blood LARGE H 03/07/18 03/07/18 03/07/18 12:55 16:41 17:47 WBC Hgb Hct MCV MCH MCHC RDW Plt Count Sodium 135.4 L Chloride 96 L Glucose 469 H* POC Glucose 410 H* 297 H Direct Bilirubin 0.5 H AST 147 H ALT 70 H Urine Glucose (UA) Urine Blood - Diagnostic Test Radiology reviewed: Image reviewed, Reports reviewed - EKG Interpretation by Me EKG shows normal: Sinus rhythm Rate: Normal Rhythm: NSR When compared to previous EKG there are: No significant change Discharge - Discharge Clinical Impression: Abrasion of nose, initial encounter, Hyperglycemia due to type 1 diabetes mellitus, Noncompliance with medication regimen, Elevated blood pressure reading , Paresthesias in right hand, Elevated liver enzymes, Pressure in chest Closed head injury Qualifiers: Encounter type: initial encounter Qualified Code(s): S09.90XA - Unspecified injury of head, initial encounter Hypertension Qualifiers: Hypertension type: unspecified Qualified Code(s): I10 - Essential (primary) hypertension Cirrhosis of liver Qualifiers: Hepatic cirrhosis type: unspecified hepatic cirrhosis Ascites presence: without ascites Qualified Code(s): K74.60 - Unspecified cirrhosis of liver Disposition: HOME, SELF-CARE Instructions: Abrasions ([facility]), Concussion ([facility]), Chest Pain of Unclear Cause ( [facility]), Hyperglycemia ([facility]), Liver Function Abnormality ([facility]), Numbness or Paresthesia ([facility]) Additional Instructions: Please follow-up with the [facility] as already scheduled on March 11. Please return to the emergency department with any concerns or complaints. Forms: Elevated Blood Pressure, Return to Work ED NIH Stroke Scale - NIH Stroke Scale *: 1. NIH scale should be completed with appropriate accompanying assessment tools. *: 2. The NIH should reflect what the patient is capable of doing and should not be coached by the clinician. 1a. Level of Consciousness: 0=Alert;keenly responsive -: 1=Drowsy -: 2=Obtunded -: 3=Coma/unresponsive or reflex to noxious stimuli. 1a. Responses: 0 1b. Orientation Questions: a. What month is it? -: b. How old are you? -: 0=Answers both questions correctly. -: 1=Answers one question correctly or patient is intubated or has orotracheal trauma. -: 2=Answers neither question correctly. 1b. Responses: 0 1c. Response to commands: a. Open and close eyes? -: b. Teacher Advisor and release hand? -: Credit is given despite weakness. Demonstration of task is permitted. Substitute command if hands cannot be used. -: 0=Performs both tasks correctly -: 1=Performs one task correctly -: 2=Performs neither task correctly 1c. Responses: 0 2. Gaze: Establish eye contact and instruct patient to "Follow my finger" -: 0=Normal -: 1=Partial gaze palsy. Gaze is abnormal in one or both eyes, but where forced deviation or total gaze paresis is not present. -: 2=Forced deviation or total gaze paresis. 2. Responses: 0 3. Visual Brewster: Sees fingers in all four quadrants. -: 0=No visual loss. -: 1=Partial hemianopsia. -: 2=Complete hemianopsia. -: 3=Bilateral hemianopsia (including Cortical blindness) 3. Responses: 0 4. Facial Movement: Instruct patient to: -: a. Show me your teeth -: b. Raise your eyebrows -: c. Close your eyes -: d. Smile -: 0=Normal symmetrical movement -: 1=Minor paralysis (flattened nasolabial fold, asymmetry on smiling). -: 2=Partial paralysis (total or near total paralysis of lower face). -: 3=Complete paralysis of upper and lower face 4. Responses: 0 5. Motor functions (left arm): Alternate sides and extend each arm with palms down (90 degrees if sitting or 45 degrees for supine). -: 0=No drift;limb holds for full 10 seconds. -: 1=Drift; limb holds but drifts down before full 10 seconds, but does not hit bed. -: 2=Some effort against gravity; limb cannot get to or maintain position. -: 3=No effort against gravity; limb falls. -: 4=No movement. -: UN=Amputation, joint fusion, explain in comments. 5. Responses (left arm): 0 5. Motor Functions (right arm): Alternate sides and extend each arm with palms down (90 degrees if sitting or 45 degrees for supine). -: 0=No drift;limb holds for full 10 seconds. -: 1=Drift; limb holds but drifts down before full 10 seconds, but does not hit bed. -: 2=Some effort against gravity; limb cannot get to or maintain position. -: 3=No effort against gravity; limb falls. -: 4=No movement. -: UN=Amputation, joint fusion, explain in comments. 5. Responses (right arm): 0 6. Motor Functions (left leg): With patient lying supine, alternate sides and extend each leg (30 degrees always while supine). -: 0=No drift, leg holds position for full 5 seconds -: 1=Drift; leg falls before full 5 seconds but does not hit bed. -: 2=Some effort against gravity, leg falls to bed but some effort against gravity. -: 3=No effort against gravity, leg falls to bed immediately. -: 4=No movement. -: UN=Amputation, joint fusion; explain in comments. 6. Responses (left leg): 0 6. Motor Functions (right leg): With patient lying supine, alternate sides and extend each leg (30 degrees always while supine). -: 0=No drift, leg holds position for full 5 seconds -: 1=Drift; leg falls before full 5 seconds but does not hit bed. -: 2=Some effort against gravity, leg falls to bed but some effort against gravity. -: 3=No effort against gravity, leg falls to bed immediately. -: 4=No movement. -: UN=Amputation, joint fusion; explain in comments. 6. Responses (right leg): 0 7. Limb Ataxia: With eyes open instruct patient to: -: a. "Touch your finger to your nose". -: b. "Touch your heel to your yu" -: 0=Absent -: 1=Present in one limb. -: 2=Present in two limbs. -: UN=Amputation or joint fusion; explain in comments. 7. Responses: 0 8. Sensory: Test sensation using pinprick or noxious stimuli. Test as many body parts as possible. -: 0=Normal;no sensory loss -: 1=Mile to moderate sensory loss (patient feels pin prick but is less sharp on affected side). -: 2=Severe or total sensory loss. 8. Responses: 0 9. Best Language: Instruct patient to: -: a. "Describe what you see in this picture." -: b. "Name the items in this picture." -: c. "Read these sentences." -: 0=No aphasia, normal -: 1=Mild to moderate aphasia. -: 2=Severe aphasia -: 3=Mute, global aphasia, no usable speech or auditory comprehension. 9. Responses: 0 10. Articulation, Dysarthia: Instruct patient to: -: "Read these words" or "Repeat these words" -: 0=Normal -: 1=Mild to moderate; patient may slur some words but can be understood without difficulty. -: 2=Severe; patients speech so slurred as to be unintelligible in the absence of dysphasia. -: UN=Intubated or other physical barrier, explain in comments. 10. Responses: 0 11. Extinction or inattention: 0=No abnormality -: 1= Visual, tactile, auditory, spatial, or personal inattention or extinction to bilateral simulation in one or the sensory modalities. -: 2=Profound juan alberto-inattention or juan alberto-inattention to more than one modality; does not recognize own hand. 11. Responses: 0 Total Score: 0
[2018-03-07] MEDS ORDERED: INSULIN GLARGINE,HUM.REC.ANLOG 1,000 UNIT/10 ML UNIT SUBCUT ONE (17:04)
[2018-03-07 18:15] VITALS: BP 160/80
--- NOTE | 2018-03-08 08:03 | EKG REPORT ---
SEVERITY:- NORMAL ECG - SINUS RHYTHM : Confirmed by: Ryan Carter MD 08-Mar-2018 08:03:01
== END 2018-03-07 18:15 | disposition home or self-care (01) ==
LOC: ER 10:50
DX: E10.65 Type 1 diabetes mellitus with hyperglycemia (principal); E10.40 Type 1 diabetes mellitus with diabetic neuropathy, unspecified; T38.3X6A Underdosing of insulin and oral hypoglycemic [antidiabetic] drugs, initial encounter; Z91.14 Patient's other noncompliance with medication regimen; K74.60 Unspecified cirrhosis of liver; R20.0 Anesthesia of skin; R20.2 Paresthesia of skin; R74.8 Abnormal levels of other serum enzymes; I10 Essential (primary) hypertension; R07.89 Other chest pain; R11.0 Nausea; R51 Headache; S00.31XA Abrasion of nose, initial encounter; W22.03XA Walked into furniture, initial encounter; R25.2 Cramp and spasm; F17.210 Nicotine dependence, cigarettes, uncomplicated; Z71.6 Tobacco abuse counseling; R05 Cough; M79.1 Myalgia; R22.0 Localized swelling, mass and lump, head; R53.81 Other malaise; Z88.1 Allergy status to other antibiotic agents; Z88.8 Allergy status to other drugs, medicaments and biological substances
CPT/HCPCS: 93005; 99406; 99285; 96360; 96361; 36415; 82553; 82962; 82550; 83690; 85025; 80053; 81001; 84484; 70450; 93010; J1815 ×2; J7030

== ENCOUNTER 2018-07-16 08:27 | Emergency (ER) | payer SELFPAY ==
[2018-07-16 09:34] LABS: ABSOLUTE EOSINOPHILS # (AUTO) 0.1 10^3/uL (0.0-0.6); ABSOLUTE LYMPHOCYTES (AUTO) 0.9 10^3/uL (0.5-4.7); ABSOLUTE MONOCYTES (AUTO) 0.4 10^3/uL (0.1-1.4); ABSOLUTE NEUT (AUTO) 1.7 10^3/uL (1.7-8.2); EOSINOPHILS % (AUTO) 2.8 % (0-6); HEMATOCRIT 34.5 % (36.0-47.0); HEMOGLOBIN 10.9 g/dL (12.0-15.5); LYMPHOCYTES % (AUTO) 30.2 % (13-45); MEAN CORPUSCULAR HEMOGLOBIN 24.1 pg (27.0-33.4); MEAN CORPUSCULAR HGB CONC 31.6 g/dL (32.0-36.0); MEAN CORPUSCULAR VOLUME 76 fl (80-97); MONOCYTES % (AUTO) 11.3 % (3-13); PLATELET COUNT 123 10^3/uL (150-450); RED BLOOD COUNT 4.53 10^6/uL (3.72-5.28); RED CELL DISTRIBUTION WIDTH 19.9 % (11.5-14.0); SEGMENTED NEUTROPHILS % (AUTO) 54.7 % (42-78); TOTAL CELLS COUNTED % (AUTO) 100 %; WHITE BLOOD COUNT 3.1 10^3/uL (4.0-10.5)
[2018-07-16 09:37] LABS: INTERNATIONAL RATION (INR) 1.17; PROTHROMBIN TIME 15.5 SEC (11.4-15.4)
[2018-07-16 09:47] LABS: ALANINE AMINOTRANSFERASE 46 U/L (9-52); ALBUMIN 3.5 g/dL (3.5-5.0); ALKALINE PHOSPHATASE 105 U/L (38-126); ANION GAP 7 (5-19); ASPARTATE AMINO TRANSFERASE 78 U/L (14-36); BILIRUBIN,DIRECT 0.3 mg/dL (0.0-0.4); BILIRUBIN,TOTAL 0.6 mg/dL (0.2-1.3); BLOOD UREA NITROGEN 8 mg/dL (7-20); CALCIUM 8.4 mg/dL (8.4-10.2); CARBON DIOXIDE 30 mmol/L (22-30); CHLORIDE 99 mmol/L (98-107); CREATINE KINASE 55 U/L (30-135); GLUCOSE 280 mg/dL (75-110); SODIUM 136.3 mmol/L (137-145); TOTAL PROTEIN 6.8 g/dL (6.3-8.2)
[2018-07-16 09:59] LABS: CREATINE KINASE MB 0.96 ng/mL (<4.55)
[2018-07-16 10:02] LABS: TROPONIN I < 0.012 ng/mL
[2018-07-16] MEDS ORDERED: LIDOCAINE 1% INJ-PF (10 MG/ML) 30 ML SDV NEB ONE (10:28)
[2018-07-16] MEDS ORDERED: IPRATROPIUM/ALBUTEROL 0.5-2.5 MG/3 ML AMPUL NEB ONE (10:28)
[2018-07-16] MEDS ORDERED: NORMAL SALINE 500 ML IV ONE (10:29)
--- NOTE | 2018-07-16 10:58 | RADIOLOGY REPORT (SQ) ---
EXAM DESCRIPTION: CHEST 2 VIEWS COMPLETED DATE/TIME: 07/16/2018 10:40 am REASON FOR STUDY: sob COMPARISON: 08/09/2017 EXAM PARAMETERS: NUMBER OF VIEWS: two views TECHNIQUE: Digital Frontal and Lateral radiographic views of the chest acquired. RADIATION DOSE: NA LIMITATIONS: none FINDINGS: LUNGS AND PLEURA: No opacities, masses or pneumothorax. No pleural effusion. MEDIASTINUM AND HILAR STRUCTURES: No masses or contour abnormalities. HEART AND VASCULAR STRUCTURES: Heart normal size. No evidence for failure. BONES: No acute findings. HARDWARE: None in the chest. OTHER: No other significant finding. IMPRESSION: NO ACUTE RADIOGRAPHIC FINDING IN THE CHEST. TECHNICAL DOCUMENTATION: JOB ID: [id number] [email or web address]- All Rights Reserved Reading location - IP/workstation name: [email or web address]
[2018-07-16 11:54] LABS: APPEARANCE,URINE SLIGHTLY-CLOUDY; BILIRUBIN,URINE NEGATIVE (NEGATIVE); COLOR,URINE YELLOW; GLUCOSE, URINE >=500 mg/dL (NEGATIVE); KETONES,URINE NEGATIVE (NEGATIVE); LEUKOCYTE ESTERASE,URINE NEGATIVE (NEGATIVE); NITRITE,URINE NEGATIVE (NEGATIVE); PROTEIN,URINE NEGATIVE (NEGATIVE); UROBILINOGEN,URINE NEGATIVE mg/dL (<2.0)
[2018-07-16] MEDS ORDERED: DOXYCYCLINE HYCLATE 100 MG TABLET PO ONE (12:21)
[2018-07-16] MEDS ORDERED: ALBUTEROL SULFATE HFA (90 MCG/PUFF) 8 GM MDI (1 MDI/ER DISP) IH ONE (12:21)
--- NOTE | 2018-07-16 12:33 | ER Document Report ---
ED General - General Chief Complaint: Abscess Stated Complaint: COUGH Time Seen by Provider: 07/16/18 09:00 TRAVEL OUTSIDE OF THE [place] IN LAST 30 DAYS: No - HPI Patient complains to provider of: Cough feeling unwell Notes: Patient coming in for cough nasal drainage sore throat nausea sinus pressure ongoing for greater than 2 weeks patient also has a history of having MRSA with multiple abscesses patient states she is getting a little nodule behind her ear that she describes may be an abscess. Denies any drainage of the area at this time. Denies any fevers patient states he does smoke however has not smoked the last 2 days. Patient otherwise resting comfortably upon my evaluation. - Related Data Allergies/Adverse Reactions: celecoxib [From Celebrex] Allergy (Verified 07/16/18 08:30) erythromycin base [Erythromycin Base] Allergy (Verified 07/16/18 08:30) Hives oxycodone HCl [From Percocet] Allergy (Verified 07/16/18 08:30) Past Medical History - Social History Smoking Status: Current Every Day Smoker Frequency of alcohol use: None Drug Abuse: None Family History: DM, Malignancy, Other - cirrhosis Patient has suicidal ideation: No Patient has homicidal ideation: No - Past Medical History Cardiac Medical History: Reports: Hx Hypercholesterolemia, Hx Hypertension Denies: Hx Coronary Artery Disease, Hx Heart Attack Endocrine Medical History: Reports: 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 Renal/ Medical History: Denies: Hx Peritoneal Dialysis GI Medical History: Reports: Hx CirrhosisComment Only: 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 Skin Medical History: Reports Hx MRSA Psychiatric Medical History: Reports: Hx Depression Infectious Medical History: Reports: Hx MRSA Past Surgical History: Reports: Hx Tonsillectomy, Hx Tubal Ligation - Immunizations Hx Diphtheria, Pertussis, Tetanus Vaccination: Yes Review of Systems - Review of Systems Constitutional: No symptoms reported EENT: Nose congestion, Sinus pressure Cardiovascular: No symptoms reported Respiratory: Cough, Short of breath, Wheezing Gastrointestinal: No symptoms reported Genitourinary: No symptoms reported Female Genitourinary: No symptoms reported Musculoskeletal: No symptoms reported Skin: No symptoms reported Hematologic/Lymphatic: No symptoms reported Neurological/Psychological: No symptoms reported -: Yes All other systems reviewed and negative Physical Exam - Vital signs Vitals: Temp Pulse Resp BP Pulse Ox 97.6 F 90 16 125/73 96 07/16/18 08:42 07/16/18 08:42 07/16/18 08:42 07/16/18 08:42 07/16/18 08:42 Interpretation: Normal - General General appearance: Appears well, Alert - HEENT Head: Normocephalic, Atraumatic, Other - Small nodule at the hairline behind the left ear looks more like a infected hair follicle no fluctuance no drainage Eyes: Normal Conjunctiva: Normal Cornea: Normal Pupils: PERRL Anterior chamber: Normal Fundascopic: Normal Ears: Normal External canal: Normal Tympanic membrane: Normal Sinus: Frontal - Tenderness Nasal: Clear rhinorrhea Pharynx: Post nasal drainage Neck: Normal - Respiratory Respiratory status: No respiratory distress Chest status: Nontender Breath sounds: Wheezing Chest palpation: Normal - Cardiovascular Rhythm: Regular Heart sounds: Normal auscultation Murmur: No - Abdominal Inspection: Normal Distension: No distension Bowel sounds: Normal Tenderness: Nontender Organomegaly: No organomegaly - Back Back: Normal, Nontender - Extremities General upper extremity: Normal inspection, Nontender, Normal color, Normal ROM, Normal temperature General lower extremity: Normal inspection, Nontender, Normal color, Normal ROM, Normal temperature, Normal weight bearing. No: Vee's sign - Neurological Neuro grossly intact: Yes Cognition: Normal Orientation: AAOx4 Gallant Coma Scale Eye Opening: Spontaneous Tori Coma Scale Verbal: Oriented Gallant Coma Scale Motor: Obeys Commands Tori Coma Scale Total: 15 Speech: Normal Motor strength normal: LUE, RUE, LLE, RLE Sensory: Normal - Psychological Associated symptoms: Normal affect, Normal mood - Skin Skin Temperature: Warm Skin Moisture: Dry Skin Color: Normal Course - Re-evaluation Re-evalutation: 07/16/18 15:57 Patient symptoms are more consistent with a sinusitis. At this time is no abscess formation. We will start the patient on doxycycline only for her sinus symptoms her cough may also for small follicle that was seen behind her ear. This should cover any bacterial sinusitis bronchitis and also MRSA. Patient was encouraged follow-up with primary care physician to continue to stop smoking patient was given an inhaler here to be used at home as that she did feel better after nebulizer treatments here. - Vital Signs Vital signs: Temp Pulse Resp BP Pulse Ox 97.6 F 78 18 118/78 98 07/16/18 08:42 07/16/18 12:58 07/16/18 12:58 07/16/18 12:58 07/16/18 12:58 - Laboratory Result Diagrams: 07/16/18 09:19 07/16/18 09:19 Laboratory results interpreted by me: 07/16/18 07/16/18 07/16/18 09:19 09:19 09:19 WBC 3.1 L Hgb 10.9 L Hct 34.5 L MCV 76 L MCH 24.1 L MCHC 31.6 L RDW 19.9 H Plt Count 123 L PT 15.5 H Sodium 136.3 L Creatinine 0.43 L Glucose 280 H AST 78 H Urine Glucose (UA) Urine Blood 07/16/18 11:29 WBC Hgb Hct MCV MCH MCHC RDW Plt Count PT Sodium Creatinine Glucose AST Urine Glucose (UA) >=500 H Urine Blood SMALL H Discharge - Discharge Clinical Impression: Tobacco abuse Sinusitis Qualifiers: Sinusitis location: unspecified location Chronicity: unspecified Qualified Code(s): J32.9 - Chronic sinusitis, unspecified Dyspnea Qualifiers: Dyspnea type: unspecified Qualified Code(s): R06.00 - Dyspnea, unspecified Condition: Good Disposition: HOME, SELF-CARE Instructions: Dyspnea, Nonspecific ([facility]), Sinusitis ([facility]) Additional Instructions: Your evaluation is consistent with more likely a sinus infection we will start you on antibiotic called doxycycline. We will also give you an inhaler to help out with any shortness of breath or breathing issues as she may have please use this 2 puffs every 4 hours as needed for shortness of breath. Would encourage you to stop smoking. Follow-up with your primary care physician for your recurrent abscesses I would recommend that these continue to occur that you bathe and Hibiclens soap. Please continue your home medications as prescribed. Prescriptions: Doxycycline Hyclate [Vibramycin] 100 mg PO BID #14 capsule Forms: Return to Work
[2018-07-16 12:58] VITALS: BP 118/78
--- NOTE | 2018-07-16 23:00 | EKG REPORT ---
SEVERITY:- NORMAL ECG - SINUS RHYTHM : Confirmed by: Kely Mcclure MD 16-Jul-2018 22:58:35
== END 2018-07-16 12:58 | disposition home or self-care (01) ==
LOC: ER 08:27
DX: J32.9 Chronic sinusitis, unspecified (principal); I10 Essential (primary) hypertension; E10.9 Type 1 diabetes mellitus without complications; J02.9 Acute pharyngitis, unspecified; R11.0 Nausea; R05 Cough; R09.81 Nasal congestion; R06.02 Shortness of breath; R06.2 Wheezing; R22.0 Localized swelling, mass and lump, head; J34.89 Other specified disorders of nose and nasal sinuses; R09.82 Postnasal drip; F17.200 Nicotine dependence, unspecified, uncomplicated; Z86.14 Personal history of Methicillin resistant Staphylococcus aureus infection; Z88.8 Allergy status to other drugs, medicaments and biological substances; Z88.1 Allergy status to other antibiotic agents; Z88.5 Allergy status to narcotic agent
CPT/HCPCS: 93005; 94640; 99284; 96360; 36415; 82553; 82550; 85025; 85610; 80053; 81001; 84484; 71046; 93010; J3490 ×2; J7040; J7620

== ENCOUNTER 2018-08-14 15:52 | Inpatient (IN) | payer OTHER ==
[2018-08-14] MEDS ORDERED: CEFTRIAXONE 1 GM/D5W RTU 1 GM/50 ML RTUPB IV ONE (16:42)
--- NOTE | 2018-08-14 16:44 | ER Document Report ---
ED Medical Screen (RME) - General Chief Complaint: Puncture Wound to Foot Stated Complaint: PUNCTURE WOUND Time Seen by Provider: 08/14/18 16:42 TRAVEL OUTSIDE OF THE [place] 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 Renal/ Medical History: Denies: Hx Peritoneal Dialysis GI Medical History: Reports: Hx CirrhosisComment Only: 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 Skin Medical History: Reports Hx MRSA Psychiatric Medical History: Reports: Hx Depression Infectious Medical History: Reports: Hx MRSA Past Surgical History: Reports: Hx Tonsillectomy, Hx Tubal Ligation - Immunizations Hx Diphtheria, Pertussis, Tetanus Vaccination: Yes History of Influenza Vaccine for 04/2017 - 09/2017 Season: Yes Influenza Administration Date for 04/2017 - 09/2017 Season: 05/12/17 Physical Exam - Vital signs Vitals: Temp Pulse Resp BP Pulse Ox 98.3 F 102 H 18 146/80 H 96 08/14/18 15:56 08/14/18 15:56 08/14/18 15:56 08/14/18 15:56 08/14/18 15:56 Course - Vital Signs Vital signs: Temp Pulse Resp BP Pulse Ox 98.3 F 102 H 18 146/80 H 96 08/14/18 15:56 08/14/18 15:56 08/14/18 15:56 08/14/18 15:56 08/14/18 15:56
[2018-08-14 17:39] LABS: ABSOLUTE EOSINOPHILS # (AUTO) 0.1 10^3/uL (0.0-0.6); ABSOLUTE LYMPHOCYTES (AUTO) 1.3 10^3/uL (0.5-4.7); ABSOLUTE MONOCYTES (AUTO) 0.4 10^3/uL (0.1-1.4); ABSOLUTE NEUT (AUTO) 2.3 10^3/uL (1.7-8.2); BASOPHILS % (AUTO) 0.8 % (0-2); HEMATOCRIT 35.2 % (36.0-47.0); HEMOGLOBIN 11.2 g/dL (12.0-15.5); LYMPHOCYTES % (AUTO) 32.3 % (13-45); MEAN CORPUSCULAR HEMOGLOBIN 24.8 pg (27.0-33.4); MEAN CORPUSCULAR VOLUME 78 fl (80-97); MONOCYTES % (AUTO) 8.8 % (3-13); PLATELET COUNT 143 10^3/uL (150-450); RED BLOOD COUNT 4.54 10^6/uL (3.72-5.28); RED CELL DISTRIBUTION WIDTH 18.4 % (11.5-14.0); SEGMENTED NEUTROPHILS % (AUTO) 55.1 % (42-78); TOTAL CELLS COUNTED % (AUTO) 100 %; WHITE BLOOD COUNT 4.2 10^3/uL (4.0-10.5)
[2018-08-14 17:51] LABS: ANION GAP 10 (5-19); BLOOD UREA NITROGEN 9 mg/dL (7-20); CALCIUM 9.3 mg/dL (8.4-10.2); CARBON DIOXIDE 28 mmol/L (22-30); CHLORIDE 99 mmol/L (98-107); GLUCOSE 291 mg/dL (75-110); POTASSIUM 4.4 mmol/L (3.6-5.0); SODIUM 137.2 mmol/L (137-145); URIC ACID 2.2 mg/dL (2.5-7.5)
[2018-08-14] MEDS ORDERED: DIPH/PERTUSS(ACELL)/TETANUS VAC/PF 0.5 ML SYR (>=10YO) IM ONE (17:56)
[2018-08-14] MEDS ORDERED: HYDROMORPHONE HCL INJ/PF 2 MG/ML AMPULE IV ONE ×2 (17:56→19:31)
[2018-08-14] MEDS ORDERED: LIDOCAINE 1%/EPINEPHRINE INJ 20 ML VIAL INJ ONE (17:58)
--- NOTE | 2018-08-14 18:10 | RADIOLOGY REPORT (SQ) ---
EXAM DESCRIPTION: FOOT LEFT COMPLETE COMPLETED DATE/TIME: 08/14/2018 5:47 pm REASON FOR STUDY: infections evl foreign body COMPARISON: None. EXAM PARAMETERS: NUMBER OF VIEWS: Three views. TECHNIQUE: AP, lateral and oblique radiographic images acquired of the left foot. LIMITATIONS: None. FINDINGS: MINERALIZATION: Normal. BONES: No acute fracture or dislocation. No worrisome bone lesions. JOINTS: No effusion. SOFT TISSUES: Lateral-plantar soft tissue swelling. No radiopaque foreign body. OTHER: No other significant finding. IMPRESSION: No radiopaque foreign body.NO FRACTURE. TECHNICAL DOCUMENTATION: JOB ID: [id number] [id number] 2010 [employer]- All Rights Reserved Reading location - IP/workstation name: [email or web address]
[2018-08-14] MEDS ORDERED: ONDANSETRON HCL INJ/PF 4 MG/2 ML SDV IV ONE (19:17)
[2018-08-14] MEDS ORDERED: VANCOMYCIN HCL 1,250 MG in DEXTROSE 5%-WATER 250 ML IV ONE (19:51)
[2018-08-14] MEDS ORDERED: MAG HYDROX/AL HYDROX/SIMETH SUSP 30 ML UDCUP PO PRN (19:52)
[2018-08-14] MEDS ORDERED: IPRATROPIUM/ALBUTEROL 0.5-2.5 MG/3 ML AMPUL NEB PRN (19:52)
[2018-08-14] MEDS ORDERED: LORAZEPAM INJ 2 MG/1 ML VIAL IV ONE (19:53)
[2018-08-14] MEDS ORDERED: DEXTROSE 40% GEL 15 GM TUBE PO PRN ×2 (19:54)
[2018-08-14] MEDS ORDERED: GLUCAGON,HUMAN RECOMB 1 MG INJ IM PRN (19:54)
[2018-08-14] MEDS ORDERED: DEXTROSE 50%-WATER 25 GM/50 ML DISP.SYRIN IV PRN ×2 (19:54)
--- NOTE | 2018-08-14 19:54 | ER Document Report ---
ED General - General Chief Complaint: Puncture Wound to Foot Stated Complaint: PUNCTURE WOUND Time Seen by Provider: 08/14/18 16:42 Mode of Arrival: Ambulatory Information source: Patient Notes: This is a 47-year-old female with a history of insulin requiring diabetes and cirrhosis who presents with fever, chills, left foot pain for the past several days. Patient states a week ago she stepped on attack in her garage. She was wearing flip-flops and it went through the flip flops. She states it was fine for a few days and then started having pain and then started having fever after that. She also reports having a lot of cramping in her lower extremities. Last tetanus is unknown. TRAVEL OUTSIDE OF THE [place] IN LAST 30 DAYS: No - HPI Onset: Last week Onset/Duration: Gradual Quality of pain: Dull Severity: Moderate Pain Level: 3 Associated symptoms: Chills, Fever Exacerbated by: Movement Relieved by: Remaining still Similar symptoms previously: No Recently seen / treated by doctor: No - Related Data Allergies/Adverse Reactions: celecoxib [From Celebrex] Allergy (Verified 07/16/18 08:30) erythromycin base [Erythromycin Base] Allergy (Verified 07/16/18 08:30) Hives oxycodone HCl [From Percocet] Allergy (Verified 07/16/18 08:30) Past Medical History - General Information source: Patient - Social History Smoking Status: Current Every Day Smoker Cigarette use (# per day): Yes - 1 pack/day Chew tobacco use (# tins/day): No Frequency of alcohol use: None Drug Abuse: None Lives with: Family Family History: DM, Malignancy, Other - cirrhosis Patient has suicidal ideation: No Patient has homicidal ideation: No - Past Medical History Cardiac Medical History: Reports: Hx Hypercholesterolemia, Hx Hypertension Denies: Hx Coronary Artery Disease, Hx Heart Attack Endocrine Medical History: Reports: 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 Renal/ Medical History: Denies: Hx Peritoneal Dialysis GI Medical History: Reports: Hx CirrhosisComment Only: 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 Skin Medical History: Reports Hx MRSA Psychiatric Medical History: Reports: Hx Depression Infectious Medical History: Reports: Hx MRSA Past Surgical History: Reports: Hx Tonsillectomy, Hx Tubal Ligation - Immunizations Hx Diphtheria, Pertussis, Tetanus Vaccination: Yes Review of Systems - Review of Systems Constitutional: Chills, Fever EENT: No symptoms reported Cardiovascular: denies: Chest pain, Palpitations, Heart racing Respiratory: No symptoms reported Gastrointestinal: denies: Abdomen distended, Abdominal pain, Diarrhea Genitourinary: No symptoms reported Female Genitourinary: No symptoms reported Musculoskeletal: See HPI Skin: See HPI Hematologic/Lymphatic: No symptoms reported Neurological/Psychological: No symptoms reported Physical Exam - Vital signs Vitals: Temp Pulse Resp BP Pulse Ox 98.3 F 102 H 18 146/80 H 96 08/14/18 15:56 08/14/18 15:56 08/14/18 15:56 08/14/18 15:56 08/14/18 15:56 Notes: Physical exam: GENERAL: 47-year-old female, alert and oriented x3. Complaining of left foot pain. HEAD: Atraumatic, normocephalic. EYES: Pupils equal round and reactive to light, extraocular movements intact, sclera anicteric, conjunctiva are normal. ENT: TMs normal, nares patent, oropharynx clear without exudates. Moist mucous membranes. NECK: Normal range of motion, supple without obvious mass or JVD. LUNGS: Breath sounds clear to auscultation bilaterally and equal. No wheezes rales or rhonchi. HEART: Regular rate and rhythm without murmurs, rubs or gallops. ABDOMEN: Soft, normoactive bowel sounds. No tenderness to palpation. No guarding, no rebound. No masses appreciated. EXTREMITIES: Left foot: She does have erythema and tenderness just on the plantar surface of the first metatarsal phalangeal joint. There is erythema which is mild that does extend up the foot. There is no fluctuance proximally. Right in the area of impact : There is a 1 cm pustule with a necrotic center. No significant fluctuance. NEUROLOGICAL: Cranial nerves II through XII grossly intact. Normal speech, moving all extremities. PSYCH: Normal mood, normal affect. SKIN: Warm, Dry, normal turgor, no rashes or lesions noted. Course - Vital Signs Vital signs: Temp Pulse Resp BP Pulse Ox 98.3 F 102 H 18 151/82 H 100 08/14/18 15:56 08/14/18 15:56 08/14/18 19:01 08/14/18 19:01 08/14/18 19:01 - Laboratory Result Diagrams: 08/14/18 17:13 08/14/18 17:13 Laboratory results interpreted by me: 08/14/18 08/14/18 17:13 17:13 Hgb 11.2 L Hct 35.2 L MCV 78 L MCH 24.8 L RDW 18.4 H Plt Count 143 L Glucose 291 H Uric Acid 2.2 L - Diagnostic Test Radiology reviewed: Image reviewed, Reports reviewed - Foreign bodies on x-ray Procedures - Incision and Drainage Left Foot Time completed: 19:54 Type: Simple Anesthetic type: 1% Lidocaine w/epi mL's of anesthetic: 3 Blade size: 11 I&D procedure: Chlorprep applied Incision Method: Incision made by scalpel Notes: 08/14/18 19:55 Note: The wound had a white blister type lesion with a dark center. The area was cleaned with ChloraPrep. Lidocaine and epi were applied. The blister type lesion was unroofed with an 11 blade. A small amount of drainage was sent for wound culture. The skin tissue looked viable underneath. The wound was dressed. Discharge - Discharge Clinical Impression: Diabetic foot Condition: Stable Disposition: ADMITTED INPATIENT Admitting Provider: Hospitalist - Dr Garvin Unit Admitted: Medical Floor
[2018-08-14] MEDS ORDERED: VANCOMYCIN HCL 0 MG in DEXTROSE 5%-WATER 250 ML IV NR (20:00)
[2018-08-14] MEDS ORDERED: VANCOMYCIN HCL INJ 1000 MG VIAL IV PRN (20:11)
[2018-08-14] MEDS ORDERED: CEFEPIME 1 GM/D5W RTU 1 GM/50 ML RTUPB IV ONE (20:15)
[2018-08-14] MEDS: GABAPENTIN 300 MG CAPSULE PO SCH (22:28)
[2018-08-14] MEDS: HEPARIN SOD (PORCINE) 5,000 UNIT/ML 1 ML SYRINGE SUBCUT SCH (22:34)
[2018-08-14] MEDS: INSULIN GLARGINE,HUM.REC.ANLOG 1,000 UNIT/10 ML UNIT SUBCUT SCH (22:35)
[2018-08-14 23:54] LABS: URINE AMPHETAMINES SCREEN NEGATIVE; URINE BARBITURATES SCREEN NEGATIVE; URINE BENZODIAZEPINES SCREEN NEGATIVE; URINE COCAINE SCREEN NEGATIVE; URINE MARIJUANA (THC) SCREEN NEGATIVE; URINE METHADONE SCREEN NEGATIVE; URINE PHENCYCLIDINE SCREEN NEGATIVE
[2018-08-15] MEDS: MAGNESIUM HYDROXIDE SUSP 30 ML UDCUP PO PRN (02:03)
[2018-08-15] MEDS: KETOROLAC TROMETHAMINE INJ/PF 30 MG/1 ML SDV IV PRN ×3 (02:04→21:38)
[2018-08-15] MEDS ORDERED: NICOTINE 7 MG/24 HR PATCH.TD24 TD ONE (02:30)
[2018-08-15] MEDS ORDERED: VANCOMYCIN HCL INJ 1000 MG VIAL IV PRN (03:00)
[2018-08-15] MEDS ORDERED: VANCOMYCIN HCL 1,000 MG in DEXTROSE 5%-WATER 250 ML IV ONE (05:00)
--- NOTE | 2018-08-15 05:03 | PDOC H&P ---
History of Present Illness Admission Date/PCP: 08/14/18 21:15 MURIEL WONG MD Patient complains of: Pain and swelling to the left foot History of Present Illness: KIARA VICTOR is a 47 year old female with a past medical history of poorly controlled diabetes, tobacco and hepatic cirrhosis of unknown cause. Presents 6 days after a puncture wound sustained through flip-flops to the base of her left great toe. She has had subsequent pain swelling and muscle cramping prompting evaluation emergency room where she is found to have localized erythema and swelling prompting an I&D by the emergency room provider. She denies recent antibiotics, poorly controlled hyperglycemia and referred to the hospitalist for antibiotics. 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 GI Medical History: Reports: Cirrhosis Psychiatric Medical History: Reports: Depression, Tobacco Dependency Hematology: Reports: Anemia Infectious Medical History: Reports: Methicillin-Resistant Staph Aureus Past Surgical History Past Surgical History: Reports: Tonsillectomy, Tubal Ligation Social History Information Source: Patient, [facility] Records Lives with: Family Smoking Status: Current Every Day Smoker Cigarettes Packs Per Day: 0.2 Frequency of Alcohol Use: None Hx Recreational Drug Use: No Drugs: None Hx Prescription Drug Abuse: No - Advance Directive Resuscitation Status: Full Code Family History Family History: DM, Malignancy, Other - cirrhosis Parental Family History Reviewed: Yes Children Family History Reviewed: Yes Sibling(s) Family History Reviewed.: Yes Medication/Allergy Home Medications: Gabapentin [Neurontin 300 mg Capsule] 600 mg PO Q8 #60 capsule 08/15/17 Insulin Glargine,Hum.rec.anlog [Lantus Insulin 100 Unit/1 ml 10 ml] 35 unit SUBCUT Q12 #3 unit 08/15/17 Insulin Lispro [Humalog Insulin (Lispro) 100 unit/mL] 5 unit SUBCUT AC #3 unit 08/15/17 Fluconazole [Diflucan] 150 mg PO ONCE PRN #1 tablet 12/24/17 Doxycycline Hyclate [Vibramycin] 100 mg PO BID #14 capsule 07/16/18 Allergies/Adverse Reactions: celecoxib [From Celebrex] Allergy (Verified 07/16/18 08:30) erythromycin base [Erythromycin Base] Allergy (Verified 07/16/18 08:30) Hives oxycodone HCl [From Percocet] Allergy (Verified 07/16/18 08:30) Review of Systems Constitutional: ABSENT: chills, fever(s), headache(s), weight gain, weight loss Eyes: ABSENT: visual disturbances Ears: ABSENT: hearing changes Cardiovascular: ABSENT: chest pain, dyspnea on exertion, edema, orthropnea, palpitations Respiratory: ABSENT: cough, hemoptysis Gastrointestinal: ABSENT: abdominal pain, constipation, diarrhea, hematemesis, hematochezia, nausea, vomiting Genitourinary: ABSENT: dysuria, hematuria Musculoskeletal: ABSENT: joint swelling Integumentary: ABSENT: rash, wounds Neurological: ABSENT: abnormal gait, abnormal speech, confusion, dizziness, focal weakness, syncope Psychiatric: ABSENT: anxiety, depression, homidical ideation, suicidal ideation Endocrine: ABSENT: cold intolerance, heat intolerance, polydipsia, polyuria Hematologic/Lymphatic: ABSENT: easy bleeding, easy bruising Physical Exam Vital Signs: Temp Pulse Resp BP Pulse Ox 98.1 F 81 18 119/63 97 08/15/18 04:08 08/15/18 04:08 08/15/18 04:08 08/15/18 04:08 08/15/18 04:08 Intake & Output 08/13/18 08/14/18 08/15/18 11:59 11:59 11:59 Intake Total 300 Balance 300 Weight 66.6 kg General appearance: PRESENT: cooperative, disheveled, mild distress, well- developed, well-nourished Head exam: PRESENT: atraumatic, normocephalic Eye exam: PRESENT: conjunctiva pink, EOMI, PERRLA. ABSENT: scleral icterus Ear exam: PRESENT: normal external ear exam Mouth exam: PRESENT: moist, tongue midline Neck exam: ABSENT: carotid bruit, JVD, lymphadenopathy, thyromegaly Respiratory exam: PRESENT: clear to auscultation jocy. ABSENT: rales, rhonchi, wheezes Cardiovascular exam: PRESENT: RRR. ABSENT: diastolic murmur, rubs, systolic murmur Pulses: PRESENT: normal dorsalis pedis pul Vascular exam: PRESENT: normal capillary refill GI/Abdominal exam: PRESENT: normal bowel sounds, soft. ABSENT: distended, guarding, mass, organolmegaly, rebound, tenderness Rectal exam: PRESENT: deferred Extremities exam: PRESENT: joint swelling - Left proximal joint first and second toes, tenderness, +1 edema. ABSENT: calf tenderness, clubbing, pedal edema Neurological exam: PRESENT: alert, awake, oriented to person, oriented to place, oriented to time, oriented to situation, CN II-XII grossly intact. ABSENT: motor sensory deficit Psychiatric exam: PRESENT: appropriate affect, normal mood. ABSENT: homicidal ideation, suicidal ideation Skin exam: PRESENT: dry, intact, warm. ABSENT: cyanosis, rash Results Laboratory Results: 08/14/18 17:13 08/14/18 17:13 08/14/18 08/14/18 17:13 17:13 WBC 4.2 RBC 4.54 Hgb 11.2 L Hct 35.2 L MCV 78 L MCH 24.8 L MCHC 32.0 RDW 18.4 H Plt Count 143 L Seg Neutrophils % 55.1 Lymphocytes % 32.3 Monocytes % 8.8 Eosinophils % 3.0 Basophils % 0.8 Absolute Neutrophils 2.3 Absolute Lymphocytes 1.3 Absolute Monocytes 0.4 Absolute Eosinophils 0.1 Absolute Basophils 0.0 Sodium 137.2 Potassium 4.4 Chloride 99 Carbon Dioxide 28 Anion Gap 10 BUN 9 Creatinine 0.52 Est GFR ( Amer) > 60 Est GFR (Non-Af Amer) > 60 Glucose 291 H Uric Acid 2.2 L Calcium 9.3 Impressions: Foot X-Ray 08/14/18 16:42 IMPRESSION: No radiopaque foreign body.NO FRACTURE. Assessment & Plan - Diagnosis (1) Diabetic foot Is this a current diagnosis for this admission?: Yes Plan: History of MRSA, vancomycin and cefepime initiated. Follow-up blood culture, CBC and surgical consult may require outpatient wound care follow-up. (2) Cirrhosis Is this a current diagnosis for this admission?: Yes Plan: Unclear cause, follow-up hepatitis profile, doubt hemochromatosis given microcytic anemia (3) Anemia Is this a current diagnosis for this admission?: Yes Plan: Likely iron deficiency anemia, follow-up labs and CBC. Iron as needed (4) Tobacco abuse Is this a current diagnosis for this admission?: Yes Plan: Tobacco Dependence patient received tobacco cessation counseling and offered nicotine replacement options - Time Time Spent: 50 to 70 Minutes - Inpatient Certification Medical Necessity: Need Close Monitoring Due to Risk of Patient Decompensation
[2018-08-15] MEDS: GABAPENTIN 300 MG CAPSULE PO SCH ×3 (05:17→21:34)
[2018-08-15] MEDS: HEPARIN SOD (PORCINE) 5,000 UNIT/ML 1 ML SYRINGE SUBCUT SCH ×3 (05:18→21:03)
[2018-08-15] MEDS ORDERED: NICOTINE 7 MG/24 HR PATCH.TD24 ONE (05:54)
[2018-08-15 06:24] LABS: ABSOLUTE EOSINOPHILS # (AUTO) 0.2 10^3/uL (0.0-0.6); ABSOLUTE LYMPHOCYTES (AUTO) 1.5 10^3/uL (0.5-4.7); ABSOLUTE MONOCYTES (AUTO) 0.5 10^3/uL (0.1-1.4); ABSOLUTE NEUT (AUTO) 2.1 10^3/uL (1.7-8.2); EOSINOPHILS % (AUTO) 3.8 % (0-6); HEMOGLOBIN 10.1 g/dL (12.0-15.5); LYMPHOCYTES % (AUTO) 35.2 % (13-45); MEAN CORPUSCULAR HEMOGLOBIN 24.8 pg (27.0-33.4); MEAN CORPUSCULAR HGB CONC 32.5 g/dL (32.0-36.0); MEAN CORPUSCULAR VOLUME 76 fl (80-97); MONOCYTES % (AUTO) 10.8 % (3-13); PLATELET COUNT 117 10^3/uL (150-450); RED BLOOD COUNT 4.06 10^6/uL (3.72-5.28); RED CELL DISTRIBUTION WIDTH 18.1 % (11.5-14.0); SEGMENTED NEUTROPHILS % (AUTO) 49.2 % (42-78); TOTAL CELLS COUNTED % (AUTO) 100 %; WHITE BLOOD COUNT 4.3 10^3/uL (4.0-10.5)
[2018-08-15 06:53] LABS: ANION GAP 6 (5-19); BLOOD UREA NITROGEN 9 mg/dL (7-20); CALCIUM 8.6 mg/dL (8.4-10.2); CARBON DIOXIDE 28 mmol/L (22-30); CHLORIDE 102 mmol/L (98-107); GLUCOSE 250 mg/dL (75-110); POTASSIUM 4.1 mmol/L (3.6-5.0); SODIUM 135.7 mmol/L (137-145)
[2018-08-15] MEDS: INSULIN LISPRO 100 UNIT/ML 3 ML VIAL SUBCUT SCH ×6 (07:45→17:58)
[2018-08-15] MEDS ORDERED: CEFEPIME 1 GM/D5W RTU 1 GM/50 ML RTUPB IV SCH ×2 (10:00→11:00)
[2018-08-15] MEDS ORDERED: NICOTINE 7 MG/24 HR PATCH.TD24 TD SCH (10:00)
[2018-08-15] MEDS: INSULIN GLARGINE,HUM.REC.ANLOG 1,000 UNIT/10 ML UNIT SUBCUT SCH (11:10)
[2018-08-15] MEDS: DOCUSATE SODIUM 100 MG CAPSULE PO SCH ×2 (11:12→17:58)
--- NOTE | 2018-08-15 12:59 | PDOC PROGRESS REPORT ---
Subjective Progress Note for:: 08/15/18 Subjective:: Patient still complaining of severe pain. She denies any discharge. Looks like the swelling and erythema slightly improved. Reason For Visit: DIABETIC FOOT Physical Exam Vital Signs: Temp Pulse Resp BP Pulse Ox 99.1 F 89 18 140/74 H 98 08/15/18 11:30 08/15/18 11:30 08/15/18 11:30 08/15/18 11:30 08/15/18 11:30 Intake & Output 08/14/18 08/15/18 08/16/18 06:59 06:59 06:59 Intake Total 540 Balance 540 Weight 146 lb 13.246 oz General appearance: PRESENT: no acute distress, cooperative Head exam: PRESENT: atraumatic, normocephalic Eye exam: PRESENT: EOMI, PERRLA Mouth exam: PRESENT: moist, neck supple Neck exam: ABSENT: meningismus, tenderness Respiratory exam: PRESENT: clear to auscultation jocy. ABSENT: accessory muscle use Cardiovascular exam: PRESENT: RRR Pulses: PRESENT: normal radial pulses GI/Abdominal exam: PRESENT: normal bowel sounds, soft Rectal exam: PRESENT: deferred Neurological exam: PRESENT: alert, awake, oriented to person, oriented to place, oriented to time, oriented to situation Results Laboratory Results: 08/15/18 06:14 08/15/18 06:14 08/14/18 08/14/18 08/14/18 17:13 17:13 17:13 WBC 4.2 RBC 4.54 Hgb 11.2 L Hct 35.2 L MCV 78 L MCH 24.8 L MCHC 32.0 RDW 18.4 H Plt Count 143 L Seg Neutrophils % 55.1 Lymphocytes % 32.3 Monocytes % 8.8 Eosinophils % 3.0 Basophils % 0.8 Absolute Neutrophils 2.3 Absolute Lymphocytes 1.3 Absolute Monocytes 0.4 Absolute Eosinophils 0.1 Absolute Basophils 0.0 Sodium 137.2 Potassium 4.4 Chloride 99 Carbon Dioxide 28 Anion Gap 10 BUN 9 Creatinine 0.52 Est GFR ( Amer) > 60 Est GFR (Non-Af Amer) > 60 Glucose 291 H Uric Acid 2.2 L Calcium 9.3 Iron 38.0 08/15/18 08/15/18 06:14 06:14 WBC 4.3 RBC 4.06 Hgb 10.1 L Hct 31.0 L MCV 76 L MCH 24.8 L MCHC 32.5 RDW 18.1 H Plt Count 117 L Seg Neutrophils % 49.2 Lymphocytes % 35.2 Monocytes % 10.8 Eosinophils % 3.8 Basophils % 1.0 Absolute Neutrophils 2.1 Absolute Lymphocytes 1.5 Absolute Monocytes 0.5 Absolute Eosinophils 0.2 Absolute Basophils 0.0 Sodium 135.7 L Potassium 4.1 Chloride 102 Carbon Dioxide 28 Anion Gap 6 BUN 9 Creatinine 0.38 L Est GFR ( Amer) > 60 Est GFR (Non-Af Amer) > 60 Glucose 250 H Uric Acid Calcium 8.6 Iron Impressions: Foot X-Ray 08/14/18 16:42 IMPRESSION: No radiopaque foreign body.NO FRACTURE. Assessment & Plan - Diagnosis (1) Cellulitis of foot, left Is this a current diagnosis for this admission?: Yes Plan: Continue vancomycin. Switch cefepime to imipenem. Check MRI to rule out osteom yelitis. Follow wound culture and blood culture. (2) Diabetes Is this a current diagnosis for this admission?: Yes Plan: Continue insulin treatment. A1c is 9.2. Continue to monitor glucose levels. (3) Anemia Is this a current diagnosis for this admission?: Yes Plan: Monitor hemoglobin and hematocrit and transfuse if needed. (4) Cirrhosis Is this a current diagnosis for this admission?: Yes Plan: Unclear etiology. Hepatitis profile is pending.
[2018-08-15] MEDS ORDERED: IMIPENEM/CILASTATIN SODIUM INJ 500 MG VIAL IV SCH (13:00)
[2018-08-15] MEDS: ACETAMINOPHEN 325 MG TABLET PO PRN (14:47)
[2018-08-15] MEDS ORDERED: IMIPENEM/CILASTATIN SODIUM 500 MG in NORMAL SALINE 100 ML IV SCH (15:00)
--- NOTE | 2018-08-15 15:40 | RADIOLOGY REPORT (SQ) ---
EXAM DESCRIPTION: MRI LT LOWER EXTREMITY WITHOUT COMPLETED DATE/TIME: 08/15/2018 3:24 pm REASON FOR STUDY: rule out osteo of the left foot COMPARISON: Radiographs of the left foot, 08/14/2018 TECHNIQUE: Multiplanar imaging of the left foot to include fat and fluid sensitive sequences. LIMITATIONS: None. FINDINGS: BONE MARROW: No marrow signal alteration. Specifically no marrow replacement or marrow ed fred. No evidence for osteomyelitis. No cortical break through. SOFT TISSUES: There is soft tissue edema about the medial left foot and ball of the great toe without evidence of focal fluid collection. OTHER: No other significant finding. IMPRESSION: No MR evidence of osteomyelitis. There is soft tissue edema about the medial left foot a nd ball of the great toe without evidence of focal fluid collection. TECHNICAL DOCUMENTATION: JOB ID: [id number] [employer]- All Rights Reserved Reading location - IP/workstation name: [email or web address]
[2018-08-15] MEDS: VANCOMYCIN HCL 1,000 MG in DEXTROSE 5%-WATER 250 ML IV SCH ×2 (15:45→21:38)
[2018-08-15] MEDS: IMIPENEM/CILASTATIN SODIUM 500 MG in NORMAL SALINE 100 ML IV SCH (21:01)
[2018-08-15] MEDS ORDERED: INSULIN GLARGINE,HUM.REC.ANLOG 1,000 UNIT/10 ML UNIT SUBCUT SCH ×2 (22:00)
[2018-08-16] MEDS: MAGNESIUM HYDROXIDE SUSP 30 ML UDCUP PO PRN
[2018-08-16] MEDS: IMIPENEM/CILASTATIN SODIUM 500 MG in NORMAL SALINE 100 ML IV SCH ×2 (00:01→05:02)
[2018-08-16] MEDS: GABAPENTIN 300 MG CAPSULE PO SCH ×3 (05:02→21:59)
[2018-08-16 06:22] LABS: HEMATOCRIT 32.1 % (36.0-47.0); HEMOGLOBIN 10.3 g/dL (12.0-15.5); MEAN CORPUSCULAR HEMOGLOBIN 24.9 pg (27.0-33.4); MEAN CORPUSCULAR VOLUME 78 fl (80-97); PLATELET COUNT 111 10^3/uL (150-450); RED BLOOD COUNT 4.13 10^6/uL (3.72-5.28); RED CELL DISTRIBUTION WIDTH 18.2 % (11.5-14.0)
[2018-08-16] MEDS: HEPARIN SOD (PORCINE) 5,000 UNIT/ML 1 ML SYRINGE SUBCUT SCH ×3 (06:34→22:20)
[2018-08-16] MEDS: VANCOMYCIN HCL 1,000 MG in DEXTROSE 5%-WATER 250 ML IV SCH (06:35)
[2018-08-16 06:45] LABS: ANION GAP 6 (5-19); BLOOD UREA NITROGEN 13 mg/dL (7-20); CALCIUM 8.7 mg/dL (8.4-10.2); CARBON DIOXIDE 25 mmol/L (22-30); CHLORIDE 106 mmol/L (98-107); GLUCOSE 235 mg/dL (75-110); POTASSIUM 4.5 mmol/L (3.6-5.0); SODIUM 136.9 mmol/L (137-145)
--- NOTE | 2018-08-16 07:57 | PDOC PROGRESS REPORT ---
Subjective Progress Note for:: 08/16/18 Subjective:: Complaining of persistent, pulsating, 9 out of 10, pain of left first and second metatarsals radiating proximally up to the shins. Last bowel movement 4 days ago. Mild nonproductive cough. Denies fever, chills, shortness of breath, nausea, vomiting, diarrhea or any urinary symptoms. P.o. tolerant, ambulatory having normal bladder movements. Denies any fever, shortness of breath, chest pain, nausea, vomiting, diarrhea or any urinary symptoms. Reason For Visit: DIABETIC FOOT Physical Exam Vital Signs: Temp Pulse Resp BP Pulse Ox 97.8 F 83 16 120/75 97 08/16/18 05:01 08/16/18 05:01 08/16/18 05:01 08/16/18 05:01 08/16/18 05:01 Intake & Output 08/15/18 08/16/18 08/17/18 06:59 06:59 06:59 Intake Total 540 1200 Balance 540 1200 Weight 66.6 kg 65.1 kg General appearance: PRESENT: no acute distress, well-developed, well-nourished Head exam: PRESENT: atraumatic, normocephalic Respiratory exam: PRESENT: clear to auscultation jocy. ABSENT: rales, rhonchi, wheezes Cardiovascular exam: PRESENT: RRR. ABSENT: diastolic murmur, rubs, systolic murmur Pulses: PRESENT: normal dorsalis pedis pul Extremities exam: PRESENT: full ROM. ABSENT: calf tenderness - Left first second metatarsal tenderness to palpation. Mild erythema at the base of the first metatarsal, active discharge. Neurovascularly intact., clubbing, pedal edema Results Laboratory Results: 08/16/18 05:34 08/16/18 05:34 08/16/18 08/16/18 05:34 05:34 WBC 4.0 RBC 4.13 Hgb 10.3 L Hct 32.1 L MCV 78 L MCH 24.9 L MCHC 32.0 RDW 18.2 H Plt Count 111 L Sodium 136.9 L Potassium 4.5 Chloride 106 Carbon Dioxide 25 Anion Gap 6 BUN 13 Creatinine 0.42 L Est GFR ( Amer) > 60 Est GFR (Non-Af Amer) > 60 Glucose 235 H Calcium 8.7 08/14/18 19:30 Foot - Bottom Gram Stain - Final Impressions: Foot X-Ray 08/14/18 16:42 IMPRESSION: No radiopaque foreign body.NO FRACTURE. Lower Extremity MRI 08/15/18 00:00 IMPRESSION: No MR evidence of osteomyelitis. There is soft tissue edema about the medial left foot and ball of the great toe without evidence of focal fluid collection. Assessment & Plan - Diagnosis (1) Cellulitis of foot, left Is this a current diagnosis for this admission?: Yes Plan: 08/15/2018. MRI foot negative for osteomyelitis. Positive for soft tissue edema about the medial left foot and ball of the great toe without evidence of focal fluid collection. 08/14/2018. Wound culture positive for MSSA. 08/14/2018. Blood cultures no growth Vancomycin day 2, imipenem day 2. Continue Vancomycin another day once symptomatic improvement will switch to either p.o. clindamycin or Bactrim. DC imipenem. (2) Diabetes Is this a current diagnosis for this admission?: Yes Plan: Not controlled. 08/15/2018 hemoglobin A1c 9.2% FBG 250. POC 224-230 Continue diabetic diet, sliding scale insulin, long-acting insulin, pre-meal insulin, adjust dosage as needed. Outpatient PCP follow-up. (3) Anemia Is this a current diagnosis for this admission?: Yes Plan: Denies any hematemesis, hemoptysis, vaginal or rectal bleeding. Denies any easy bruising. 08/14/2018 iron level 38.0. H&H stable. Monitor hemoglobin supportive transfusions. (4) Cirrhosis Is this a current diagnosis for this admission?: Yes Plan: 09/29/2017 Liver ultrasound medical hepatic disease. 04/27/2016. Liver ultrasound positive for fatty infiltration. No mention of cirrhosis. Pending hepatitis panel. Mild thrombocytopenia. Hepatitis panel, avoid hepatotoxic meds.
[2018-08-16] MEDS ORDERED: DEXTROSE 40% GEL 15 GM TUBE PO PRN ×2 (07:58)
[2018-08-16] MEDS ORDERED: GLUCAGON,HUMAN RECOMB 1 MG INJ IM PRN (07:58)
[2018-08-16] MEDS ORDERED: DEXTROSE 50%-WATER 25 GM/50 ML DISP.SYRIN IV PRN ×2 (07:58)
[2018-08-16] MEDS ORDERED: INSULIN GLARGINE,HUM.REC.ANLOG 1,000 UNIT/10 ML UNIT SUBCUT SCH ×2 (08:00→22:00)
[2018-08-16] MEDS ORDERED: INSULIN LISPRO 100 UNIT/ML 3 ML VIAL SUBCUT SCH (08:00)
[2018-08-16] MEDS: INSULIN LISPRO 100 UNIT/ML 3 ML VIAL SUBCUT SCH ×6 (08:56→17:40)
[2018-08-16] MEDS: NICOTINE 7 MG/24 HR PATCH.TD24 TD SCH (10:30)
[2018-08-16] MEDS: DOCUSATE SODIUM 100 MG CAPSULE PO SCH ×2 (10:31→17:39)
[2018-08-16] MEDS: INSULIN GLARGINE,HUM.REC.ANLOG 1,000 UNIT/10 ML UNIT SUBCUT SCH (10:31)
[2018-08-16] MEDS: KETOROLAC TROMETHAMINE INJ/PF 30 MG/1 ML SDV IV PRN ×2 (10:39→20:05)
[2018-08-16] MEDS: VANCOMYCIN HCL 1,250 MG in DEXTROSE 5%-WATER 250 ML IV SCH ×2 (14:19→21:59)
[2018-08-16] MEDS: ACETAMINOPHEN 325 MG TABLET PO PRN (14:28)
[2018-08-16] MEDS: GUAIFENESIN/D-METHORPHAN (200-20 MG) SYRUP 10 ML PO PRN ×2 (14:28→22:34)
[2018-08-16] MEDS: BISACODYL 5 MG TABEC PO PRN (14:41)
[2018-08-16] MEDS: ONDANSETRON HCL INJ/PF 4 MG/2 ML SDV IV PRN (20:06)
[2018-08-17] MEDS: KETOROLAC TROMETHAMINE INJ/PF 30 MG/1 ML SDV IV PRN ×3 (03:53→19:28)
[2018-08-17] MEDS: GABAPENTIN 300 MG CAPSULE PO SCH ×3 (05:33→22:04)
[2018-08-17] MEDS: VANCOMYCIN HCL 1,250 MG in DEXTROSE 5%-WATER 250 ML IV SCH (05:33)
[2018-08-17 05:40] LABS: HEPATITIS A AB IGM Negative (Negative); HEPATITIS B CORE AB IGM Negative (Negative); HEPATITS B SURFACE ANTIGEN Negative (Negative)
[2018-08-17] MEDS: HEPARIN SOD (PORCINE) 5,000 UNIT/ML 1 ML SYRINGE SUBCUT SCH ×3 (06:30→22:02)
[2018-08-17 06:48] LABS: ABSOLUTE EOSINOPHILS # (AUTO) 0.2 10^3/uL (0.0-0.6); ABSOLUTE MONOCYTES (AUTO) 0.6 10^3/uL (0.1-1.4); ABSOLUTE NEUT (AUTO) 1.7 10^3/uL (1.7-8.2); BASOPHILS % (AUTO) 0.7 % (0-2); EOSINOPHILS % (AUTO) 5.1 % (0-6); HEMATOCRIT 30.6 % (36.0-47.0); HEMOGLOBIN 9.8 g/dL (12.0-15.5); LYMPHOCYTES % (AUTO) 27.8 % (13-45); MEAN CORPUSCULAR HEMOGLOBIN 24.8 pg (27.0-33.4); MEAN CORPUSCULAR VOLUME 78 fl (80-97); MONOCYTES % (AUTO) 16.5 % (3-13); RED BLOOD COUNT 3.94 10^6/uL (3.72-5.28); RED CELL DISTRIBUTION WIDTH 18.2 % (11.5-14.0); SEGMENTED NEUTROPHILS % (AUTO) 49.9 % (42-78); TOTAL CELLS COUNTED % (AUTO) 100 %; WHITE BLOOD COUNT 3.5 10^3/uL (4.0-10.5)
[2018-08-17 07:05] LABS: ALANINE AMINOTRANSFERASE 46 U/L (9-52); ALBUMIN 3.1 g/dL (3.5-5.0); ALKALINE PHOSPHATASE 100 U/L (38-126); ANION GAP 6 (5-19); ASPARTATE AMINO TRANSFERASE 59 U/L (14-36); BILIRUBIN,DIRECT 0.2 mg/dL (0.0-0.4); BILIRUBIN,TOTAL 0.4 mg/dL (0.2-1.3); BLOOD UREA NITROGEN 11 mg/dL (7-20); CALCIUM 8.4 mg/dL (8.4-10.2); CARBON DIOXIDE 25 mmol/L (22-30); CHLORIDE 106 mmol/L (98-107); GLUCOSE 246 mg/dL (75-110); POTASSIUM 4.4 mmol/L (3.6-5.0); SODIUM 137.4 mmol/L (137-145); TOTAL PROTEIN 6.3 g/dL (6.3-8.2)
[2018-08-17 07:12] LABS: PLATELET COUNT 97 10^3/uL (150-450)
[2018-08-17] MEDS: INSULIN GLARGINE,HUM.REC.ANLOG 1,000 UNIT/10 ML UNIT SUBCUT SCH (08:19)
[2018-08-17] MEDS: INSULIN LISPRO 100 UNIT/ML 3 ML VIAL SUBCUT SCH ×5 (08:20→18:55)
[2018-08-17 08:24] LABS: HEPATITIS C VIRUS ANTIBODY <0.1 s/co ratio (0.0-0.9)
[2018-08-17] MEDS ORDERED: INSULIN GLARGINE,HUM.REC.ANLOG 1,000 UNIT/10 ML UNIT SUBCUT SCH (09:00)
[2018-08-17] MEDS: MORPHINE SULFATE 10 MG/ML INJ IV PRN ×3 (10:01→22:17)
[2018-08-17] MEDS: NICOTINE 7 MG/24 HR PATCH.TD24 TD SCH (10:03)
[2018-08-17] MEDS: GUAIFENESIN/D-METHORPHAN (200-20 MG) SYRUP 10 ML PO PRN (10:03)
[2018-08-17] MEDS: DOCUSATE SODIUM 100 MG CAPSULE PO SCH ×2 (10:03→18:01)
[2018-08-17] MEDS ORDERED: GLUCAGON,HUMAN RECOMB 1 MG INJ IM PRN ×2 (12:20→12:23)
[2018-08-17] MEDS ORDERED: DEXTROSE 50%-WATER 25 GM/50 ML DISP.SYRIN IV PRN ×4 (12:20→12:23)
[2018-08-17] MEDS ORDERED: DEXTROSE 40% GEL 15 GM TUBE PO PRN ×4 (12:20→12:23)
--- NOTE | 2018-08-17 12:36 | PDOC PROGRESS REPORT ---
Subjective Progress Note for:: 08/17/18 Subjective:: Still complaining of persistent left first and second toe pain 8/10 radiating proximally. Had one bowel movement since yesterday, p.o. tolerant, ambulatory, having normal bladder movements. Complaining of mild productive cough, denies shortness of breath, fever, chest pain, nausea, vomiting, diarrhea, constipation or any urinary symptoms. Reason For Visit: DIABETIC FOOT Physical Exam Vital Signs: Temp Pulse Resp BP Pulse Ox 98.0 F 91 16 140/78 H 100 08/17/18 11:53 08/17/18 11:53 08/17/18 11:53 08/17/18 11:53 08/17/18 11:53 Intake & Output 08/16/18 08/17/18 08/18/18 06:59 06:59 06:59 Intake Total 1200 1808 250 Balance 1200 1808 250 Weight 65.1 kg 65 kg General appearance: PRESENT: no acute distress, well-developed, well-nourished Head exam: PRESENT: atraumatic, normocephalic Respiratory exam: PRESENT: clear to auscultation jocy. ABSENT: rales, rhonchi, wheezes Cardiovascular exam: PRESENT: RRR. ABSENT: diastolic murmur, rubs, systolic murmur Extremities exam: PRESENT: tenderness - TTP left first second metatarsals, limited range of motion, neurovascularly intact. Neurological exam: PRESENT: alert, awake, oriented to person, oriented to place, oriented to time, oriented to situation, CN II-XII grossly intact. ABSENT: motor sensory deficit Skin exam: PRESENT: dry, intact, warm. ABSENT: cyanosis, rash Results Laboratory Results: 08/17/18 06:22 08/17/18 06:22 08/17/18 08/17/18 06:22 06:22 WBC 3.5 L RBC 3.94 Hgb 9.8 L Hct 30.6 L MCV 78 L MCH 24.8 L MCHC 32.0 RDW 18.2 H Plt Count 97 L Seg Neutrophils % 49.9 Lymphocytes % 27.8 Monocytes % 16.5 H Eosinophils % 5.1 Basophils % 0.7 Absolute Neutrophils 1.7 Absolute Lymphocytes 1.0 Absolute Monocytes 0.6 Absolute Eosinophils 0.2 Absolute Basophils 0.0 Sodium 137.4 Potassium 4.4 Chloride 106 Carbon Dioxide 25 Anion Gap 6 BUN 11 Creatinine 0.37 L Est GFR ( Amer) > 60 Est GFR (Non-Af Amer) > 60 Glucose 246 H Calcium 8.4 Total Bilirubin 0.4 AST 59 H ALT 46 Alkaline Phosphatase 100 Total Protein 6.3 Albumin 3.1 L 08/14/18 19:30 Foot - Bottom Gram Stain - Final 08/14/18 19:30 Foot - Bottom Wound Culture - Final Staphylococcus Aureus Impressions: Foot X-Ray 08/14/18 16:42 IMPRESSION: No radiopaque foreign body.NO FRACTURE. Lower Extremity MRI 08/15/18 00:00 IMPRESSION: No MR evidence of osteomyelitis. There is soft tissue edema about the medial left foot and ball of the great toe without evidence of focal fluid collection. Assessment & Plan - Diagnosis (1) Cellulitis of foot, left Is this a current diagnosis for this admission?: Yes Plan: Mild improvement. Still complaining of persistent pain. 08/15/2018. MRI foot negative for osteomyelitis. Positive for soft tissue edema about the medial left foot and ball of the great toe without evidence of focal fluid collection. 08/14/2018. Wound culture positive for MSSA. 08/14/2018. Blood cultures no growth Received 3 days of vancomycin, 2 days of imipenem. DC vancomycin and imipenem. No leukocytosis, afebrile. Switch to p.o. clindamycin. (2) Diabetes Is this a current diagnosis for this admission?: Yes Plan: Not controlled. 08/15/2018 hemoglobin A1c 9.2% Fasting blood glucose 246, POC 151 -369 Continue diabetic diet, sliding scale insulin, long-acting insulin, pre-meal insulin, adjust dosage as needed. Outpatient PCP follow-up. Wants to be switched to 70/30 as she will not be able to afford buying other forms of insulin. Patient has been evaluated by supervisor inspection department at [facility] in the past and is stating that she was never placed on oral hypoglycemics as it had not worked for her. (3) Anemia Is this a current diagnosis for this admission?: Yes Plan: Patient is endorsing history of heavy menstrual bleeds. Last menstruation was 2 weeks ago. Denies any hematemesis, hemoptysis, melena, bright blood per rectum, or current vaginal bleeding. 08/14/2018 iron level 38.0. H&H stable. Monitor hemoglobin supportive transfusions. 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 Patient is aware of underlying cirrhosis but has not been able to see a GI specialist as outpatient. Planning to follow-up with GI specialist as outpatient. 09/29/2017 Liver ultrasound medical hepatic disease. 04/27/2016. Liver ultrasound positive for fatty infiltration. Denies any history of ingestion of alcohol, hepatotoxic meds, herbal meds. Hepatitis panel negative. Avoid hepatotoxic meds. (5) Thrombocytopenia Is this a current diagnosis for this admission?: No Plan: Chronic. Likely due to underlying cirrhosis. Monitor for any signs of bleeding. Supportive transfusions. Outpatient GI follow-up. (6) Constipation Is this a current diagnosis for this admission?: Yes Plan: Improved. Continue current bowel regimen. Encourage fiber intake.
[2018-08-17 13:27] LABS: IRON(TIBC) 31.9 ug/dL (37-170)
[2018-08-17] MEDS: GUAIFENESIN/CODEINE PHOS 100-10 MG/ 5 ML UDC PO SCH ×2 (13:30→18:01)
[2018-08-17] MEDS ORDERED: OXYMETAZOLINE HCL 0.05% NASAL SPRAY 15 ML BOTTLE NASL PRN (13:41)
[2018-08-17 14:05] LABS: FERRITIN 7.09 ng/mL (6.2-137.0)
[2018-08-17] MEDS: ACETAMINOPHEN 325 MG TABLET PO PRN (14:30)
[2018-08-17] MEDS ORDERED: FLUTICASONE NASAL SPRAY 50 MCG/SPRY 120 SPRAY/16 GM NASL ONE (15:00)
[2018-08-17] MEDS ORDERED: HUM INSULIN NPH/REG INSULIN HM 100 UNIT/1 ML 3 ML SUBCUT SCH (16:00)
[2018-08-17] MEDS: CLINDAMYCIN HCL 150 MG CAPSULE PO SCH (18:01)
[2018-08-17] MEDS: FLUTICASONE NASAL SPRAY 50 MCG/SPRY 120 SPRAY/16 GM NASL SCH (22:05)
[2018-08-18] MEDS: GUAIFENESIN/CODEINE PHOS 100-10 MG/ 5 ML UDC PO SCH ×5 (00:06→23:50)
[2018-08-18] MEDS: CLINDAMYCIN HCL 150 MG CAPSULE PO SCH ×5 (00:06→23:50)
[2018-08-18] MEDS: KETOROLAC TROMETHAMINE INJ/PF 30 MG/1 ML SDV IV PRN (03:55)
[2018-08-18] MEDS: HEPARIN SOD (PORCINE) 5,000 UNIT/ML 1 ML SYRINGE SUBCUT SCH ×3 (06:34→21:40)
[2018-08-18] MEDS: GABAPENTIN 300 MG CAPSULE PO SCH ×3 (06:57→21:36)
[2018-08-18] MEDS: MORPHINE SULFATE 10 MG/ML INJ IV PRN ×3 (06:58→23:49)
[2018-08-18] MEDS: HUM INSULIN NPH/REG INSULIN HM 100 UNIT/1 ML 3 ML SUBCUT SCH ×2 (08:32→17:24)
[2018-08-18] MEDS: INSULIN LISPRO 100 UNIT/ML 3 ML VIAL SUBCUT SCH ×3 (08:32→16:57)
--- NOTE | 2018-08-18 09:43 | RADIOLOGY REPORT (SQ) ---
EXAM DESCRIPTION: CHEST SINGLE VIEW COMPLETED DATE/TIME: 08/18/2018 9:34 am REASON FOR STUDY: sob COMPARISON: None. EXAM PARAMETERS: NUMBER OF VIEWS: One view. TECHNIQUE: Single frontal radiographic view of the chest acquired. RADIATION DOSE: NA LIMITATIONS: None. FINDINGS: LUNGS AND PLEURA: No opacities, masses or pneumothorax. No pleural effusion. MEDIASTINUM AND HILAR STRUCTURES: No masses. Contour normal. HEART AND VASCULAR STRUCTURES: Heart normal in size. Normal vasculature. BONES: No acute findings. HARDWARE: None in the chest. OTHER: No other significant finding. IMPRESSION: NO ACUTE RADIOGRAPHIC FINDING IN THE CHEST. TECHNICAL DOCUMENTATION: JOB ID: [id number] [employer]- All Rights Reserved Reading location - IP/workstation name: [email or web address]
[2018-08-18] MEDS: DOCUSATE SODIUM 100 MG CAPSULE PO SCH ×2 (09:58→17:24)
[2018-08-18] MEDS: FLUTICASONE NASAL SPRAY 50 MCG/SPRY 120 SPRAY/16 GM NASL SCH ×2 (09:58→21:36)
[2018-08-18] MEDS: NICOTINE 7 MG/24 HR PATCH.TD24 TD SCH (09:59)
[2018-08-18] MEDS: FERROUS SULFATE 325 MG TABLET PO SCH ×2 (09:59→12:16)
--- NOTE | 2018-08-18 10:54 | RADIOLOGY REPORT (SQ) ---
EXAM DESCRIPTION: CT FACIAL AREA WITHOUT COMPLETED DATE/TIME: 08/18/2018 10:18 am REASON FOR STUDY: Headache COMPARISON: CT sinuses 07/13/2017, 08/24/2014 TECHNIQUE: Noncontrast scanning through the paranasal sinuses using bone algorithm. Reconstructed MPR images reviewed. All images stored on PACS. Images acquired for image guided surgery. All CT scanners at this facility use dose modulation, iterative reconstruction, and/or weight based d osing when appropriate to reduce radiation dose to as low as reasonably achievable (ALARA). [facility]: Dose Right [facility]: CareDose [facility]: Dose Right [facility]: Teradose 4D [facility]: Edfolio RADIATION DOSE: 45 mGy mGy. FINDINGS: NASAL PASSAGES: Clear. No polyps or masses. OSTEOMEATAL UNITS AND NASOFRONTAL DUCTS: The right maxillary sinus outlet/ostiomeatal unit is patent. On the left, the left maxillary sinus/ostiomeatal unit is opacified with mucous membrane thickening . These changes are best shown on coronal images 16-22. No agger nasi or Guillermo cells. MAXILLARY SINUSES: Right maxillary sinus is clear. Left maxillary sinus circumferential mucous membra ne thickening extending into the maxillary outlet. ETHMOID SINUSES: Well-pneumatized and clear. SPHENOID SINUSES: Mucous membrane thickening right sphenoid sinus. Left sphenoid sinus clear. No sph enoethmoid air cells or pneumatized pterygoid recess. No pneumatized dorsal sella. FRONTAL SINUSES: Well-pneumatized and clear. MASTOID AIR CELLS: Clear. ORBITS: Normal and symmetrical. NASAL SEPTUM: Mild leftward nasal septal deviation on coronal image 17 No nasal septal spurs. TEMPOROMANDIBULAR JOINTS: Mild arthritis left TMJ TURBINATES: No pneumatized turbinates. MUCOPERIOSTEAL THICKENING: No. MUCOCELE: No. OTHER: No other significant findings. IMPRESSION: Circumferential mucous membrane thickening left maxillary sinus extending into the maxil mike outlet. Leftward nasal septal deviation TECHNICAL DOCUMENTATION: JOB ID: [id number] Quality ID # [id number]: Final reports with documentation of one or more dose reduction techniques (e.g., Au tomated exposure control, adjustment of the mA and/or kV according to patient size, use of iterative reconstruction technique) 2010 [employer]- All Rights Reserved Reading location - IP/workstation name: [email or web address]
--- NOTE | 2018-08-18 12:09 | PDOC PROGRESS REPORT ---
Subjective Progress Note for:: 08/18/18 Subjective:: Persistent left first metatarsal pain, 4/5 in severity, radiating proximally, worse with ambulation and movement. Complaining of nasal congestion, pain over maxillary sinuses, postnasal drip, nonbloody productive cough. Mild improvement of cough, denies any fever, chills, nausea, vomiting, shortness of breath, chest pain, abdominal pain, diarrhea, constipation or any urinary symptoms. P.o. tolerant, ambulatory. Reason For Visit: DIABETIC FOOT Physical Exam Vital Signs: Temp Pulse Resp BP Pulse Ox 98.3 F 77 16 110/96 H 100 08/18/18 07:47 08/18/18 07:47 08/18/18 07:47 08/18/18 07:47 08/18/18 07:47 Intake & Output 08/17/18 08/18/18 08/19/18 06:59 06:59 06:59 Intake Total 1808 1450 300 Balance 1808 1450 300 Weight 65 kg 66.4 kg General appearance: PRESENT: no acute distress, well-developed, well-nourished Head exam: PRESENT: atraumatic, normocephalic Mouth exam: PRESENT: neck supple Respiratory exam: PRESENT: clear to auscultation jocy. ABSENT: rales, rhonchi, wheezes Cardiovascular exam: PRESENT: RRR. ABSENT: diastolic murmur, rubs, systolic murmur Extremities exam: PRESENT: full ROM, tenderness - First metatarsal tenderness to palpation. No swelling, no erythema, no discharge. Neurovascularly intact.. ABSENT: calf tenderness, clubbing, pedal edema Results Laboratory Results: 08/17/18 06:22 08/17/18 06:22 08/17/18 08/17/18 06:22 06:22 Retic Count (auto) 1.70 Absolute Retic 0.070 Iron 31.9 L TIBC 399 % Saturation 8 Ferritin 7.09 Vitamin B12 817.0 Folate 15.80 Impressions: Foot X-Ray 08/14/18 16:42 IMPRESSION: No radiopaque foreign body.NO FRACTURE. Lower Extremity MRI 08/15/18 00:00 IMPRESSION: No MR evidence of osteomyelitis. There is soft tissue edema about the medial left foot and ball of the great toe without evidence of focal fluid collection. Chest X-Ray 08/18/18 00:00 IMPRESSION: NO ACUTE RADIOGRAPHIC FINDING IN THE CHEST. Facial Bones CT 08/18/18 00:00 IMPRESSION: Circumferential mucous membrane thickening left maxillary sinus extending into the maxillary outlet. Leftward nasal septal deviation Assessment & Plan - Diagnosis (1) Cellulitis of foot, left Is this a current diagnosis for this admission?: Yes Plan: Mild improvement. Still complaining of persistent pain. 08/15/2018. MRI foot negative for osteomyelitis. Positive for soft tissue edema about the medial left foot and ball of the great toe without evidence of focal fluid collection. 08/14/2018. Wound culture positive for MSSA. 08/14/2018. Blood cultures no growth Received 3 days of vancomycin, 2 days of imipenem. DC vancomycin and imipenem. No leukocytosis, afebrile. Day 2 p.o. clindamycin. (2) Diabetes Is this a current diagnosis for this admission?: Yes Plan: Not controlled. 08/15/2018 hemoglobin A1c 9.2% Fasting blood glucose 246, POC 151 -369 Continue diabetic diet, sliding scale insulin, long-acting insulin, pre-meal insulin, adjust dosage as needed. Outpatient PCP follow-up. Wants to be switched to 70/30 as she will not be able to afford buying other forms of insulin. Patient has been evaluated by animal maintenance supervisor at [facility] in the past and is stating that she was never placed on oral hypoglycemics as it had not worked for her. (3) Anemia Is this a current diagnosis for this admission?: Yes Plan: Patient is endorsing history of heavy menstrual bleeds. Last menstruation was 2 weeks ago. Denies any hematemesis, hemoptysis, melena, bright blood per rectum, or current vaginal bleeding. Iron panel positive for iron deficiency anemia. Started on ferrous sulfate daily. H&H stable. Monitor hemoglobin supportive transfusions. 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 Patient is aware of underlying cirrhosis but has not been able to see a GI specialist as outpatient. Planning to follow-up with GI specialist as outpatient. 09/29/2017 Liver ultrasound medical hepatic disease. 04/27/2016. Liver ultrasound positive for fatty infiltration. Denies any history of ingestion of alcohol, hepatotoxic meds, herbal meds. Hepatitis panel negative. Avoid hepatotoxic meds. (5) Thrombocytopenia Is this a current diagnosis for this admission?: No Plan: Chronic. Likely due to underlying cirrhosis. Monitor for any signs of bleeding. Supportive transfusions. Outpatient GI follow-up. (6) Constipation Is this a current diagnosis for this admission?: Yes Plan: Improved. Continue current bowel regimen. Encourage fiber intake.
[2018-08-18] MEDS: TRAMADOL HCL 50 MG TABLET PO PRN ×2 (15:10→20:43)
[2018-08-18] MEDS: ONDANSETRON HCL INJ/PF 4 MG/2 ML SDV IV PRN ×2 (15:10→20:43)
[2018-08-19] MEDS: TRAMADOL HCL 50 MG TABLET PO PRN ×4 (01:49→23:01)
[2018-08-19] MEDS: ONDANSETRON HCL INJ/PF 4 MG/2 ML SDV IV PRN ×4 (01:49→20:31)
[2018-08-19] MEDS: GUAIFENESIN/CODEINE PHOS 100-10 MG/ 5 ML UDC PO SCH ×3 (06:10→17:35)
[2018-08-19] MEDS: CLINDAMYCIN HCL 150 MG CAPSULE PO SCH ×3 (06:11→17:36)
[2018-08-19] MEDS: HEPARIN SOD (PORCINE) 5,000 UNIT/ML 1 ML SYRINGE SUBCUT SCH ×3 (06:17→22:00)
[2018-08-19 07:04] LABS: ABSOLUTE EOSINOPHILS # (AUTO) 0.1 10^3/uL (0.0-0.6); ABSOLUTE LYMPHOCYTES (AUTO) 1.3 10^3/uL (0.5-4.7); ABSOLUTE MONOCYTES (AUTO) 0.6 10^3/uL (0.1-1.4); ABSOLUTE NEUT (AUTO) 1.4 10^3/uL (1.7-8.2); BASOPHILS % (AUTO) 1.2 % (0-2); EOSINOPHILS % (AUTO) 4.3 % (0-6); HEMATOCRIT 32.7 % (36.0-47.0); HEMOGLOBIN 10.5 g/dL (12.0-15.5); LYMPHOCYTES % (AUTO) 36.4 % (13-45); MEAN CORPUSCULAR HGB CONC 32.2 g/dL (32.0-36.0); MEAN CORPUSCULAR VOLUME 78 fl (80-97); MONOCYTES % (AUTO) 17.5 % (3-13); PLATELET COUNT 105 10^3/uL (150-450); RED BLOOD COUNT 4.22 10^6/uL (3.72-5.28); RED CELL DISTRIBUTION WIDTH 18.4 % (11.5-14.0); SEGMENTED NEUTROPHILS % (AUTO) 40.6 % (42-78); TOTAL CELLS COUNTED % (AUTO) 100 %; WHITE BLOOD COUNT 3.5 10^3/uL (4.0-10.5)
[2018-08-19] MEDS ORDERED: GABAPENTIN 400 MG CAPSULE ONE (07:12)
[2018-08-19] MEDS ORDERED: GABAPENTIN 100 MG CAPSULE ONE (07:12)
[2018-08-19] MEDS ORDERED: GABAPENTIN 300 MG CAPSULE PO ONE (08:00)
[2018-08-19] MEDS: INSULIN LISPRO 100 UNIT/ML 3 ML VIAL SUBCUT SCH ×3 (08:47→17:35)
[2018-08-19] MEDS: HUM INSULIN NPH/REG INSULIN HM 100 UNIT/1 ML 3 ML SUBCUT SCH ×2 (08:47→17:34)
[2018-08-19] MEDS: FLUTICASONE NASAL SPRAY 50 MCG/SPRY 120 SPRAY/16 GM NASL SCH ×2 (09:41→22:51)
[2018-08-19] MEDS: MORPHINE SULFATE 10 MG/ML INJ IV PRN ×2 (09:41→20:25)
[2018-08-19] MEDS: NICOTINE 7 MG/24 HR PATCH.TD24 TD SCH (09:41)
[2018-08-19] MEDS: FERROUS SULFATE 325 MG TABLET PO SCH (09:42)
[2018-08-19] MEDS: DOCUSATE SODIUM 100 MG CAPSULE PO SCH ×2 (09:42→17:35)
[2018-08-19] MEDS: NORMAL SALINE 1000 ML 1,000 ML IV PRN ×2 (09:46→20:43)
--- NOTE | 2018-08-19 11:53 | PDOC PROGRESS REPORT ---
Subjective Progress Note for:: 08/19/18 Subjective:: PT complaining of nausea with nonbloody nonbilious vomiting vomiting since yesterday, still having persistent left lower extremity pain. Denies fever, chills, abdominal pain, diarrhea, constipation or any urinary symptoms. Reason For Visit: DIABETIC FOOT Physical Exam Vital Signs: Temp Pulse Resp BP Pulse Ox 97.9 F 82 16 134/70 H 100 08/19/18 08:18 08/19/18 08:18 08/19/18 08:18 08/19/18 08:18 08/19/18 08:18 Intake & Output 08/18/18 08/19/18 08/20/18 06:59 06:59 06:59 Intake Total 1450 600 Balance 1450 600 Weight 66.4 kg 65.7 kg General appearance: PRESENT: no acute distress, well-developed, well-nourished Head exam: PRESENT: atraumatic, normocephalic Respiratory exam: PRESENT: clear to auscultation jocy. ABSENT: rales, rhonchi, wheezes Cardiovascular exam: PRESENT: RRR. ABSENT: diastolic murmur, rubs, systolic murmur GI/Abdominal exam: PRESENT: normal bowel sounds, soft. ABSENT: distended, guarding, mass, organolmegaly, rebound, tenderness Extremities exam: PRESENT: other - Left first metatarsal tender to palpation. No sign of acute infection, edema or swelling. Neurological exam: PRESENT: alert, awake, oriented to person, oriented to place, oriented to time, oriented to situation, CN II-XII grossly intact. ABSENT: motor sensory deficit Results Laboratory Results: 08/19/18 06:23 08/17/18 06:22 08/18/18 08/19/18 13:32 06:23 WBC 3.5 L RBC 4.22 Hgb 10.5 L Hct 32.7 L MCV 78 L MCH 25.0 L MCHC 32.2 RDW 18.4 H Plt Count 105 L Seg Neutrophils % 40.6 L Lymphocytes % 36.4 Monocytes % 17.5 H Eosinophils % 4.3 Basophils % 1.2 Absolute Neutrophils 1.4 L Absolute Lymphocytes 1.3 Absolute Monocytes 0.6 Absolute Eosinophils 0.1 Absolute Basophils 0.0 C-Reactive Protein 16.8 H Impressions: Foot X-Ray 08/14/18 16:42 IMPRESSION: No radiopaque foreign body.NO FRACTURE. Lower Extremity MRI 08/15/18 00:00 IMPRESSION: No MR evidence of osteomyelitis. There is soft tissue edema about the medial left foot and ball of the great toe without evidence of focal fluid collection. Chest X-Ray 08/18/18 00:00 IMPRESSION: NO ACUTE RADIOGRAPHIC FINDING IN THE CHEST. Facial Bones CT 08/18/18 00:00 IMPRESSION: Circumferential mucous membrane thickening left maxillary sinus extending into the maxillary outlet. Leftward nasal septal deviation Assessment & Plan - Diagnosis (1) Nausea & vomiting Is this a current diagnosis for this admission?: Yes Plan: Nonbloody, nonbilious. Supportive measures, IV fluids. Monitor electrolytes and replace as needed. (2) Cellulitis of foot, left Is this a current diagnosis for this admission?: Yes Plan: Mild improvement. Still complaining of persistent pain. Sed rate within normal limits. Consult orthopedic surgery for evaluation. 08/15/2018. MRI foot negative for osteomyelitis. Positive for soft tissue edema about the medial left foot and ball of the great toe without evidence of focal fluid collection. 08/14/2018. Wound culture positive for MSSA. 08/14/2018. Blood cultures no growth Received 3 days of vancomycin, 2 days of imipenem. DC vancomycin and imipenem. No leukocytosis, afebrile. Day 3 p.o. clindamycin. (3) Diabetes Is this a current diagnosis for this admission?: Yes Plan: Not controlled. 08/15/2018 hemoglobin A1c 9.2% Fasting blood glucose 246, POC 151 -369 Patient has been switched to 70/30 as she stated she will not be able to afford Lantus. Accu-Chek, sliding scale, diabetic diet. Outpatient PCP follow-up Patient has been evaluated by payroll and benefits assistant at [facility] in the past and is stating that she was never placed on oral hypoglycemics as it had not worked for her. (4) Anemia Is this a current diagnosis for this admission?: Yes Plan: Patient is endorsing history of heavy menstrual bleeds. Last menstruation was 2 weeks ago. Denies any hematemesis, hemoptysis, melena, bright blood per rectum, or current vaginal bleeding. Iron panel positive for iron deficiency anemia. Started on ferrous sulfate daily. H&H stable. Monitor hemoglobin supportive transfusions. 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 Patient is aware of underlying cirrhosis but has not been able to see a GI specialist as outpatient. Planning to follow-up with GI specialist as outpatient. 09/29/2017 Liver ultrasound medical hepatic disease. 04/27/2016. Liver ultrasound positive for fatty infiltration. Denies any history of ingestion of alcohol, hepatotoxic meds, herbal meds. Hepatitis panel negative. Avoid hepatotoxic meds. (6) Thrombocytopenia Is this a current diagnosis for this admission?: No Plan: Chronic. Stable. Likely due to underlying cirrhosis. Monitor for any signs of bleeding. Supportive transfusions. Outpatient GI follow-up. (7) Constipation Is this a current diagnosis for this admission?: Yes Plan: Improved. Continue current bowel regimen. Encourage fiber intake.
[2018-08-19] MEDS: GABAPENTIN 300 MG CAPSULE PO SCH ×2 (14:00→22:51)
[2018-08-20] MEDS: CLINDAMYCIN HCL 150 MG CAPSULE PO SCH ×4 (00:51→17:56)
[2018-08-20] MEDS: GUAIFENESIN/CODEINE PHOS 100-10 MG/ 5 ML UDC PO SCH ×4 (00:51→17:56)
[2018-08-20] MEDS ORDERED: DIPHENHYDRAMINE HCL 50 MG/ML VIAL IV PRN (01:49)
[2018-08-20] MEDS: TRAMADOL HCL 50 MG TABLET PO PRN ×2 (06:39→12:15)
[2018-08-20] MEDS: HEPARIN SOD (PORCINE) 5,000 UNIT/ML 1 ML SYRINGE SUBCUT SCH ×2 (06:40→16:35)
[2018-08-20 07:02] LABS: ABSOLUTE EOSINOPHILS # (AUTO) 0.1 10^3/uL (0.0-0.6); ABSOLUTE MONOCYTES (AUTO) 0.5 10^3/uL (0.1-1.4); BASOPHILS % (AUTO) 1.1 % (0-2); EOSINOPHILS % (AUTO) 5.2 % (0-6); HEMATOCRIT 32.3 % (36.0-47.0); HEMOGLOBIN 10.3 g/dL (12.0-15.5); LYMPHOCYTES % (AUTO) 38.9 % (13-45); MEAN CORPUSCULAR HEMOGLOBIN 24.5 pg (27.0-33.4); MEAN CORPUSCULAR HGB CONC 31.7 g/dL (32.0-36.0); MEAN CORPUSCULAR VOLUME 77 fl (80-97); MONOCYTES % (AUTO) 16.9 % (3-13); PLATELET COUNT 104 10^3/uL (150-450); RED BLOOD COUNT 4.18 10^6/uL (3.72-5.28); RED CELL DISTRIBUTION WIDTH 17.9 % (11.5-14.0); SEGMENTED NEUTROPHILS % (AUTO) 37.9 % (42-78); TOTAL CELLS COUNTED % (AUTO) 100 %; WHITE BLOOD COUNT 2.7 10^3/uL (4.0-10.5)
[2018-08-20 07:29] LABS: ALBUMIN 3.5 g/dL (3.5-5.0); ASPARTATE AMINO TRANSFERASE 199 U/L (14-36); BLOOD UREA NITROGEN 7 mg/dL (7-20); CALCIUM 8.8 mg/dL (8.4-10.2); GLUCOSE 160 mg/dL (75-110); TOTAL PROTEIN 6.7 g/dL (6.3-8.2)
[2018-08-20 07:30] LABS: ALANINE AMINOTRANSFERASE 130 U/L (9-52); ALKALINE PHOSPHATASE 109 U/L (38-126); BILIRUBIN,DIRECT 0.2 mg/dL (0.0-0.4); BILIRUBIN,TOTAL 0.3 mg/dL (0.2-1.3)
[2018-08-20] MEDS ORDERED: INSULIN LISPRO 100 UNIT/ML 3 ML VIAL ONE (07:33)
[2018-08-20] MEDS: GABAPENTIN 300 MG CAPSULE PO SCH ×3 (08:12→22:11)
[2018-08-20] MEDS: ONDANSETRON HCL INJ/PF 4 MG/2 ML SDV IV PRN (08:12)
[2018-08-20] MEDS: HUM INSULIN NPH/REG INSULIN HM 100 UNIT/1 ML 3 ML SUBCUT SCH ×2 (08:12→17:55)
[2018-08-20] MEDS: INSULIN LISPRO 100 UNIT/ML 3 ML VIAL SUBCUT SCH ×3 (08:20→17:55)
[2018-08-20 08:21] LABS: ANION GAP 9 (5-19); CARBON DIOXIDE 28 mmol/L (22-30); CHLORIDE 106 mmol/L (98-107); POTASSIUM 4.7 mmol/L (3.6-5.0); SODIUM 142.5 mmol/L (137-145)
[2018-08-20] MEDS: BISACODYL 5 MG TABEC PO PRN (08:29)
[2018-08-20] MEDS: NICOTINE 7 MG/24 HR PATCH.TD24 TD SCH (10:23)
[2018-08-20] MEDS: FLUTICASONE NASAL SPRAY 50 MCG/SPRY 120 SPRAY/16 GM NASL SCH ×2 (10:24→22:11)
[2018-08-20] MEDS: DOCUSATE SODIUM 100 MG CAPSULE PO SCH ×2 (10:24→17:57)
[2018-08-20] MEDS: FERROUS SULFATE 325 MG TABLET PO SCH (10:24)
[2018-08-20] MEDS: NORMAL SALINE 1000 ML 1,000 ML IV PRN (10:25)
[2018-08-20] MEDS ORDERED: MORPHINE SULFATE 10 MG/ML INJ IV PRN (14:21)
--- NOTE | 2018-08-20 14:28 | PDOC PROGRESS REPORT ---
Subjective Progress Note for:: 08/20/18 Subjective:: She is still complaining of persistent nausea with nonbloody nonbilious vomiting and constipation. Could not no sleep overnight because of nausea and vomiting. Still having persistent left lower extremity pain muscle cramps. Denies fever, chills, abdominal pain, diarrhea, any urinary symptoms. Reason For Visit: DIABETIC FOOT Physical Exam Vital Signs: Temp Pulse Resp BP Pulse Ox 98.2 F 96 16 123/81 98 08/20/18 11:18 08/20/18 11:18 08/20/18 11:18 08/20/18 11:18 08/20/18 11:18 Intake & Output 08/19/18 08/20/18 08/21/18 06:59 06:59 06:59 Intake Total 818 530 0585 Balance 664 653 7820 Weight 65.7 kg General appearance: PRESENT: no acute distress, well-developed, well-nourished Head exam: PRESENT: atraumatic, normocephalic Respiratory exam: PRESENT: clear to auscultation jocy. ABSENT: rales, rhonchi, wheezes GI/Abdominal exam: PRESENT: normal bowel sounds, soft. ABSENT: distended, guarding, mass, organolmegaly, rebound, tenderness Extremities exam: PRESENT: full ROM, other - Tenderness palpation over left first metatarsal. Neurovascularly intact. ABSENT: calf tenderness, clubbing, pedal edema Results Laboratory Results: 08/20/18 06:40 08/20/18 06:40 08/20/18 08/20/18 06:40 06:40 WBC 2.7 L RBC 4.18 Hgb 10.3 L Hct 32.3 L MCV 77 L MCH 24.5 L MCHC 31.7 L RDW 17.9 H Plt Count 104 L Seg Neutrophils % 37.9 L Lymphocytes % 38.9 Monocytes % 16.9 H Eosinophils % 5.2 Basophils % 1.1 Absolute Neutrophils 1.0 L Absolute Lymphocytes 1.0 Absolute Monocytes 0.5 Absolute Eosinophils 0.1 Absolute Basophils 0.0 Sodium 142.5 Potassium 4.7 Chloride 106 Carbon Dioxide 28 Anion Gap 9 BUN 7 Creatinine 0.46 L Est GFR ( Amer) > 60 Est GFR (Non-Af Amer) > 60 Glucose 160 H Calcium 8.8 Total Bilirubin 0.3 AST 199 H ALT 130 H Alkaline Phosphatase 109 Total Protein 6.7 Albumin 3.5 08/14/18 18:10 Blood Blood Culture - Final NO GROWTH IN 5 DAYS 08/14/18 17:13 Blood Blood Culture - Final NO GROWTH IN 5 DAYS Impressions: Foot X-Ray 08/14/18 16:42 IMPRESSION: No radiopaque foreign body.NO FRACTURE. Lower Extremity MRI 08/15/18 00:00 IMPRESSION: No MR evidence of osteomyelitis. There is soft tissue edema about the medial left foot and ball of the great toe without evidence of focal fluid collection. Chest X-Ray 08/18/18 00:00 IMPRESSION: NO ACUTE RADIOGRAPHIC FINDING IN THE CHEST. Facial Bones CT 08/18/18 00:00 IMPRESSION: Circumferential mucous membrane thickening left maxillary sinus ext ending into the maxillary outlet. Leftward nasal septal deviation Assessment & Plan - Diagnosis (1) Cellulitis of foot, left Is this a current diagnosis for this admission?: Yes Plan: No significant changes. Patient still complaining of persistent pain associated with bilateral muscle cramps. Sed rate within normal limits. Pending orthopedic consult. 08/15/2018. MRI foot negative for osteomyelitis. Positive for soft tissue edema about the medial left foot and ball of the great toe without evidence of focal fluid collection. 08/14/2018. Wound culture positive for MSSA. 08/14/2018. Blood cultures no growth Received 3 days of vancomycin, 2 days of imipenem. DC vancomycin and imipenem. No leukocytosis, afebrile. Day 3 p.o. clindamycin. (2) Nausea & vomiting Is this a current diagnosis for this admission?: Yes Plan: Nonbloody, nonbilious. Supportive measures, IV fluids. Monitor electrolytes and replace as needed. (3) Diabetes Is this a current diagnosis for this admission?: Yes Plan: Controlled. 08/15/2018 hemoglobin A1c 9.2% Patient has been switched to 70/30 as she stated she will not be able to afford Lantus. Accu-Chek, sliding scale, diabetic diet. Outpatient PCP follow-up Patient has been evaluated by refinery superintendent at [place] in the past and is stating that she was never placed on oral hypoglycemics as it had not worked for her. (4) Anemia Is this a current diagnosis for this admission?: Yes Plan: Patient is endorsing history of heavy menstrual bleeds. Last menstruation was 2 weeks ago. Denies any hematemesis, hemoptysis, melena, bright blood per rectum, or current vaginal bleeding. Iron panel positive for iron deficiency anemia. Started on ferrous sulfate daily. H&H stable. Monitor hemoglobin supportive transfusions. 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 Patient is aware of underlying cirrhosis but has not been able to see a GI specialist as outpatient. Planning to follow-up with GI specialist as outpatient. 09/29/2017 Liver ultrasound medical hepatic disease. 04/27/2016. Liver ultrasound positive for fatty infiltration. Denies any history of ingestion of alcohol, hepatotoxic meds, herbal meds. Hepatitis panel negative. Avoid hepatotoxic meds. (6) Thrombocytopenia Is this a current diagnosis for this admission?: No Plan: Chronic. Improving. Likely due to underlying cirrhosis. Monitor for any signs of bleeding. Supportive transfusions. Outpatient GI follow-up. (7) Constipation Is this a current diagnosis for this admission?: Yes Plan: Continue current bowel regimen. Encourage fiber intake.
[2018-08-20] MEDS: MAGNESIUM HYDROXIDE SUSP 30 ML UDCUP PO SCH (16:39)
[2018-08-20] MEDS: TIZANIDINE HCL 4 MG TABLET PO SCH (17:56)
[2018-08-21] MEDS: CLINDAMYCIN HCL 150 MG CAPSULE PO SCH ×4 (00:16→18:24)
[2018-08-21] MEDS: GUAIFENESIN/CODEINE PHOS 100-10 MG/ 5 ML UDC PO SCH ×4 (00:16→18:23)
[2018-08-21] MEDS: NORMAL SALINE 1000 ML 1,000 ML IV PRN ×2 (00:22→13:54)
[2018-08-21] MEDS: HEPARIN SOD (PORCINE) 5,000 UNIT/ML 1 ML SYRINGE SUBCUT SCH ×3 (03:00→13:55)
[2018-08-21] MEDS: TRAMADOL HCL 50 MG TABLET PO PRN ×2 (06:11→12:15)
[2018-08-21] MEDS: GABAPENTIN 300 MG CAPSULE PO SCH ×2 (06:11→13:55)
[2018-08-21] MEDS: LANSOPRAZOLE 30 MG TAB.RAP.DR PO SCH ×2 (06:11→09:29)
[2018-08-21 07:22] LABS: ABSOLUTE EOSINOPHILS # (AUTO) 0.2 10^3/uL (0.0-0.6); ABSOLUTE LYMPHOCYTES (AUTO) 1.2 10^3/uL (0.5-4.7); ABSOLUTE MONOCYTES (AUTO) 0.6 10^3/uL (0.1-1.4); ABSOLUTE NEUT (AUTO) 2.4 10^3/uL (1.7-8.2); BASOPHILS % (AUTO) 0.7 % (0-2); EOSINOPHILS % (AUTO) 4.8 % (0-6); HEMATOCRIT 31.8 % (36.0-47.0); HEMOGLOBIN 10.1 g/dL (12.0-15.5); LYMPHOCYTES % (AUTO) 27.3 % (13-45); MEAN CORPUSCULAR HEMOGLOBIN 24.9 pg (27.0-33.4); MEAN CORPUSCULAR HGB CONC 31.7 g/dL (32.0-36.0); MEAN CORPUSCULAR VOLUME 78 fl (80-97); MONOCYTES % (AUTO) 13.4 % (3-13); RED BLOOD COUNT 4.05 10^6/uL (3.72-5.28); RED CELL DISTRIBUTION WIDTH 18.4 % (11.5-14.0); SEGMENTED NEUTROPHILS % (AUTO) 53.8 % (42-78); TOTAL CELLS COUNTED % (AUTO) 100 %; WHITE BLOOD COUNT 4.5 10^3/uL (4.0-10.5)
[2018-08-21 07:43] LABS: ALANINE AMINOTRANSFERASE 112 U/L (9-52); ALBUMIN 3.3 g/dL (3.5-5.0); ALKALINE PHOSPHATASE 100 U/L (38-126); ANION GAP 8 (5-19); ASPARTATE AMINO TRANSFERASE 128 U/L (14-36); BILIRUBIN,DIRECT 0.3 mg/dL (0.0-0.4); BILIRUBIN,TOTAL 0.3 mg/dL (0.2-1.3); BLOOD UREA NITROGEN 10 mg/dL (7-20); CALCIUM 8.4 mg/dL (8.4-10.2); CARBON DIOXIDE 28 mmol/L (22-30); CHLORIDE 103 mmol/L (98-107); GLUCOSE 159 mg/dL (75-110); POTASSIUM 4.6 mmol/L (3.6-5.0); SODIUM 138.9 mmol/L (137-145); TOTAL PROTEIN 6.6 g/dL (6.3-8.2)
[2018-08-21 08:27] LABS: PLATELET COUNT 90 10^3/uL (150-450)
[2018-08-21] MEDS ORDERED: OXYCODONE-ACETAMINOPHEN 5-325 MG TABLET PO PRN (09:11)
[2018-08-21] MEDS: INSULIN LISPRO 100 UNIT/ML 3 ML VIAL SUBCUT SCH ×2 (09:30→12:11)
[2018-08-21] MEDS: HUM INSULIN NPH/REG INSULIN HM 100 UNIT/1 ML 3 ML SUBCUT SCH (09:37)
[2018-08-21] MEDS: ONDANSETRON HCL INJ/PF 4 MG/2 ML SDV IV PRN (09:37)
[2018-08-21] MEDS: FERROUS SULFATE 325 MG TABLET PO SCH (09:38)
[2018-08-21] MEDS: DOCUSATE SODIUM 100 MG CAPSULE PO SCH ×2 (09:38→18:23)
[2018-08-21] MEDS: MAGNESIUM HYDROXIDE SUSP 30 ML UDCUP PO SCH (09:38)
[2018-08-21] MEDS: TIZANIDINE HCL 4 MG TABLET PO SCH ×2 (09:38→18:23)
[2018-08-21] MEDS: FLUTICASONE NASAL SPRAY 50 MCG/SPRY 120 SPRAY/16 GM NASL SCH (09:38)
[2018-08-21] MEDS: NICOTINE 7 MG/24 HR PATCH.TD24 TD SCH (09:54)
--- NOTE | 2018-08-21 14:28 | PDOC CONSULTATION ---
Consultation Consult Date: 08/21/18 Consult reason:: pains left foot History of Present Illness Admission Date/PCP: 08/14/18 21:15 MURIEL WONG MD History of Present Illness: KIARA VICTOR is a 47 year old female with DM stepped on a thumb tack with her left foot base of Big toe several days ago. C/O pains from puncture site to medial foot extending to her calf. Has been in the hospital on antibiotics since admission. C/S Staph Aureus sensitive to Clinda . On po clinda at this time. 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 GI Medical History: Reports: Cirrhosis Psychiatric Medical History: Reports: Depression, Tobacco Dependency Hematology: Reports: Anemia Infectious Medical History: Reports: Methicillin-Resistant Staph Aureus Past Surgical History Past Surgical History: Reports: Tonsillectomy, Tubal Ligation Social History Lives with: Family Smoking Status: Current Every Day Smoker Cigarettes Packs Per Day: 0.2 Frequency of Alcohol Use: None Hx Recreational Drug Use: No Drugs: None Hx Prescription Drug Abuse: No - Advance Directive Resuscitation Status: Full Code Family History Family History: DM, Malignancy, Other - cirrhosis Parental Family History Reviewed: Yes Children Family History Reviewed: No Sibling(s) Family History Reviewed.: No Medication/Allergy Home Medications: Gabapentin [Neurontin 300 mg Capsule] 900 mg PO Q8 08/15/18 Insulin Aspart [Novolog Insulin 100 Unit/1 ml 10 ml] 0 unit SUBCUT .SLD SCALE 08/15/18 Insulin Glargine,Hum.rec.anlog [Lantus Insulin 100 Unit/1 ml 10 ml] 35 unit SUBCUT QAM 08/15/18 Insulin Glargine,Hum.rec.anlog [Lantus Insulin 100 Unit/1 ml 10 ml] 65 unit SUBCUT QHS 08/15/18 Allergies/Adverse Reactions: celecoxib [From Celebrex] Allergy (Verified 07/16/18 08:30) erythromycin base [Erythromycin Base] Allergy (Verified 07/16/18 08:30) Hives oxycodone HCl [From Percocet] Allergy (Verified 07/16/18 08:30) Review of Systems Constitutional: PRESENT: other - no fever/chills Eyes: PRESENT: other - no visual/hearing changes Cardiovascular: PRESENT: other - no chest pains or cough Gastrointestinal: PRESENT: other - no pains Genitourinary: PRESENT: other - no dysuria Musculoskeletal: PRESENT: other - pains left foot extending to lower calf Physical Exam Vital Signs: Temp Pulse Resp BP Pulse Ox 98.2 F 81 16 119/76 97 08/21/18 09:21 08/21/18 09:21 08/21/18 09:21 08/21/18 09:21 08/21/18 09:21 Intake & Output 08/20/18 08/21/18 08/22/18 06:59 06:59 06:59 Intake Total 876 2900 1000 Balance 876 2900 1000 General appearance: PRESENT: mild distress Head exam: PRESENT: atraumatic Eye exam: PRESENT: conjunctiva pink Mouth exam: PRESENT: moist Neck exam: PRESENT: full ROM Respiratory exam: PRESENT: clear to auscultation jocy Cardiovascular exam: PRESENT: RRR Pulses: PRESENT: normal radial pulses, other - unable to palpate left ankle pulses Vascular exam: PRESENT: normal capillary refill GI/Abdominal exam: PRESENT: soft Rectal exam: PRESENT: deferred Extremities exam: PRESENT: full ROM, other - Has puncture site on the plantar area base of Big Toe that is dry without inflammation but is tender. Tenderness extends to medial side of foot towards the distal calf. Musculoskeletal exam: PRESENT: ambulatory - C/o pains on the left distal calf when ambulating around hallway Neurological exam: PRESENT: alert, oriented to person, oriented to place, oriented to time, oriented to situation Results Laboratory Results: 08/21/18 06:43 08/21/18 06:43 08/21/18 08/21/18 06:43 06:43 WBC 4.5 RBC 4.05 Hgb 10.1 L Hct 31.8 L MCV 78 L MCH 24.9 L MCHC 31.7 L RDW 18.4 H Plt Count 90 L Seg Neutrophils % 53.8 Lymphocytes % 27.3 Monocytes % 13.4 H Eosinophils % 4.8 Basophils % 0.7 Absolute Neutrophils 2.4 Absolute Lymphocytes 1.2 Absolute Monocytes 0.6 Absolute Eosinophils 0.2 Absolute Basophils 0.0 Sodium 138.9 Potassium 4.6 Chloride 103 Carbon Dioxide 28 Anion Gap 8 BUN 10 Creatinine 0.57 Est GFR ( Amer) > 60 Est GFR (Non-Af Amer) > 60 Glucose 159 H Calcium 8.4 Magnesium 1.6 Total Bilirubin 0.3 AST 128 H ALT 112 H Alkaline Phosphatase 100 Total Protein 6.6 Albumin 3.3 L 08/18/18 16:39 Sputum Gram Stain - Final 08/18/18 16:39 Sputum Sputum Culture - Final NORMAL SISSY Impressions: Foot X-Ray 08/14/18 16:42 IMPRESSION: No radiopaque foreign body.NO FRACTURE. Lower Extremity MRI 08/15/18 00:00 IMPRESSION: No MR evidence of osteomyelitis. There is soft tissue edema about the medial left foot and ball of the great toe without evidence of focal fluid collection. Chest X-Ray 08/18/18 00:00 IMPRESSION: NO ACUTE RADIOGRAPHIC FINDING IN THE CHEST. Facial Bones CT 08/18/18 00:00 IMPRESSION: Circumferential mucous membrane thickening left maxillary sinus extending into the maxillary outlet. Leftward nasal septal deviation Assessment & Plan - Diagnosis (1) Cellulitis of foot, left Is this a current diagnosis for this admission?: Yes (2) Diabetes mellitus with hyperglycemia Qualifiers: Diabetes mellitus type: type 2 Diabetes mellitus petroleum terminal plant operator insulin use: with petroleum terminal plant operator use Qualified Code(s): E11.65 - Type 2 diabetes mellitus with hyperglycemia; Z79.4 - moth exterminator (current) use of insulin; Z79.4 - [facility] (current) use of insulin; Z79.4 - [facility] (current) use of insulin; Z79.4 - moth exterminator (current) use of insulin Is this a current diagnosis for this admission?: Yes - Time Time Spent: 30 to 50 Minutes - Plan Summary Plan Summary: Rec !) arterial doppler lower extremities to asses blood flow to left foot 2) Continue po antibiotics another week 3) May need further Vascular surgery evaluation if Arterial blood flow to left foot decreased.
[2018-08-21] MEDS: ACETAMINOPHEN 325 MG TABLET PO PRN (16:56)
[2018-08-21 18:39] VITALS: BP 104/68
--- NOTE | 2018-08-21 20:18 | PDOC PROGRESS REPORT ---
Subjective Progress Note for:: 08/21/18 Subjective:: left foot cellulitis Reason For Visit: DIABETIC FOOT Physical Exam Vital Signs: Temp Pulse Resp BP Pulse Ox 98.2 F 58 L 17 104/68 96 08/21/18 18:34 08/21/18 18:34 08/21/18 18:34 08/21/18 18:34 08/21/18 18:34 Intake & Output 08/20/18 08/21/18 08/22/18 06:59 06:59 06:59 Intake Total 876 2900 1950 Balance 876 2900 1950 Results Laboratory Results: 08/21/18 06:43 08/21/18 06:43 08/21/18 08/21/18 06:43 06:43 WBC 4.5 RBC 4.05 Hgb 10.1 L Hct 31.8 L MCV 78 L MCH 24.9 L MCHC 31.7 L RDW 18.4 H Plt Count 90 L Seg Neutrophils % 53.8 Lymphocytes % 27.3 Monocytes % 13.4 H Eosinophils % 4.8 Basophils % 0.7 Absolute Neutrophils 2.4 Absolute Lymphocytes 1.2 Absolute Monocytes 0.6 Absolute Eosinophils 0.2 Absolute Basophils 0.0 Sodium 138.9 Potassium 4.6 Chloride 103 Carbon Dioxide 28 Anion Gap 8 BUN 10 Creatinine 0.57 Est GFR ( Amer) > 60 Est GFR (Non-Af Amer) > 60 Glucose 159 H Calcium 8.4 Magnesium 1.6 Total Bilirubin 0.3 AST 128 H ALT 112 H Alkaline Phosphatase 100 Total Protein 6.6 Albumin 3.3 L 08/18/18 16:39 Sputum Gram Stain - Final 08/18/18 16:39 Sputum Sputum Culture - Final NORMAL SISSY Impressions: Foot X-Ray 08/14/18 16:42 IMPRESSION: No radiopaque foreign body.NO FRACTURE. Lower Extremity MRI 08/15/18 00:00 IMPRESSION: No MR evidence of osteomyelitis. There is soft tissue edema about the medial left foot and ball of the great toe without evidence of focal fluid collection. Chest X-Ray 08/18/18 00:00 IMPRESSION: NO ACUTE RADIOGRAPHIC FINDING IN THE CHEST. Facial Bones CT 08/18/18 00:00 IMPRESSION: Circumferential mucous membrane thickening left maxillary sinus extending into the maxillary outlet. Leftward nasal septal deviation Assessment & Plan - Diagnosis (1) Cellulitis of foot, left Is this a current diagnosis for this admission?: Yes (2) Diabetes mellitus with hyperglycemia Qualifiers: Diabetes mellitus type: type 2 Diabetes mellitus long-term insulin use: wit h computer terminal operator use Qualified Code(s): E11.65 - Type 2 diabetes mellitus with hyperglycemia; Z79.4 - jail (current) use of insulin; Z79.4 - jail (current) use of insulin; Z79.4 - intermodal dispatcher (current) use of insulin; Z79.4 - intermodal dispatcher (current) use of insulin Is this a current diagnosis for this admission?: Yes - Plan Summary Plan Summary: Arterial doppler done. Await official reading. Unofficially has moderate left leg arterial insufficiency. BERE about 0.05. Would recommend Vascular Surgery consultation as soon as discharge. There is a Vascular Surgeon in [place] Dr [place].
--- NOTE | 2018-08-21 20:23 | PDOC PROGRESS REPORT ---
Subjective Progress Note for:: 08/21/18 Reason For Visit: DIABETIC FOOT Physical Exam Vital Signs: Temp Pulse Resp BP Pulse Ox 98.2 F 58 L 17 104/68 96 08/21/18 18:34 08/21/18 18:34 08/21/18 18:34 08/21/18 18:34 08/21/18 18:34 Intake & Output 08/20/18 08/21/18 08/22/18 06:59 06:59 06:59 Intake Total 876 2900 1950 Balance 876 2900 1950 Results Laboratory Results: 08/21/18 06:43 08/21/18 06:43 08/21/18 08/21/18 06:43 06:43 WBC 4.5 RBC 4.05 Hgb 10.1 L Hct 31.8 L MCV 78 L MCH 24.9 L MCHC 31.7 L RDW 18.4 H Plt Count 90 L Seg Neutrophils % 53.8 Lymphocytes % 27.3 Monocytes % 13.4 H Eosinophils % 4.8 Basophils % 0.7 Absolute Neutrophils 2.4 Absolute Lymphocytes 1.2 Absolute Monocytes 0.6 Absolute Eosinophils 0.2 Absolute Basophils 0.0 Sodium 138.9 Potassium 4.6 Chloride 103 Carbon Dioxide 28 Anion Gap 8 BUN 10 Creatinine 0.57 Est GFR ( Amer) > 60 Est GFR (Non-Af Amer) > 60 Glucose 159 H Calcium 8.4 Magnesium 1.6 Total Bilirubin 0.3 AST 128 H ALT 112 H Alkaline Phosphatase 100 Total Protein 6.6 Albumin 3.3 L 08/18/18 16:39 Sputum Gram Stain - Final 08/18/18 16:39 Sputum Sputum Culture - Final NORMAL SISSY Impressions: Foot X-Ray 08/14/18 16:42 IMPRESSION: No radiopaque foreign body.NO FRACTURE. Lower Extremity MRI 08/15/18 00:00 IMPRESSION: No MR evidence of osteomyelitis. There is soft tissue edema about the medial left foot and ball of the great toe without evidence of focal fluid collection. Chest X-Ray 08/18/18 00:00 IMPRESSION: NO ACUTE RADIOGRAPHIC FINDING IN THE CHEST. Facial Bones CT 08/18/18 00:00 IMPRESSION: Circumferential mucous membrane thickening left maxillary sinus extending into the maxillary outlet. Leftward nasal septal deviation Assessment & Plan - Diagnosis (1) Cellulitis of foot, left Is this a current diagnosis for this admission?: Yes (2) Diabetes mellitus with hyperglycemia Qualifiers: Diabetes mellitus type: type 2 Diabetes mellitus rat exterminator insulin use: with detention use Qualified Code(s): E11.65 - Type 2 diabetes mellitus with hyperglycemia; Z79.4 - terminal computer operator (current) use of insulin; Z79.4 - [facility] (current) use of insulin; Z79.4 - terminal computer operator (current) use of insulin; Z79.4 - terminal computer operator (current) use of insulin Is this a current diagnosis for this admission?: Yes - Plan Summary Plan Summary: Correction: Vascular Surgeon is [place] Muller
--- NOTE | 2018-08-22 05:50 | RADIOLOGY REPORT (SQ) ---
EXAM DESCRIPTION: US LOWER EXTREMITY ARTERIES BILATERAL COMPLETED DATE/TME: 08/21/2018 00:00 CLINICAL HISTORY: 47 years, Female, diabetic foot wound COMPARISON: None. TECHNIQUE: Bilateral lower extremity arterial duodenum plaques imaging obtained with grayscale, color Doppler, and spectral Doppler imaging. Patient refused BERE. FINDINGS: Normal appearing triphasic waveforms in the bilateral common femoral arteries with normal acceleration. Triphasic waveforms throughout the superficial femoral and popliteal arteries without significant velocity elevation or waveform change. Triphasic waveforms in the visualized posterior tibial, anterior tibial, and dorsalis pedis arteries. Color Doppler imaging demonstrates color flow throughout the lower extremities bilaterally. No grayscale soft tissue abnormalities identified. IMPRESSION: 1. No evidence of flow-limiting stenosis in the bilateral lower extremities. copyright 2010 [employer] [facility] [employer]- All Rights Reserved
--- NOTE | 2018-08-24 18:03 | PDOC DISCHARGE SUMMARY ---
General - Admit/Disc Date/PCP Admission Date/Primary Care Provider: 08/14/18 21:15 MURIEL WONG MD Discharge Date: 08/21/18 - Discharge Diagnosis (1) Cellulitis of foot, left Is this a current diagnosis for this admission?: Yes (2) Nausea & vomiting Is this a current diagnosis for this admission?: Yes (3) Diabetes Is this a current diagnosis for this admission?: Yes (4) Anemia Is this a current diagnosis for this admission?: Yes (5) Cirrhosis Is this a current diagnosis for this admission?: Yes (6) Thrombocytopenia Is this a current diagnosis for this admission?: No (7) Constipation Is this a current diagnosis for this admission?: Yes - Additional Information Resuscitation Status: Full Code Discharge Diet: As Tolerated Discharge Activity: Activity As Tolerated Prescriptions: Clindamycin HCl [Cleocin 150 mg Capsule] 300 mg PO Q6 7 Days #42 capsule Ferrous Sulfate [Feosol 325 mg Tablet] 325 mg PO DAILY 30 Days #30 tablet Hum Insulin NPH/Reg Insulin Hm [Insulin 70-30 (NPH/Reg) 100 unit/mL] 50 unit SUBCUT BIDACBS 30 Days #3 unit Tramadol HCl [Ultram 50 mg Tablet] 50 mg PO Q6HP PRN 7 Days #28 tablet PRN Reason: Home Medications: Gabapentin [Neurontin 300 mg Capsule] 900 mg PO Q8 08/15/18 Clindamycin HCl [Cleocin 150 mg Capsule] 300 mg PO Q6 7 Days #42 capsule 08/21/18 Ferrous Sulfate [Feosol 325 mg Tablet] 325 mg PO DAILY 30 Days #30 tablet 08/21/18 Hum Insulin NPH/Reg Insulin Hm [Insulin 70-30 (NPH/Reg) 100 unit/mL] 50 unit SUBCUT BIDACBS 30 Days #3 unit 08/21/18 Tramadol HCl [Ultram 50 mg Tablet] 50 mg PO Q6HP PRN 7 Days #28 tablet 08/21/18 History of Present Illness History of Present Illness: KIARA VICTOR is a 47 year old female with a past medical history of poorly controlled diabetes, tobacco and hepatic cirrhosis of unknown cause. Presents 6 days after a puncture wound sustained through flip-flops to the base of her left great toe. She has had subsequent pain swelling and muscle cramping prompting evaluation emergency room where she is found to have localized erythema and swelling prompting an I&D by the emergency room provider. She denies recent antibiotics, poorly controlled hyperglycemia and referred to the hospitalist for antibiotics. Hospital Course Hospital Course: (1) Cellulitis of foot, left Patient had persistent pain of the left 1st metatarsal associated with bilateral muscle cramps. Sed rate within normal limits. Orthopedic surgery were consulted to evaluate for the cause of persistence pain despite but, they suggested to consult surgery. Surgery was consulted and they kindly evaluated the suggested an arterial Doppler of the both lower ext, which were negative for any flow limiting stenosis. Patient's pain improved significantly on the last day and she was discharged to follow up with her PCP. 08/15/2018. MRI foot negative for osteomyelitis. Positive for soft tissue edema about the medial left foot and ball of the great toe without evidence of focal fluid collection. 08/14/2018. Wound culture positive for MSSA. 08/14/2018. Blood cultures no growth Received 3 days of vancomycin, 2 days of imipenem. DC vancomycin and imipenem. No leukocytosis, afebrile. Day 3 p.o. clindamycin. (2) Nausea & vomiting Improved, nonbloody, nonbilious. Supportive measures, IV fluids. Monitor electrolytes and replace as needed. (3) Diabetes Hard to control as pt has to be switched to 70/30 for financial reasons. 08/15/2018 hemoglobin A1c 9.2% Patient has been switched to 70/30 as she stated she will not be able to afford Lantus. Accu-Chek, sliding scale, diabetic diet. Outpatient PCP follow-up Patient has been evaluated by linux architect at [place] in the past and is stating that she was never placed on oral hypoglycemics as it had not worked for her. (4) Anemia Patient is endorsing history of heavy menstrual bleeds. Last menstruation was 2 weeks ago. Denies any hematemesis, hemoptysis, melena, bright blood per rectum, or current vaginal bleeding. Iron panel positive for iron deficiency anemia. Started on ferrous sulfate daily. H&H stable. Monitor hemoglobin supportive transfusions. (5) Cirrhosis Likely cryptogenic cirrhosis. Patient is aware of underlying cirrhosis but has not been able to see a GI specialist as outpatient. Planning to follow-up with GI specialist as outpatient. 09/29/2017 Liver ultrasound medical hepatic disease. 04/27/2016. Liver ultrasound positive for fatty infiltration. Denies any history of ingestion of alcohol, hepatotoxic meds, herbal meds. Hepatitis panel negative. Avoid hepatotoxic meds. (6) Thrombocytopenia Chronic. Improving. Likely due to underlying cirrhosis. Monitor for any signs of bleeding. Supportive transfusions. Outpatient GI follow-up. (7) Constipation Improved. continued on bowel regimen. Encourage fiber intake. Physical Exam Vital Signs: Temp Pulse Resp BP Pulse Ox 98.2 F 58 L 17 104/68 96 08/21/18 18:34 08/21/18 18:34 08/21/18 18:34 08/21/18 18:34 08/21/18 18:34 General appearance: PRESENT: no acute distress, well-developed, well-nourished Head exam: PRESENT: atraumatic, normocephalic Eye exam: PRESENT: conjunctiva pink, EOMI, PERRLA. ABSENT: scleral icterus Neck exam: ABSENT: carotid bruit, JVD, lymphadenopathy, thyromegaly Respiratory exam: PRESENT: clear to auscultation jocy. ABSENT: rales, rhonchi, wheezes Cardiovascular exam: PRESENT: RRR. ABSENT: diastolic murmur, rubs, systolic murmur GI/Abdominal exam: PRESENT: normal bowel sounds, soft. ABSENT: distended, guarding, mass, organolmegaly, rebound, tenderness Extremities exam: PRESENT: full ROM. ABSENT: calf tenderness, clubbing, pedal edema Neurological exam: PRESENT: alert, awake, oriented to person, oriented to place, oriented to time, oriented to situation, CN II-XII grossly intact. ABSENT: motor sensory deficit Results Laboratory Results: 08/21/18 06:43 08/21/18 06:43 Impressions: Foot X-Ray 08/14/18 16:42 IMPRESSION: No radiopaque foreign body.NO FRACTURE. Lower Extremity MRI 08/15/18 00:00 IMPRESSION: No MR evidence of osteomyelitis. There is soft tissue edema about the medial left foot and ball of the great toe without evidence of focal fluid collection. Chest X-Ray 08/18/18 00:00 IMPRESSION: NO ACUTE RADIOGRAPHIC FINDING IN THE CHEST. Facial Bones CT 08/18/18 00:00 IMPRESSION: Circumferential mucous membrane thickening left maxillary sinus extending into the maxillary outlet. Leftward nasal septal deviation Lower Extremity Ultrasound 08/21/18 00:00 IMPRESSION: 1. No evidence of flow-limiting stenosis in the bilateral lower extremities. copyright 2010 [employer] [facility] [employer]- All Rights Reserved Qualifiers - * PATIENT BEING DISCHARGED WITH ANY OF THE FOLLOWING DIAGNOSIS: No
== END 2018-08-21 20:00 | disposition home or self-care (01) | DRG 603 ==
LOC: ER 15:52 → EH 21:15 → 2N 23:52
PROVIDERS: ADMIT Internal Medicine; ATTEND Internal Medicine
DX: L03.116 Cellulitis of left lower limb (principal); E11.65 Type 2 diabetes mellitus with hyperglycemia; K59.00 Constipation, unspecified; D69.6 Thrombocytopenia, unspecified; R11.2 Nausea with vomiting, unspecified; D64.9 Anemia, unspecified; K74.60 Unspecified cirrhosis of liver; E78.5 Hyperlipidemia, unspecified; I10 Essential (primary) hypertension; F32.9 Major depressive disorder, single episode, unspecified; Z79.4 Long term (current) use of insulin; Z79.899 Other long term (current) drug therapy; Z86.14 Personal history of Methicillin resistant Staphylococcus aureus infection; F17.210 Nicotine dependence, cigarettes, uncomplicated; Z88.1 Allergy status to other antibiotic agents; Z88.8 Allergy status to other drugs, medicaments and biological substances
CPT/HCPCS: 36415; 70486; 71045; 80048; 80053; 80074; 80202; 80307; 82607; 82728; 82746; 82962; 83036; 83540; 83550; 83735; 84550; 85025; 85027; 85045; 85652; 86140; 87040; 87070; 87077; 87186; 87205; 90471; 90686; 90715; 93925; 96365; 96367; 96375; 96376; 99284; G0008; J0692; J0696; J0743; J1170; J1200; J1644; J1815; J1885; J2060; J2270; J2405; J3370; J3490; J7030; J7060

== ENCOUNTER 2018-09-25 16:39 | Emergency (ER) | payer OTHER ==
--- NOTE | 2018-09-25 17:13 | ER Document Report ---
ED Medical Screen (RME) - General Chief Complaint: Nose Bleed Stated Complaint: NOSE INJURY Time Seen by Provider: 09/25/18 17:03 Primary Care Provider: MURIEL WONG MD [Primary Care Provider] - Follow up as needed Notes: RAPID MEDICAL EVALUATION DISCLOSURE I have seen this patient as part of a Rapid Medical Evaluation and, if applicable, placed any initially appropriate orders. The patient will be seen and fully evaluated, including a full history and physical exam, by a provider (in Main ED or Fast Track) when a room becomes available. 47-year-old female here with complaints of continued nosebleed that started earlier today. She states that she went to get her nose piercing switched out for a brand-new one and that when the piercing facility technician inserted the new one, she felt immediate pain and started bleeding. She attempted to apply pressure to the area to stop the bleeding but it continues to bleed. She has a history of anemia and was afraid her blood counts had dropped so she came here to get checked out. She does not take any blood thinners she reports. EXAM Left nostril piercing trickling bright red blood TRAVEL OUTSIDE OF THE [place] IN LAST 30 DAYS: No - Related Data Allergies/Adverse Reactions: celecoxib [From Celebrex] Allergy (Verified 09/25/18 16:40) erythromycin base [Erythromycin Base] Allergy (Verified 09/25/18 16:40) Hives oxycodone HCl [From Percocet] Allergy (Verified 09/25/18 16:40) Past Medical History - Social History Family history: Reviewed & Not Pertinent - Past Medical History Cardiac Medical History: Reports: Hx Hypercholesterolemia, Hx Hypertension Denies: Hx Coronary Artery Disease, Hx Heart Attack Endocrine Medical History: Reports: Hx Diabetes Mellitus Type 1 - insulin depen dent Renal/ Medical History: Denies: Hx Peritoneal Dialysis GI Medical History: Reports: Hx CirrhosisComment Only: 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 Skin Medical History: Reports Hx MRSA Psychiatric Medical History: Reports: Hx Depression Infectious Medical History: Reports: Hx MRSA Past Surgical History: Reports: Hx Tonsillectomy, Hx Tubal Ligation - Immunizations Hx Diphtheria, Pertussis, Tetanus Vaccination: Yes History of Influenza Vaccine for 04/2017 - 09/2017 Season: Yes Influenza Administration Date for 04/2017 - 09/2017 Season: 05/12/17 Physical Exam - Vital signs Vitals: Temp Pulse Resp BP Pulse Ox 98.2 F 103 H 20 125/95 H 98 09/25/18 16:53 09/25/18 16:53 09/25/18 16:53 09/25/18 16:53 09/25/18 16:53 Course - Vital Signs Vital signs: Temp Pulse Resp BP Pulse Ox 98.2 F 103 H 20 125/95 H 98 09/25/18 16:53 09/25/18 16:53 09/25/18 16:53 09/25/18 16:53 09/25/18 16:53 Doctor's Discharge - Discharge Referrals: MURIEL WONG MD [Primary Care Provider] - Follow up as needed
[2018-09-25 17:39] LABS: ABSOLUTE EOSINOPHILS # (AUTO) 0.1 10^3/uL (0.0-0.6); ABSOLUTE LYMPHOCYTES (AUTO) 1.4 10^3/uL (0.5-4.7); ABSOLUTE MONOCYTES (AUTO) 0.5 10^3/uL (0.1-1.4); ABSOLUTE NEUT (AUTO) 3.5 10^3/uL (1.7-8.2); BASOPHILS % (AUTO) 0.6 % (0-2); EOSINOPHILS % (AUTO) 2.3 % (0-6); HEMATOCRIT 37.6 % (36.0-47.0); HEMOGLOBIN 12.3 g/dL (12.0-15.5); LYMPHOCYTES % (AUTO) 25.7 % (13-45); MEAN CORPUSCULAR HEMOGLOBIN 25.6 pg (27.0-33.4); MEAN CORPUSCULAR HGB CONC 32.6 g/dL (32.0-36.0); MEAN CORPUSCULAR VOLUME 79 fl (80-97); PLATELET COUNT 106 10^3/uL (150-450); RED BLOOD COUNT 4.79 10^6/uL (3.72-5.28); RED CELL DISTRIBUTION WIDTH 18.5 % (11.5-14.0); SEGMENTED NEUTROPHILS % (AUTO) 62.4 % (42-78); TOTAL CELLS COUNTED % (AUTO) 100 %; WHITE BLOOD COUNT 5.6 10^3/uL (4.0-10.5)
[2018-09-25] MEDS ORDERED: TRANEXAMIC ACID INJ/PF 1,000 MG/10 ML SDV IV ONE (18:00)
[2018-09-25] MEDS ORDERED: OXYMETAZOLINE HCL 0.05% NASAL SPRAY 15 ML BOTTLE NASL ONE (18:43)
--- NOTE | 2018-09-25 18:48 | ER Document Report ---
ED ENT - General Chief Complaint: Nose Bleed Stated Complaint: NOSE PAIN Time Seen by Provider: 09/25/18 17:03 Primary Care Provider: MURIEL WONG MD [Primary Care Provider] - Follow up as needed Mode of Arrival: Ambulatory Information source: Patient Notes: Patient is a 47-year-old female with past medical history of anemia and diabetes who presents the emergency department left-sided nosebleed. Patient reports that she has had a nasal piercing for approximately 1 year, she states she went today to get a new nose ring put in and had immediate bleeding from the area. She states that has been bleeding since approximately 4 PM. She denies history of nosebleeds and denies the use of any anticoagulants. TRAVEL OUTSIDE OF THE [place] IN LAST 30 DAYS: No - Related Data Allergies/Adverse Reactions: celecoxib [From Celebrex] Allergy (Verified 09/25/18 16:40) erythromycin base [Erythromycin Base] Allergy (Verified 09/25/18 16:40) Hives oxycodone HCl [From Percocet] Allergy (Verified 09/25/18 16:40) Past Medical History - General Information source: Patient - Social History Smoking Status: Current Every Day Smoker Family History: DM, Malignancy, Other - cirrhosis Patient has suicidal ideation: No Patient has homicidal ideation: No - Past Medical History Cardiac Medical History: Reports: Hx Hypercholesterolemia, Hx Hypertension Denies: Hx Coronary Artery Disease, Hx Heart Attack Endocrine Medical History: Reports: 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 Renal/ Medical History: Denies: Hx Peritoneal Dialysis GI Medical History: Reports: Hx CirrhosisComment Only: 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 Skin Medical History: Reports Hx MRSA Psychiatric Medical History: Reports: Hx Depression Infectious Medical History: Reports: Hx MRSA Past Surgical History: Reports: Hx Tonsillectomy, Hx Tubal Ligation - Immunizations Hx Diphtheria, Pertussis, Tetanus Vaccination: Yes Review of Systems - Review of Systems Constitutional: Other - Left nare bleeding EENT: No symptoms reported Cardiovascular: No symptoms reported Respiratory: No symptoms reported Gastrointestinal: No symptoms reported Genitourinary: No symptoms reported Female Genitourinary: No symptoms reported Musculoskeletal: No symptoms reported Skin: No symptoms reported Hematologic/Lymphatic: No symptoms reported Neurological/Psychological: No symptoms reported Physical Exam - Vital signs Vitals: Temp Pulse Resp BP Pulse Ox 98.2 F 103 H 20 125/95 H 98 03/16/19 16:53 09/25/18 16:53 09/25/18 16:53 09/25/18 16:53 09/25/18 16:53 - Notes Notes: PHYSICAL EXAMINATION: GENERAL: Well-appearing, well-nourished and in no acute distress. HEAD: Atraumatic, normocephalic. EYES: Pupils equal round and reactive to light, extraocular movements intact, conjunctiva are normal. ENT: Nares patent, oropharynx clear without exudates. Moist mucous membranes. Active bleeding from left nare, appears to be a anterior nosebleed from the site of her piercing. NECK: Normal range of motion, supple without lymphadenopathy LUNGS: Breath sounds clear to auscultation bilaterally and equal. No wheezes rales or rhonchi. HEART: Regular rate and rhythm without murmurs ABDOMEN: Soft, nontender, nondistended abdomen. No guarding, no rebound. No masses appreciated. Female : deferred Musculoskeletal: Normal range of motion, no pitting or edema. No cyanosis. NEUROLOGICAL: Cranial nerves grossly intact. Normal speech, normal gait. Normal sensory, motor exams PSYCH: Normal mood, normal affect. SKIN: Warm, Dry, normal turgor, no rashes or lesions noted. Course - Re-evaluation Re-evalutation: Patient with what appears to be an anterior nosebleed to the left nare after having new jewelry placed to her nasal piercing. Patient was given intranasal TXA and then nose was packed with TXA soaked gauze. After approximately 10 minutes of direct pressure with the TXA gauze there is still a large amount of bleeding coming from the left nare. Will call for attending physician to come to the bedside. 09/25/18 18:15 Dr. Riana Fam to bedside to evaluate patient. Rhino rocket inserted by Dr. Matt Fam. 09/25/18 18:48 Consulted ENT on-call Dr. Davalos who recommends re-packing the nose with afrin soaked rhino-rocket. Then if bleeding is able to be controlled, use silver nitrate directly to the area of the piercing. When I went back in the room to reevaluate the patient the bleeding had stopped with the Rhino Rocket that was inserted by Dr. matt Fam. This was removed and I did follow the ENT recommendation of placing Afrin in the nose, I placed this on a Merisel and then patient helped to hold this in place for an additional 20 minutes. At this point bleeding had not returned. I did use silver nitrate directly to the area of the piercing and there was again no additional bleeding. Patient was discharged home in stable condition. - Vital Signs Vital signs: Temp Pulse Resp BP Pulse Ox 98.2 F 99 18 138/62 H 98 09/25/18 16:53 09/25/18 20:19 09/25/18 20:19 09/25/18 20:19 09/25/18 20:19 - Laboratory Result Diagrams: 09/25/18 17:15 Laboratory results interpreted by me: 09/25/18 17:15 MCV 79 L MCH 25.6 L RDW 18.5 H Plt Count 106 L Procedures - Nosebleed Procedure Left Location: Anterior Supplies used: Packing, Rhinorocket Discharge - Discharge Clinical Impression: Anterior epistaxis Condition: Stable Disposition: HOME, SELF-CARE Additional Instructions: Nosebleed Instructions There is a significant chance of re-bleeding following a nosebleed. Proper care makes this less likely. Do not touch the nose for 24 hours. Do not blow the nose forcefully for one week. After 24 hours, gently apply Vaseline ointment to both nostrils with the tip of a finger, three times a day, for one week. It's normal to have a bloody mucous discharge for a few days. If active bleeding recurs, blow all the blood from the nose, then sit quietly and pinch the nose as firmly as possible for 10 minutes. If this does not stop the bleeding, return for further care. If packing was left in the nose and it starts to come out of the nostril, either tuck it back in or cut it off. Don't pull it out. Return for recheck and removal of the packing when instructed. Persons with frequent nosebleeds should avoid aspirin (unless prescribed for another reason). Humidity in the bedroom, and petroleum jelly applied to the nostrils at night may help. Forms: Return to Work Referrals: MURIEL WONG MD [Primary Care Provider] - Follow up as needed
[2018-09-25 20:19] VITALS: BP 138/62
== END 2018-09-25 20:19 | disposition home or self-care (01) ==
LOC: ER 16:39
DX: R04.0 Epistaxis (principal); F17.200 Nicotine dependence, unspecified, uncomplicated; I10 Essential (primary) hypertension; E10.9 Type 1 diabetes mellitus without complications; Z88.8 Allergy status to other drugs, medicaments and biological substances; Z88.1 Allergy status to other antibiotic agents; Z88.5 Allergy status to narcotic agent
CPT/HCPCS: 99283; 96374; 36415; 85025; 30901; J3490 ×2

== ENCOUNTER 2018-12-23 11:13 | Emergency (ER) | payer OTHER ==
[2018-12-23 11:27] VITALS: BP 123/68
[2018-12-23] MEDS ORDERED: NORMAL SALINE 1000 ML 1,000 ML IV ONE (11:55)
--- NOTE | 2018-12-23 11:57 | ER Document Report ---
ED Medical Screen (RME) - General Chief Complaint: Ear Pain Stated Complaint: RIGHT EAR PAIN Time Seen by Provider: 12/23/18 11:54 Primary Care Provider: MURIEL WONG MD [Primary Care Provider] - Follow up as needed Mode of Arrival: Ambulatory Information source: Patient Notes: 48-year-old female presented to ED for an infection to the right side of the face neck. She cut her right ear on a cell phone a week ago. She is a diabetic type I she did not go to the doctor because she has an appointment this week. The face is now swollen firm painful. She does have multiple swollen enlarged lymph nodes to the right side of her neck ear and face are very tender to palpation. She was sent to the emergency room by Dr. Ricardo to be evaluated and treated. He stated she would definitely need IV antibiotics. I have greeted and performed a rapid initial assessment of this patient. A comprehensive ED assessment and evaluation of the patient, analysis of test results and completion of medical decision making process will be conducted by an additional ED providers. Dictation of this chart was performed using voice recognition software; therefore, there may be some unintended grammatical errors. TRAVEL OUTSIDE OF THE [place] 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 Renal/ Medical History: Denies: Hx Peritoneal Dialysis GI Medical History: Reports: Hx CirrhosisComment Only: 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 Skin Medical History: Reports Hx MRSA Psychiatric Medical History: Reports: Hx Depression Infectious Medical History: Reports: Hx MRSA Past Surgical History: Reports: Hx Tonsillectomy, Hx Tubal Ligation - Immunizations Hx Diphtheria, Pertussis, Tetanus Vaccination: Yes History of Influenza Vaccine for 04/2017 - 09/2017 Season: Yes Influenza Administration Date for 04/2017 - 09/2017 Season: 05/12/17 Physical Exam - Vital signs Vitals: Temp Pulse Resp BP Pulse Ox 98.1 F 87 14 123/68 98 12/23/18 11:26 12/23/18 11:26 12/23/18 11:26 12/23/18 11:12/23/18 11:26 Course - Vital Signs Vital signs: Temp Pulse Resp BP Pulse Ox 98.1 F 87 14 123/68 98 12/23/18 11:26 12/23/18 11:26 12/23/18 11:26 12/23/18 11:26 12/23/18 11:26 Doctor's Discharge - Discharge Referrals: MURIEL WONG MD [Primary Care Provider] - Follow up as needed
[2018-12-23 12:32] LABS: ABSOLUTE EOSINOPHILS # (AUTO) 0.1 10^3/uL (0.0-0.6); ABSOLUTE LYMPHOCYTES (AUTO) 1.1 10^3/uL (0.5-4.7); ABSOLUTE MONOCYTES (AUTO) 0.4 10^3/uL (0.1-1.4); ABSOLUTE NEUT (AUTO) 1.8 10^3/uL (1.7-8.2); EOSINOPHILS % (AUTO) 2.3 % (0-6); HEMATOCRIT 33.4 % (36.0-47.0); HEMOGLOBIN 10.2 g/dL (12.0-15.5); LYMPHOCYTES % (AUTO) 32.2 % (13-45); MEAN CORPUSCULAR HEMOGLOBIN 22.5 pg (27.0-33.4); MEAN CORPUSCULAR HGB CONC 30.6 g/dL (32.0-36.0); MEAN CORPUSCULAR VOLUME 74 fl (80-97); MONOCYTES % (AUTO) 11.7 % (3-13); PLATELET COUNT 129 10^3/uL (150-450); RED BLOOD COUNT 4.54 10^6/uL (3.72-5.28); RED CELL DISTRIBUTION WIDTH 18.3 % (11.5-14.0); SEGMENTED NEUTROPHILS % (AUTO) 52.8 % (42-78); TOTAL CELLS COUNTED % (AUTO) 100 %; WHITE BLOOD COUNT 3.4 10^3/uL (4.0-10.5)
[2018-12-23 12:43] LABS: APPEARANCE,URINE SLIGHTLY-CLOUDY; BILIRUBIN,URINE NEGATIVE (NEGATIVE); COLOR,URINE STRAW; GLUCOSE, URINE >=500 mg/dL (NEGATIVE); KETONES,URINE NEGATIVE (NEGATIVE); LEUKOCYTE ESTERASE,URINE TRACE (NEGATIVE); NITRITE,URINE NEGATIVE (NEGATIVE); PROTEIN,URINE NEGATIVE (NEGATIVE); URINE SPECIFIC GRAVITY 1.025; UROBILINOGEN,URINE NEGATIVE mg/dL (<2.0)
[2018-12-23 12:53] LABS: ALANINE AMINOTRANSFERASE 50 U/L (9-52); ALBUMIN 3.7 g/dL (3.5-5.0); ALKALINE PHOSPHATASE 120 U/L (38-126); ANION GAP 5 (5-19); ASPARTATE AMINO TRANSFERASE 68 U/L (14-36); BILIRUBIN,DIRECT 0.3 mg/dL (0.0-0.4); BILIRUBIN,TOTAL 0.5 mg/dL (0.2-1.3); BLOOD UREA NITROGEN 8 mg/dL (7-20); CARBON DIOXIDE 31 mmol/L (22-30); CHLORIDE 100 mmol/L (98-107); GLUCOSE 362 mg/dL (75-110); POTASSIUM 4.7 mmol/L (3.6-5.0); SODIUM 136.3 mmol/L (137-145); TOTAL PROTEIN 7.3 g/dL (6.3-8.2)
--- NOTE | 2018-12-23 13:59 | RADIOLOGY REPORT (SQ) ---
EXAM DESCRIPTION: CT SOFT TISSUE NECK WITH COMPLETED DATE/TIME: 12/23/2018 1:26 pm REASON FOR STUDY: infected right ear swelling to lymph nodes and fac COMPARISON: None. TECHNIQUE: Post IV contrasted scanning from skull base through lung apices with review of bone, soft tissue and lung windows. Reconstructed coronal and sagittal MPR images reviewed. All images stored on PACS. All CT scanners at this facility use dose modulation, iterative reconstruction, and/or weight based d osing when appropriate to reduce radiation dose to as low as reasonably achievable (ALARA). [facility]: Dose Right [facility]: CareDose [facility]: Dose Right [facility]: Teradose 4D [facility]: Beleza na Web CONTRAST TYPE AND DOSE: contrast/concentration: Isovue 350.00 mg/ml; Total Contrast Delivered: 75.0 ml; Total Saline Delivered: 55.0 ml RENAL FUNCTION: Creatinine 0.5 RADIATION DOSE: CT Rad equipment meets quality standard of care and radiation dose reduction techniq ues were employed. CTDIvol: 14.7 mGy. DLP: 456 mGy-cm. . LIMITATIONS: None. FINDINGS: There is wax in the right external auditory canal on axial image 20. No CT findings worri some for right-sided aggressive otitis externa. No middle ear or mastoid air cell fluid on the right . Left external auditory canal, left mastoid and middle ear are unremarkable. SKULL BASE: Intact. MAJOR SALIVARY GLANDS: No solid or cystic masses. No inflammatory changes. LYMPHADENOPATHY: No adenopathy. MUCOSAL MASSES OR ASYMMETRY: No mucosal masses or asymmetry. LARYNX/CORDS: No abnormal findings. VASCULAR STRUCTURES: The major vessels are patent. LUNG APICES: Clear. BONES: Intact. THYROID: Normal size. No masses. PARANASAL SINUSES: Clear. OTHER: No other significant finding. IMPRESSION: NO SIGNIFICANT FINDING IN THE SOFT TISSUES OF THE NECK. TECHNICAL DOCUMENTATION: JOB ID: [id number] Quality ID # [id number]: Final reports with documentation of one or more dose reduction techniques (e.g., Au tomated exposure control, adjustment of the mA and/or kV according to patient size, use of iterative reconstruction technique) 2010 [employer]- All Rights Reserved Reading location - IP/workstation name: [email or web address]
[2018-12-23] MEDS ORDERED: VALACYCLOVIR HCL 500 MG TABLET PO ONE (14:34)
[2018-12-23] MEDS ORDERED: CEPHALEXIN 500 MG CAPSULE PO ONE (14:34)
--- NOTE | 2018-12-23 14:35 | ER Document Report ---
HPI - HPI Patient complains to provider of: Right ear pain Time Seen by Provider: 12/23/18 11:54 Onset: Last week Onset/Duration: Worse Quality of pain: Achy Pain Level: 5 Context: Patient states that she was on her cell phone and the case broke cutting her ear last week. Patient states that she has had worsening right ear pain that radiates into the right side of her face since then. Associated Symptoms: Other - Right ear pain, facial pain. denies: Fever Exacerbated by: Denies Relieved by: Denies Similar symptoms previously: No Recently seen / treated by doctor: Yes - ROS ROS below otherwise negative: Yes Systems Reviewed and Negative: Yes All other systems reviewed and negative - CONSTITUTIONAL Constitutional: DENIES: Fever - EENT EENT: REPORTS: Ear Pain - NEURO Neurology: REPORTS: Headache - Right-sided facial pain. DENIES: Vision blurred, Dizzinesss / Vertigo - RESPIRATORY Respiratory: DENIES: Coughing - GASTROINTESTINAL Gastrointestinal: DENIES: Nausea, Patient vomiting - REPRODUCTIVE Reproductive: DENIES: : - MUSCULOSKELETAL Musculoskeletal: DENIES: Back Pain, Neck Pain - DERM Skin Color: Normal Skin Problems: Rash Past Medical History - General Information source: Patient - Social History Smoking Status: Current Every Day Smoker Smoking Education Provided: Yes Frequency of alcohol use: None Drug Abuse: None Occupation: None Family History: DM, Malignancy, Other - cirrhosis Patient has suicidal ideation: No Patient has homicidal ideation: No - Past Medical History Cardiac Medical History: Reports: Hx Hypercholesterolemia, Hx Hypertension Endocrine Medical History: Reports: 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 Renal/ Medical History: Denies: Hx Peritoneal Dialysis GI Medical History: Reports: Hx CirrhosisComment Only: 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 Skin Medical History: Reports Hx MRSA Psychiatric Medical History: Reports: Hx Depression Infectious Medical History: Reports: Hx MRSA Past Surgical History: Reports: Hx Tonsillectomy, Hx Tubal Ligation - Immunizations Hx Diphtheria, Pertussis, Tetanus Vaccination: Yes Vertical Provider Document - CONSTITUTIONAL Agree With Documented VS: Yes Exam Limitations: No Limitations General Appearance: WD/WN, No Apparent Distress - INFECTION CONTROL TRAVEL OUTSIDE OF THE [place] IN LAST 30 DAYS: No - HEENT HEENT: Atraumatic, Normocephalic. negative: Pharyngeal Exudate, Pharyngeal Tenderness, Pharyngeal Erythema, Tympanic Membrane Red, Tympanic Membrane Bulging Notes: Patient with erythematous papular lesions to right ear, some mild crusting to helix of right ear. Excessive cerumen to right external auditory canal. No mastoid tenderness or swelling. no objective facial swelling. Patient with few scattered discrete tender cervical nodes - NECK Neck: Normal Inspection, Supple - RESPIRATORY Respiratory: Breath Sounds Normal, No Respiratory Distress - CARDIOVASCULAR Cardiovascular: Regular Rate, Regular Rhythm - BACK Back: Normal Inspection - MUSCULOSKELETAL/EXTREMETIES Musculoskeletal/Extremeties: TAMEKA FROM - NEURO Level of Consciousness: Awake, Alert, Appropriate Motor/Sensory: No Motor Deficit - DERM Integumentary: Warm, Dry, Rash - Patient with erythematous papular rash to right ear, nose and right cheek. Course - Re-evaluation Re-evalutation: 12/23/18 14:32 Patient with no acute findings noted on CT scan. No concern for mastoiditis. No obvious dental abscess, patient without any dental tenderness. Patient does have painful rash to right ear as well as erythematous papular rash to nose and right cheek. Suspect that patient likely has shingles at this time and will start patient on antivirals. We will also add cephalexin to cover for possible impetigo with crusting to right earlobe. - Vital Signs Vital signs: Temp Pulse Resp BP Pulse Ox 98.1 F 87 14 123/68 98 12/23/18 11:26 12/23/18 11:26 12/23/18 11:26 12/23/18 11:26 12/23/18 11:26 - Laboratory Result Diagrams: 12/23/18 12:00 12/23/18 12:00 Laboratory results interpreted by me: 12/23/18 12/23/18 12/23/18 12:00 12:00 12:00 WBC 3.4 L Hgb 10.2 L Hct 33.4 L MCV 74 L MCH 22.5 L MCHC 30.6 L RDW 18.3 H Plt Count 129 L Sodium 136.3 L Carbon Dioxide 31 H Creatinine 0.49 L Glucose 362 H AST 68 H Urine Glucose (UA) >=500 H Urine Blood MODERATE H Ur Leukocyte Esterase TRACE H 12/23/18 14:33 Labs- Entire Visit 12/23/18 12/23/18 12/23/18 12:00 12:00 12:00 WBC 3.4 L RBC 4.54 Hgb 10.2 L Hct 33.4 L MCV 74 L MCH 22.5 L MCHC 30.6 L RDW 18.3 H Plt Count 129 L Seg Neutrophils % 52.8 Lymphocytes % 32.2 Monocytes % 11.7 Eosinophils % 2.3 Basophils % 1.0 Absolute Neutrophils 1.8 Absolute Lymphocytes 1.1 Absolute Monocytes 0.4 Absolute Eosinophils 0.1 Absolute Basophils 0.0 Sodium 136.3 L Potassium 4.7 Chloride 100 Carbon Dioxide 31 H Anion Gap 5 BUN 8 Creatinine 0.49 L Est GFR ( Amer) > 60 Est GFR (Non-Af Amer) > 60 Glucose 362 H Calcium 9.0 Total Bilirubin 0.5 Direct Bilirubin 0.3 Neonat Total Bilirubin Not Reportable Neonat Direct Bilirubin Not Reportable Neonat Indirect Bili Not Reportable AST 68 H ALT 50 Alkaline Phosphatase 120 Total Protein 7.3 Albumin 3.7 Lipase 185.0 Urine Color STRAW Urine Appearance SLIGHTLY-CLOUDY Urine pH 7.0 Ur Specific [place] 1.025 Urine Protein NEGATIVE Urine Glucose (UA) >=500 H Urine Ketones NEGATIVE Urine Blood MODERATE H Urine Nitrite NEGATIVE Urine Bilirubin NEGATIVE Urine Urobilinogen NEGATIVE Ur Leukocyte Esterase TRACE H Urine WBC (Auto) 3 Urine RBC (Auto) 1 Squamous Epi Cells Auto 7 Urine Mucus (Auto) RARE Urine Ascorbic Acid NEGATIVE - Diagnostic Test Radiology reviewed: Reports reviewed Discharge - Discharge Clinical Impression: Impetigo Shingles Qualifiers: Herpes zoster complications: without complications Qualified Code(s): B02.9 - Zoster without complications Condition: Stable Disposition: HOME, SELF-CARE Instructions: Bactroban Ointment ([facility]), Cephalexin ([facility]), Impetigo ([facility]), Shingles ([facility]) Additional Instructions: Return immediately for any new or worsening symptoms Followup with your primary care provider, call tomorrow to make a followup appointment Prescriptions: Cephalexin Monohydrate [Keflex 500 mg Capsule] 500 mg PO Q6H 5 Days capsule Mupirocin [Bactroban 2% Ointment 22 gm] 1 applic TP TID #22 gm Valacyclovir HCl [Valacyclovir] 1,000 mg PO TID #21 tablet Forms: Smoking Cessation Education, Return to Work Referrals: MURIEL WONG MD [Primary Care Provider] - Follow up as needed
== END 2018-12-23 14:49 | disposition home or self-care (01) ==
LOC: ER 11:13
DX: L01.00 Impetigo, unspecified (principal); B02.9 Zoster without complications; H92.01 Otalgia, right ear; R51 Headache; F17.200 Nicotine dependence, unspecified, uncomplicated; I10 Essential (primary) hypertension; E10.9 Type 1 diabetes mellitus without complications; Z79.4 Long term (current) use of insulin
CPT/HCPCS: 99283; 96360; 96361; 36415; 83690; 85025; 80053; 81001; 70491; J7030

== ENCOUNTER → 2019-01-12 | Outpatient (CLI) | payer OTHER ==
[2019-01-12 13:11] LABS: ABSOLUTE BASOPHILS # (AUTO) 0.1 10^3/uL (0.0-0.2); ABSOLUTE EOSINOPHILS # (AUTO) 0.3 10^3/uL (0.0-0.6); ABSOLUTE LYMPHOCYTES (AUTO) 1.4 10^3/uL (0.5-4.7); ABSOLUTE MONOCYTES (AUTO) 0.5 10^3/uL (0.1-1.4); ABSOLUTE NEUT (AUTO) 2.8 10^3/uL (1.7-8.2); EOSINOPHILS % (AUTO) 5.2 % (0-6); HEMATOCRIT 31.7 % (36.0-47.0); HEMOGLOBIN 9.9 g/dL (12.0-15.5); LYMPHOCYTES % (AUTO) 27.6 % (13-45); MEAN CORPUSCULAR HEMOGLOBIN 22.6 pg (27.0-33.4); MEAN CORPUSCULAR HGB CONC 31.2 g/dL (32.0-36.0); MEAN CORPUSCULAR VOLUME 73 fl (80-97); PLATELET COUNT 106 10^3/uL (150-450); RED BLOOD COUNT 4.37 10^6/uL (3.72-5.28); SEGMENTED NEUTROPHILS % (AUTO) 56.2 % (42-78); TOTAL CELLS COUNTED % (AUTO) 100 %
[2019-01-12 13:16] LABS: APPEARANCE,URINE CLOUDY; BILIRUBIN,URINE NEGATIVE (NEGATIVE); COLOR,URINE RED; GLUCOSE, URINE >=500 mg/dL (NEGATIVE); KETONES,URINE NEGATIVE (NEGATIVE); LEUKOCYTE ESTERASE,URINE TRACE (NEGATIVE); NITRITE,URINE NEGATIVE (NEGATIVE); PROTEIN,URINE 100 mg/dL (NEGATIVE); URINE SPECIFIC GRAVITY 1.023; UROBILINOGEN,URINE NEGATIVE mg/dL (<2.0)
[2019-01-12 13:26] LABS: ALANINE AMINOTRANSFERASE 51 U/L (9-52); ALBUMIN 3.7 g/dL (3.5-5.0); ALKALINE PHOSPHATASE 112 U/L (38-126); ANION GAP 7 (5-19); ASPARTATE AMINO TRANSFERASE 79 U/L (14-36); BILIRUBIN,DIRECT 0.3 mg/dL (0.0-0.4); BILIRUBIN,TOTAL 0.7 mg/dL (0.2-1.3); BLOOD UREA NITROGEN 7 mg/dL (7-20); CALCIUM 8.9 mg/dL (8.4-10.2); CARBON DIOXIDE 28 mmol/L (22-30); CHLORIDE 102 mmol/L (98-107); GLUCOSE 238 mg/dL (75-110); POTASSIUM 4.3 mmol/L (3.6-5.0); SODIUM 137.4 mmol/L (137-145); TOTAL PROTEIN 7.2 g/dL (6.3-8.2)
== END ==
LOC: OD 12:39
DX: Z00.00 Encounter for general adult medical examination without abnormal findings (principal)
CPT/HCPCS: 36415; 80053; 81001; 85025

== ENCOUNTER 2019-01-19 11:21 | Emergency (ER) | payer OTHER ==
[2019-01-19 11:27] VITALS: BP 141/81
[2019-01-19] MEDS ORDERED: LIDOCAINE 2% VISCOUS SOLN 20 ML UDCUP PO ONE (12:08)
[2019-01-19] MEDS ORDERED: IBUPROFEN 600 MG TABLET PO ONE (12:12)
--- NOTE | 2019-01-19 12:13 | ER Document Report ---
ED ENT - General Chief Complaint: Ear Pain Stated Complaint: EAR PAIN Time Seen by Provider: 01/19/19 11:58 Primary Care Provider: [facility] [Primary Care Provider] - Follow up as needed Mode of Arrival: Ambulatory Information source: Patient Notes: 48-year-old female presents to ED for complaint of left ear pain she states for more than a month. She was seen in the emergency room on 12/23/2018 for similar discomfort. TRAVEL OUTSIDE OF THE [place] IN LAST 30 DAYS: No - HPI Patient complains to provider of: Ear problem Onset: Other Onset/Duration: Intermittent - Than a month Quality of pain: Achy, Dull Severity: Severe Pain Level: 5 Location of pain: Ears Associated symptoms: Ear pain Similar symptoms previously: Yes Recently seen / treated by doctor: Yes - Related Data Allergies/Adverse Reactions: celecoxib [From Celebrex] Allergy (Verified 01/19/19 11:22) erythromycin base [Erythromycin Base] Allergy (Verified 01/19/19 11:22) Hives oxycodone HCl [From Percocet] Allergy (Verified 01/19/19 11:22) Past Medical History - General Information source: Patient - Social History Smoking Status: Current Every Day Smoker Cigarette use (# per day): Yes - Half pack a day Chew tobacco use (# tins/day): No Smoking Education Provided: Yes Frequency of alcohol use: None Drug Abuse: None Lives with: Family Family History: DM, Malignancy, Other - cirrhosis Patient has suicidal ideation: No Patient has homicidal ideation: No - Past Medical History Cardiac Medical History: Reports: Hx Hypercholesterolemia, Hx Hypertension Pulmonary Medical History: Reports: None EENT Medical History: Reports: None Neurological Medical History: Reports: None Endocrine Medical History: Reports: 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 Renal/ Medical History: Reports: None Malignancy Medical History: Reports: None GI Medical History: Reports: Hx CirrhosisComment Only: 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 Musculoskeletal Medical History: Reports None Skin Medical History: Reports Hx MRSA Psychiatric Medical History: Reports: Hx Depression Traumatic Medical History: Reports: None Infectious Medical History: Reports: Hx MRSA Past Surgical History: Reports: Hx Tonsillectomy, Hx Tubal Ligation - Immunizations Hx Diphtheria, Pertussis, Tetanus Vaccination: Yes Review of Systems - Review of Systems Constitutional: No symptoms reported EENT: Ear pain Cardiovascular: No symptoms reported Respiratory: No symptoms reported Gastrointestinal: No symptoms reported Genitourinary: No symptoms reported Female Genitourinary: No symptoms reported Musculoskeletal: No symptoms reported Skin: No symptoms reported Hematologic/Lymphatic: No symptoms reported Neurological/Psychological: No symptoms reported -: Yes All other systems reviewed and negative Physical Exam - Vital signs Vitals: Temp Pulse Resp BP Pulse Ox 97.5 F 90 18 141/81 H 100 01/19/19 11:23 01/19/19 11:23 01/19/19 11:23 01/19/19 11:23 01/19/19 11:23 Interpretation: Normal - General General appearance: Appears well, Alert - HEENT Head: Normocephalic, Atraumatic Eyes: Normal Pupils: PERRL Ears: Normal External canal: Normal Tympanic membrane: No: Purulent effusion, Serous effusion Sinus: Normal Nasal: Normal Mouth/Lips: Normal Mucous membranes: Normal Pharynx: Normal Neck: Normal - Respiratory Respiratory status: No respiratory distress Chest status: Nontender Breath sounds: Normal Chest palpation: Normal - Cardiovascular Rhythm: Regular Heart sounds: Normal auscultation Murmur: No - Abdominal Inspection: Normal Distension: No distension Bowel sounds: Normal Tenderness: Nontender Organomegaly: No organomegaly - Back Back: Normal, Nontender - Extremities General upper extremity: Normal inspection, Nontender, Normal color, Normal ROM, Normal temperature General lower extremity: Normal inspection, Nontender, Normal color, Normal ROM, Normal temperature, Normal weight bearing. No: Vee's sign - Neurological Neuro grossly intact: Yes Cognition: Normal Orientation: AAOx4 Tori Coma Scale Eye Opening: Spontaneous Tori Coma Scale Verbal: Oriented Tori Coma Scale Motor: Obeys Commands Tori Coma Scale Total: 15 Speech: Normal Motor strength normal: LUE, RUE, LLE, RLE Sensory: Normal - Psychological Associated symptoms: Normal affect, Normal mood - Skin Skin Temperature: Warm Skin Moisture: Dry Skin Color: Normal Course - Re-evaluation Re-evalutation: 01/19/19 12:36 Patient states the ears have been hurting for several months. She has been to seen here and at primary care doctor. I have instructed her to follow-up with her primary care and follow-up with her ENT. She states she is getting a referral to ENT. - Vital Signs Vital signs: Temp Pulse Resp BP Pulse Ox 97.5 F 90 18 141/81 H 100 01/19/19 11:23 01/19/19 11:23 01/19/19 11:23 01/19/19 11:23 01/19/19 11:23 Discharge - Discharge Clinical Impression: Otalgia of left ear Condition: Stable Disposition: HOME, SELF-CARE Additional Instructions: You were seen today for pain in the left ear or otalgia. No signs of any wax buildup or ear infection in the left ear. I have given you a syringe of lidocaine. Place a small amount of the lidocaine in the ear canal every 3-4 hours as needed while awake for pain. You can also take ibuprofen for this pain. Ibuprofen Ibuprofen is an excellent, safe drug for pain control. In addition, it has potent antiinflammatory effects which are beneficial, especially in the treatment of injuries, arthritis, or tendonitis. It's best to take ibuprofen with food. Persons with ulcer disease or allergy to aspirin should notify their physician of this before taking ibuprofen. Take the medication exactly as prescribed. Don't take additional doses unless instructed to do so by your doctor. If you develop wheezing, shortness of breath, hives, faintness, stomach pain, vomiting, or dark black stools, return for re-evaluation at once. FOLLOW-UP CARE: If you have been referred to a physician for follow-up care, call the physicians office for an appointment as you were instructed or within the next two days. If you experience worsening or a significant change in your symptoms, notify the physician immediately or return to the Emergency Department at any time for re-evaluation. Forms: Return to Work Referrals: [facility] [Primary Care Provider] - Follow up as needed
== END 2019-01-19 12:24 | disposition home or self-care (01) ==
LOC: ER 11:21
DX: H92.02 Otalgia, left ear (principal); F17.210 Nicotine dependence, cigarettes, uncomplicated; E78.00 Pure hypercholesterolemia, unspecified; I10 Essential (primary) hypertension; Z88.6 Allergy status to analgesic agent; Z88.3 Allergy status to other anti-infective agents; E10.9 Type 1 diabetes mellitus without complications; Z79.84 Long term (current) use of oral hypoglycemic drugs; Z86.14 Personal history of Methicillin resistant Staphylococcus aureus infection; Z98.51 Tubal ligation status
CPT/HCPCS: 99282; J3490

== ENCOUNTER → 2019-02-16 | Outpatient (CLI) | payer OTHER ==
[2019-02-16 15:55] LABS: ABSOLUTE EOSINOPHILS # (AUTO) 0.1 10^3/uL (0.0-0.6); ABSOLUTE LYMPHOCYTES (AUTO) 1.3 10^3/uL (0.5-4.7); ABSOLUTE MONOCYTES (AUTO) 0.4 10^3/uL (0.1-1.4); ABSOLUTE NEUT (AUTO) 2.5 10^3/uL (1.7-8.2); BASOPHILS % (AUTO) 0.9 % (0-2); EOSINOPHILS % (AUTO) 2.8 % (0-6); HEMATOCRIT 32.3 % (36.0-47.0); HEMOGLOBIN 9.7 g/dL (12.0-15.5); LYMPHOCYTES % (AUTO) 30.1 % (13-45); MEAN CORPUSCULAR HEMOGLOBIN 22.3 pg (27.0-33.4); MEAN CORPUSCULAR HGB CONC 30.1 g/dL (32.0-36.0); MEAN CORPUSCULAR VOLUME 74 fl (80-97); MONOCYTES % (AUTO) 9.4 % (3-13); PLATELET COUNT 118 10^3/uL (150-450); RED BLOOD COUNT 4.36 10^6/uL (3.72-5.28); RED CELL DISTRIBUTION WIDTH 18.8 % (11.5-14.0); SEGMENTED NEUTROPHILS % (AUTO) 56.8 % (42-78); TOTAL CELLS COUNTED % (AUTO) 100 %; WHITE BLOOD COUNT 4.4 10^3/uL (4.0-10.5)
[2019-02-16 16:01] LABS: ALBUMIN 3.8 g/dL (3.5-5.0); ALKALINE PHOSPHATASE 127 U/L (38-126); ANION GAP 9 (5-19); ASPARTATE AMINO TRANSFERASE 142 U/L (14-36); BILIRUBIN,DIRECT 0.4 mg/dL (0.0-0.4); BILIRUBIN,TOTAL 0.6 mg/dL (0.2-1.3); BLOOD UREA NITROGEN 9 mg/dL (7-20); CARBON DIOXIDE 28 mmol/L (22-30); CHLORIDE 97 mmol/L (98-107); GLUCOSE 399 mg/dL (75-110); POTASSIUM 4.2 mmol/L (3.6-5.0); TOTAL PROTEIN 7.3 g/dL (6.3-8.2)
== END ==
LOC: CCC 14:28
DX: N93.9 Abnormal uterine and vaginal bleeding, unspecified (principal)
CPT/HCPCS: 36415; 80053; 84703; 85025

== ENCOUNTER 2019-02-17 12:40 | Emergency (ER) | payer OTHER ==
--- NOTE | 2019-02-17 13:11 | ER Document Report ---
ED Medical Screen (RME) - General Chief Complaint: Vomiting Stated Complaint: VOMITING Time Seen by Provider: 02/17/19 13:07 Primary Care Provider: [facility] [Primary Care Provider] - Follow up as needed Mode of Arrival: Ambulatory Information source: Patient Notes: 48-year-old female presented to ED for complaint of severe vomiting times a week. She states she is been vomiting all day today and her blood sugars are out of control. She states she went over to the [facility] and they sent her to the emergency room. She states that her H&H have been low her platelets have been low and her sugars been running high. She states that the doctor told her she needed to come and get her sugar under control. She states she is also been on her period for the last 11 days and her H&H was already low with low platelets. She states that she had been having problems with her ear since she was seen in the emergency room last time and they are trying to get her in to see an ENT as well as a HEAD SCORER. Patient is alert oriented respirations regular and unlabored speaking in full sentences. She is diabetic she is on Lantus twice a day and sliding scale. I have greeted and performed a rapid initial assessment of this patient. A comprehensive ED assessment and evaluation of the patient, analysis of test results and completion of medical decision making process will be conducted by an additional ED providers. Dictation of this chart was performed using voice recognition software; therefore, there may be some unintended grammatical errors. TRAVEL OUTSIDE OF THE [place] 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 Renal/ Medical History: Denies: Hx Peritoneal Dialysis GI Medical History: Reports: Hx CirrhosisComment Only: 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 Skin Medical History: Reports Hx MRSA Psychiatric Medical History: Reports: Hx Depression Infectious Medical History: Reports: Hx MRSA Past Surgical History: Reports: Hx Tonsillectomy, Hx Tubal Ligation - Immunizations Hx Diphtheria, Pertussis, Tetanus Vaccination: Yes History of Influenza Vaccine for 04/2017 - 09/2017 Season: Yes Influenza Administration Date for 04/2017 - 09/2017 Season: 05/12/17 Physical Exam - Vital signs Vitals: Temp Pulse Resp BP Pulse Ox 97.9 F 95 16 129/79 H 98 02/17/19 12:51 02/17/19 12:51 02/17/19 12:51 02/17/19 12:51 02/17/19 12:51 Course - Vital Signs Vital signs: Temp Pulse Resp BP Pulse Ox 97.9 F 95 16 129/79 H 98 02/17/19 12:51 02/17/19 12:51 02/17/19 12:51 02/17/19 12:51 02/17/19 12:51 Doctor's Discharge - Discharge Referrals: [facility] [Primary Care Provider] - Follow up as needed
[2019-02-17] MEDS: NORMAL SALINE 1000 ML 1,000 ML IV PRN ×2 (13:25→19:09)
[2019-02-17 13:43] LABS: VENOUS BLOOD BASE EXCESS 6.1 mmol/L; VENOUS BLOOD HCO3 32.5 mmol/L (20-32); VENOUS BLOOD PCO2 56.8 mmHg (35-63); VENOUS BLOOD PH 7.38 (7.30-7.42)
[2019-02-17 13:44] LABS: ABSOLUTE EOSINOPHILS # (AUTO) 0.1 10^3/uL (0.0-0.6); ABSOLUTE LYMPHOCYTES (AUTO) 1.2 10^3/uL (0.5-4.7); ABSOLUTE MONOCYTES (AUTO) 0.3 10^3/uL (0.1-1.4); ABSOLUTE NEUT (AUTO) 2.1 10^3/uL (1.7-8.2); HEMATOCRIT 33.4 % (36.0-47.0); HEMOGLOBIN 10.3 g/dL (12.0-15.5); LYMPHOCYTES % (AUTO) 32.5 % (13-45); MEAN CORPUSCULAR HEMOGLOBIN 22.6 pg (27.0-33.4); MEAN CORPUSCULAR HGB CONC 30.8 g/dL (32.0-36.0); MEAN CORPUSCULAR VOLUME 73 fl (80-97); MONOCYTES % (AUTO) 8.8 % (3-13); PLATELET COUNT 124 10^3/uL (150-450); RED BLOOD COUNT 4.56 10^6/uL (3.72-5.28); RED CELL DISTRIBUTION WIDTH 18.5 % (11.5-14.0); SEGMENTED NEUTROPHILS % (AUTO) 54.7 % (42-78); TOTAL CELLS COUNTED % (AUTO) 100 %; WHITE BLOOD COUNT 3.8 10^3/uL (4.0-10.5)
[2019-02-17 13:48] LABS: APPEARANCE,URINE SLIGHTLY-CLOUDY; BILIRUBIN,URINE NEGATIVE (NEGATIVE); COLOR,URINE YELLOW; GLUCOSE, URINE >=500 mg/dL (NEGATIVE); KETONES,URINE NEGATIVE (NEGATIVE); LEUKOCYTE ESTERASE,URINE MODERATE (NEGATIVE); NITRITE,URINE NEGATIVE (NEGATIVE); PROTEIN,URINE NEGATIVE (NEGATIVE); URINE SPECIFIC GRAVITY 1.022; UROBILINOGEN,URINE NEGATIVE mg/dL (<2.0)
[2019-02-17 13:52] LABS: ADD MANUAL MICROSCOPIC YES
[2019-02-17 13:54] LABS: BACTERIA,URINE 2+ /HPF
[2019-02-17 14:01] LABS: ALBUMIN 3.9 g/dL (3.5-5.0); ALKALINE PHOSPHATASE 143 U/L (38-126); ANION GAP 9 (5-19); ASPARTATE AMINO TRANSFERASE 140 U/L (14-36); BILIRUBIN,DIRECT 0.3 mg/dL (0.0-0.4); BILIRUBIN,TOTAL 0.7 mg/dL (0.2-1.3); BLOOD UREA NITROGEN 7 mg/dL (7-20); CALCIUM 8.9 mg/dL (8.4-10.2); CARBON DIOXIDE 30 mmol/L (22-30); CHLORIDE 96 mmol/L (98-107); GLUCOSE 382 mg/dL (75-110); POTASSIUM 4.6 mmol/L (3.6-5.0); TOTAL PROTEIN 7.6 g/dL (6.3-8.2)
[2019-02-17] MEDS ORDERED: ONDANSETRON HCL INJ/PF 4 MG/2 ML SDV IV ONE (19:21)
[2019-02-17] MEDS ORDERED: FAMOTIDINE INJ/PF 20 MG/2 ML SDV IV ONE (19:21)
[2019-02-17] MEDS ORDERED: NORMAL SALINE 1000 ML 1,000 ML IV ONE (19:22)
[2019-02-17] MEDS ORDERED: CEFTRIAXONE 1 GM/D5W RTU 50 ML IV ONE (19:22)
[2019-02-17] MEDS ORDERED: CEFTRIAXONE INJ 1000 MG VIAL IV ONE (19:30)
[2019-02-17] MEDS ORDERED: CEPHALEXIN 500 MG CAPSULE PO ONE (19:40)
--- NOTE | 2019-02-17 19:45 | ER Document Report ---
ED General - General Chief Complaint: Vomiting Stated Complaint: VOMITING Time Seen by Provider: 02/17/19 13:07 [facility] - Follow up in 3-5 days Mode of Arrival: Ambulatory Information source: Patient, [facility] Records Notes: 48-year-old female with hypertension, hyperlipidemia, depression, cirrhosis, type 1 diabetes presents with complaint of nausea and vomiting that have been persistent for approximately 1 week. Patient also reports that her glucose has been running high and reports a reading of over 400 earlier today. Patient does take Lantus twice daily and Humalog as a sliding scale and does report that she has been compliant with her medications. Patient is complaining of some dull right-sided back pain but denies any fever, chills, dysuria, hematuria, urinary frequency, vaginal discharge. Patient denies recent antibiotic use, recent hospitalizations, sick contacts, recent travel. TRAVEL OUTSIDE OF THE [place] IN LAST 30 DAYS: No - HPI Onset: Last week Onset/Duration: Persistent Quality of pain: Achy Severity: Mild Associated symptoms: Earache - Your recently lavaged today by PCP, Nausea, Vomiting. denies: Nonproductive cough, Productive cough, Diarrhea, Fever Exacerbated by: Food Relieved by: Denies Similar symptoms previously: Yes Recently seen / treated by doctor: Yes - Related Data Allergies/Adverse Reactions: celecoxib [From Celebrex] Allergy (Verified 02/17/19 12:40) erythromycin base [Erythromycin Base] Allergy (Verified 02/17/19 12:40) Hives oxycodone HCl [From Percocet] Allergy (Verified 02/17/19 12:40) Past Medical History - General Information source: Patient - Social History Smoking Status: Current Every Day Smoker Cigarette use (# per day): Yes - 10 Smoking Education Provided: Yes - Smoking cessation counseling was provided for 4 minutes at the bedside Frequency of alcohol use: Occasional Drug Abuse: None Lives with: Family, Spouse/Significant other Family History: DM, Malignancy, Other - cirrhosis Patient has suicidal ideation: No Patient has homicidal ideation: No - Past Medical History Cardiac Medical History: Reports: Hx Hypercholesterolemia, Hx Hypertension Denies: Hx Coronary Artery Disease, Hx Heart Attack Endocrine Medical History: Reports: 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 Denies recent illness. Denies weight loss, recent hospitalizations. EENT: Denies visual changes, eye pain. Denies sore throat, oral lesions, difficulty swallowing. CARDIOVASCULAR: Denies chest pain. Denies palpitations. Denies lower extremity edema. RESPIRATORY: Denies cough. Denies shortness of breath, wheezing. GASTROINTESTINAL: Denies abdominal pain or distention. Denies diarrhea. Denies blood in vomitus, stools, or per rectum. Denies black, tarry stools. Denies constipation. GENITOURINARY: Denies difficulty urinating, painful urination, frequency, blood in urine, or vaginal discharge. MUSCULOSKELETAL: Denies neck pain or stiffness. Denies joint pain or swelli ng. SKIN: Denies rash, lesions or sores. HEMATOLOGIC : Denies easy bruising or bleeding. LYMPHATIC: Denies swollen glands. NEUROLOGICAL: Denies confusion or altered mental status. Denies loss of consciousness. Denies dizziness or lightheadedness. Denies headache. Denies weakness or paralysis. Denies problems difficulty with ambulation, slurred speech. Denies sensory loss, numbness, or tingling. Denies seizures. PSYCHIATRIC: Denies anxiety or stress. Denies depression, suicidal ideation, or homicidal ideation. Denies visual or auditory hallucinations. Physical Exam - Vital signs Vitals: Temp Pulse Resp BP Pulse Ox 97.9 F 95 16 129/79 H 98 02/17/19 12:51 02/17/19 12:51 02/17/19 12:51 02/17/19 12:51 02/17/19 12:51 - Notes Notes: PHYSICAL EXAMINATION: GENERAL: Well-appearing, well-nourished and in no acute distress. HEAD: Atraumatic, normocephalic. EYES: Pupils equal round and reactive to light, extraocular movements intact, conjunctiva are normal. ENT: Nares patent, oropharynx clear without exudates. Moist mucous membranes. NECK: Normal range of motion, supple without lymphadenopathy LUNGS: Breath sounds clear to auscultation bilaterally and equal. No wheezes rales or rhonchi. HEART: Regular rate and rhythm without murmurs ABDOMEN: Soft, nontender, nondistended abdomen. No guarding, no rebound. No masses appreciated. No CVA tenderness Female : deferred Musculoskeletal: Normal range of motion, no pitting or edema. No cyanosis. NEUROLOGICAL: Cranial nerves grossly intact. Normal speech, normal gait. Normal sensory, motor exams PSYCH: Normal mood, normal affect. SKIN: Warm, Dry, normal turgor, no rashes or lesions noted. Course - Re-evaluation Re-evalutation: 02/17/19 19:42 Laboratory 02/17/19 02/17/19 02/17/19 13:16 13:16 13:16 WBC 3.8 L RBC 4.56 Hgb 10.3 L Hct 33.4 L MCV 73 L MCH 22.6 L MCHC 30.8 L RDW 18.5 H Plt Count 124 L Seg Neutrophils % 54.7 Lymphocytes % 32.5 Monocytes % 8.8 Eosinophils % 3.0 Basophils % 1.0 Absolute Neutrophils 2.1 Absolute Lymphocytes 1.2 Absolute Monocytes 0.3 Absolute Eosinophils 0.1 Absolute Basophils 0.0 VBG pH VBG pCO2 VBG HCO3 VBG Base Excess Sodium 134.6 L Potassium 4.6 Chloride 96 L Carbon Dioxide 30 Anion Gap 9 BUN 7 Creatinine 0.56 Est GFR ( Amer) > 60 Est GFR (Non-Af Amer) > 60 Glucose 382 H POC Glucose Calcium 8.9 Total Bilirubin 0.7 Direct Bilirubin 0.3 Neonat Total Bilirubin Not Reportable Neonat Direct Bilirubin Not Reportable Neonat Indirect Bili Not Reportable AST 140 H ALT 80 Alkaline Phosphatase 143 H Total Protein 7.6 Albumin 3.9 Lipase 249.6 Serum HCG, Qual NEGATIVE Urine Color Urine Appearance Urine pH Ur Specific [place] Urine Protein Urine Glucose (UA) Urine Ketones Urine Blood Urine Nitrite Urine Bilirubin Urine Urobilinogen Ur Leukocyte Esterase Urine WBC Ur Squamous Epith Cells Urine Bacteria Urine Ascorbic Acid 02/17/19 02/17/19 02/17/19 13:16 13:16 13:20 WBC RBC Hgb Hct MCV MCH MCHC RDW Plt Count Seg Neutrophils % Lymphocytes % Monocytes % Eosinophils % Basophils % Absolute Neutrophils Absolute Lymphocytes Absolute Monocytes Absolute Eosinophils Absolute Basophils VBG pH 7.38 VBG pCO2 56.8 VBG HCO3 32.5 H VBG Base Excess 6.1 Sodium Potassium Chloride Carbon Dioxide Anion Gap BUN Creatinine Est GFR ( Amer) Est GFR (Non-Af Amer) Glucose POC Glucose 381 H Calcium Total Bilirubin Direct Bilirubin Neonat Total Bilirubin Neonat Direct Bilirubin Neonat Indirect Bili AST ALT Alkaline Phosphatase Total Protein Albumin Lipase Serum HCG, Qual Urine Color YELLOW Urine Appearance SLIGHTLY-CLOUDY Urine pH 7.0 Ur Specific [place] 1.022 Urine Protein NEGATIVE Urine Glucose (UA) >=500 H Urine Ketones NEGATIVE Urine Blood LARGE H Urine Nitrite NEGATIVE Urine Bilirubin NEGATIVE Urine Urobilinogen NEGATIVE Ur Leukocyte Esterase MODERATE H Urine WBC 5-10 Ur Squamous Epith Cells FEW Urine Bacteria 2+ Urine Ascorbic Acid NEGATIVE Temp Pulse Resp BP Pulse Ox 97.9 F 95 16 129/79 H 98 02/17/19 12:51 02/17/19 12:51 02/17/19 12:51 02/17/19 12:51 02/17/19 12:51 Patient presents with symptoms consistent with an acute cystitis. Vitals wnl. No history of fever, flank pain, or constitution symptoms to suggest ascending infection at this time. Patient is well in appearance, tolerating oral intake without difficulty. No focal abdominal tenderness to suggest acute appendicitis, biliary pathology, acute pancreatitis, tubo-ovarian abscesses, or pelvic inflammatory disease. Patient will be started on antibiotics at this time. A culture has been sent. They will be discharged with return precautions and follow-up recommendations. Presentation of asymptomatic hyperglycemia. There is no evidence of HHS or diabetic ketoacidosis on laboratories or based on clinical history. Patient's vitals are within normal limits. They deny any acute focal complaints. Treatment with insulin and IV fluids given here in the emergency department with appropriate response of the blood sugar. Patient does have primary care follow- up. Patient was instructed to continue taking their metformin and advised they will likely need to increase dietary modification and may also need medication changes. Indications to return to emergency department as well as the importance of close outpatient follow-up were discussed at length. Patient verbalized understanding of the need for close follow-up and indications to return to the ED. Patient was evaluated and treated as appropriate for the patient's presenting symptoms and complaint, with consideration of any critical or life threatening conditions that may be associated with their obtained history and exam as noted above. All results were discussed with patient. Patient provided the opportunity to ask questions, and express concerns. Patient was educated on treatments based on their presumed diagnosis as noted above. At this time we will discharge the patient with return precautions and follow-up recommendations. Verbal discharge instructions given a the bedside. Medication warnings reviewed. Patient is in agreement with this plan and has verbalized understanding of return precautions. After careful consideration I feel that that patient can be safely discharged from the emergency department, they were advised to followup with a primary care physician in 2-3 days. Dictation on this chart was performed using voice recognition software and may result in unintended grammatical, spelling, syntax or errors. - Vital Signs Vital signs: Temp Pulse Resp BP Pulse Ox 98.8 F 158 H 16 158/86 H 100 02/17/19 20:53 02/17/19 20:53 02/17/19 20:53 02/17/19 20:53 02/17/19 20:53 - Laboratory Result Diagrams: 02/17/19 13:16 02/17/19 13:16 Laboratory results interpreted by me: 02/17/19 02/17/19 02/17/19 13:16 13:16 13:16 WBC 3.8 L Hgb 10.3 L Hct 33.4 L MCV 73 L MCH 22.6 L MCHC 30.8 L RDW 18.5 H Plt Count 124 L VBG HCO3 32.5 H Sodium 134.6 L Chloride 96 L Glucose 382 H POC Glucose AST 140 H Alkaline Phosphatase 143 H Urine Glucose (UA) Urine Blood Ur Leukocyte Esterase 02/17/19 02/17/19 02/17/19 13:16 13:20 19:46 WBC Hgb Hct MCV MCH MCHC RDW Plt Count VBG HCO3 Sodium Chloride Glucose POC Glucose 381 H 269 H AST Alkaline Phosphatase Urine Glucose (UA) >=500 H Urine Blood LARGE H Ur Leukocyte Esterase MODERATE H Discharge - Discharge Clinical Impression: Thrombocytopenia, Hyperglycemia UTI (urinary tract infection) Qualifiers: Urinary tract infection type: site unspecified Hematuria presence: without h ematuria Qualified Code(s): N39.0 - Urinary tract infection, site not specified Anemia Qualifiers: Anemia type: unspecified type Qualified Code(s): D64.9 - Anemia, unspecified Nausea & vomiting Qualifiers: Vomiting type: unspecified Vomiting Intractability: non-intractable Qualified Code(s): R11.2 - Nausea with vomiting, unspecified Condition: Good Disposition: HOME, SELF-CARE Instructions: Intravenous (IV) Fluids ([facility]), Urinary Tract Infection ([facility]) Additional Instructions: You need to followup urgently with your primary care doctor as your blood sugars were dangerously high today. You did not have any evidence of a dangerous condition associated with these blood sugars at this time. However, it is very important that you get your blood sugars under control. Please take all of your medications exactly as directed. You should avoid foods that are high in carbohydrates and sugary foods. Losing weight will also help to better control your blood sugars. Please return to emergency department immediately if you develop weakness, persistent vomiting, confusion, or any other symptoms that are concerning to you. Your urine shows findings consistent with a urinary tract infection. Please take all the antibiotics as directed even if your symptoms have improved. Please follow-up with your primary care physician as needed. Return to emergency room if you develop fever >101F, persistent vomiting, become lethargic, have severe pain in your sides, or any other symptoms that are concerning to you. Prescriptions: Cephalexin Monohydrate [Keflex 500 mg Capsule] 500 mg PO BID 5 Days #10 capsule Ondansetron [Zofran Odt 4 mg Tablet] 1 - 2 tab PO Q4H PRN #15 tab.rapdis PRN Reason: For Nausea/Vomiting Forms: Elevated Blood Pressure, Smoking Cessation Education [facility]errals: [facility] [NO LOCAL MD] - Follow up in 3-5 days
[2019-02-17] MEDS ORDERED: ONDANSETRON ODT 4 MG TAB (6 TAB/ER DISP) PO PRN (19:46)
[2019-02-17 21:13] VITALS: BP 158/86
== END 2019-02-17 20:53 | disposition home or self-care (01) ==
LOC: ER 12:40
DX: D69.6 Thrombocytopenia, unspecified (principal); E10.65 Type 1 diabetes mellitus with hyperglycemia; N39.0 Urinary tract infection, site not specified; D64.9 Anemia, unspecified; R11.2 Nausea with vomiting, unspecified; I10 Essential (primary) hypertension; M54.9 Dorsalgia, unspecified; H92.09 Otalgia, unspecified ear; R05 Cough; R19.7 Diarrhea, unspecified; R50.9 Fever, unspecified; F17.210 Nicotine dependence, cigarettes, uncomplicated; Z79.4 Long term (current) use of insulin
CPT/HCPCS: 99284; 96361; 96365; 36415; 82962; 83690; 84703; 85025; 80053; 81001; 82803; J2405; J7030; S0028

== ENCOUNTER → 2019-06-20 | Outpatient (CLI) | payer OTHER ==
[2019-06-20 13:13] LABS: ABSOLUTE EOSINOPHILS # (AUTO) 0.1 10^3/uL (0.0-0.6); ABSOLUTE LYMPHOCYTES (AUTO) 1.6 10^3/uL (0.5-4.7); ABSOLUTE MONOCYTES (AUTO) 0.5 10^3/uL (0.1-1.4); ABSOLUTE NEUT (AUTO) 3.3 10^3/uL (1.7-8.2); BASOPHILS % (AUTO) 0.6 % (0-2); EOSINOPHILS % (AUTO) 1.1 % (0-6); HEMATOCRIT 34.4 % (36.0-47.0); HEMOGLOBIN 10.9 g/dL (12.0-15.5); LYMPHOCYTES % (AUTO) 29.5 % (13-45); MEAN CORPUSCULAR HEMOGLOBIN 23.7 pg (27.0-33.4); MEAN CORPUSCULAR HGB CONC 31.7 g/dL (32.0-36.0); MEAN CORPUSCULAR VOLUME 75 fl (80-97); MONOCYTES % (AUTO) 8.8 % (3-13); PLATELET COUNT 132 10^3/uL (150-450); RED BLOOD COUNT 4.59 10^6/uL (3.72-5.28); TOTAL CELLS COUNTED % (AUTO) 100 %; WHITE BLOOD COUNT 5.6 10^3/uL (4.0-10.5)
[2019-06-20 13:34] LABS: ALKALINE PHOSPHATASE 120 U/L (38-126); ANION GAP 10 (5-19); ASPARTATE AMINO TRANSFERASE 60 U/L (14-36); BILIRUBIN,DIRECT 0.2 mg/dL (0.0-0.4); BILIRUBIN,TOTAL 0.8 mg/dL (0.2-1.3); BLOOD UREA NITROGEN 8 mg/dL (7-20); CALCIUM 9.1 mg/dL (8.4-10.2); CARBON DIOXIDE 25 mmol/L (22-30); CHLORIDE 102 mmol/L (98-107); CHOLESTEROL 163.39 mg/dL (0-200); GLUCOSE 199 mg/dL (75-110); POTASSIUM 3.8 mmol/L (3.6-5.0); TRIGLYCERIDES 179 mg/dL (<150)
[2019-06-20 13:45] LABS: DIRECT LDL 84 mg/dL (<100)
[2019-06-20 13:50] LABS: VLDL CHOLESTEROL 35.8 mg/dL (10-31)
== END ==
LOC: CCC 12:14
DX: Z00.00 Encounter for general adult medical examination without abnormal findings (principal)
CPT/HCPCS: 36415; 80053; 80061; 83036; 84443; 85025

== ENCOUNTER → 2019-06-21 | Outpatient (CLI) | payer OTHER ==
--- NOTE | 2019-06-21 15:14 | RADIOLOGY REPORT (SQ) ---
EXAM DESCRIPTION: CT ABD/PELVIS WITH IV ORAL COMPLETED DATE/TIME: 06/21/2019 2:24 pm REASON FOR STUDY: (R10.32)LEFT LOWER QUADRANT PAIN R10.32 LEFT LOWER QUADRANT PAIN COMPARISON: 08/11/2017 TECHNIQUE: CT scan of the abdomen and pelvis performed using helical scanning technique with dynamic intravenous contrast injection. Patient was given oral contrast. Images reviewed with lung, soft ti ssue, and bone windows. Reconstructed coronal and sagittal MPR images reviewed. Delayed images for ev aluation of the urinary system also acquired. All images stored on PACS. All CT scanners at this facility use dose modulation, iterative reconstruction, and/or weight based d osing when appropriate to reduce radiation dose to as low as reasonably achievable (ALARA). [facility]: Dose Right [facility]: CareDose [facility]: Dose Right [facility]: Teradose 4D [facility]: [employer] CONTRAST TYPE AND DOSE: contrast/concentration: Isovue 350.00 mg/ml; Total Contrast Delivered: 71.0 ml; Total Saline Delivered: 66.0 ml RENAL FUNCTION: CT are RADIATION DOSE: CT Rad equipment meets quality standard of care and radiation dose reduction techniq ues were employed. CTDIvol: 4.5 - 4.5 mGy. DLP: 494 mGy-cm.. LIMITATIONS: None. FINDINGS: LOWER CHEST: No acute findings. Stable chronic subcentimeter left lower lobe nodule. LIVER: Normal size. No masses. No dilated ducts. SPLEEN: Splenomegaly measuring 14 cm maximally. No focal lesions. PANCREAS: No masses. No significant calcifications. No adjacent inflammation or peripancreatic fluid collections. Pancreatic duct not dilated. GALLBLADDER: Decompressed. No identified stones by CT criteria. No inflammatory changes to suggest c holecystitis. ADRENAL GLANDS: No significant masses or asymmetry. RIGHT KIDNEY AND URETER: No solid masses. No significant calcifications. No hydronephrosis or hyd roureter. LEFT KIDNEY AND URETER: No solid masses. No significant calcifications. No hydronephrosis or hydr oureter. AORTA AND VESSELS: No aneurysm. No dissection. Renal arteries, SMA, celiac without stenosis. RETROPERITONEUM: No retroperitoneal adenopathy, hemorrhage or masses. BOWEL AND PERITONEAL CAVITY: No masses or inflammatory changes. No free fluid or peritoneal masses. Moderate formed stool throughout the colon. APPENDIX: Not visualized. PELVIS: No mass. No free fluid. Normal bladder. ABDOMINAL WALL: No masses. No hernias. BONES: No significant or acute findings. OTHER: No other significant finding. IMPRESSION: 1. No evidence of acute intra-abdominal/pelvic process or findings to explain patient's symptoms. 2. Splenomegaly, stable. TECHNICAL DOCUMENTATION: JOB ID: [id number] Quality ID # [id number]: Final reports with documentation of one or more dose reduction techniques (e.g., Au tomated exposure control, adjustment of the mA and/or kV according to patient size, use of iterative reconstruction technique) 2010 [employer]- All Rights Reserved Reading location - IP/workstation name: [email or web address]-
== END ==
LOC: RAD 13:59
PROVIDERS: ATTEND Family Medicine
DX: R10.32 Left lower quadrant pain (principal); R16.1 Splenomegaly, not elsewhere classified
CPT/HCPCS: 74177

== ENCOUNTER 2019-06-29 14:53 | Emergency (ER) | payer OTHER ==
[2019-06-29] MEDS ORDERED: METOCLOPRAMIDE HCL ORAL SOLN 10 MG/10 ML UDCUP PO ONE (15:23)
[2019-06-29] MEDS ORDERED: LIDOCAINE 2% VISCOUS SOLN 20 ML UDCUP PO ONE (15:23)
[2019-06-29] MEDS ORDERED: MAG HYDROX/AL HYDROX/SIMETH SUSP 30 ML UDCUP PO ONE (15:23)
[2019-06-29] MEDS ORDERED: NORMAL SALINE 1000 ML 1,000 ML IV ONE (15:23)
[2019-06-29] MEDS ORDERED: ONDANSETRON HCL INJ/PF 4 MG/2 ML SDV IV ONE ×2 (15:23→17:52)
--- NOTE | 2019-06-29 15:26 | ER Document Report ---
ED GI/ - General Chief Complaint: Abdominal Pain Stated Complaint: VOMITING,ABDOMINAL PAIN Time Seen by Provider: 06/29/19 15:05 Primary Care Provider: [facility] [Primary Care Provider] - Follow up as needed Notes: Patient is a 48-year-old female who presents the emergency department with a chief complaint of abdominal pain. Patient states that she has had this pain for the past few weeks and has become progressively worse. Her pain is in her left upper abdomen and in her left lower abdomen. Patient states that she is sexually active. Patient states that she is currently on her menstrual cycle. Admits to nausea and vomiting. She has been vomiting for the past few weeks. Patient has a history of diabetes and is currently on insulin. TRAVEL OUTSIDE OF THE [place] IN LAST 30 DAYS: No - Related Data Allergies/Adverse Reactions: celecoxib [From Celebrex] Allergy (Verified 02/17/19 12:40) erythromycin base [Erythromycin Base] Allergy (Verified 02/17/19 12:40) Hives oxycodone HCl [From Percocet] Allergy (Verified 02/17/19 12:40) Past Medical History - Social History Smoking Status: Current Every Day Smoker Frequency of alcohol use: None Drug Abuse: None Family History: DM, Malignancy, Other - cirrhosis Patient has suicidal ideation: No Patient has homicidal ideation: No - Past Medical History Cardiac Medical History: Reports: Hx Hypercholesterolemia, Hx Hypertension Denies: Hx Coronary Artery Disease, Hx Heart Attack Endocrine Medical History: Reports: 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 Denies recent unintentional weight loss. Denies fever, chills, or sweats. EENT: Denies eye, ear, throat, or mouth pain, discharge, or symptoms. Denies nasal or sinus congestion. CARDIOVASCULAR: Denies chest pain. RESPIRATORY: Denies shortness of breath, cough, congestion, difficulty breathing, or wheezing. GASTROINTESTINAL: See HPI. GENITOURINARY: Denies difficulty urinating, burning, blood in urine, urgency or frequency. MUSCULOSKELETAL: Denies neck and back pain. Denies joint pain or swelling. SKIN: Denies rash, itchiness, or lesions HEMATOLOGIC : Denies easy bruising or bleeding. LYMPHATIC: Denies swollen, painful, enlarged glands. NEUROLOGICAL: Denies no numbness or tingling denies weakness. Denies headache. Denies altered mental status. Denies alteration in speech. PSYCHIATRIC: Denies stress, anxiety, alteration in sleep patterns, or depression. All other systems reviewed and negative. Physical Exam - Vital signs Vitals: Temp Pulse Resp BP Pulse Ox 97.5 F 113 H 18 132/83 H 100 06/29/19 15:02 06/29/19 15:02 06/29/19 15:02 06/29/19 15:02 06/29/19 15:02 - Notes Notes: PHYSICAL EXAMINATION: GENERAL: Appears well, healthy, well-nourished, no acute distress. HEAD: Normocephalic, atraumatic. EYES: PERRL, conjunctiva normal, all extraocular movements intact, sclera nonicteric ENT: Moist mucous membranes. NECK: Supple, no noticeable swelling, redness, rash. Normal range of motion. LUNGS: Equal breath sounds bilaterally and clear to auscultation. No wheezes rales or rhonchi. CARDIOVASCULAR: S1-S2, regular rate, regular rhythm. Radial pulses 2+, normal. ABDOMEN: Normoactive bowel sounds. Soft, tender left side of abdomen, no guarding, no rebound tenderness, and no masses palpated. EXTREMITIES: Normal strength and range of motion, no pitting or edema. No cyanosis. NEUROLOGICAL: Moves all extremities upon command. Strength 5/5 in all extremities. PSYCH: Normal mood, normal affect. SKIN: Warm, dry. No rash, lesions, ulcerations noted. Normal skin turgor. Course - Re-evaluation Re-evalutation: 06/29/19 17:59 Pelvic exam done with LENORE Dhillon at bedside. Blood noted, left adenexal tenderness noted. Still waiting on transvaginal ultrasound. 06/29/19 19:45 Patient has a fibroid tumor noted on her ultrasound. I ended up speaking with Dr. Lin, PATIENT APPOINTMENT COORDINATOR. Discussed the findings with her. She agrees with my diagnosis of pelvic inflammatory disease and urinary tract infection. Patient will follow-up with [facility] after she has finished her antibiotics, as requested by Dr. Lin. Instructed the patient on ibuprofen and Tylenol for pain relief. Patient was treated for a urinary tract infection with Rocephin and she will be sent home with doxycycline for pelvic inflammatory disease. She has 4+ bacteria noted on her wet mount. She will also be sent home with Flagyl. Patient is in agreement with this plan. I have very low suspicion for diverticulosis or diverticulitis. Follow-up precautions were given. Verbal discharge instructions were given to the patient. They verbalized understanding. They are stable for discharge. - Vital Signs Vital signs: Temp Pulse Resp BP Pulse Ox 97.5 F 113 H 18 132/83 H 100 06/29/19 15:23 06/29/19 15:23 06/29/19 15:23 06/29/19 15:23 06/29/19 15:23 - Laboratory Result Diagrams: 06/29/19 16:03 06/29/19 16:03 Laboratory results interpreted by me: 06/29/19 06/29/19 06/29/19 16:03 16:03 17:00 MCV 75 L MCH 24.0 L MCHC 31.9 L RDW 19.6 H Plt Count 145 L Carbon Dioxide 31 H Glucose 137 H AST 53 H Total Protein 8.3 H Urine Protein 100 H Urine Blood LARGE H Urine Ascorbic Acid 40 H Discharge - Discharge Clinical Impression: Pelvic inflammatory disease Uterine fibroid Qualifiers: Uterine leiomyoma location: unspecified location Qualified Code(s): D25.9 - Leiomyoma of uterus, unspecified Urinary tract infection Qualifiers: Urinary tract infection type: site unspecified Hematuria presence: with h ematuria Qualified Code(s): N39.0 - Urinary tract infection, site not specified; R31.9 - Hematuria, unspecified Condition: Stable Disposition: HOME, SELF-CARE Instructions: Urinary Tract Infection ([facility]) Additional Instructions: Your are being treated for pelvic inflammatory disease. You are being started on 2 different antibiotics and you need to take these until you finish them. Please return if you have worsening pain, persistent vomiting, spike a fever greater than 101F, or have any other symptoms that are concerning to you. Please follow with PATIENT APPOINTMENT COORDINATOR in 2 weeks after you finish your antibiotics. Your urine shows findings consistent with a urinary tract infection. Please take all the antibiotics as directed even if your symptoms have improved. Please follow-up with your primary care physician as needed. Return to emergency room if you develop fever >101F, persistent vomiting, become lethargic, have severe pain in your sides, or any other symptoms that are concerning to you. Please take Tylenol 1000 mg and ibuprofen 600 mg every 6 hours for your pain. Prescriptions: Doxycycline Hyclate 100 mg PO BID #28 capsule Metronidazole [Flagyl 500 mg Tablet] 500 mg PO Q6H #28 tablet Forms: Return to Work Referrals: [facility] [Primary Care Provider] - Follow up as needed JORDAN LIN MD [ACTIVE PROVISIONAL STAFF] - 07/14/19
[2019-06-29 16:34] LABS: ABSOLUTE EOSINOPHILS # (AUTO) 0.1 10^3/uL (0.0-0.6); ABSOLUTE LYMPHOCYTES (AUTO) 2.5 10^3/uL (0.5-4.7); ABSOLUTE MONOCYTES (AUTO) 0.6 10^3/uL (0.1-1.4); ABSOLUTE NEUT (AUTO) 4.5 10^3/uL (1.7-8.2); BASOPHILS % (AUTO) 0.4 % (0-2); EOSINOPHILS % (AUTO) 0.7 % (0-6); HEMATOCRIT 38.1 % (36.0-47.0); HEMOGLOBIN 12.2 g/dL (12.0-15.5); MEAN CORPUSCULAR HGB CONC 31.9 g/dL (32.0-36.0); MEAN CORPUSCULAR VOLUME 75 fl (80-97); MONOCYTES % (AUTO) 7.7 % (3-13); PLATELET COUNT 145 10^3/uL (150-450); RED BLOOD COUNT 5.05 10^6/uL (3.72-5.28); RED CELL DISTRIBUTION WIDTH 19.6 % (11.5-14.0); SEGMENTED NEUTROPHILS % (AUTO) 58.2 % (42-78); TOTAL CELLS COUNTED % (AUTO) 100 %; WHITE BLOOD COUNT 7.7 10^3/uL (4.0-10.5)
[2019-06-29 16:42] LABS: ALBUMIN 4.2 g/dL (3.5-5.0); ALKALINE PHOSPHATASE 126 U/L (38-126); ANION GAP 10 (5-19); ASPARTATE AMINO TRANSFERASE 53 U/L (14-36); BILIRUBIN,DIRECT 0.2 mg/dL (0.0-0.4); BILIRUBIN,TOTAL 0.7 mg/dL (0.2-1.3); BLOOD UREA NITROGEN 16 mg/dL (7-20); CALCIUM 9.7 mg/dL (8.4-10.2); CARBON DIOXIDE 31 mmol/L (22-30); CHLORIDE 99 mmol/L (98-107); GLUCOSE 137 mg/dL (75-110); POTASSIUM 3.8 mmol/L (3.6-5.0); TOTAL PROTEIN 8.3 g/dL (6.3-8.2)
[2019-06-29] MEDS ORDERED: FENTANYL CITRATE INJ/PF 100 MCG/2 ML AMPUL IV ONE (16:59)
[2019-06-29 17:35] LABS: APPEARANCE,URINE SLIGHTLY-CLOUDY; BILIRUBIN,URINE NEGATIVE (NEGATIVE); GLUCOSE, URINE NEGATIVE (NEGATIVE); KETONES,URINE NEGATIVE (NEGATIVE); LEUKOCYTE ESTERASE,URINE NEGATIVE (NEGATIVE); NITRITE,URINE NEGATIVE (NEGATIVE); PROTEIN,URINE 100 mg/dL (NEGATIVE); UROBILINOGEN,URINE NEGATIVE mg/dL (<2.0)
[2019-06-29 17:36] LABS: COLOR,URINE YELLOW
[2019-06-29] MEDS ORDERED: HYDROMORPHONE HCL INJ/PF 2 MG/ML AMPULE IV ONE (17:52)
[2019-06-29 18:40] LABS: RBCS (WET MOUNT) 4+ RBCS SEEN; T.VAGINALIS (WET MOUNT) NO TRICHOMONAS SEEN; WBCS (WET MOUNT) 1+ WBCS SEEN; YEAST (WET MOUNT) NO YEAST SEEN
[2019-06-29 18:42] LABS: BACTERIA (WET MOUNT) 3+ BACTERIA SEEN
[2019-06-29] MEDS ORDERED: CEFTRIAXONE 1 GM/D5W RTU 1 GM/50 ML RTUPB IV ONE (18:50)
[2019-06-29] MEDS: CEFTRIAXONE INJ 1000 MG VIAL IV ONE ×2 (18:55→19:35)
--- NOTE | 2019-06-29 19:31 | RADIOLOGY REPORT (SQ) ---
EXAM DESCRIPTION: U/S NON OB PEL TV W/DOPPLER COMPLETED DATE/TIME: 06/29/2019 7:12 pm REASON FOR STUDY: pelvic pain COMPARISON: None. TECHNIQUE: Dynamic and static grayscale images acquired of the pelvis via transvaginal approach and recorded on PACS. Additional selected color Doppler and spectral images recorded. LIMITATIONS: None. FINDINGS: UTERUS: Hypoechoic, nonvascular circumscribed mass within the posterior lower uterine segm ent measuring 1.7 x 1.4 x 1.1 cm. ENDOMETRIAL STRIPE: No focal or generalized thickening. No masses. CERVIX: Nabothian cyst. RIGHT OVARY AND DOPPLER: Ovary not visualized. No adnexal mass. LEFT OVARY AND DOPPLER: Ovary not visualized. No adnexal mass. FREE FLUID: None noted. OTHER: No other significant finding. MEASUREMENTS: UTERUS: 8.9 x 5.2 x 5 cm ENDOMETRIAL STRIPE: 13 mm RIGHT OVARY: Not visualized. LEFT OVARY: Not visualized. IMPRESSION: Hypoechoic, nonvascular mass within the posterior lower uterine segment measuring 1.7 cm likely representing an intramural fibroid. Nonvisualization of the ovaries. No adnexal mass or free fluid. TECHNICAL DOCUMENTATION: JOB ID: [id number]- All Rights Reserved Rev Reading location - IP/workstation name: [email or web address]
[2019-06-29 19:42] LABS: CHLAM PCR NOT DETECTED (NOT DETECT)
[2019-06-29 19:58] VITALS: BP 127/63
== END 2019-06-29 20:11 | disposition home or self-care (01) ==
LOC: ER 14:53
DX: N73.9 Female pelvic inflammatory disease, unspecified (principal); D25.9 Leiomyoma of uterus, unspecified; N39.0 Urinary tract infection, site not specified; R31.9 Hematuria, unspecified; R11.2 Nausea with vomiting, unspecified; F17.200 Nicotine dependence, unspecified, uncomplicated; I10 Essential (primary) hypertension; E10.9 Type 1 diabetes mellitus without complications; Z79.4 Long term (current) use of insulin; Z88.8 Allergy status to other drugs, medicaments and biological substances; Z88.1 Allergy status to other antibiotic agents; Z88.6 Allergy status to analgesic agent; Z88.5 Allergy status to narcotic agent
CPT/HCPCS: 99284; 96361; 96374; 96375; 36415; 87210; 83690; 84703; 85025; 80053; 81001; 87491; 87591; 76830; 93976; J3010; J3490; J1170; J0696; J2405; J7030

== ENCOUNTER 2019-07-20 13:33 | Emergency (ER) | payer OTHER ==
[2019-07-20 13:58] VITALS: BP 127/72
--- NOTE | 2019-07-20 15:20 | ER Document Report ---
ED Medical Screen (RME) - General Chief Complaint: High Blood Sugar Stated Complaint: BLOOD SUGAR PROBLEMS Time Seen by Provider: 07/20/19 15:13 Primary Care Provider: [facility] MELANIE,CYNDY [Primary Care Provider] - Follow up as needed Mode of Arrival: Ambulatory Information source: Patient Notes: 48-year-old female with history of diabetes and possibly diverticulitis presents emergency department with complaints of vomiting for the past 3 days with left- sided abdominal pain. She reports she had these pains approximately 1 month ago and they treated her for an infection in her intestines with Flagyl and Cipro. She reports the Flagyl made her really really sick so her doctor took her off the Flagyl and she finished the Cipro. Patient reports last bowel movement 4 days ago. Complains of abdominal swelling. Patient is drinking unsweetened tea. Reports this is the first fluid she has been able to hold down. Reports her blood glucose is been in the high 300s. Declines [facility] medicine. I have greeted and performed a rapid initial assessment of this patient. A comprehensive ED assessment and evaluation of the patient, analysis of test resu lts and completion of the medical decision making process will be conducted by additional ED providers. TRAVEL OUTSIDE OF THE [place] 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 Renal/ Medical History: Denies: Hx Peritoneal Dialysis GI Medical History: Reports: Hx CirrhosisComment Only: 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 Skin Medical History: Reports Hx MRSA Psychiatric Medical History: Reports: Hx Depression Infectious Medical History: Reports: Hx MRSA Past Surgical History: Reports: Hx Tonsillectomy, Hx Tubal Ligation - Immunizations Hx Diphtheria, Pertussis, Tetanus Vaccination: Yes Physical Exam - Vital signs Vitals: Temp Pulse Resp BP Pulse Ox 97.8 F 104 H 18 127/72 H 98 07/20/19 13:56 01/08/20 13:56 07/20/19 13:56 07/20/19 13:56 07/20/19 13:56 Course - Vital Signs Vital signs: Temp Pulse Resp BP Pulse Ox 97.8 F 104 H 18 127/72 H 98 07/20/19 13:56 07/20/19 13:56 07/20/19 13:56 07/20/19 13:56 07/20/19 13:56 Doctor's Discharge - Discharge Referrals: [facility] [Primary Care Provider] - Follow up as needed
[2019-07-20 16:23] LABS: ABSOLUTE EOSINOPHILS # (AUTO) 0.1 10^3/uL (0.0-0.6); ABSOLUTE LYMPHOCYTES (AUTO) 1.6 10^3/uL (0.5-4.7); ABSOLUTE MONOCYTES (AUTO) 0.5 10^3/uL (0.1-1.4); ABSOLUTE NEUT (AUTO) 3.1 10^3/uL (1.7-8.2); BASOPHILS % (AUTO) 0.9 % (0-2); EOSINOPHILS % (AUTO) 1.6 % (0-6); HEMATOCRIT 34.7 % (36.0-47.0); LYMPHOCYTES % (AUTO) 30.4 % (13-45); MEAN CORPUSCULAR HEMOGLOBIN 23.9 pg (27.0-33.4); MEAN CORPUSCULAR HGB CONC 31.6 g/dL (32.0-36.0); MEAN CORPUSCULAR VOLUME 76 fl (80-97); MONOCYTES % (AUTO) 9.7 % (3-13); PLATELET COUNT 114 10^3/uL (150-450); RED BLOOD COUNT 4.59 10^6/uL (3.72-5.28); RED CELL DISTRIBUTION WIDTH 18.7 % (11.5-14.0); SEGMENTED NEUTROPHILS % (AUTO) 57.4 % (42-78); TOTAL CELLS COUNTED % (AUTO) 100 %; WHITE BLOOD COUNT 5.4 10^3/uL (4.0-10.5)
[2019-07-20 16:40] LABS: ALBUMIN 4.1 g/dL (3.5-5.0); ALKALINE PHOSPHATASE 113 U/L (38-126); ANION GAP 12 (5-19); ASPARTATE AMINO TRANSFERASE 50 U/L (14-36); BILIRUBIN,DIRECT 0.2 mg/dL (0.0-0.4); BILIRUBIN,TOTAL 0.5 mg/dL (0.2-1.3); BLOOD UREA NITROGEN 12 mg/dL (7-20); CALCIUM 9.5 mg/dL (8.4-10.2); CARBON DIOXIDE 25 mmol/L (22-30); CHLORIDE 101 mmol/L (98-107); GLUCOSE 166 mg/dL (75-110); POTASSIUM 3.9 mmol/L (3.6-5.0); TOTAL PROTEIN 8.1 g/dL (6.3-8.2)
[2019-07-20 18:40] LABS: APPEARANCE,URINE CLOUDY; BILIRUBIN,URINE NEGATIVE (NEGATIVE); COLOR,URINE YELLOW; GLUCOSE, URINE >=500 mg/dL (NEGATIVE); KETONES,URINE NEGATIVE (NEGATIVE); LEUKOCYTE ESTERASE,URINE SMALL (NEGATIVE); NITRITE,URINE NEGATIVE (NEGATIVE); PROTEIN,URINE NEGATIVE (NEGATIVE); URINE SPECIFIC GRAVITY 1.024; UROBILINOGEN,URINE NEGATIVE mg/dL (<2.0)
== END 2019-07-20 23:40 | disposition left against medical advice (07) ==
LOC: ER 13:33
DX: Z53.21 Procedure and treatment not carried out due to patient leaving prior to being seen by health care provider (principal); R10.9 Unspecified abdominal pain; R11.10 Vomiting, unspecified; R19.00 Intra-abdominal and pelvic swelling, mass and lump, unspecified site; Z79.899 Other long term (current) drug therapy; I10 Essential (primary) hypertension; E10.9 Type 1 diabetes mellitus without complications; Z79.4 Long term (current) use of insulin
CPT/HCPCS: 36415; 80053; 81001; 83690; 85025; 99281

== ENCOUNTER 2019-07-30 12:39 | Emergency (ER) | payer MEDICAID, OTHER ==
[2019-07-30] MEDS ORDERED: ONDANSETRON HCL INJ/PF 4 MG/2 ML SDV IV ONE (12:51)
[2019-07-30] MEDS ORDERED: NORMAL SALINE 1000 ML 1,000 ML IV ONE (12:51)
--- NOTE | 2019-07-30 12:54 | ER Document Report ---
ED Medical Screen (RME) - General Chief Complaint: Vomiting Stated Complaint: VOMITING Time Seen by Provider: 07/30/19 12:45 Primary Care Provider: [facility] [Primary Care Provider] - Follow up as needed Information source: Patient Notes: Patient presents complaining of left-sided abdominal pain for the past week with nausea and vomiting. Patient also reports chills although denies any fever. Patient states that she was treated for a bowel infection with Cipro previously although reports having a reaction to Flagyl. Patient is an insulin-dependent diabetic and reports her blood sugar was over 200 at home today. Patient also reports a history of cirrhosis. I have greeted and performed a rapid initial assessment of this patient. A comprehensive ED assessment and evaluation of the patient, analysis of test results and completion of the medical decision making process will be conducted by additional ED providers. TRAVEL OUTSIDE OF THE [place] 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 Renal/ Medical History: Denies: Hx Peritoneal Dialysis GI Medical History: Reports: Hx CirrhosisComment Only: 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 Skin Medical History: Reports Hx MRSA Psychiatric Medical History: Reports: Hx Depression Infectious Medical History: Reports: Hx MRSA Past Surgical History: Reports: Hx Tonsillectomy, Hx Tubal Ligation - Immunizations Hx Diphtheria, Pertussis, Tetanus Vaccination: Yes Physical Exam - Vital signs Vitals: Temp Pulse Resp BP Pulse Ox 98.1 F 106 H 16 116/74 100 07/30/19 12:42 07/30/19 12:42 07/30/19 12:42 07/30/19 12:42 07/30/19 12:42 - General General appearance: Appears well, Alert Notes: Left side abdominal pain, left flank pain Course - Vital Signs Vital signs: Temp Pulse Resp BP Pulse Ox 98.1 F 106 H 16 116/74 100 07/30/19 12:42 07/30/19 12:42 07/30/19 12:42 07/30/19 12:42 07/30/19 12:42 Doctor's Discharge - Discharge Referrals: [facility] [Primary Care Provider] - Follow up as needed
[2019-07-30 13:26] LABS: ABSOLUTE EOSINOPHILS # (AUTO) 0.1 10^3/uL (0.0-0.6); ABSOLUTE LYMPHOCYTES (AUTO) 1.2 10^3/uL (0.5-4.7); ABSOLUTE MONOCYTES (AUTO) 0.3 10^3/uL (0.1-1.4); ABSOLUTE NEUT (AUTO) 2.8 10^3/uL (1.7-8.2); BASOPHILS % (AUTO) 0.7 % (0-2); EOSINOPHILS % (AUTO) 1.5 % (0-6); LYMPHOCYTES % (AUTO) 27.8 % (13-45); MEAN CORPUSCULAR HEMOGLOBIN 23.7 pg (27.0-33.4); MEAN CORPUSCULAR HGB CONC 31.3 g/dL (32.0-36.0); MEAN CORPUSCULAR VOLUME 76 fl (80-97); MONOCYTES % (AUTO) 7.5 % (3-13); PLATELET COUNT 126 10^3/uL (150-450); RED BLOOD COUNT 4.62 10^6/uL (3.72-5.28); RED CELL DISTRIBUTION WIDTH 17.8 % (11.5-14.0); SEGMENTED NEUTROPHILS % (AUTO) 62.5 % (42-78); TOTAL CELLS COUNTED % (AUTO) 100 %; WHITE BLOOD COUNT 4.5 10^3/uL (4.0-10.5)
[2019-07-30 13:29] LABS: VENOUS BLOOD BASE EXCESS 2.8 mmol/L; VENOUS BLOOD HCO3 28.9 mmol/L (20-32); VENOUS BLOOD PCO2 50.6 mmHg (35-63); VENOUS BLOOD PH 7.37 (7.30-7.42)
[2019-07-30 13:39] LABS: ALBUMIN 3.8 g/dL (3.5-5.0); ALKALINE PHOSPHATASE 133 U/L (38-126); ANION GAP 10 (5-19); ASPARTATE AMINO TRANSFERASE 77 U/L (14-36); BILIRUBIN,DIRECT 0.3 mg/dL (0.0-0.4); BILIRUBIN,TOTAL 0.8 mg/dL (0.2-1.3); BLOOD UREA NITROGEN 10 mg/dL (7-20); CARBON DIOXIDE 28 mmol/L (22-30); CHLORIDE 99 mmol/L (98-107); GLUCOSE 283 mg/dL (75-110); POTASSIUM 4.1 mmol/L (3.6-5.0); TOTAL PROTEIN 7.8 g/dL (6.3-8.2)
--- NOTE | 2019-07-30 13:57 | ER Document Report ---
ED GI/ - General Chief Complaint: Abdominal Pain Stated Complaint: VOMITING Time Seen by Provider: 07/30/19 12:45 Primary Care Provider: [facility] [Primary Care Provider] - Follow up as needed Notes: CHIEF COMPLAINT: 1 month of abdominal pain and vomiting HPI: 48-year-old insulin-dependent diabetic female presenting for 1 month of episodes of abdominal pain and vomiting. Patient states she has been seen both by her PCP and the ER several times for this complaint. States she had a CT scan a month ago for similar complaints. Patient states that she was placed on a course of Flagyl which she had a reaction to and then Cipro for 10 days approximately 3 weeks ago for her complaints of abdominal pain that she was told she had an intestinal infection by her PCP. Patient states she began having nausea vomiting again yesterday, no diarrhea states she has constipation. No fever. Patient states she did take her insulin this morning. She takes Lantus 30 units in the morning 75 units at night and takes sliding scale throughout the day. She has not on medication for nausea at home. She denies dysuria. Has not yet seen gastroenterology for follow-up of her 1 month of similar complaints ROS: See HPI - all other systems were reviewed and are otherwise negative Constitutional: no fever Eyes: no drainage, no blurred vision ENT: no runny nose, no sore throat Cardiovascular: no chest pain Resp: no SOB, no cough GI: + vomiting, no diarrhea, + abdominal pain : no dysuria Integumentary: no rash Allergy: no hives Musculoskeletal: no extremity pain or swelling Neurological: no numbness/tingling, no weakness MEDICATIONS: I agree with the patient medications as charted by the RN. ALLERGIES: I agree with the allergies as charted by the RN. PAST MEDICAL HISTORY/PAST SURGICAL HISTORY: Reviewed and agree as charted by RN. SOCIAL HISTORY: Reviewed and agree as charted by RN. FAMILY HISTORY: No significant familial comorbid conditions directly related to patient complaint EXAM: Reviewed vital signs as charted by RN. CONSTITUTIONAL: Alert and oriented and responds appropriately to questions. Well-appearing; well-nourished, no acute distress HEAD: Normocephalic; atraumatic EYES: PERRL; Conjunctivae clear, sclerae non-icteric ENT: normal nose; no rhinorrhea; moist mucous membranes; pharynx without lesions noted, no uvula edema or deviation, no tonsillar hypertrophy, phonation normal NECK: Supple without meningismus; non-tender; no cervical lymphadenopathy, no masses CARD: RRR; no murmurs, no clicks, no rubs, no gallops; symmetric distal pulses RESP: Normal chest excursion without splinting or tachypnea; breath sounds clear and equal bilaterally; no wheezes, no rhonchi, no rales, pulse oximetry 100% on room air not hypoxic ABD/GI: Normal bowel sounds; non-distended; soft, mild tenderness through the left lateral abdomen on palpation, no rebound, no guarding; no palpable organomegaly or masses. BACK: The back appears normal and is non-tender to palpation, there is no CVA tenderness EXT: Normal ROM in all joints; non-tender to palpation; no cyanosis, no effus ions, no edema SKIN: Normal color for age and race; warm; dry; good turgor; no acute lesions noted NEURO: Moves all extremities equally; Motor and sensory function intact PSYCH: The patient's mood and manner are appropriate. Grooming and personal hygiene are appropriate. MDM: 48-year-old female presenting for 1 month of vomiting episodes with abdominal pain mostly in the left lower quadrant region also with acid reflux type symptoms. States symptoms began again yesterday. Initial screening lab work drawn by triage protocol does not show that patient is in DKA. Her pH is normal. Her CO2 is normal. She has mild tenderness in the left lateral abdomen on palpation but states she recently finished Cipro. On review of her records she has always had normal lab work here on her multiple visits here in the last month. She did have CT imaging approximately 1 month ago which suggested c onstipation but no other acute findings. Ultrasound that was done 3 weeks ago in the ER suggested a small uterine fibroid. Patient has no complaints of fever. She has a normal WBC count here today. I will obtain a KUB to evaluate for possible constipation as a source of the patient's discomfort. I have low suspicion for acute sepsis at this time given her presentation TRAVEL OUTSIDE OF THE [place] IN LAST 30 DAYS: No - Related Data Allergies/Adverse Reactions: celecoxib [From Celebrex] Allergy (Verified 07/20/19 15:18) erythromycin base [Erythromycin Base] Allergy (Verified 07/20/19 15:18) Hives metronidazole [From Flagyl] Allergy (Verified 07/20/19 15:18) oxycodone HCl [From Percocet] Allergy (Verified 07/20/19 15:18) Past Medical History - General Information source: Patient - Social History Smoking Status: Never Smoker Chew tobacco use (# tins/day): No Frequency of alcohol use: Occasional Drug Abuse: None Family History: DM, Malignancy, Other - cirrhosis Patient has suicidal ideation: No Patient has homicidal ideation: No - Past Medical History Cardiac Medical History: Reports: Hx Hypercholesterolemia, Hx Hypertension Denies: Hx Coronary Artery Disease, Hx Heart Attack Endocrine Medical History: Reports: 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 Renal/ Medical History: Denies: Hx Peritoneal Dialysis GI Medical History: Reports: Hx CirrhosisComment Only: 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 Her symptoms have been ongoing for approximately a month. She did finish antibiotics, I have low suspicion for an abscess at this time given lack of fever, lack of a significant leukocytosis. Patient likely has reflux, constipation. She will need to be on Protonix, MiraLAX, Bentyl. I will also place her on Zofran for her nausea vomiting complaints. I spoke with the patient at length about this. She is comfortable with this plan. Aware that we are not obtaining CT imaging today but if her sy mptoms worsen or progress or she becomes febrile she should return for reevaluation and possible additional imaging studies at aware that she likely needs to follow-up closely with GI - Vital Signs Vital signs: Temp Pulse Resp BP Pulse Ox 98.1 F 106 H 16 116/74 100 07/30/19 12:42 07/30/19 12:42 07/30/19 12:42 07/30/19 12:42 07/30/19 12:42 - Laboratory Result Diagrams: 07/30/19 13:08 07/30/19 13:08 Laboratory results interpreted by me: 07/30/19 07/30/19 07/30/19 13:08 13:08 14:45 Hgb 11.0 L Hct 35.0 L MCV 76 L MCH 23.7 L MCHC 31.3 L RDW 17.8 H Plt Count 126 L Sodium 136.9 L Glucose 283 H AST 77 H Alkaline Phosphatase 133 H Urine Protein 100 H Urine Glucose (UA) >=500 H Urine Blood LARGE H Urine Ascorbic Acid 20 H Discharge - Discharge Clinical Impression: Abdominal pain, LLQ, Hyperglycemia Vomiting Qualifiers: Vomiting type: unspecified Vomiting Intractability: non-intractable Nausea presence: with nausea Qualified Code(s): R11.2 - Nausea with vomiting, unspecified Constipation Qualifiers: Constipation type: unspecified constipation type Qualified Code(s): K59.00 - Constipation, unspecified Condition: Stable Disposition: HOME, SELF-CARE Additional Instructions: Take Protonix for Reflux symptoms. Take Bentyl for abdominal pain and spasm. Take MiraLAX for constipation. Take Zofran for nausea or vomiting. It is important that you follow-up with a latex thread machine operator for further evaluation of your ongoing abdominal pain and vomiting symptoms. Your lab work did not show acute emergent abnormalities today. If you develop a fever greater than 101 or have worsening symptoms return for reevaluation. Prescriptions: Dicyclomine HCl [Bentyl 20 mg Tablet] 20 mg PO TID PRN #10 tablet PRN Reason: Polyethylene Glycol 3350 [Miralax] 1 cap PO DAILY #527 powder Pantoprazole Sodium [Protonix [address] Tablet] 20 mg PO QAM #30 tablet.dr Ondansetron [Zofran Odt 4 mg Tablet] 1 - 2 tab PO Q4H PRN #15 tab.rapdis PRN Reason: For Nausea/Vomiting [facility]: [facility] [Primary [facility] Provider] - Follow up as needed
--- NOTE | 2019-07-30 14:35 | RADIOLOGY REPORT (SQ) ---
EXAM DESCRIPTION: KUB/ABDOMEN (SINGLE VIEW) COMPLETED DATE/TIME: 07/30/2019 2:15 pm REASON FOR STUDY: LLQ pain COMPARISON: Abdominal series 07/25/2017. CT abdomen and pelvis 06/21/2019. NUMBER OF VIEWS: One view. TECHNIQUE: Supine radiographic image of the abdomen acquired. LIMITATIONS: None. FINDINGS: BOWEL GAS PATTERN: Nonobstructive bowel gas pattern. No dilated loops. Moderate amount of stool is noted at the ascending colon. CALCIFICATIONS: No suspicious calcifications. SOFT TISSUES: No gross mass or suggestion of organomegaly. HARDWARE: Radiopaque densities overlying the upper abdomen are probably representing superimpose clot juli. Linear radiopaque density at the umbilical region may correspond to patient's known piercing. BONES: No acute findings. IMPRESSION: Nonobstructive bowel gas pattern. Moderate amount of stool at the ascending colon. TECHNICAL DOCUMENTATION: JOB ID: [id number] [employer]- All Rights Reserved Reading location - IP/workstation name: [email or web address]
[2019-07-30 15:14] LABS: APPEARANCE,URINE CLOUDY; BILIRUBIN,URINE NEGATIVE (NEGATIVE); COLOR,URINE RED; GLUCOSE, URINE >=500 mg/dL (NEGATIVE); KETONES,URINE NEGATIVE (NEGATIVE); LEUKOCYTE ESTERASE,URINE NEGATIVE (NEGATIVE); NITRITE,URINE NEGATIVE (NEGATIVE); PROTEIN,URINE 100 mg/dL (NEGATIVE); URINE SPECIFIC GRAVITY 1.028; UROBILINOGEN,URINE NEGATIVE mg/dL (<2.0)
[2019-07-30 16:32] VITALS: BP 130/78
== END 2019-07-30 16:32 | disposition home or self-care (01) ==
LOC: ER 12:39
DX: R10.32 Left lower quadrant pain (principal); R11.2 Nausea with vomiting, unspecified; K59.00 Constipation, unspecified; E10.9 Type 1 diabetes mellitus without complications; Z79.4 Long term (current) use of insulin; Z88.3 Allergy status to other anti-infective agents; E78.00 Pure hypercholesterolemia, unspecified; I10 Essential (primary) hypertension; Z86.14 Personal history of Methicillin resistant Staphylococcus aureus infection; Z98.51 Tubal ligation status
CPT/HCPCS: 99284; 96361; 96374; 36415; 83690; 85025; 80053; 81001; 82803; 74018; J2405; J7030

== ENCOUNTER 2020-01-19 10:26 | Emergency (ER) | payer SELFPAY ==
[2020-01-19 10:32] VITALS: BP 146/77
--- NOTE | 2020-01-19 10:41 | ER Document Report ---
HPI - HPI Patient complains to provider of: Tooth ache Time Seen by Provider: 01/19/20 10:35 Onset: Last week Quality of pain: Achy, Sharp Pain Level: 3 Associated Symptoms: None Exacerbated by: Food Relieved by: Denies Similar symptoms previously: Yes - Poor dentition - REPRODUCTIVE Reproductive: DENIES: : Past Medical History - General Information source: Patient - Social History Smoking Status: Current Every Day Smoker Cigarette use (# per day): Yes - 20 Chew tobacco use (# tins/day): No Smoking Education Provided: Yes Frequency of alcohol use: Occasional Drug Abuse: None Lives with: Family Family History: DM, Malignancy, Other - cirrhosis - Past Medical History Cardiac Medical History: Reports: Hx Hypercholesterolemia, Hx Hypertension Denies: Hx Coronary Artery Disease, Hx Heart Attack Endocrine Medical History: Reports: 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 IN LAST 30 DAYS: No - HEENT HEENT: Atraumatic, Conjuctival Injection, Normocephalic, PERRLA Notes: Poor dentition throughout the oral cavity severe decay most notably in the left upper molar. - NECK Neck: Normal Inspection - RESPIRATORY Respiratory: Breath Sounds Normal - CARDIOVASCULAR Cardiovascular: Regular Rate - GI/ABDOMEN Gastrointestinal: Abdomen Soft, Abdomen Non-Tender - BACK Back: Normal Inspection - MUSCULOSKELETAL/EXTREMETIES Musculoskeletal/Extremeties: MAEW - NEURO Level of Consciousness: Awake, Alert - DERM Integumentary: Warm Course - Re-evaluation Re-evalutation: 01/19/20 10:39 No difficulty breathing no difficulty swallowing No trismus no oral floor induration patient is able to manage her own secretions and saliva. - Vital Signs Vital signs: Temp Pulse Resp BP Pulse Ox 98.6 F 90 17 146/77 H 100 01/19/20 10:31 01/19/20 10:31 01/19/20 10:31 01/19/20 10:31 01/19/20 10:31 Discharge - Discharge Clinical Impression: Dentalgia Condition: Good Disposition: HOME, SELF-CARE Instructions: [facility], Penicillin V K ([facility]), Toothache ([facility]) Prescriptions: Naproxen Sodium [Naproxen Sodium ER] 500 mg PO Q12 PRN #20 tablet.sa PRN Reason: Penicillin V Potassium [Penicillin Vk 500 mg Tablet] 500 mg PO BID #20 tablet Referrals: [facility] [Primary Care Provider] - Follow up as needed
== END 2020-01-19 10:52 | disposition home or self-care (01) ==
LOC: ER 10:26
DX: K08.89 Other specified disorders of teeth and supporting structures (principal); F17.210 Nicotine dependence, cigarettes, uncomplicated; I10 Essential (primary) hypertension; E10.9 Type 1 diabetes mellitus without complications; Z79.4 Long term (current) use of insulin
CPT/HCPCS: 99282

== ENCOUNTER → 2020-05-18 | Outpatient (CLI) | payer OTHER ==
[2020-05-18 09:55] LABS: ABSOLUTE EOSINOPHILS # (AUTO) 0.1 10^3/uL (0.0-0.6); ABSOLUTE LYMPHOCYTES (AUTO) 0.8 10^3/uL (0.5-4.7); ABSOLUTE MONOCYTES (AUTO) 0.4 10^3/uL (0.1-1.4); ABSOLUTE NEUT (AUTO) 1.7 10^3/uL (1.7-8.2); BASOPHILS % (AUTO) 1.1 % (0-2); EOSINOPHILS % (AUTO) 2.9 % (0-6); HEMATOCRIT 32.6 % (36.0-47.0); HEMOGLOBIN 10.6 g/dL (12.0-15.5); LYMPHOCYTES % (AUTO) 27.8 % (13-45); MEAN CORPUSCULAR HEMOGLOBIN 25.5 pg (27.0-33.4); MEAN CORPUSCULAR HGB CONC 32.5 g/dL (32.0-36.0); MEAN CORPUSCULAR VOLUME 79 fl (80-97); RED BLOOD COUNT 4.15 10^6/uL (3.72-5.28); RED CELL DISTRIBUTION WIDTH 18.2 % (11.5-14.0); SEGMENTED NEUTROPHILS % (AUTO) 56.2 % (42-78); TOTAL CELLS COUNTED % (AUTO) 100 %
[2020-05-18 09:58] LABS: APPEARANCE,URINE SLIGHTLY-CLOUDY; BILIRUBIN,URINE NEGATIVE (NEGATIVE); COLOR,URINE YELLOW; GLUCOSE, URINE >=500 mg/dL (NEGATIVE); KETONES,URINE NEGATIVE (NEGATIVE); LEUKOCYTE ESTERASE,URINE NEGATIVE (NEGATIVE); NITRITE,URINE NEGATIVE (NEGATIVE); PROTEIN,URINE NEGATIVE (NEGATIVE); URINE SPECIFIC GRAVITY 1.015
[2020-05-18 10:15] LABS: PLATELET COUNT 70 10^3/uL (150-450)
[2020-05-18 10:18] LABS: ALBUMIN 3.7 g/dL (3.5-5.0); ALKALINE PHOSPHATASE 142 U/L (38-126); ANION GAP 8 (5-19); ASPARTATE AMINO TRANSFERASE 62 U/L (14-36); BILIRUBIN,DIRECT 0.1 mg/dL (0.0-0.4); BILIRUBIN,TOTAL 0.5 mg/dL (0.2-1.3); BLOOD UREA NITROGEN 8 mg/dL (7-20); CALCIUM 8.8 mg/dL (8.4-10.2); CARBON DIOXIDE 28 mmol/L (22-30); CHLORIDE 100 mmol/L (98-107); CHOLESTEROL 161.68 mg/dL (0-200); GLUCOSE 273 mg/dL (75-110); POTASSIUM 4.3 mmol/L (3.6-5.0); TOTAL PROTEIN 7.2 g/dL (6.3-8.2)
[2020-05-18 10:28] LABS: TRIGLYCERIDES 233 mg/dL (<150); VLDL CHOLESTEROL 46.6 mg/dL (10-31)
[2020-05-18 10:33] LABS: UR PRO/CREAT RATIO RESULT 0.1 mg/mg (0.0-0.2); URINE CREATININE 89.7 mg/dL (15-278); URINE PROTEIN 7.8 mg/dL (<12)
[2020-05-18 10:37] LABS: DIRECT LDL 76 mg/dL (<100)
== END ==
LOC: CCC 08:57
PROVIDERS: ATTEND Family Medicine
DX: Z13.9 Encounter for screening, unspecified (principal)
CPT/HCPCS: 36415; 80053; 80061; 81001; 82570; 83036; 84156; 84443; 85025